=== PATIENT | male | born 1955 ===

== ENCOUNTER 2017-05-29 09:08 | Day surgery (SDC) | payer OTHER ==
[2017-05-29 09:45] VITALS: BMI 18.5
[2017-05-29] MEDS ORDERED: Lidocaine Hydrochloride 5 ML INJ ONE (12:02)
[2017-05-29] MEDS ORDERED: Propofol 10 mg/ml Inj (20 ML) ONE (12:02)
[2017-05-29 12:58] VITALS: RESP 16
[2017-05-29 13:38] VITALS: BP 135/60; PULSE 70; TEMP 99.6; O2SAT 100
== END 2017-05-29 14:05 | disposition home or self-care (01) ==
LOC: C.ENDO 09:08
PROVIDERS: ATTEND Internal Medicine Gastroenterology
DX: D12.7 Benign neoplasm of rectosigmoid junction (principal); K21.0 Gastro-esophageal reflux disease with esophagitis; K44.9 Diaphragmatic hernia without obstruction or gangrene; K64.8 Other hemorrhoids; K57.90 Diverticulosis of intestine, part unspecified, without perforation or abscess without bleeding
CPT/HCPCS: 43239; 45388; 88305; 88312; 88313; 88342; J2704

== ENCOUNTER 2018-06-01 14:01 | Emergency (ER) | payer OTHER ==
[2018-06-01 14:01] VITALS: BMI 18.5
[2018-06-01 14:17] VITALS: BP 157/82; PULSE 102; RESP 20; TEMP 98.5; O2SAT 97
[2018-06-01] MEDS ORDERED: Dexamethasone 4 mg/1 ml IM STA (15:02)
[2018-06-01] MEDS ORDERED: Dexamethasone 4 mg/1 ml ONE (15:15)
--- NOTE | 2018-06-01 15:49 | C.PDOC ---
History Of Present Illness Patient is a 63 year old female, with a PMHx diabetes, who presents to the ED c/o severe throat pain for the past week. Patient states that she went to the clinic 2 days ago and was prescribed antibiotics. She states that she still has pain. Denies drooling, chest pain, SOB. Time Seen by Provider: 06/01/18 14:20 Chief Complaint (Nursing): ENT Problem History Per: Patient History/Exam Limitations: None Onset/Duration Of Symptoms: Days (one week) Current Symptoms Are (Timing): Still Present Symptoms Have Been: Continuous Pain Scale Rating Of: 6 Past Medical History Reviewed: Historical Data, Nursing Documentation, Vital Signs Vital Signs: Last Vital Signs Temp 98.5 F 06/01/18 14:15 Pulse 102 H 06/01/18 14:15 Resp 20 06/01/18 14:15 BP 157/82 H 06/01/18 14:15 Pulse Ox 97 06/01/18 14:15 - Medical History PMH: Gastritis, HTN, Hypercholesterolemia Denies: Colonic Polyps, Fractures, Seizures, Sleep Apnea, TIA Surgical History: Endoscopy Family History: States: No Known Family Hx - Social History Hx Alcohol Use: No Hx Substance Use: No - Immunization History Hx Tetanus Toxoid Vaccination: No Hx Influenza Vaccination: Yes Hx Pneumococcal Vaccination: Yes Review Of Systems Except As Marked, All Systems Reviewed And Found Negative. ENT: Positive for: Throat Pain (severe) Physical Exam - Physical Exam Appears: Non-toxic, No Acute Distress Skin: Normal Color, Warm, Dry, No Rash Head: Atraumatic, Normacephalic Eye(s): bilateral: Normal Inspection, PERRL, EOMI Ear(s): Bilateral: Normal Oral Mucosa: Moist Tongue: Normal Appearing Throat: No Erythema, Other (mildly injected) Neck: Normal ROM, Supple Chest: Symmetrical, No Tenderness Cardiovascular: Rhythm Regular, No Friction Rub, No Murmur Respiratory: Normal Breath Sounds, No Rales, No Rhonchi, No Stridor, No Wheezing Gastrointestinal/Abdominal: Soft, No Tenderness Back: Normal Inspection, No CVA Tenderness Extremity: Normal ROM, No Swelling Neurological/Psych: Oriented x3, Normal Speech, Normal Motor Gait: Steady ED Course And Treatment O2 Sat by Pulse Oximetry: 97 (on RA) Pulse Ox Interpretation: Normal Medical Decision Making Medical Decision Making: Plan: Decadron 8mg IM Toradol 30mg IM On re-exam, the patient reports improvement of symptoms. Lungs are CTA, heart is RRR, abdomen is soft, non-tender and tolerating PO well. Airway is patent. Pt is ambulatory in the ED with steady gait. Follow up with the medical doctor within 1-2 days. Return if worsened. Disposition - Disposition Referrals: [facility] [Outside] [facility] [Outside] Disposition: HOME/ ROUTINE Disposition Time: 15:45 Condition: GOOD Additional Instructions: Follow up with the medical doctor within 1-2 days. Return if worsened. Prescriptions: Ibuprofen [Motrin] 1 tab PO TID PRN #30 tab PRN Reason: Pain Instructions: Sore Throat, Adult (DC) Forms: [employer] (Yoruba) Print Language: MONGOLIAN - Clinical Impression Clinical Impression: Pharyngitis - PA / ENVIRONMENTAL STUDIES DEPARTMENT CHAIR / Resident Statement MD/DO has examined the patient and agrees with the treatment plan. - Scribe Statement The provider has reviewed the documentation as recorded by the Steve Mcleod All medical record entries made by the Shirleneibshelby were at my direction and personally dictated by me. I have reviewed the chart and agree that the record accurately reflects my personal performance of the history, physical exam, medical decision making, and the department course for this patient. I have also personally directed, reviewed, and agree with the discharge instructions and disposition.
== END 2018-06-01 15:59 | disposition home or self-care (01) ==
LOC: C.ER 14:01
DX: J02.9 Acute pharyngitis, unspecified (principal)
CPT/HCPCS: 96372; 99284; J1100; J1885

== ENCOUNTER 2018-06-04 10:16 | Inpatient (IN) | payer OTHER ==
[2018-06-04 10:26] VITALS: BMI 18.1
[2018-06-04] MEDS ORDERED: Dextrose 5%/0.9% NS 1,000 ML IV STA (12:31)
--- NOTE | 2018-06-04 12:49 | RAD ---
HISTORY: dysphagia COMPARISON: None available. TECHNIQUE: Chest, one view. FINDINGS: LUNGS: No focal consolidation. Please note that chest x-ray has limited sensitivity for the detection of pulmonary masses. PLEURA: Mild right pleural effusion or thickening. No definite pneumothorax . CARDIOVASCULAR: Heart size appears within normal limits. Atherosclerotic calcifications present. OSSEOUS STRUCTURES: Degenerative changes. VISUALIZED UPPER ABDOMEN: Mild elevation right hemidiaphragm. OTHER FINDINGS: None. IMPRESSION: Mild right pleural effusion or thickening. Elevation of the right hemidiaphragm.
[2018-06-04] MEDS ORDERED: Dextrose 5%/0.9% NS 1,000 ML IV ONE (13:31)
[2018-06-04 14:07] LABS: BASO % 0.2 % (0.0-2.0); EOS % 0.3 % (0.0-4.0); HEMOGLOBIN 14.6 g/dL (11.0-16.0); LYMPH # 1.6 K/uL (1.0-4.3); LYMPH % 8.5 % (20.0-40.0); MEAN CELL VOLUME 83.8 fL (81.0-99.0); MEAN CORPUSCULAR HGB CONC 34.6 g/dL (33.0-37.0); MEAN PLATELET VOLUME 7.6 fL (7.2-11.7); MONO # 1.3 K/uL (0.0-0.8); MONO % 7.4 % (0.0-10.0); NEUT # 15.2 K/uL (1.8-7.0); NEUT % 83.6 % (50.0-75.0); PLATELET COUNT 457 K/uL (130-400); RBC 5.04 Mil/uL (3.80-5.20); RED CELL DISTRIBUTION WIDTH 12.7 % (11.5-14.5); WHITE BLOOD COUNT 18.2 K/uL (4.8-10.8)
[2018-06-04 14:14] LABS: SQUAMOUS EPITHIAL < 1 /hpf (0-5); URINE BILIRUBIN NEGATIVE (NEGATIVE); URINE BLOOD 1+ (NEGATIVE); URINE CLARITY Clear (Clear); URINE COLOR Yellow (YELLOW); URINE GLUCOSE (UA) NORMAL (Normal); URINE LEUKOCYTE ESTERASE NEG Leu/uL (Negative); URINE PROTEIN NEGATIVE (NEGATIVE); URINE UROBILINOGEN NORMAL mg/dL (0.2-1.0)
[2018-06-04 14:48] LABS: ALB/GLOB RATIO 1.3 (1.0-2.1); ALBUMIN 4.4 g/dL (3.5-5.0); ALT/SGPT 18 U/L (9-52); AMYLASE 63 U/L (30-110); AST/SGOT 23 U/L (14-36); BLOOD UREA NITROGEN 12 mg/dL (7-17); CALCIUM 9.1 mg/dl (8.6-10.4); GFR NON-AFRICAN AMERICAN > 60
[2018-06-04 14:52] LABS: BANDS 1 % (0-2); LYMPHOCYTE 8 % (20-40); MONOCYTE 5 % (0-10); NEUTROPHIL 86 % (50-75); PLATELET ESTIMATE SLIGHTLY INCREASED (NORMAL); TOTAL CELLS COUNTED 100
--- NOTE | 2018-06-04 15:30 | C.PDOC ---
History Of Present Illness 63 y/o female presents to the ER complaining of throat pain and difficulty swallowing which has been present for the past 8-10 days. Patient states that she feels foreign body sensation in her throat.Patient notes that she can't swal low solids. She tried to swallow water but she "choked." She notes that she was evaluated for similar complaint in [place] [facility] on 06/01/18 and she was discharged with abx. However, she states that has not taken the abx because she has difficulty swallowing.Patient is also complaining of subjective fever, generalized weakness ,and weight loss. Denies having CP,SOB,nausea, vomiting, and abdominal pain. <Nadia Maxwell - Last Filed: 06/04/18 18:45> History Per: Patient History/Exam Limitations: no limitations Onset/Duration Of Symptoms: Days Current Symptoms Are (Timing): Still Present Severity: Moderate <Nadia Maxwell - Last Filed: 06/04/18 18:45> <Kianna Chase - Last Filed: 06/04/18 20:30> Time Seen by Provider: 06/04/18 11:03 Chief Complaint (Nursing): ENT Problem Past Medical History Reviewed: Historical Data, Nursing Documentation, Vital Signs Vital Signs: Last Vital Signs Temp 98.7 F 06/04/18 10:20 Pulse 101 H 06/04/18 10:20 Resp 18 06/04/18 10:20 BP 145/77 06/04/18 10:20 Pulse Ox 98 06/04/18 10:20 - Medical History PMH: Gastritis, HTN, Hypercholesterolemia Denies: Colonic Polyps, Fractures, Seizures, Sleep Apnea, TIA Surgical History: Endoscopy Family History: States: No Known Family Hx - Social History Hx Alcohol Use: No Hx Substance Use: No - Immunization History Hx Tetanus Toxoid Vaccination: No Hx Influenza Vaccination: Yes Hx Pneumococcal Vaccination: Yes <Nadia Maxwell - Last Filed: 06/04/18 18:45> Vital Signs: Last Vital Signs Temp 98.7 F 06/04/18 10:20 Pulse 97 H 06/04/18 20:12 Resp 22 06/04/18 20:12 BP 138/69 06/04/18 20:12 Pulse Ox 96 06/04/18 20:12 <Kianna Chase - Last Filed: 06/04/18 20:30> Review Of Systems Except As Marked, All Systems Reviewed And Found Negative. Constitutional: Positive for: Fever (subjective fever), Weakness, Weight loss ENT: Positive for: Throat Pain Gastrointestinal: Negative for: Nausea, Vomiting, Abdominal Pain <Nadia Maxwell - Last Filed: 06/04/18 18:45> Physical Exam - Physical Exam Appears: Non-toxic, No Acute Distress, Chronically Ill, Other (hoarse voice) Skin: Normal Color, Warm, Dry Head: Atraumatic, Normacephalic Eye(s): bilateral: Normal Inspection Nose: Normal Oral Mucosa: Moist Tongue: Normal Appearing, No Lesions Lips: Normal Appearing, No Swelling, No Contusion Gingiva: Normal Appearing Throat: No Erythema, No Exudate, No Drooling, Other (hoarse voice) Neck: Normal ROM, Supple Chest: Symmetrical Cardiovascular: Rhythm Regular Respiratory: Normal Breath Sounds, No Rales, No Rhonchi, No Wheezing Gastrointestinal/Abdominal: Normal Exam, Soft, No Tenderness, No Guarding, No R ebound Extremity: Normal ROM, No Tenderness Neurological/Psych: Oriented x3, Normal Speech, Normal Cognition, Normal Motor, Normal Sensation <Nadia Maxwell - Last Filed: 06/04/18 18:45> ED Course And Treatment - Laboratory Results Result Diagrams: 06/04/18 14:01 06/04/18 14:01 Lab Results: Total Bilirubin 0.8 mg/dL (0.2-1.3) 06/04/18 14:01 AST 23 U/L (14-36) 06/04/18 14:01 ALT 18 U/L (9-52) 06/04/18 14:01 Alkaline Phosphatase 100 U/L (38-126) 06/04/18 14:01 Total Protein 7.7 g/dL (6.3-8.3) 06/04/18 14:01 Albumin 4.4 g/dL (3.5-5.0) 06/04/18 14:01 Globulin 3.3 gm/dL (2.2-3.9) 06/04/18 14:01 Albumin/Globulin Ratio 1.3 (1.0-2.1) 06/04/18 14:01 Amylase 63 U/L (30-110) 06/04/18 14:01 Urine Color Yellow (YELLOW) 06/04/18 14:01 Urine Clarity Clear (Clear) 06/04/18 14:01 Urine pH 7.0 (5.0-8.0) 06/04/18 14:01 Ur Specific [place] 1.011 (1.003-1.030) 06/04/18 14:01 Urine Protein Negative mg/dL (NEGATIVE) 06/04/18 14:01 Urine Glucose (UA) Normal mg/dL (Normal) 06/04/18 14:01 Urine Ketones 1+ mg/dL (NEGATIVE) H 06/04/18 14:01 Urine Blood 1+ (NEGATIVE) H 06/04/18 14:01 Urine Nitrate Negative (NEGATIVE) 06/04/18 14:01 Urine Bilirubin Negative (NEGATIVE) 06/04/18 14:01 Urine Urobilinogen Normal mg/dL (0.2-1.0) 06/04/18 14:01 Ur Leukocyte Esterase Neg Clair/uL (Negative) 06/04/18 14:01 Urine WBC (Auto) 2 /hpf (0-5) 06/04/18 14:01 Urine RBC (Auto) 8 /hpf (0-3) H 06/04/18 14:01 Ur Squamous Epith Cells < 1 /hpf (0-5) 06/04/18 14:01 ECG: Interpreted By Me, Viewed By Me ECG Rhythm: Sinus Rhythm Interpretation Of ECG: NSR with non specific ST/T wave changes Rate From EC O2 Sat by Pulse Oximetry: 98 (RA) Pulse Ox Interpretation: Normal - Other Rad CXR X-Ray: Viewed By Me, Read By Radiologist Interpretation: HISTORY: dysphagia. COMPARISON: None available. TECHNIQUE: Chest, one view. FINDINGS: LUNGS: No focal consolidation. Please note that chest x-ray has limited sensitivity for the detection of pulmonary masses. PLEURA: Mild right pleural effusion or thickening. No definite pneumothorax . CARDIOVASCULAR: Heart size appears within normal limits. Atherosclerotic calcifications present. OSSEOUS STRUCTURES: Degenerative changes. VISUALIZED UPPER ABDOMEN: Mild elevation right hemidiaphragm. OTHER FINDINGS: None. IMPRESSION: Mild right pleural effusion or thickening. Elevation of the right hemidiaphragm. - CT Scan/US CT-Head Other Rad Studies (CT/US): Read By Radiologist, Radiology Report Reviewed CT/US Interpretation: Date of service: 06/04/2018. PROCEDURE: CT HEAD WITHOUT CONTRAST. HISTORY: dysphagia. COMPARISON: None available. TECHNIQUE: Axial computed tomography images were obtained through the head/brain without intravenous contrast. Radiation dose: Total exam DLP = 855.39 mGy-cm. This CT exam was performed using one or more of the following dose reduction techniques: Automated exposure control, adjustment of the mA and/or kV according to patient size, and/or use of iterative reconstruction technique. FINDINGS: HEMORRHAGE: No intracranial hemorrhage. BRAIN: No mass effect or edema. Bilateral basal ganglia calcifications. The ernst-white matter differentiation appears intact. Please note that MRI with diffusion imaging is more sensitive in the detection of acute ischemic event. VENTRICLES: No hydrocephalus. CALVARIUM: Unremarkable. PARANASAL SINUSES: Unremarkable as visualized. No significant inflammatory changes. MASTOID AIR CELLS: Unremarkable as visualized. No inflammatory changes. OTHER FINDINGS: None. IMPRESSION: No acute intracranial pathology identified. CT chest Other Rad Studies (CT/US): Read By Radiologist, Radiology Report Reviewed CT/US Interpretation: Date of service: 06/04/2018. CT chest with IV contrast. Indication: dysphagia, weight loss. Technique: Contiguous axial images were obtained through the chest with intravenous contrast enhancement. Sagittal and coronal reconstructions were generated and reviewed. This CT exam was performed using 1 or more of the following dose reduction techniques: Automated exposure control, adjustment of the MAA and/or kV according to patient size, and/or use of iterative reconstruction technique. IV contrast: 60 mL Visipaque 320 IV. . Radiation dose (DLP): 212.53 MGy-cm. Comparison: Chest x-ray performed 06/04/18. Findings: Visualized portions of the inferior thyroid gland appear unremarkable. The mediastinal and hilar vascular structures appear within normal limits. The heart appears within normal limits of size. Gastroesophageal reflux. No focal consolidation. No pleural effusion. No pneumothorax. Mild tree-in-bud like opacities within the inferior right upper lobe and right lower lobe; infectious/inflammatory etiologies favored. Limited visualization of the included upper abdomen demonstrates nodular hypertrophy of the left adrenal gland, indeterminate. Hepatic steatosis. Scattered diverticula. 7 mm coarse calcifications within the right breast. Degenerative changes of the spine. Impression: Mild tree-in-bud like opacities within the inferior right upper lobe and right lower lobe; infectious/inflammatory etiologies favored. Limited visualization of the included upper abdomen demonstrates nodular hypertrophy of the left adrenal gland, indeterminate. Further evaluation with adrenal gland MRI suggested if indicated. Hepatic steatosis. Scattered diverticula. Gastroesophageal reflux. CT soft tissue neck Other Rad Studies (CT/US): Read By Radiologist, Radiology Report Reviewed CT/US Interpretation: Accession No. : [id number]. Patient Name / ID : BETZAIDA CUMMINGS / [id number]. Exam Date : 06/04/2018 16:44:11 ( Approved ). Study Comment : Sex / Age : F / 63Y. Creator : Bc Todd Dictator : Loco Ribeiro MD. Home School Teacher : Laundry Routeman : Loco Ribeiro MD. Approver2 : Report Date : 06/04/2018 17:05:04. My Comment : . Date of service: 06/04/2018. PROCEDURE: CT NECK WITH CONTRAST. HISTORY: dysphagia, weight loss. COMPARISON: None available. TECHNIQUE: CT of the neck with intravenous contrast. Coronal and sagittal reformats generated. Intravenous contrast dose: 37 cc Visipaque 320. Radiation dose: Total exam DLP = 320.66 mGy-cm. This CT exam was performed using one or more of the following dose reduction techniques: Automated exposure control, adjustment of the mA and/or kV according to patient size, and/or use of iterative reconstruction technique. FINDINGS: NASOPHARYNX: Unremarkable. SUPRAHYOID NECK: Unremarkable oropharynx, oral cavity, parapharyngeal space and retropharyngeal space. INFRAHYOID NECK: Unremarkable larynx, hypopharynx, and supraglottic space. Vocal cords intact. MASS: None. GLANDS: Parotid and submandibular glands unremarkable. Normal size thyroid gland, without nodule. LYMPH NODES: Normal. No lymphadenopathy. CERVICAL SPINE: No fracture or focal lesion. VASCULAR STRUCTURES: Unremarkable. OTHER FINDINGS: Dilated esophagus as visualized. A similar finding was seen on the CT of the thorax performed June 04, 2018. IMPRESSION: No significant or acute findings to account for/ related to the clinical presentation. Additional benign and/or incidental findings described above. Progress Note: Labs, UA,EKG, and CXR ordered. CT-Head, CT-Soft Neck Tissue, and CT-Chest ordered. Patient failed swallow test. Patient has potassium levels 2.3 and Sodium level 119. Patient treated with Dextrose IV and Potassium Chloride IV. liliam ryan was d/w Hospitalist news production supervisor who sts she will accept patient to her service, but she requested ICU evaluation. was contacted. He requested to repeat CMP and based on the result patient will go to ICU or telemetry floor. <Nadia Maxwell - Last Filed: 06/04/18 18:45> - Laboratory Results Result Diagrams: 06/04/18 14:01 06/04/18 19:41 Lab Results: Total Bilirubin 0.7 mg/dL (0.2-1.3) 06/04/18 19:41 AST 19 U/L (14-36) 06/04/18 19:41 ALT 15 U/L (9-52) 06/04/18 19:41 Alkaline Phosphatase 86 U/L (38-126) 06/04/18 19:41 Total Protein 6.6 g/dL (6.3-8.3) 06/04/18 19:41 Albumin 3.7 g/dL (3.5-5.0) 06/04/18 19:41 Globulin 2.8 gm/dL (2.2-3.9) 06/04/18 19:41 Albumin/Globulin Ratio 1.3 (1.0-2.1) 06/04/18 19:41 Amylase 63 U/L (30-110) 06/04/18 14:01 Urine Color Yellow (YELLOW) 06/04/18 14:01 Urine Clarity Clear (Clear) 06/04/18 14:01 Urine pH 7.0 (5.0-8.0) 06/04/18 14:01 Ur Specific [place] 1.011 (1.003-1.030) 06/04/18 14:01 Urine Protein Negative mg/dL (NEGATIVE) 06/04/18 14:01 Urine Glucose (UA) Normal mg/dL (Normal) 06/04/18 14:01 Urine Ketones 1+ mg/dL (NEGATIVE) H 06/04/18 14:01 Urine Blood 1+ (NEGATIVE) H 06/04/18 14:01 Urine Nitrate Negative (NEGATIVE) 06/04/18 14:01 Urine Bilirubin Negative (NEGATIVE) 06/04/18 14:01 Urine Urobilinogen Normal mg/dL (0.2-1.0) 06/04/18 14:01 Ur Leukocyte Esterase Neg Clair/uL (Negative) 06/04/18 14:01 Urine WBC (Auto) 2 /hpf (0-5) 06/04/18 14:01 Urine RBC (Auto) 8 /hpf (0-3) H 06/04/18 14:01 Ur Squamous Epith Cells < 1 /hpf (0-5) 06/04/18 14:01 <Kianna Chase - Last Filed: 06/04/18 20:30> Critical Care Time - Critical Care Note Total Time (in mins): 30 Documented critical care: time excludes all time spent performing seperately billable procedures. <Kianna Chase - Last Filed: 06/04/18 20:30> Disposition - Disposition Disposition Time: 18:40 <Nadia Maxwell - Last Filed: 06/04/18 18:45> Discussed With Dr.: Jacoby Pritchett MD Comment: accepted the pt on his service and took over the care at 8:30 PM Doctor Will See Patient In The: ED Counseled Patient/Family Regarding: Studies Performed, Diagnosis <Kianna Chase - Last Filed: 06/04/18 20:30> - Disposition Disposition: HOSPITALIZED Condition: SERIOUS Forms: [facility] [employer] (Tuvaluan) - Clinical Impression Clinical Impression: Dysphagia, Hyponatremia, Hypokalemia - PA / BEEF SPLITTER / Resident Statement MD/DO has reviewed & agrees with the documentation as recorded. - Scribe Statement The provider has reviewed the documentation as recorded by the [facility] Provider Attestation All medical record entries made by the Scribe were at my direction and personally dictated by me. I have reviewed the chart and agree that the record accurately reflects my personal performance of the history, physical exam, medical decision making, and the department course for this patient. I have also personally directed, reviewed, and agree with the discharge instructions and disposition. <Nadia Maxwell - Last Filed: 03/18/19 18:45> Physician Patient Turnover Patient Signed Over To: Kianna Chase Handoff Comments: Pending repeat CMP, ICU evaluation and dipo to appropriate floor <Nadia Maxwell - Last Filed: 06/04/18 18:45> Decision To Admit <Nadia Maxwell - Last Filed: 06/04/18 18:45> - Pt Status Changed To: Hospital Disposition Of: Inpatient - Admit Certification Admit to Inpatient:: After my assessment, the patient will require hospitalization for at least two midnights. This is because of the severity of symptoms shown, intensity of services needed, and/or the medical risk in this patient being treated as an outpatient. - InPatient: Physician Admission Certification: I certify that this patient requires 2 or more midnights of care for the following reason:: After my assessment, the patient will require hospitalization for at least two midnights. This is because of the severity of symptoms shown, intensity of services needed, and/or the medical risk in this patient being treated as an outpatient. - . Bed Request Type: Telemetry Admitting Physician: Jacoby Pritchett MD <Kianna Chase - Last Filed: 06/04/18 20:30> - . Patient Diagnosis: Dysphagia, Hyponatremia, Hypokalemia
[2018-06-04] MEDS ORDERED: Iodixanol 320 MG/ML 100 ML BOTTLE IV ONE (15:32)
--- NOTE | 2018-06-04 17:01 | CT ---
Date of service: 06/04/2018 PROCEDURE: CT HEAD WITHOUT CONTRAST. HISTORY: dysphagia COMPARISON: None available. TECHNIQUE: Axial computed tomography images were obtained through the head/brain without intravenous contrast. Radiation dose: Total exam DLP = 855.39 mGy-cm. This CT exam was performed using one or more of the following dose reduction techniques: Automated exposure control, adjustment of the mA and/or kV according to patient size, and/or use of iterative reconstruction technique. FINDINGS: HEMORRHAGE: No intracranial hemorrhage. BRAIN: No mass effect or edema. Bilateral basal ganglia calcifications. The ernst-white matter differentiation appears intact. Please note that MRI with diffusion imaging is more sensitive in the detection of acute ischemic event. VENTRICLES: No hydrocephalus. CALVARIUM: Unremarkable. PARANASAL SINUSES: Unremarkable as visualized. No significant inflammatory changes. MASTOID AIR CELLS: Unremarkable as visualized. No inflammatory changes. OTHER FINDINGS: None. IMPRESSION: No acute intracranial pathology identified.
--- NOTE | 2018-06-04 17:11 | CT ---
Date of service: 06/04/2018 CT chest with IV contrast Indication: dysphagia, weight loss Technique: Contiguous axial images were obtained through the chest with intravenous contrast enhancement. Sagittal and coronal reconstructions were generated and reviewed. This CT exam was performed using 1 or more of the following dose reduction techniques: Automated exposure control, adjustment of the MAA and/or kV according to patient size, and/or use of iterative reconstruction technique. IV contrast: 60 mL Visipaque 320 IV Radiation dose (DLP): 212.53 MGy-cm. Comparison: Chest x-ray performed 06/04/18 Findings: Visualized portions of the inferior thyroid gland appear unremarkable. The mediastinal and hilar vascular structures appear within normal limits. The heart appears within normal limits of size. Gastroesophageal reflux. No focal consolidation. No pleural effusion. No pneumothorax. Mild tree-in-bud like opacities within the inferior right upper lobe and right lower lobe; infectious/inflammatory etiologies favored. Limited visualization of the included upper abdomen demonstrates nodular hypertrophy of the left adrenal gland, indeterminate. Hepatic steatosis. Scattered diverticula. 7 mm coarse calcifications within the right breast. Degenerative changes of the spine. Impression: Mild tree-in-bud like opacities within the inferior right upper lobe and right lower lobe; infectious/inflammatory etiologies favored. Limited visualization of the included upper abdomen demonstrates nodular hypertrophy of the left adrenal gland, indeterminate. Further evaluation with adrenal gland MRI suggested if indicated. Hepatic steatosis. Scattered diverticula. Gastroesophageal reflux.
--- NOTE | 2018-06-04 17:44 | CT ---
Date of service: 06/04/2018 PROCEDURE: CT NECK WITH CONTRAST HISTORY: dysphagia, weight loss COMPARISON: None available. TECHNIQUE: CT of the neck with intravenous contrast. Coronal and sagittal reformats generated. Intravenous contrast dose: 37 cc Visipaque 320 Radiation dose: Total exam DLP = 320.66 mGy-cm. This CT exam was performed using one or more of the following dose reduction techniques: Automated exposure control, adjustment of the mA and/or kV according to patient size, and/or use of iterative reconstruction technique. FINDINGS: NASOPHARYNX: Unremarkable. SUPRAHYOID NECK: Unremarkable oropharynx, oral cavity, parapharyngeal space and retropharyngeal space. INFRAHYOID NECK: Unremarkable larynx, hypopharynx, and supraglottic space. Vocal cords intact. MASS: None. GLANDS: Parotid and submandibular glands unremarkable. Normal size thyroid gland, without nodule. LYMPH NODES: Normal. No lymphadenopathy. CERVICAL SPINE: No fracture or focal lesion. VASCULAR STRUCTURES: Unremarkable. OTHER FINDINGS: Dilated esophagus as visualized. A similar finding was seen on the CT of the thorax performed June 04, 2018 IMPRESSION: No significant or acute findings to account for/ related to the clinical presentation. Additional benign and/or incidental findings described above.
[2018-06-04] MEDS ORDERED: Sodium Chloride 0.9% 1,000 ML IV STA (18:41)
[2018-06-04] MEDS ORDERED: Piperacillin/Tazobact 3.375 gm 100 ML IVPB STA (19:17)
[2018-06-04] MEDS ORDERED: Sodium Chloride 0.9% 1,000 ML ONE (19:19)
[2018-06-04 20:14] LABS: ALB/GLOB RATIO 1.3 (1.0-2.1); ALBUMIN 3.7 g/dL (3.5-5.0); ALT/SGPT 15 U/L (9-52); AST/SGOT 19 U/L (14-36); BLOOD UREA NITROGEN 7 mg/dL (7-17); CALCIUM 7.8 mg/dl (8.6-10.4); GFR NON-AFRICAN AMERICAN > 60
[2018-06-04] MEDS ORDERED: Piperacillin/Tazobact 3.375 gm 100 ML IVPB ONE (20:18)
[2018-06-04] MEDS ORDERED: Potassium Chloride 10 mEq ER Tab PO STA (20:24)
[2018-06-04] MEDS ORDERED: Potassium Chloride 20 mEq ER Tab PO ONE (20:34)
[2018-06-04] MEDS ORDERED: Magnesium Sulfate 1 gm in D5W 2 GM/200 ML BAG IVPB ONE (20:35)
[2018-06-04] MEDS: Magnesium Sulfate 1 gm in D5W 1 GM/100 ML BAG IVPB SCH ×2 (21:04→21:41)
--- NOTE | 2018-06-04 21:18 | CP.PCM.HP ---
History of Present Illness - History of Present Illness History of Present Illness: H&P for tool [facility] Dr. Pritchett 63 F w/ PMhx of HTN & HLD presents to ED following a 8 day sensation of inability to eat solids food due to obstruction. Patient states 8 days prior she lost her voice and concurrently has been unable to swallow solid foods. She states she has throat pain and additionally feels she has something obstructing her throat, causing her to avoid solid foods. Patient states she is able to tolerate liquid food without issues. Patient denies any weight loss and trauma to throat prior to symptoms starting. Patient admits to clear productive cough for the last 2-3 days. Patient denies recent illness, recent travel. ROS: Denies headaches, vision changes, nausea, vomiting, fevers, chills, chest pain, SOB, abdominal pain, diarrhea, constipation, hematuria, dysuria. Patient reports dry eyes, especially left eye without any purulent discharge that began on arrival to the hospital. PMD: Clinic PMhx: HTN, HLD Meds: Cozaar 50 mg Po daily, Simvastatin 10 mg Po HS Allergies: Pollen, Nuts PShx: SHx: denies tobacco, ETOH, illicit drug use Present on Admission - Present on Admission Any Indicators Present on Admission: No History of DVT/PE: No History of Uncontrolled Diabetes: No Urinary Catheter: No Decubitus Ulcer Present: No Review of Systems - Constitutional Constitutional: absent: Chills, Fever - EENT Eyes: absent: Blurred Vision, Change in Vision Ears: absent: Decreased Hearing, Ear Discharge Nose/Mouth/Throat: Dysphagia. absent: Nasal Trauma, Nose Pain, Mouth Pain - Cardiovascular Cardiovascular: absent: Chest Pain, Chest Pain at Rest - Respiratory Respiratory: Cough. absent: Dyspnea, Dyspnea on Exertion, Wheezing Additional comments: clear sputum - Gastrointestinal Gastrointestinal: absent: Abdominal Pain, Bloating, Constipation, Diarrhea - Genitourinary Genitourinary: absent: Change in Urinary Stream, Difficulty Urinating - Musculoskeletal Musculoskeletal: absent: Arthralgias, Muscle Weakness - Neurological Neurological: absent: Dizziness, Headaches - Psychiatric Psychiatric: absent: Confusion, Depression - Endocrine Endocrine: absent: Deepening of Voice Past Patient History - Past Medical History & Family History Past Medical History?: Yes - Past Social History Smoking Status: Never Smoked - CARDIAC Hx Hypercholesterolemia: Yes Hx Hypertension: Yes - PULMONARY Hx Sleep Apnea: No - NEUROLOGICAL Hx Seizures: No Hx Transient Ischemic Attacks (TIA): No - HEMATOLOGICAL/ONCOLOGICAL Hx Blood Transfusions: No - MUSCULOSKELETAL/RHEUMATOLOGICAL Hx Fractures: No - GASTROINTESTINAL Hx Gastritis: Yes - PSYCHIATRIC Hx Substance Use: No - SURGICAL HISTORY Hx Surgeries: Yes Hx Section: Yes (X1) - ANESTHESIA Hx Anesthesia: Yes Hx Anesthesia Reactions: No Hx Malignant Hyperthermia: No Meds Allergies/Adverse Reactions: Allergies Allergy/AdvReac Type Severity Reaction Status Date / Time TREES Allergy Intermediate CONGESTION Uncoded 06/04/18 10:25 Physical Exam - Constitutional Appears: Non-toxic, No Acute Distress - Head Exam Head Exam: NORMAL INSPECTION, NORMOCEPHALIC - Eye Exam Eye Exam: EOMI, Normal appearance Pupil Exam: NORMAL ACCOMODATION - ENT Exam ENT Exam: Mucous Membranes Dry, TM's Normal Bilaterally Additional comments: no erythema in throat noted neck supple, no tenderness - Neck Exam Neck exam: Positive for: Full Rom, Normal Inspection. Negative for: Tenderness, Thyromegaly - Respiratory Exam Respiratory Exam: Rales, NORMAL BREATHING PATTERN. absent: Rhonchi, Wheezes Additional comments: R side - Cardiovascular Exam Cardiovascular Exam: +S1, +S2. absent: Systolic Murmur - GI/Abdominal Exam GI & Abdominal Exam: Normal Bowel Sounds, Soft. absent: Distended, Firm - Extremities Exam Extremities exam: Positive for: full ROM, normal inspection. Negative for: calf tenderness, pedal edema - Back Exam Back exam: absent: CVA tenderness (L), CVA tenderness (R) - Neurological Exam Neurological exam: Alert, CN II-XII Intact, Oriented x3 - Psychiatric Exam Psychiatric exam: Normal Affect, Normal Mood - Skin Skin Exam: Dry, Intact, Normal Color, Warm Results - Vital Signs Recent Vital Signs: Last Vital Signs Temp 98.7 F 06/04/18 10:20 Pulse 97 H 06/04/18 20:12 Resp 22 06/04/18 20:12 BP 138/69 06/04/18 20:12 Pulse Ox 96 06/04/18 20:12 - Labs Result Diagrams: 06/04/18 14:01 06/04/18 19:41 Labs: Laboratory Results - last 24 hr 06/04/18 06/04/18 06/04/18 10:24 14:01 14:01 WBC 18.2 H D RBC 5.04 Hgb 14.6 Hct 42.3 MCV 83.8 MCH 29.0 MCHC 34.6 RDW 12.7 Plt Count 457 H MPV 7.6 Neut % (Auto) 83.6 H Lymph % (Auto) 8.5 L [place] % (Auto) 7.4 Eos % (Auto) 0.3 Baso % (Auto) 0.2 Neut # (Auto) 15.2 H Lymph # (Auto) 1.6 [place] # (Auto) 1.3 H Eos # (Auto) 0.0 Baso # (Auto) 0.0 Neutrophils % (Manual) 86 H Band Neutrophils % 1 Lymphocytes % (Manual) 8 L Monocytes % (Manual) 5 Platelet Estimate Slightly increased H RBC Morphology Normal Sodium 119 L* Potassium 2.3 L* D Chloride 74 L D Carbon Dioxide 31 H Anion Gap 16 BUN 12 Creatinine 0.4 L Est GFR ( Amer) > 60 Est GFR (Non-Af Amer) > 60 POC Glucose (mg/dL) 138 H Random Glucose 116 H Calcium 9.1 Magnesium 2.4 H Total Bilirubin 0.8 AST 23 ALT 18 Alkaline Phosphatase 100 Total Creatine Kinase 35 Total Protein 7.7 Albumin 4.4 Globulin 3.3 Albumin/Globulin Ratio 1.3 Amylase 63 Urine Color Urine Clarity Urine pH Ur Specific [place] Urine Protein Urine Glucose (UA) Urine Ketones Urine Blood Urine Nitrate Urine Bilirubin Urine Urobilinogen Ur Leukocyte Esterase Urine WBC (Auto) Urine RBC (Auto) Ur Squamous Epith Cells 06/04/18 06/04/18 14:01 19:41 WBC RBC Hgb Hct MCV MCH MCHC RDW Plt Count MPV Neut % (Auto) Lymph % (Auto) [place] % (Auto) Eos % (Auto) Baso % (Auto) Neut # (Auto) Lymph # (Auto) [place] # (Auto) Eos # (Auto) Baso # (Auto) Neutrophils % (Manual) Band Neutrophils % Lymphocytes % (Manual) Monocytes % (Manual) Platelet Estimate RBC Morphology Sodium 122 L Potassium 2.2 L* Chloride 83 L Carbon Dioxide 30 Anion Gap 11 BUN 7 Creatinine 0.3 L Est GFR ( Amer) > 60 Est GFR (Non-Af Amer) > 60 POC Glucose (mg/dL) Random Glucose 107 H Calcium 7.8 L Magnesium Total Bilirubin 0.7 AST 19 ALT 15 Alkaline Phosphatase 86 Total Creatine Kinase Total Protein 6.6 Albumin 3.7 Globulin 2.8 Albumin/Globulin Ratio 1.3 Amylase Urine Color Yellow Urine Clarity Clear Urine pH 7.0 Ur Specific [place] 1.011 Urine Protein Negative Urine Glucose (UA) Normal Urine Ketones 1+ H Urine Blood 1+ H Urine Nitrate Negative Urine Bilirubin Negative Urine Urobilinogen Normal Ur Leukocyte Esterase Neg Urine WBC (Auto) 2 Urine RBC (Auto) 8 H Ur Squamous Epith Cells < 1 Assessment & Plan - Assessment and Plan (Free Text) Assessment: 63 F w/ PMhx of HTN, HLD presents w/ acute dysphasia for 8 days Plan: Dysphagia, Acute - Will consider Stricture vs Malignancy - Neck CT: no significant or acute findings - NPO except medications - F/u GI consult - swallow eval - barrium swallow pending swallow eval Hyponatremia - likely secondary due to poor PO intact - responsive to bolus - Na 119 - > 122 - NS w/ 40 meq KCl @ 150 cc/hr - will chest BMP @ midnight - goal of less than 10 meq correction in 24 hr - F/u urine osm, urine Na, urine Cl, TSH - Finding on CT chest: nodular hypertrophy of left adrenal gland - will consider adrenal casue pending repeat lab work Hypokalemia - likely secondary to poor PO intact - F/u BMP @ midnight - NS w/ 40 meq KCl @ 150 cc/hr Pleural effusion - Cxr: pleural effusion - CT chest: infecious etiologiy preferred - WBC 18s - will consider CAP vs aspiration pneumonia 2/2 to dysphagia - F/u procalcitotonin, blood, urine cultures, UA History of HTN - c/w home medication cozaar 50 mg PO daily History of HLD - c/w home medication simvistatin 10 mg PO HS PPx - DVT: heparin 5000 units Q8, SCDS - GI: protonix 40 mg IVP daily
[2018-06-04] MEDS ORDERED: guaiFENesin 100 mg/5 ml Syrup UD PO PRN (22:30)
[2018-06-04] MEDS: Tetrahydrozoline Opht 0.05% Sol (15 ml) OU SCH (23:15)
[2018-06-05 01:39] LABS: BLOOD UREA NITROGEN 5 mg/dL (7-17); CALCIUM 7.4 mg/dl (8.6-10.4); GFR NON-AFRICAN AMERICAN > 60
[2018-06-05 02:49] LABS: URINE BILIRUBIN NEGATIVE (NEGATIVE); URINE CLARITY Clear (Clear); URINE COLOR Straw (YELLOW); URINE GLUCOSE (UA) NORMAL (Normal); URINE LEUKOCYTE ESTERASE NEG Leu/uL (Negative); URINE PROTEIN NEGATIVE (NEGATIVE); URINE UROBILINOGEN NORMAL mg/dL (0.2-1.0)
[2018-06-05 02:51] LABS: URINE BLOOD TRACE (NEGATIVE)
[2018-06-05 03:12] LABS: OSMOLALITY,URINE 254 mosm/kg (300-1000)
[2018-06-05 07:04] LABS: BASO # 0.1 K/uL (0.0-0.2); BASO % 0.5 % (0.0-2.0); EOS # 0.1 K/uL (0.0-0.7); EOS % 0.7 % (0.0-4.0); HEMOGLOBIN 13.9 g/dL (11.0-16.0); LYMPH # 1.5 K/uL (1.0-4.3); LYMPH % 9.9 % (20.0-40.0); MEAN CELL VOLUME 84.2 fL (81.0-99.0); MEAN CORPUSCULAR HEMOGLOBIN 28.7 pg (27.0-31.0); MEAN CORPUSCULAR HGB CONC 34.1 g/dL (33.0-37.0); MEAN PLATELET VOLUME 7.4 fL (7.2-11.7); MONO # 1.3 K/uL (0.0-0.8); MONO % 8.8 % (0.0-10.0); NEUT # 11.7 K/uL (1.8-7.0); NEUT % 80.1 % (50.0-75.0); NRBC % 0.1 % (0.0-2.0); PLATELET COUNT 489 K/uL (130-400); RBC 4.85 Mil/uL (3.80-5.20); RED CELL DISTRIBUTION WIDTH 12.6 % (11.5-14.5); WHITE BLOOD COUNT 14.7 K/uL (4.8-10.8)
[2018-06-05 08:09] LABS: ALB/GLOB RATIO 1.2 (1.0-2.1); ALBUMIN 3.5 g/dL (3.5-5.0); ALT/SGPT 21 U/L (9-52); AST/SGOT 19 U/L (14-36); BLOOD UREA NITROGEN 6 mg/dL (7-17); CALCIUM 7.7 mg/dl (8.6-10.4); GFR NON-AFRICAN AMERICAN > 60
[2018-06-05] MEDS ORDERED: Azithromycin 500 MG in Sodium Chloride 0.9% 250 ML IVPB SCH (10:00)
[2018-06-05] MEDS ORDERED: Lactobacillus Acidophilus 500 MU Cap PO SCH (10:00)
[2018-06-05] MEDS ORDERED: Potassium Chl 40 mEq in D5-1/2 1,000 ML IV SCH (10:30)
[2018-06-05 10:35] LABS: EOSINOPHIL 1 % (0-4); LYMPHOCYTE 9 % (20-40); MONOCYTE 8 % (0-10); NEUTROPHIL 82 % (50-75); PLATELET ESTIMATE SLIGHTLY INCREASED (NORMAL); TOTAL CELLS COUNTED 100
[2018-06-05] MEDS: Tetrahydrozoline Opht 0.05% Sol (15 ml) OU SCH ×2 (10:46→18:00)
[2018-06-05] MEDS ORDERED: Potassium Phosphate 15 MMOLE in Sodium Chloride 0.9% 250 ML IV ONE (10:53)
[2018-06-05 10:56] LABS: FREE T4 1.67 ng/dL (0.78-2.19)
[2018-06-05] MEDS: Piperacillin/Tazobact 3.375 GM in Sodium Chloride 100 ML IVPB SCH ×3 (12:05→22:53)
--- NOTE | 2018-06-05 13:07 | CP.PCM.PN ---
<Gus Caballero - Last Filed: 06/05/18 17:23> Subjective - Date & Time of Evaluation Date of Evaluation: 06/05/18 Time of Evaluation: 13:05 - Subjective Subjective: HOSPITALIST SERVICE Pt s/e at bedside, pt reports persistent voice hoarseness, however was able to swallow her PO meds without problem, pt denies any emesis, cough, throat pain, CP SOB FC NV. Agrees to be seen for laryngoscopy today with ENT. Objective - Vital Signs/Intake and Output Vital Signs (last 24 hours): Temp Pulse Resp BP Pulse Ox 97.9 F 98 H 20 134/77 95 06/05/18 07:00 06/05/18 07:00 06/05/18 07:00 06/05/18 07:00 06/05/18 07:00 Intake and Output: 06/05/18 06/05/18 06:59 18:59 Intake Total 2100 Output Total 800 Balance 1300 - Medications Medications: Current Medications Guaifenesin (Robitussin) 100 mg PO Q4H PRN PRN Reason: Cough Potassium Phosphate 15 mmole/ (Sodium Chloride) 255 mls @ 63 mls/hr IV ONCE ONE Stop: 06/05/18 14:51 Piperacillin Sod/Tazobactam (Sod 3.375 gm/ Sodium Chloride) 100 mls @ 200 mls/hr IVPB Q6H [facility]; Protocol Last Admin: 06/05/18 12:05 Dose: 200 mls/hr Dextrose (Dextrose 5% In Water) 1,000 mls @ 500 mls/hr IV .Q2H JUILO Stop: 06/05/18 14:29 Last Admin: 06/05/18 12:59 Dose: 500 mls/hr Lactobacillus Acidophilus (Lactobacillus) 1 cap PO BID JULIO Last Admin: 06/05/18 10:47 Dose: 1 cap Losartan Potassium (Cozaar) 50 mg PO DAILY JULIO Last Admin: 06/05/18 10:46 Dose: 50 mg Pantoprazole Sodium (Protonix Inj) 40 mg IVP DAILY JULIO Last Admin: 06/05/18 10:47 Dose: 40 mg Rosuvastatin Calcium (Crestor) 2.5 mg PO HS [facility] Tetrahydrozoline HCl/Zinc Sulfate (Visine 0.05% Opht Soln) 0.05 ml OU BID JULIO Last Admin: 06/05/18 10:46 Dose: 1 applic - Labs Labs: 06/05/18 06:58 06/05/18 06:58 - Additional Findings Additional findings: - Constitutional Appears: Non-toxic, No Acute Distress - Head Exam Head Exam: NORMAL INSPECTION, NORMOCEPHALIC - Eye Exam Eye Exam: EOMI, Normal appearance Pupil Exam: NORMAL ACCOMODATION - ENT Exam ENT Exam: Mucous Membranes Dry, TM's Normal Bilaterally Additional comments: no erythema in throat noted neck supple, no tenderness voice hoarse - Neck Exam Neck exam: Positive for: Full Rom, Normal Inspection. Negative for: Tenderness, Thyromegaly - Respiratory Exam Respiratory Exam: Rales, NORMAL BREATHING PATTERN. absent: Rhonchi, Wheezes Additional comments: R side - Cardiovascular Exam Cardiovascular Exam: +S1, +S2. absent: Systolic Murmur - GI/Abdominal Exam GI & Abdominal Exam: Normal Bowel Sounds, Soft. absent: Distended, Firm - Extremities Exam Extremities exam: Positive for: full ROM, normal inspection. Negative for: calf tenderness, pedal edema - Back Exam Back exam: absent: CVA tenderness (L), CVA tenderness (R) - Neurological Exam Neurological exam: Alert, CN II-XII Intact, Oriented x3 - Psychiatric Exam Psychiatric exam: Normal Affect, Normal Mood - Skin Skin Exam: Dry, Intact, Normal Color, Warm Assessment and Plan - Assessment and Plan (Free Text) Assessment: 63 F w/ PMhx of HTN, HLD presents w/ acute dysphasia for 9 days Plan: Dysphagia, Acute - Will consider Stricture vs Malignancy - Neck CT: no significant or acute findings - NPO except medications - ENT Dr Walden consulted: bedside laryngoscope shows R voical cord hypokinesis- direct laryngoscopy with biopsy planned for monday - F/u GI consult Severo: For EGD tmrw AM NPO - swallow evalindicates aspiration precautions and barrium swallow needed Hyponatremia - likely secondary due to poor PO intact - responsive to IVF - Na 119 - > 122->129 - Nephro Dr Grace Consulted f/u recs - goal of less than 10 meq correction in 24 hr - 280 urine osm, 66 urine Na, f/u urine Cl, - TSH 0.19 - Finding on CT chest: nodular hypertrophy of left adrenal gland - will consider adrenal casue pending repeat lab work Hypokalemia - 3.5 - additional k-phos 15mmoles given IV Pleural effusion - Cxr: pleural effusion - CT chest: infecious etiologiy preferred - WBC 18s - will consider CAP vs aspiration pneumonia 2/2 to dysphagia - F/u procalcitotonin, blood, urine cultures History of HTN - Hold home medication cozaar 50 mg PO daily History of HLD - hold home medication simvistatin 10 mg PO HS PPx - DVT: holding heparin, SCDS - GI: protonix 40 mg IVP daily <Amita Painter V - Last Filed: 06/06/18 03:15> Objective - Vital Signs/Intake and Output Vital Signs (last 24 hours): Temp Pulse Resp BP Pulse Ox 98 F 90 20 134/69 96 06/05/18 23:00 06/05/18 23:30 06/05/18 23:00 06/05/18 23:00 06/05/18 23:00 Intake and Output: 06/05/18 06/06/18 18:59 06:59 Intake Total 1200 250 Output Total 0 Balance 1200 250 - Medications Medications: Current Medications Guaifenesin (Robitussin) 100 mg PO Q4H PRN PRN Reason: Cough Piperacillin Sod/Tazobactam (Sod 3.375 gm/ Sodium Chloride) 100 mls @ 200 mls/hr IVPB Q6H [facility]; Protocol Last Admin: 06/05/18 22:53 Dose: 200 mls/hr Lactobacillus Acidophilus (Lactobacillus) 1 cap PO BID [facility] Last Admin: 06/05/18 10:47 Dose: 1 cap Losartan Potassium (Cozaar) 50 mg PO DAILY [facility] Last Admin: 06/05/18 10:46 Dose: 50 mg Pantoprazole Sodium (Protonix Inj) 40 mg IVP DAILY [facility] Last Admin: 06/05/18 10:47 Dose: 40 mg Rosuvastatin Calcium (Crestor) 2.5 mg PO HS [facility] Tetrahydrozoline HCl/Zinc Sulfate (Visine 0.05% Opht Soln) 0.05 ml OU BID [facility] Last Admin: 06/05/18 18:00 Dose: 1 applic - Labs Labs: 06/05/18 06:58 06/05/18 20:03 PT 12.9 SECONDS (9.7-12.2) H 03/19/19 13:51 INR 1.2 06/05/18 13:51 APTT 34 SECONDS (21-34) 06/05/18 13:51 Attending/Attestation - Attestation I have personally seen and examined this patient.: Yes I have fully participated in the care of the patient.: Yes I have reviewed all pertinent clinical information, including history, physical exam and plan: Yes Notes (Text): This is late computer entry for 06/05/17. Patient seen, examined and case discussed with day-time resident. Patient reports she takes hydocholorhthiazide at home and reports voice has been raspy for about 4 days. GI, ENT, and nephrology on board. Swallow eval noted for aspiration suggested for ENT for hoarsenes Discussed with ENT, patient has right vocal cord paralysis and pooling secretions over the right side, will scheduled for larynoscopy, direct and possible biopsy for 06/08/18. Discussed with Dr. Elkins, recommends for patient to be NPO for Endoscopy for tomorrow, 06/06/18 Patient ordered for subsequent BMP to monitor potassium if requires further repletion. Assessment/Plan 1.Dysphagia, Acute Assessment/Plan * Ent on case help appreciated * Discussed with ENT, patient has right vocal cord paralysis and pooling secretions over the right side, will scheduled for larynoscopy, direct and possible biopsy for 06/08/18. * GI on case help appreciated * Discussed with Dr. Elkins, recommends for patient to be NPO for Endoscopy for tomorrow, 06/06/18 * Swallow eval performed, noted aspirations and recommended for ENT * patient is NPOl; held PO medications * CT Chest w IV contrast): mild tree in bud like opacities within the inferior right upper and right lower lobes. hepatic steatosis. scattered diverticula. gatroesophageal reflux * CT Neck w IV contrast: no significant or acute findings. (Dilated esophagus as visualized) * NPO * Aspiration precautions * Zosyn for empiric antibiotic coverage 2. Hyponatremia Assessment/Plan * Nephrology on case help appreciated * etiology to include hctz effect * Patient received iv fluids overnight; discontinued this morning * [id number] * patient is mentating fine 3.Hypokalemia Assessment/Plan * replete overnight * f/u bmp for this evening 4. Hoarseness, Vocal Cord Paralysis, Right Assessment/Plan * Ent on case help appreciated * Discussed with ENT, patient has right vocal cord paralysis and pooling secretions over the right side, will scheduled for larynoscopy, direct and possible biopsy for 06/08/18. * Noted hoarseness with me and discussed with speech language pathologist * Completed CT neck and chest IV * Patient is not a smoker 5. History of HTN Assessment/Plan * Hold home medication cozaar 50 mg PO daily 6. History of HLD Assessment/Plan * hold home medication simvistatin 10 mg PO HS 7. History of Gastritis Assessment/Plan * EGD 05/29/17-->reflux esophagitis, negative for h pylori 8. History of Colonic Polyp Assessment/Plan * Colonoscopy 05/2017-->tubular adenoma 9. PPx * DVT prophylaxis: hold chemical anticoagulation for EGD tomorrow, * SCDS b/l * protonix 40 mg IVP daily * Aspiration precautions * Swallow eval performed noted aspirations, recommended for ENT, and possible barium swallow Disposition: GI, ENT, and Nephrology on board. patient has noted right sided vocal cord paralysis, pooling secretions over right side when I spoke with ENT. Patient scheduled for EGD tomorrow. EKG (06/05/18): normal sinus rhythm. Patient is intermediate risk for procedure. GI, ent, and anesthesia to discuss risk and benefit of recommended procedure prior with the patient respectively.
[2018-06-05 14:17] LABS: OSMOLALITY,URINE 454 mosm/kg (300-1000)
[2018-06-05 14:17] LABS: INR 1.2; PROTHROMBIN TIME 12.9 SECONDS (9.7-12.2)
--- NOTE | 2018-06-05 15:24 | CP.PCM.CON ---
<Otto Cox - Last Filed: 06/05/18 22:34> History of Present Illness - History of Present Illness History of Present Illness: Nephrology Consultation (Dr. Grace's Service): CC: Hyponatremia/Hypokalemia HPI: Mrs. Michele Jerry is a 63 year old female with a past medical history significant for HTN, HLD and IGT who presented with dysphagia and throat pain for approximately 10 days. Nephrology was consulted for hyponatremia and hypokalemia. Patient reports that she has intermittently been unable to swallow solid foods due to a feeling of obstruction. There are times, however, that she notes she has been able to tolerate her normal diet. She was seen by her PMD approximately six days ago for a sore throat and was started on antibiotics. The sore throat did not resolve after several days and the patient was seen in the ED for sore throat/dysphagia. She was discharged home with Ibuprofen for pain control at that time. She is able to tolerate liquids and reports that she drinks approximately 2-3L of water daily during this time. Currently, she denies any complaints. Further 12 point ROS reviewed and unremarkable at this time. PMH: As stated above PSH: Family History: Non-Contributory Social History: Denies any tobacco, alcohol or illicit drug use Allergies: [Trees] Home Medications: Cozaar, Zocor and Chlorthalidone PMD: [facility] Review of Systems - Review of Systems Review of Systems: As stated in HPI, otherwise negative Past Patient History - Past Medical History & Family History Past Medical History?: Yes - Past Social History Smoking Status: Never Smoked - CARDIAC Hx Hypercholesterolemia: Yes Hx Hypertension: Yes - PULMONARY Hx Sleep Apnea: No - NEUROLOGICAL Hx Seizures: No Hx Transient Ischemic Attacks (TIA): No - HEMATOLOGICAL/ONCOLOGICAL Hx Blood Transfusions: No - MUSCULOSKELETAL/RHEUMATOLOGICAL Hx Falls: No - GASTROINTESTINAL Hx Gastritis: Yes - PSYCHIATRIC Hx Substance Use: No - SURGICAL HISTORY Hx Surgeries: Yes Hx Section: Yes (X1) - ANESTHESIA Hx Anesthesia: Yes Hx Anesthesia Reactions: No Hx Malignant Hyperthermia: No Meds Allergies/Adverse Reactions: Allergies Allergy/AdvReac Type Severity Reaction Status Date / Time TREES Allergy Intermediate CONGESTION Uncoded 06/04/18 10:25 - Medications Medications: Current Medications Guaifenesin (Robitussin) 100 mg PO Q4H PRN PRN Reason: Cough Piperacillin Sod/Tazobactam (Sod 3.375 gm/ Sodium Chloride) 100 mls @ 200 mls/hr IVPB Q6H [facility]; Protocol Last Admin: 06/05/18 12:05 Dose: 200 mls/hr Lactobacillus Acidophilus (Lactobacillus) 1 cap PO BID [facility] Last Admin: 06/05/18 10:47 Dose: 1 cap Losartan Potassium (Cozaar) 50 mg PO DAILY [facility] Last Admin: 06/05/18 10:46 Dose: 50 mg Pantoprazole Sodium (Protonix Inj) 40 mg IVP DAILY [facility] Last Admin: 06/05/18 10:47 Dose: 40 mg Rosuvastatin Calcium (Crestor) 2.5 mg PO HS [facility] Tetrahydrozoline HCl/Zinc Sulfate (Visine 0.05% Opht Soln) 0.05 ml OU BID [facility] Last Admin: 06/05/18 10:46 Dose: 1 applic Physical Exam - Constitutional Appears: Non-toxic, No Acute Distress - Head Exam Head Exam: ATRAUMATIC, NORMOCEPHALIC - Eye Exam Eye Exam: EOMI - ENT Exam ENT Exam: Mucous Membranes Moist - Neck Exam Neck exam: Positive for: Full Rom - Respiratory Exam Respiratory Exam: Clear to Auscultation Bilateral, NORMAL BREATHING PATTERN. absent: Rales, Rhonchi, Wheezes - Cardiovascular Exam Cardiovascular Exam: REGULAR RHYTHM, RRR, +S1, +S2 - GI/Abdominal Exam GI & Abdominal Exam: Normal Bowel Sounds, Soft. absent: Tenderness - Extremities Exam Extremities exam: Positive for: normal inspection - Neurological Exam Neurological exam: Alert, Oriented x3 - Psychiatric Exam Psychiatric exam: Normal Affect, Normal Mood - Skin Skin Exam: Dry, Intact, Warm Results - Vital Signs Recent Vital Signs: Last Vital Signs Temp 97.9 F 06/05/18 07:00 Pulse 108 H 06/05/18 07:12 Resp 20 06/05/18 07:00 BP 134/77 06/05/18 07:00 Pulse Ox 95 06/05/18 07:00 - Labs Result Diagrams: 06/05/18 06:58 06/05/18 20:03 Labs: Laboratory Results - last 24 hr 06/04/18 06/05/18 06/05/18 19:41 01:08 01:08 WBC RBC Hgb Hct MCV MCH MCHC RDW Plt Count MPV Neut % (Auto) Lymph % (Auto) [place] % (Auto) Eos % (Auto) Baso % (Auto) Neut # (Auto) Lymph # (Auto) [place] # (Auto) Eos # (Auto) Baso # (Auto) Neutrophils % (Manual) Lymphocytes % (Manual) Monocytes % (Manual) Eosinophils % (Manual) Platelet Estimate RBC Morphology PT INR APTT Sodium 122 L 127 L Potassium 2.2 L* 2.5 L* Chloride 83 L 90 L Carbon Dioxide 30 30 Anion Gap 11 9 L BUN 7 5 L Creatinine 0.3 L 0.3 L Est GFR ( Amer) > 60 > 60 Est GFR (Non-Af Amer) > 60 > 60 Random Glucose 107 H 111 H Serum Osmolality Calcium 7.8 L 7.4 L Phosphorus Magnesium Total Bilirubin 0.7 AST 19 ALT 15 Alkaline Phosphatase 86 Total Protein 6.6 Albumin 3.7 Globulin 2.8 Albumin/Globulin Ratio 1.3 Procalcitonin 0.11 L Free T4 TSH 3rd Generation 0.19 L Urine Color Urine Clarity Urine pH Ur Specific [place] Urine Protein Urine Glucose (UA) Urine Ketones Urine Blood Urine Nitrate Urine Bilirubin Urine Urobilinogen Ur Leukocyte Esterase Urine WBC (Auto) Urine RBC (Auto) Urine Osmolality Ur Random Sodium 06/05/18 06/05/18 06/05/18 01:08 02:25 02:25 WBC RBC Hgb Hct MCV MCH MCHC RDW Plt Count MPV Neut % (Auto) Lymph % (Auto) [place] % (Auto) Eos % (Auto) Baso % (Auto) Neut # (Auto) Lymph # (Auto) [place] # (Auto) Eos # (Auto) Baso # (Auto) Neutrophils % (Manual) Lymphocytes % (Manual) Monocytes % (Manual) Eosinophils % (Manual) Platelet Estimate RBC Morphology PT INR APTT Sodium Potassium Chloride Carbon Dioxide Anion Gap BUN Creatinine Est GFR ( Amer) Est GFR (Non-Af Amer) Random Glucose Serum Osmolality 273 Calcium Phosphorus Magnesium Total Bilirubin AST ALT Alkaline Phosphatase Total Protein Albumin Globulin Albumin/Globulin Ratio Procalcitonin Free T4 1.67 TSH 3rd Generation Urine Color Straw Urine Clarity Clear Urine pH 7.0 Ur Specific [place] 1.008 Urine Protein Negative Urine Glucose (UA) Normal Urine Ketones Negative Urine Blood Trace H Urine Nitrate Negative Urine Bilirubin Negative Urine Urobilinogen Normal Ur Leukocyte Esterase Neg Urine WBC (Auto) < 1 Urine RBC (Auto) 1 Urine Osmolality 254 L Ur Random Sodium 66 06/05/18 06/05/18 06/05/18 06:58 06:58 13:09 WBC 14.7 H RBC 4.85 Hgb 13.9 Hct 40.8 MCV 84.2 MCH 28.7 MCHC 34.1 RDW 12.6 Plt Count 489 H MPV 7.4 Neut % (Auto) 80.1 H Lymph % (Auto) 9.9 L [place] % (Auto) 8.8 Eos % (Auto) 0.7 Baso % (Auto) 0.5 Neut # (Auto) 11.7 H Lymph # (Auto) 1.5 [place] # (Auto) 1.3 H Eos # (Auto) 0.1 Baso # (Auto) 0.1 Neutrophils % (Manual) 82 H Lymphocytes % (Manual) 9 L Monocytes % (Manual) 8 Eosinophils % (Manual) 1 Platelet Estimate Slightly increased H RBC Morphology Normal PT INR APTT Sodium 129 L Potassium 3.5 L Chloride 95 L Carbon Dioxide 29 Anion Gap 10 BUN 6 L Creatinine 0.3 L Est GFR ( Amer) > 60 Est GFR (Non-Af Amer) > 60 Random Glucose 103 Serum Osmolality Calcium 7.7 L Phosphorus 1.3 L Magnesium 3.0 H Total Bilirubin 0.4 AST 19 ALT 21 Alkaline Phosphatase 82 Total Protein 6.5 Albumin 3.5 Globulin 3.0 Albumin/Globulin Ratio 1.2 Procalcitonin Free T4 TSH 3rd Generation Urine Color Urine Clarity Urine pH Ur Specific [place] Urine Protein Urine Glucose (UA) Urine Ketones Urine Blood Urine Nitrate Urine Bilirubin Urine Urobilinogen Ur Leukocyte Esterase Urine WBC (Auto) Urine RBC (Auto) Urine Osmolality 454 Ur Random Sodium 132 06/05/18 13:51 WBC RBC Hgb Hct MCV MCH MCHC RDW Plt Count MPV Neut % (Auto) Lymph % (Auto) [place] % (Auto) Eos % (Auto) Baso % (Auto) Neut # (Auto) Lymph # (Auto) [place] # (Auto) Eos # (Auto) Baso # (Auto) Neutrophils % (Manual) Lymphocytes % (Manual) Monocytes % (Manual) Eosinophils % (Manual) Platelet Estimate RBC Morphology PT 12.9 H INR 1.2 APTT 34 Sodium Potassium Chloride Carbon Dioxide Anion Gap BUN Creatinine Est GFR ( Amer) Est GFR (Non-Af Amer) Random Glucose Serum Osmolality Calcium Phosphorus Magnesium Total Bilirubin AST ALT Alkaline Phosphatase Total Protein Albumin Globulin Albumin/Globulin Ratio Procalcitonin Free T4 TSH 3rd Generation Urine Color Urine Clarity Urine pH Ur Specific [place] Urine Protein Urine Glucose (UA) Urine Ketones Urine Blood Urine Nitrate Urine Bilirubin Urine Urobilinogen Ur Leukocyte Esterase Urine WBC (Auto) Urine RBC (Auto) Urine Osmolality Ur Random Sodium Assessment & Plan - Assessment and Plan (Free Text) Assessment: 63 year old female with a past medical history significant for HTN, HLD and IGT who presented with dysphagia and throat pain for approximately 10 days. Nephrology was consulted for hyponatremia and hypokalemia. Plan: 1. Hyponatremia -Most likely etiologies based on serum/urine studies include: Thiazide use, NSAID use and/or decreased PO intake -S/P 1L D5W bolus for sodium overcorrection: Currently within acceptable range of rise -Continue to monitor with daily CMP's -Holding home Cozaar -Avoid use of NSAID's as this can potentiate effect of ADH 2. Hypokalemia -Continue replenishment as ordered to achieve manjit of >3.6 Patient seen and case discussed with attending, Dr. Grace. Otto Cox PGY2 - Date & Time Date: 06/05/18 Time: 15:24 <Osvaldo Grace - Last Filed: 06/06/18 08:47> Meds - Medications Medications: Current Medications Guaifenesin (Robitussin) 100 mg PO Q4H PRN PRN Reason: Cough Piperacillin Sod/Tazobactam (Sod 3.375 gm/ Sodium Chloride) 100 mls @ 200 mls/hr IVPB Q6H [facility]; Protocol Last Admin: 06/06/18 05:01 Dose: 200 mls/hr Lactobacillus Acidophilus (Lactobacillus) 1 cap PO BID [facility] Last Admin: 06/05/18 10:47 Dose: 1 cap Losartan Potassium (Cozaar) 50 mg PO DAILY [facility] Last Admin: 06/05/18 10:46 Dose: 50 mg Pantoprazole Sodium (Protonix Inj) 40 mg IVP DAILY [facility] Last Admin: 06/05/18 10:47 Dose: 40 mg Rosuvastatin Calcium (Crestor) 2.5 mg PO HS [facility] Tetrahydrozoline HCl/Zinc Sulfate (Visine 0.05% Opht Soln) 0.05 ml OU BID [facility] Last Admin: 06/05/18 18:00 Dose: 1 applic Results - Vital Signs Recent Vital Signs: Last Vital Signs Temp 98.3 F 06/06/18 07:00 Pulse 93 H 06/06/18 07:51 Resp 20 06/06/18 07:00 BP 120/71 06/06/18 07:00 Pulse Ox 97 06/06/18 07:00 - Labs Result Diagrams: 06/06/18 05:30 06/06/18 05:30 Labs: Laboratory Results - last 24 hr 06/05/18 06/05/18 06/05/18 01:08 01:08 06:58 WBC RBC Hgb Hct MCV MCH MCHC RDW Plt Count MPV Neut % (Auto) Lymph % (Auto) [place] % (Auto) Eos % (Auto) Baso % (Auto) Neut # (Auto) Lymph # (Auto) [place] # (Auto) Eos # (Auto) Baso # (Auto) Neutrophils % (Manual) 82 H Band Neutrophils % Lymphocytes % (Manual) 9 L Monocytes % (Manual) 8 Eosinophils % (Manual) 1 Platelet Estimate Slightly increased H RBC Morphology Normal PT INR APTT Sodium Potassium Chloride Carbon Dioxide Anion Gap BUN Creatinine Est GFR ( Amer) Est GFR (Non-Af Amer) Random Glucose Serum Osmolality 273 Calcium Phosphorus Magnesium Total Bilirubin AST ALT Alkaline Phosphatase Total Protein Albumin Globulin Albumin/Globulin Ratio Procalcitonin 0.11 L Free T4 1.67 Urine Osmolality Ur Random Sodium 06/05/18 06/05/18 06/05/18 13:09 13:51 20:03 WBC RBC Hgb Hct MCV MCH MCHC RDW Plt Count MPV Neut % (Auto) Lymph % (Auto) [place] % (Auto) Eos % (Auto) Baso % (Auto) Neut # (Auto) Lymph # (Auto) [place] # (Auto) Eos # (Auto) Baso # (Auto) Neutrophils % (Manual) Band Neutrophils % Lymphocytes % (Manual) Monocytes % (Manual) Eosinophils % (Manual) Platelet Estimate RBC Morphology PT 12.9 H INR 1.2 APTT 34 Sodium 128 L Potassium 3.1 L Chloride 92 L Carbon Dioxide 30 Anion Gap 10 BUN 5 L Creatinine 0.4 L Est GFR ( Amer) > 60 Est GFR (Non-Af Amer) > 60 Random Glucose 104 Serum Osmolality Calcium 7.7 L Phosphorus Magnesium Total Bilirubin AST ALT Alkaline Phosphatase Total Protein Albumin Globulin Albumin/Globulin Ratio Procalcitonin Free T4 Urine Osmolality 454 Ur Random Sodium 132 06/06/18 06/06/18 05:30 05:30 WBC 20.8 H RBC 4.68 Hgb 13.8 Hct 40.0 MCV 85.3 MCH 29.5 MCHC 34.5 RDW 13.1 Plt Count 512 H MPV 6.8 L Neut % (Auto) 81.4 H Lymph % (Auto) 9.6 L [place] % (Auto) 7.3 Eos % (Auto) 1.2 Baso % (Auto) 0.5 Neut # (Auto) 16.9 H Lymph # (Auto) 2.0 [place] # (Auto) 1.5 H Eos # (Auto) 0.3 Baso # (Auto) 0.1 Neutrophils % (Manual) 79 H Band Neutrophils % 3 H Lymphocytes % (Manual) 9 L Monocytes % (Manual) 8 Eosinophils % (Manual) 1 Platelet Estimate Slightly increased H RBC Morphology PT INR APTT Sodium 129 L Potassium 3.8 Chloride 99 Carbon Dioxide 25 Anion Gap 10 BUN 9 Creatinine 0.4 L Est GFR ( Amer) > 60 Est GFR (Non-Af Amer) > 60 Random Glucose 113 H Serum Osmolality Calcium 7.9 L Phosphorus 1.9 L Magnesium 2.8 H Total Bilirubin 0.5 AST 13 L D ALT 10 Alkaline Phosphatase 83 Total Protein 6.4 Albumin 3.6 Globulin 2.9 Albumin/Globulin Ratio 1.3 Procalcitonin Free T4 Urine Osmolality Ur Random Sodium Attending/Attestation - Attestation I have personally seen and examined this patient.: Yes I have fully participated in the care of the patient.: Yes I have reviewed all pertinent clinical information: Yes Notes (Text): Patient seen and examined; I agree with the resident's note as above with the following additions/edits: Patient with pmh of htn, hyperlipidemia, presented with ~10 day history of dysp hagia, admitted with profound hyponatremia for which nephrology being consulted; Patient gives conflicting history, tells us during encounter that she had been eating well, all types of food, at odds with history given on presentation; denies any vomiting/diarrhea; had been on thiazide diuretic as well as ARB; was taking NSAIDS for throat pain 3 times per day; Serum Na rapidly rising with total 2L of NS boluses; urine osm seen last night (~10 hrs after presentation) likely was in flux, no urine osm sent on presentation; likely etiologies of hyponatremia are volume depletion (in the setting of being on thiazide) v inadequate solute intake; Hypokalemia likely due to being on thiazide; -Giving 1L D5W bolus to decrease serum Na this afternoon (rate of correction should have been no more than 6-8 meq over 24 hr period); -Avoid NSAID use (can potentiate effect of ADH and worsen hyponatremia): -Replenish K prn; -BP controlled, holding ARB for now, should hold thiazide indefinitely;
--- NOTE | 2018-06-05 15:59 | CP.PCM.CON ---
History of Present Illness - History of Present Illness History of Present Illness: ASked to see pt for GI service certified residential medication aide for dysphagia. \Pt reports 10 days of throat pain and dysphagia, hoarseness. Reports EGD 9 mo ago= gastritis. Denies wt loss, melena. Able to swallow saliva. Able to swallow pills today. Seen by ENT= vocal cord HYPOKINESIS Review of Systems - Constitutional Constitutional: Fatigue, Weight Loss. absent: Fever - EENT Eyes: absent: Photophobia - Cardiovascular Cardiovascular: absent: Dyspnea, Palpitations - Respiratory Respiratory: Cough. absent: Hemoptysis, Stridor - Gastrointestinal Gastrointestinal: Dyspepsia, Dysphagia, Heartburn, Nausea, Odynophagia. absent: Abdominal Pain, Hematemesis, Hematochezia - Genitourinary Genitourinary: absent: Hematuria, Nocturia - Musculoskeletal Musculoskeletal: absent: Myalgias - Integumentary Integumentary: absent: Pruritus, Rash, Jaundice - Neurological Neurological: absent: Convulsions Past Patient History - Past Medical History & Family History Past Medical History?: Yes - Past Social History Smoking Status: Never Smoked - CARDIAC Hx Hypercholesterolemia: Yes Hx Hypertension: Yes - PULMONARY Hx Sleep Apnea: No - NEUROLOGICAL Hx Seizures: No Hx Transient Ischemic Attacks (TIA): No - HEMATOLOGICAL/ONCOLOGICAL Hx Blood Transfusions: No - MUSCULOSKELETAL/RHEUMATOLOGICAL Hx Falls: No - GASTROINTESTINAL Hx Gastritis: Yes - PSYCHIATRIC Hx Substance Use: No - SURGICAL HISTORY Hx Surgeries: Yes Hx Section: Yes (X1) - ANESTHESIA Hx Anesthesia: Yes Hx Anesthesia Reactions: No Hx Malignant Hyperthermia: No Meds Allergies/Adverse Reactions: Allergies Allergy/AdvReac Type Severity Reaction Status Date / Time TREES Allergy Intermediate CONGESTION Uncoded 06/04/18 10:25 - Medications Medications: Current Medications Guaifenesin (Robitussin) 100 mg PO Q4H PRN PRN Reason: Cough Piperacillin Sod/Tazobactam (Sod 3.375 gm/ Sodium Chloride) 100 mls @ 200 mls/hr IVPB Q6H [facility]; Protocol Last Admin: 06/05/18 12:05 Dose: 200 mls/hr Lactobacillus Acidophilus (Lactobacillus) 1 cap PO BID [facility] Last Admin: 06/05/18 10:47 Dose: 1 cap Losartan Potassium (Cozaar) 50 mg PO DAILY [facility] Last Admin: 06/05/18 10:46 Dose: 50 mg Pantoprazole Sodium (Protonix Inj) 40 mg IVP DAILY [facility] Last Admin: 06/05/18 10:47 Dose: 40 mg Rosuvastatin Calcium (Crestor) 2.5 mg PO HS [facility] Tetrahydrozoline HCl/Zinc Sulfate (Visine 0.05% Opht Soln) 0.05 ml OU BID [facility] Last Admin: 06/05/18 10:46 Dose: 1 applic Physical Exam - Constitutional Appears: Non-toxic - Respiratory Exam Respiratory Exam: Clear to Auscultation Bilateral - Cardiovascular Exam Cardiovascular Exam: RRR - GI/Abdominal Exam GI & Abdominal Exam: Normal Bowel Sounds, Soft. absent: Distended, Mass, Rebound, Tenderness - Extremities Exam Extremities exam: Negative for: pedal edema - Neurological Exam Neurological exam: Alert, Oriented x3 Results - Vital Signs Recent Vital Signs: Last Vital Signs Temp 97.9 F 06/05/18 07:00 Pulse 108 H 06/05/18 07:12 Resp 20 06/05/18 07:00 BP 134/77 06/05/18 07:00 Pulse Ox 95 06/05/18 07:00 - Labs Result Diagrams: 06/05/18 06:58 06/05/18 06:58 Labs: Laboratory Results - last 24 hr 06/04/18 06/05/18 06/05/18 19:41 01:08 01:08 WBC RBC Hgb Hct MCV MCH MCHC RDW Plt Count MPV Neut % (Auto) Lymph % (Auto) [place] % (Auto) Eos % (Auto) Baso % (Auto) Neut # (Auto) Lymph # (Auto) [place] # (Auto) Eos # (Auto) Baso # (Auto) Neutrophils % (Manual) Lymphocytes % (Manual) Monocytes % (Manual) Eosinophils % (Manual) Platelet Estimate RBC Morphology PT INR APTT Sodium 122 L 127 L Potassium 2.2 L* 2.5 L* Chloride 83 L 90 L Carbon Dioxide 30 30 Anion Gap 11 9 L BUN 7 5 L Creatinine 0.3 L 0.3 L Est GFR ( Amer) > 60 > 60 Est GFR (Non-Af Amer) > 60 > 60 Random Glucose 107 H 111 H Serum Osmolality Calcium 7.8 L 7.4 L Phosphorus Magnesium Total Bilirubin 0.7 AST 19 ALT 15 Alkaline Phosphatase 86 Total Protein 6.6 Albumin 3.7 Globulin 2.8 Albumin/Globulin Ratio 1.3 Procalcitonin 0.11 L Free T4 TSH 3rd Generation 0.19 L Urine Color Urine Clarity Urine pH Ur Specific [place] Urine Protein Urine Glucose (UA) Urine Ketones Urine Blood Urine Nitrate Urine Bilirubin Urine Urobilinogen Ur Leukocyte Esterase Urine WBC (Auto) Urine RBC (Auto) Urine Osmolality Ur Random Sodium 06/05/18 06/05/18 06/05/18 01:08 02:25 02:25 WBC RBC Hgb Hct MCV MCH MCHC RDW Plt Count MPV Neut % (Auto) Lymph % (Auto) [place] % (Auto) Eos % (Auto) Baso % (Auto) Neut # (Auto) Lymph # (Auto) [place] # (Auto) Eos # (Auto) Baso # (Auto) Neutrophils % (Manual) Lymphocytes % (Manual) Monocytes % (Manual) Eosinophils % (Manual) Platelet Estimate RBC Morphology PT INR APTT Sodium Potassium Chloride Carbon Dioxide Anion Gap BUN Creatinine Est GFR ( Amer) Est GFR (Non-Af Amer) Random Glucose Serum Osmolality 273 Calcium Phosphorus Magnesium Total Bilirubin AST ALT Alkaline Phosphatase Total Protein Albumin Globulin Albumin/Globulin Ratio Procalcitonin Free T4 1.67 TSH 3rd Generation Urine Color Straw Urine Clarity Clear Urine pH 7.0 Ur Specific [place] 1.008 Urine Protein Negative Urine Glucose (UA) Normal Urine Ketones Negative Urine Blood Trace H Urine Nitrate Negative Urine Bilirubin Negative Urine Urobilinogen Normal Ur Leukocyte Esterase Neg Urine WBC (Auto) < 1 Urine RBC (Auto) 1 Urine Osmolality 254 L Ur Random Sodium 66 06/05/18 06/05/18 06/05/18 06:58 06:58 13:09 WBC 14.7 H RBC 4.85 Hgb 13.9 Hct 40.8 MCV 84.2 MCH 28.7 MCHC 34.1 RDW 12.6 Plt Count 489 H MPV 7.4 Neut % (Auto) 80.1 H Lymph % (Auto) 9.9 L [place] % (Auto) 8.8 Eos % (Auto) 0.7 Baso % (Auto) 0.5 Neut # (Auto) 11.7 H Lymph # (Auto) 1.5 [place] # (Auto) 1.3 H Eos # (Auto) 0.1 Baso # (Auto) 0.1 Neutrophils % (Manual) 82 H Lymphocytes % (Manual) 9 L Monocytes % (Manual) 8 Eosinophils % (Manual) 1 Platelet Estimate Slightly increased H RBC Morphology Normal PT INR APTT Sodium 129 L Potassium 3.5 L Chloride 95 L Carbon Dioxide 29 Anion Gap 10 BUN 6 L Creatinine 0.3 L Est GFR ( Amer) > 60 Est GFR (Non-Af Amer) > 60 Random Glucose 103 Serum Osmolality Calcium 7.7 L Phosphorus 1.3 L Magnesium 3.0 H Total Bilirubin 0.4 AST 19 ALT 21 Alkaline Phosphatase 82 Total Protein 6.5 Albumin 3.5 Globulin 3.0 Albumin/Globulin Ratio 1.2 Procalcitonin Free T4 TSH 3rd Generation Urine Color Urine Clarity Urine pH Ur Specific [place] Urine Protein Urine Glucose (UA) Urine Ketones Urine Blood Urine Nitrate Urine Bilirubin Urine Urobilinogen Ur Leukocyte Esterase Urine WBC (Auto) Urine RBC (Auto) Urine Osmolality 454 Ur Random Sodium 132 06/05/18 13:51 WBC RBC Hgb Hct MCV MCH MCHC RDW Plt Count MPV Neut % (Auto) Lymph % (Auto) [place] % (Auto) Eos % (Auto) Baso % (Auto) Neut # (Auto) Lymph # (Auto) [place] # (Auto) Eos # (Auto) Baso # (Auto) Neutrophils % (Manual) Lymphocytes % (Manual) Monocytes % (Manual) Eosinophils % (Manual) Platelet Estimate RBC Morphology PT 12.9 H INR 1.2 APTT 34 Sodium Potassium Chloride Carbon Dioxide Anion Gap BUN Creatinine Est GFR ( Amer) Est GFR (Non-Af Amer) Random Glucose Serum Osmolality Calcium Phosphorus Magnesium Total Bilirubin AST ALT Alkaline Phosphatase Total Protein Albumin Globulin Albumin/Globulin Ratio Procalcitonin Free T4 TSH 3rd Generation Urine Color Urine Clarity Urine pH Ur Specific [place] Urine Protein Urine Glucose (UA) Urine Ketones Urine Blood Urine Nitrate Urine Bilirubin Urine Urobilinogen Ur Leukocyte Esterase Urine WBC (Auto) Urine RBC (Auto) Urine Osmolality Ur Random Sodium Assessment & Plan (1) Dysphagia Assessment and Plan: ENT vs GI. Starting to swallow better REc: ENT follow up. Endoscopy PPI Neck. Lung CT- done Status: Acute (2) Hypokalemia Assessment and Plan: replacing Status: Acute (3) Hyponatremia Assessment and Plan: improving Status: Acute (4) Pharyngitis Assessment and Plan: vocal cord hypokinesis Status: Acute
[2018-06-05 20:24] LABS: BLOOD UREA NITROGEN 5 mg/dL (7-17); CALCIUM 7.7 mg/dl (8.6-10.4); GFR NON-AFRICAN AMERICAN > 60
--- NOTE | 2018-06-05 21:05 | OP ---
PROCEDURE DATE: 06/05/2018 PREOPERATIVE DIAGNOSES: Hoarseness and dysphagia. POSTOPERATIVE DIAGNOSES: Hoarseness and dysphagia. PROCEDURE: Flexible laryngoscopy. 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 DESCRIPTION OF PROCEDURE: The patient was placed in a seated position. The flexible laryngoscope was inserted into the nasal cavity, passed through the nasopharynx, oropharynx, and hypopharynx. The pharyngeal wall, base of tongue, vallecula, epiglottis, AE folds, false cords, true cords, and arytenoids were brought into view. The right vocal cord was noted not to be moving. There was pooling of secretions noted, mostly in the right piriform sinus. At that point, the scope was removed. The patient tolerated the procedure well. 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 Since the patient has pooling of secretions, she is to have direct laryngoscopy and biopsy done. Toni Walden MD MTDD
[2018-06-05] MEDS ORDERED: Potassium Chloride 20 mEq/15 ml LIQ UD PO ONE (21:36)
[2018-06-05] MEDS ORDERED: Rosuvastatin Calcium 2.5 mg Tab PO SCH (22:00)
[2018-06-06] MEDS: Piperacillin/Tazobact 3.375 GM in Sodium Chloride 100 ML IVPB SCH ×5 (05:01→23:30)
[2018-06-06 05:34] LABS: HEMOGLOBIN 13.8 g/dL (11.0-16.0); MONO # 1.5 K/uL (0.0-0.8)
[2018-06-06 05:36] LABS: BASO # 0.1 K/uL (0.0-0.2); BASO % 0.5 % (0.0-2.0); EOS # 0.3 K/uL (0.0-0.7); EOS % 1.2 % (0.0-4.0); LYMPH % 9.6 % (20.0-40.0); MEAN CELL VOLUME 85.3 fL (81.0-99.0); MEAN CORPUSCULAR HEMOGLOBIN 29.5 pg (27.0-31.0); MEAN CORPUSCULAR HGB CONC 34.5 g/dL (33.0-37.0); MEAN PLATELET VOLUME 6.8 fL (7.2-11.7); MONO % 7.3 % (0.0-10.0); NEUT # 16.9 K/uL (1.8-7.0); NEUT % 81.4 % (50.0-75.0); PLATELET COUNT 512 K/uL (130-400); RBC 4.68 Mil/uL (3.80-5.20); RED CELL DISTRIBUTION WIDTH 13.1 % (11.5-14.5); WHITE BLOOD COUNT 20.8 K/uL (4.8-10.8)
[2018-06-06 06:18] LABS: ALB/GLOB RATIO 1.3 (1.0-2.1); ALBUMIN 3.6 g/dL (3.5-5.0); ALT/SGPT 10 U/L (9-52); AST/SGOT 13 U/L (14-36); BLOOD UREA NITROGEN 9 mg/dL (7-17); CALCIUM 7.9 mg/dl (8.6-10.4); GFR NON-AFRICAN AMERICAN > 60
[2018-06-06 06:39] LABS: BANDS 3 % (0-2); EOSINOPHIL 1 % (0-4); LYMPHOCYTE 9 % (20-40); MONOCYTE 8 % (0-10); NEUTROPHIL 79 % (50-75); PLATELET ESTIMATE SLIGHTLY INCREASED (NORMAL); TOTAL CELLS COUNTED 100
[2018-06-06] MEDS ORDERED: Propofol 10 mg/ml Inj (20 ML) ONE (09:05)
[2018-06-06] MEDS: Tetrahydrozoline Opht 0.05% Sol (15 ml) OU SCH ×2 (09:20→17:13)
--- NOTE | 2018-06-06 15:32 | CP.PCM.PN ---
<Gus Caballero - Last Filed: 06/06/18 15:35> Subjective - Date & Time of Evaluation Date of Evaluation: 06/06/18 Time of Evaluation: 15:30 - Subjective Subjective: HOSPITALIST SERVICE Pt s/e at bedside, reports persistent hoarse voice, reports no new complaints overnight, denies CP SOB FC NV or abd pain. Pt went for EGD this AM, tolerated procedure well, Pt understands she is to go for Vocal bx tmrw, agrees with plan Objective - Vital Signs/Intake and Output Vital Signs (last 24 hours): Temp Pulse Resp BP Pulse Ox 98.3 F 93 H 20 129/64 97 06/06/18 09:55 06/06/18 09:55 06/06/18 09:55 06/06/18 09:55 06/06/18 09:55 Intake and Output: 06/06/18 06/06/18 06:59 18:59 Intake Total 250 550 Balance 250 550 - Medications Medications: Current Medications Guaifenesin (Robitussin) 100 mg PO Q4H PRN PRN Reason: Cough Piperacillin Sod/Tazobactam (Sod 3.375 gm/ Sodium Chloride) 100 mls @ 200 mls/hr IVPB Q6H [facility]; Protocol Last Admin: 06/06/18 11:28 Dose: 200 mls/hr Lactated Ringer's (Lactated Ringer's 500ml) 500 mls @ 75 mls/hr IV .Q6H40M [facility] Lactobacillus Acidophilus (Lactobacillus) 1 cap PO BID [facility] Last Admin: 06/05/18 10:47 Dose: 1 cap Losartan Potassium (Cozaar) 50 mg PO DAILY [facility] Last Admin: 06/05/18 10:46 Dose: 50 mg Pantoprazole Sodium (Protonix Inj) 40 mg IVP DAILY [facility] Last Admin: 06/06/18 09:20 Dose: Not Given Rosuvastatin Calcium (Crestor) 2.5 mg PO HS [facility] Tetrahydrozoline HCl/Zinc Sulfate (Visine 0.05% Opht Soln) 0.05 ml OU BID [facility] Last Admin: 06/06/18 09:20 Dose: Not Given - Labs Labs: 06/06/18 05:30 06/06/18 05:30 PT 12.9 SECONDS (9.7-12.2) H 06/05/18 13:51 INR 1.2 06/05/18 13:51 APTT 34 SECONDS (21-34) 06/05/18 13:51 - Additional Findings Additional findings: - Constitutional Appears: Non-toxic, No Acute Distress - Head Exam Head Exam: NORMAL INSPECTION, NORMOCEPHALIC - Eye Exam Eye Exam: EOMI, Normal appearance Pupil Exam: NORMAL ACCOMODATION - ENT Exam ENT Exam: Mucous Membranes Dry, TM's Normal Bilaterally Additional comments: no erythema in throat noted neck supple, no tenderness voice hoarse - Neck Exam Neck exam: Positive for: Full Rom, Normal Inspection. Negative for: Tenderness, Thyromegaly - Respiratory Exam Respiratory Exam: Rales, NORMAL BREATHING PATTERN. absent: Rhonchi, Wheezes Additional comments: R side - Cardiovascular Exam Cardiovascular Exam: +S1, +S2. absent: Systolic Murmur - GI/Abdominal Exam GI & Abdominal Exam: Normal Bowel Sounds, Soft. absent: Distended, Firm - Extremities Exam Extremities exam: Positive for: full ROM, normal inspection. Negative for: calf tenderness, pedal edema - Back Exam Back exam: absent: CVA tenderness (L), CVA tenderness (R) - Neurological Exam Neurological exam: Alert, CN II-XII Intact, Oriented x3 - Psychiatric Exam Psychiatric exam: Normal Affect, Normal Mood - Skin Skin Exam: Dry, Intact, Normal Color, Warm Assessment and Plan - Assessment and Plan (Free Text) Assessment: 63 F w/ PMhx of HTN, HLD presents w/ acute dysphasia for 10 days Plan: Dysphagia, Acute - Will consider Stricture vs Malignancy - Neck CT: no significant or acute findings - NPO except medications - ENT Dr Walden consulted: bedside laryngoscope shows R voical cord hypokinesis- direct laryngoscopy with biopsy planned for monday - F/u GI consult Severo: EGD showed stomach lesions, pending bx result : inconclusive however to e xplain dysphagia/vocal hoarseness - swallow eval indicates aspiration precautions Hyponatremia - likely secondary due to poor PO intact - responsive to IVF - Na 119 - > 122->129 - Nephro Dr Grace Consulted - Giving 1L D5W bolus to decrease serum Na this afternoon (rate of correction should have been no more than 6-8 meq over 24 hr period); - Avoid NSAID - Replenish K prn; - holding ARB , stop takingHCTZ - goal of less than 10 meq correction in 24 hr - 280 urine osm, 66 urine Na, f/u urine Cl, - TSH 0.19 - Finding on CT chest: nodular hypertrophy of left adrenal gland - will consider adrenal casue pending repeat lab work Hypokalemia -K 3.9 -LRs @ 75 -monitor Pleural effusion - Cxr: pleural effusion - CT chest: infecious etiologiy preferred - WBC 18s - will consider CAP vs aspiration pneumonia 2/2 to dysphagia - Low procalcitotonin, Neg blood/urine cultures 24hrs History of HTN - Hold home medication cozaar 50 mg PO daily History of HLD - hold home medication simvistatin 10 mg PO HS PPx - DVT: holding heparin, SCDS -Liquid diet with aspiration precautions, NPO past midnight - GI: protonix 40 mg IVP daily <Esteban Foley - Last Filed: 06/06/18 19:22> Objective - Vital Signs/Intake and Output Vital Signs (last 24 hours): Temp Pulse Resp BP Pulse Ox 98.3 F 61 20 129/64 97 06/06/18 09:55 06/06/18 15:40 06/06/18 09:55 06/06/18 09:55 06/06/18 09:55 Intake and Output: 06/06/18 06/06/18 06:59 18:59 Intake Total 250 550 Balance 250 550 - Medications Medications: Current Medications Guaifenesin (Robitussin) 100 mg PO Q4H PRN PRN Reason: Cough Piperacillin Sod/Tazobactam (Sod 3.375 gm/ Sodium Chloride) 100 mls @ 200 mls/hr IVPB Q6H [facility]; Protocol Last Admin: 06/06/18 17:14 Dose: 200 mls/hr Lactated Ringer's (Lactated Ringer's 500ml) 500 mls @ 75 mls/hr IV .Q6H40M [facility] Lactobacillus Acidophilus (Lactobacillus) 1 cap PO BID [facility] Last Admin: 06/05/18 10:47 Dose: 1 cap Losartan Potassium (Cozaar) 50 mg PO DAILY [facility] Last Admin: 06/05/18 10:46 Dose: 50 mg Pantoprazole Sodium (Protonix Inj) 40 mg IVP DAILY [facility] Last Admin: 06/06/18 09:20 Dose: Not Given Rosuvastatin Calcium (Crestor) 2.5 mg PO HS [facility] Tetrahydrozoline HCl/Zinc Sulfate (Visine 0.05% Opht Soln) 0.05 ml OU BID [facility] Last Admin: 06/06/18 17:13 Dose: 1 applic - Labs Labs: 06/06/18 05:30 06/06/18 05:30 PT 12.9 SECONDS (9.7-12.2) H 06/05/18 13:51 INR 1.2 06/05/18 13:51 APTT 34 SECONDS (21-34) 06/05/18 13:51 Attending/Attestation - Attestation I have personally seen and examined this patient.: Yes I have fully participated in the care of the patient.: Yes I have reviewed all pertinent clinical information, including history, physical exam and plan: Yes Notes (Text): seen and examined spoke to the patient and her Aunt at bedside discussed about EGD findings Resident spoke to Dr Rocha Patient wants to try liquids. aspiration risk explained clear liquids with aspiration precaution follow Dr Wiggins for possible biopsy laryngoscope shows R voical cord hypokinesis EGd shows gastritis Keep NPO after midnight
--- NOTE | 2018-06-06 16:23 | CP.PCM.PN ---
<Otto Cox - Last Filed: 06/06/18 16:20> Subjective - Date & Time of Evaluation Date of Evaluation: 06/06/18 Time of Evaluation: 16:20 - Subjective Subjective: Nephrology Progress Note (Dr. Grace's Service): Patient seen and assessed at bedside. Patient noted to have had largely unremarkable EGD this AM. She also had a 2D echocardiogram. Patient reports that she did not have PO intake yesterday but denies any complaints. Further 12 point ROS reviewed and unremarkable at this time. Objective - Vital Signs/Intake and Output Vital Signs (last 24 hours): Temp Pulse Resp BP Pulse Ox 98.3 F 61 20 129/64 97 06/06/18 09:55 06/06/18 15:40 06/06/18 09:55 06/06/18 09:55 06/06/18 09:55 Intake and Output: 06/06/18 06/06/18 06:59 18:59 Intake Total 250 550 Balance 250 550 - Medications Medications: Current Medications Guaifenesin (Robitussin) 100 mg PO Q4H PRN PRN Reason: Cough Piperacillin Sod/Tazobactam (Sod 3.375 gm/ Sodium Chloride) 100 mls @ 200 mls/hr IVPB Q6H [facility]; Protocol Last Admin: 06/06/18 11:28 Dose: 200 mls/hr Lactated Ringer's (Lactated Ringer's 500ml) 500 mls @ 75 mls/hr IV .Q6H40M [facility] Lactobacillus Acidophilus (Lactobacillus) 1 cap PO BID [facility] Last Admin: 06/05/18 10:47 Dose: 1 cap Losartan Potassium (Cozaar) 50 mg PO DAILY [facility] Last Admin: 06/05/18 10:46 Dose: 50 mg Pantoprazole Sodium (Protonix Inj) 40 mg IVP DAILY [facility] Last Admin: 06/06/18 09:20 Dose: Not Given Rosuvastatin Calcium (Crestor) 2.5 mg PO HS [facility] Tetrahydrozoline HCl/Zinc Sulfate (Visine 0.05% Opht Soln) 0.05 ml OU BID [facility] Last Admin: 06/06/18 09:20 Dose: Not Given - Labs Labs: 06/06/18 05:30 06/06/18 05:30 PT 12.9 SECONDS (9.7-12.2) H 06/05/18 13:51 INR 1.2 06/05/18 13:51 APTT 34 SECONDS (21-34) 06/05/18 13:51 - Constitutional Appears: Non-toxic, No Acute Distress - Head Exam Head Exam: ATRAUMATIC, NORMOCEPHALIC - Eye Exam Eye Exam: EOMI, Normal appearance, PERRL - ENT Exam ENT Exam: Mucous Membranes Moist, Normal Exam - Neck Exam Neck Exam: Full ROM, Normal Inspection - Respiratory Exam Respiratory Exam: Clear to Ausculation Bilateral, NORMAL BREATHING PATTERN - Cardiovascular Exam Cardiovascular Exam: REGULAR RHYTHM, RRR, +S1, +S2 - GI/Abdominal Exam GI & Abdominal Exam: Soft, Normal Bowel Sounds. absent: Tenderness - Extremities Exam Extremities Exam: Normal Inspection. absent: Calf Tenderness, Joint Swelling, Pedal Edema, Tenderness - Neurological Exam Neurological Exam: Alert, Awake, Oriented x3 - Psychiatric Exam Psychiatric exam: Normal Affect, Normal Mood - Skin Skin Exam: Dry, Intact, Normal Color, Warm Assessment and Plan - Assessment and Plan (Free Text) Assessment: 63 year old female with a past medical history significant for HTN, HLD and IGT who presented with dysphagia and throat pain for approximately 10 days. Nephrolo gy was consulted for hyponatremia and hypokalemia. Plan: 1. Hyponatremia -Most likely etiologies based on serum/urine studies include: Volume depletion with thiazide use and/or decreased PO intake -Repeat urine osmolality pending -Continue to monitor with daily CMP's -Rate of correction should be no more than 6-8meq over 24 hour period -Holding home Cozaar -Hold home HCTZ indefinitely -Avoid use of NSAID's as this can potentiate effect of ADH 2. Hypokalemia -Continue replenishment as ordered to achieve manjit of >3.6 3. Hypertension -Currently controlled -Continue to hold BP meds as stated above Patient seen and case discussed with attending, Dr. Grace. Otto Cox PGY2 <Osvaldo Grace - Last Filed: 06/07/18 08:34> Objective - Vital Signs/Intake and Output Vital Signs (last 24 hours): Temp Pulse Resp BP Pulse Ox 98.1 F 100 H 20 120/81 99 06/07/18 07:20 06/07/18 07:20 06/07/18 07:20 06/07/18 07:20 06/07/18 07:20 Intake and Output: 06/07/18 06/07/18 06:59 18:59 Intake Total 500 Balance 500 - Medications Medications: Current Medications Guaifenesin (Robitussin) 100 mg PO Q4H PRN PRN Reason: Cough Piperacillin Sod/Tazobactam (Sod 3.375 gm/ Sodium Chloride) 100 mls @ 200 mls/hr IVPB Q6H [facility]; Protocol Last Admin: 06/07/18 05:33 Dose: 200 mls/hr Lactated Ringer's (Lactated Ringer's 500ml) 500 mls @ 75 mls/hr IV .Q6H40M [facility] Last Admin: 06/07/18 05:30 Dose: Not Given Potassium Phosphate 15 mmole/ (Dextrose) 255 mls @ 42.5 mls/hr IVPB ONCE ONE Stop: 06/07/18 14:29 Last Admin: 06/07/18 08:33 Dose: 42.5 mls/hr Lactobacillus Acidophilus (Lactobacillus) 1 cap PO BID [facility] Last Admin: 06/05/18 10:47 Dose: 1 cap Losartan Potassium (Cozaar) 50 mg PO DAILY [facility] Last Admin: 06/05/18 10:46 Dose: 50 mg Pantoprazole Sodium (Protonix Inj) 40 mg IVP DAILY [facility] Last Admin: 06/06/18 09:20 Dose: Not Given Rosuvastatin Calcium (Crestor) 2.5 mg PO HS [facility] Tetrahydrozoline HCl/Zinc Sulfate (Visine 0.05% Opht Soln) 0.05 ml OU BID [facility] Last Admin: 06/06/18 17:13 Dose: 1 applic - Labs Labs: 06/07/18 08:20 06/06/18 17:11 PT 12.9 SECONDS (9.7-12.2) H 06/05/18 13:51 INR 1.2 06/05/18 13:51 APTT 34 SECONDS (21-34) 06/05/18 13:51 Attending/Attestation - Attestation I have personally seen and examined this patient.: Yes I have fully participated in the care of the patient.: Yes I have reviewed all pertinent clinical information, including history, physical exam and plan: Yes
[2018-06-06 17:31] LABS: BLOOD UREA NITROGEN 11 mg/dL (7-17); CALCIUM 8.1 mg/dl (8.6-10.4); GFR NON-AFRICAN AMERICAN > 60
--- NOTE | 2018-06-06 18:13 | CARD ---
APPROVED REPORT Date of service: 06/06/2018 EXAM: Two-dimensional and M-mode echocardiogram with Doppler and color Doppler. Other Information Quality : GoodRhythm : INDICATION Abnormal EKG/Arrhythmia pleural effusion on chest xray RISK FACTORS Hypertension 2D DIMENSIONS IVSd0.7 (0.7-1.1cm)LVDd3.5 (3.9-5.9cm) PWd0.9 (0.7-1.1cm)LA Gfkyyw20 (18-58mL) LVDs2.2 (2.5-4.0cm)FS (%) 38.2 % LVEF (%)69.5 (>50%)LVEF (Dinh's)75.30 % IVC0.00 cm M-Mode DIMENSIONS Left Atrium (MM)2.96 (2.5-4.0cm)IVSd0.76 (0.7-1.1cm) Aortic Root2.60 (2.2-3.7cm)LVDd3.97 (4.0-5.6cm) Aortic Cusp Exc.1.71 (1.5-2.0cm)PWd0.74 (0.7-1.1cm) FS (%) 56 %LVDs1.75 (2.0-3.8cm) LVEF (%)75 (>50%) Mitral Valve MV E Xhldixmy10.1cm/sMV A Kgyycxxz56.3cm/sE/A ratio0.8 TDI Lateral E' Peak V8.87cm/sMedial E' Peak V6.35cm/sE/Lateral E'8.6 E/Medial E'12.0 Tricuspid Valve TR Peak Trzlatpj288xe/sTR Peak Gr.74ynDfPNOT20xlIi LEFT VENTRICLE The left ventricle is normal size. There is normal left ventricular wall thickness. The left ventricular function is normal. The left ventricular ejection fraction is within the normal range. 75% No regional wall motion abnormalities noted. Transmitral Doppler flow pattern is Grade I-abnormal relaxation pattern. No left ventricle thrombus noted on this study. There is no ventricular septal defect visualized. There is no left ventricular aneurysm. There is no mass noted in the left ventricle. RIGHT VENTRICLE The right ventricle is normal size. There is normal right ventricular wall thickness. The right ventricular systolic function is normal. ATRIA The left atrium size is normal. The right atrium size is normal. The interatrial septum is intact with no evidence for an atrial septal defect. AORTIC VALVE The aortic valve is normal in structure and function. No aortic regurgitation is present. There is no aortic valvular stenosis. There is no aortic valvular vegetation. MITRAL VALVE The mitral valve is normal in structure and function. There is no evidence of mitral valve prolapse. There is no mitral valve stenosis. There is trace mitral valve regurgitation noted. TRICUSPID VALVE The tricuspid valve is normal in structure and function. There is no tricuspid valve regurgitation noted. There is no tricuspid valve prolapse or vegetation. There is no tricuspid valve stenosis. PULMONIC VALVE The pulmonary valve is normal in structure and function. There is no pulmonic valvular regurgitation. There is no pulmonic valvular stenosis. GREAT VESSELS The aortic root is normal in size. The ascending aorta is normal in size. The pulmonary artery is normal. The IVC is normal in size and collapses >50% with inspiration. PERICARDIAL EFFUSION The pericardium appears normal. There is no pleural effusion. <Conclusion> The left ventricular function is normal. Transmitral Doppler flow pattern is Grade I-abnormal relaxation pattern. Normal Doppler.
[2018-06-06] MEDS: Potassium Chloride 20 mEq/15 ml LIQ UD PO SCH ×2 (18:30→21:28)
--- NOTE | 2018-06-06 18:55 | CARD ---
APPROVED REPORT Date of service: 06/05/2018 EKG Measurement Heart [id number] <Conclusion> Normal sinus rhythm Normal ECG
[2018-06-06] MEDS ORDERED: Potassium Chloride 20 mEq/15 ml LIQ UD PO SCH (21:30)
--- NOTE | 2018-06-06 22:48 | CARD ---
APPROVED REPORT Date of service: 06/04/2018 EKG Measurement Heart [id number] <Conclusion> Normal sinus rhythm Possible Left atrial enlargement Nonspecific ST abnormality Abnormal ECG
[2018-06-07] MEDS: Lactated Ringer's 500 ML IV SCH ×4 (01:12→17:49)
[2018-06-07 02:22] LABS: OSMOLALITY,URINE 762 mosm/kg (300-1000)
[2018-06-07] MEDS: Piperacillin/Tazobact 3.375 GM in Sodium Chloride 100 ML IVPB SCH ×4 (05:33→23:00)
--- NOTE | 2018-06-07 07:55 | CP.PCM.PN ---
<Gus Caballero - Last Filed: 06/07/18 16:07> Subjective - Date & Time of Evaluation Date of Evaluation: 06/07/18 Time of Evaluation: 07:54 - Subjective Subjective: HOSPITALIST SERVICE Pt s/e at bedside, reports persistent hoarse voice, tolerated her liquid diet well last night, now NPO, understands and agrees with plan for vocal cord biopsy tomorrow. Denies CP SOB FC NV. Pt getting Dobhoff tube today to resume feedings, she agrees with plan Objective - Vital Signs/Intake and Output Vital Signs (last 24 hours): Temp Pulse Resp BP Pulse Ox 98.5 F 96 H 20 123/73 94 L 06/06/18 23:30 06/07/18 03:24 06/06/18 23:30 06/06/18 23:30 06/06/18 23:30 Intake and Output: 06/07/18 06/07/18 06:59 18:59 Intake Total 500 Balance 500 - Medications Medications: Current Medications Guaifenesin (Robitussin) 100 mg PO Q4H PRN PRN Reason: Cough Piperacillin Sod/Tazobactam (Sod 3.375 gm/ Sodium Chloride) 100 mls @ 200 mls/hr IVPB Q6H [facility]; Protocol Last Admin: 06/07/18 05:33 Dose: 200 mls/hr Lactated Ringer's (Lactated Ringer's 500ml) 500 mls @ 75 mls/hr IV .Q6H40M [facility] Last Admin: 06/07/18 05:30 Dose: Not Given Potassium Phosphate 15 mmole/ (Dextrose) 255 mls @ 42.5 mls/hr IVPB ONCE ONE Stop: 06/07/18 14:29 Lactobacillus Acidophilus (Lactobacillus) 1 cap PO BID [facility] Last Admin: 06/05/18 10:47 Dose: 1 cap Losartan Potassium (Cozaar) 50 mg PO DAILY [facility] Last Admin: 06/05/18 10:46 Dose: 50 mg Pantoprazole Sodium (Protonix Inj) 40 mg IVP DAILY [facility] Last Admin: 06/06/18 09:20 Dose: Not Given Rosuvastatin Calcium (Crestor) 2.5 mg PO HS [facility] Tetrahydrozoline HCl/Zinc Sulfate (Visine 0.05% Opht Soln) 0.05 ml OU BID [facility] Last Admin: 06/06/18 17:13 Dose: 1 applic - Labs Labs: 06/06/18 05:30 06/06/18 17:11 PT 12.9 SECONDS (9.7-12.2) H 06/05/18 13:51 INR 1.2 06/05/18 13:51 APTT 34 SECONDS (21-34) 06/05/18 13:51 - Additional Findings Additional findings: - Constitutional Appears: Non-toxic, No Acute Distress - Head Exam Head Exam: NORMAL INSPECTION, NORMOCEPHALIC - Eye Exam Eye Exam: EOMI, Normal appearance Pupil Exam: NORMAL ACCOMODATION - ENT Exam ENT Exam: Mucous Membranes Dry, TM's Normal Bilaterally Additional comments: no erythema in throat noted neck supple, no tenderness voice hoarse - Neck Exam Neck exam: Positive for: Full Rom, Normal Inspection. Negative for: Tenderness, Thyromegaly - Respiratory Exam Respiratory Exam: Rales, NORMAL BREATHING PATTERN. absent: Rhonchi, Wheezes Additional comments: R side - Cardiovascular Exam Cardiovascular Exam: +S1, +S2. absent: Systolic Murmur - GI/Abdominal Exam GI & Abdominal Exam: Normal Bowel Sounds, Soft. absent: Distended, Firm - Extremities Exam Extremities exam: Positive for: full ROM, normal inspection. Negative for: calf tenderness, pedal edema - Back Exam Back exam: absent: CVA tenderness (L), CVA tenderness (R) - Neurological Exam Neurological exam: Alert, CN II-XII Intact, Oriented x3 - Psychiatric Exam Psychiatric exam: Normal Affect, Normal Mood - Skin Skin Exam: Dry, Intact, Normal Color, Warm Assessment and Plan - Assessment and Plan (Free Text) Assessment: 63 F w/ PMhx of HTN, HLD presents w/ acute dysphasia for 11 days Plan: Dysphagia, Acute - Will consider Stricture vs Malignancy - Neck CT: no significant or acute findings - NPO except medications - ENT Dr Walden consulted: bedside laryngoscope shows R voical cord hypokinesis- direct laryngoscopy with biopsy planned for monday - F/u GI consult Severo: EGD showed stomach lesions, pending bx result : inconclusive however to explain dysphagia/vocal hoarseness - swallow eval indicates aspiration precautions - Barium swallow shows severe aspiration, poor cough reflex - Dobhoff tube in place Hyponatremia- resovled - likely secondary due to poor PO intact - responsive to IVF - Na 119 - > 122->129->134 - Nephro Dr Grace Consulted - Giving 1L D5W bolus to decrease serum Na this afternoon (rate of correction should have been no more than 6-8 meq over 24 hr period); - Avoid NSAID - Replenish K prn; - holding ARB , stop takingHCTZ - goal of less than 10 meq correction in 24 hr - 280 urine osm, 66 urine Na, f/u urine Cl, - TSH 0.19 - Finding on CT chest: nodular hypertrophy of left adrenal gland - will consider adrenal casue pending repeat lab work Hypokalemia -LRs @ 75 -monitor -K Phos 15mm given Hypophosphatemia Kayla-1.6 -K Phos 15mm given -f/u am labs Pleural effusion - Cxr: pleural effusion - CT chest: infecious etiologiy preferred - WBC 18s - will consider CAP vs aspiration pneumonia 2/2 to dysphagia - Low procalcitotonin, Neg blood/urine cultures 24hrs History of HTN - Hold home medication cozaar 50 mg PO daily History of HLD - hold home medication simvistatin 10 mg PO HS PPx - DVT: holding heparin, SCDS -Liquid diet with aspiration precautions, NPO past midnight - GI: protonix 40 mg IVP daily DISPO: pending laryngeal biopsy tmrw w/ Dr Walden, possible neurologic cause will consider MRI brain <Esteban Foley - Last Filed: 06/07/18 17:03> Objective - Vital Signs/Intake and Output Vital Signs (last 24 hours): Temp Pulse Resp BP Pulse Ox 98.1 F 91 H 20 120/81 99 06/07/18 07:20 06/07/18 08:00 06/07/18 07:20 06/07/18 07:20 06/07/18 07:20 Intake and Output: 06/07/18 06/07/18 06:59 18:59 Intake Total 500 505 Balance 500 505 - Medications Medications: Current Medications Guaifenesin (Robitussin) 100 mg PO Q4H PRN PRN Reason: Cough Piperacillin Sod/Tazobactam (Sod 3.375 gm/ Sodium Chloride) 100 mls @ 200 mls/hr IVPB Q6H [facility]; Protocol Last Admin: 06/07/18 12:00 Dose: 200 mls/hr Lactated Ringer's (Lactated Ringer's 500ml) 500 mls @ 75 mls/hr IV .Q6H40M [facility] Last Admin: 06/07/18 13:26 Dose: Not Given Lactobacillus Acidophilus (Lactobacillus) 1 cap PO BID [facility] Last Admin: 06/05/18 10:47 Dose: 1 cap Losartan Potassium (Cozaar) 50 mg PO DAILY [facility] Last Admin: 06/05/18 10:46 Dose: 50 mg Pantoprazole Sodium (Protonix Inj) 40 mg IVP DAILY [facility] Last Admin: 06/07/18 10:46 Dose: 40 mg Rosuvastatin Calcium (Crestor) 2.5 mg PO HS [facility] Tetrahydrozoline HCl/Zinc Sulfate (Visine 0.05% Opht Soln) 0.05 ml OU BID [facility] Last Admin: 06/07/18 10:50 Dose: 1 applic - Labs Labs: 06/07/18 08:20 06/07/18 08:20 PT 12.9 SECONDS (9.7-12.2) H 06/05/18 13:51 INR 1.2 06/05/18 13:51 APTT 34 SECONDS (21-34) 06/05/18 13:51 Attending/Attestation - Attestation I have personally seen and examined this patient.: Yes I have fully participated in the care of the patient.: Yes I have reviewed all pertinent clinical information, including history, physical exam and plan: Yes Notes (Text): seen and examined. Patient had swallowing study shows aspiration. Keep NPO,start on NG feeding. Dobhoff NG tube placed without difficulty for feeding.X ray done,tube is in place Feed toningh,Hold feeding midnight for procedure spoke to Dr skinner
[2018-06-07 08:26] LABS: BASO # 0.1 K/uL (0.0-0.2); BASO % 0.6 % (0.0-2.0); EOS # 0.2 K/uL (0.0-0.7); EOS % 0.9 % (0.0-4.0); HEMOGLOBIN 13.3 g/dL (11.0-16.0); LYMPH # 2.7 K/uL (1.0-4.3); LYMPH % 12.6 % (20.0-40.0); MEAN CELL VOLUME 86.6 fL (81.0-99.0); MEAN CORPUSCULAR HEMOGLOBIN 29.4 pg (27.0-31.0); MEAN PLATELET VOLUME 6.9 fL (7.2-11.7); MONO # 1.2 K/uL (0.0-0.8); MONO % 5.4 % (0.0-10.0); NEUT # 17.5 K/uL (1.8-7.0); NEUT % 80.5 % (50.0-75.0); RBC 4.51 Mil/uL (3.80-5.20); RED CELL DISTRIBUTION WIDTH 13.1 % (11.5-14.5); WHITE BLOOD COUNT 21.8 K/uL (4.8-10.8)
[2018-06-07] MEDS ORDERED: Potassium Phosphate 15 MMOLE in Dextrose 5% In Water 250 ML IVPB ONE (08:30)
[2018-06-07 08:58] LABS: ALB/GLOB RATIO 1.2 (1.0-2.1); ALBUMIN 3.5 g/dL (3.5-5.0); ALT/SGPT 12 U/L (9-52); AST/SGOT 14 U/L (14-36); BLOOD UREA NITROGEN 8 mg/dL (7-17); CALCIUM 8.5 mg/dl (8.6-10.4); GFR NON-AFRICAN AMERICAN > 60
[2018-06-07] MEDS: Tetrahydrozoline Opht 0.05% Sol (15 ml) OU SCH ×2 (10:50→17:24)
[2018-06-07] MEDS ORDERED: Barium Sulfate for Susp 98% w/w 340g Bottle ONE (11:19)
--- NOTE | 2018-06-07 12:17 | CP.PCM.PN ---
Subjective - Date & Time of Evaluation Date of Evaluation: 06/07/18 Time of Evaluation: 12:16 - Subjective Subjective: Nephrology Progress Note (Dr. Grace's Service): Patient seen and assessed at bedside. No acute events noted overnight. Patient had liquid diet last night and now reporting that her voice has been more hoarse than usual. A chest x-ray was ordered for possible aspiration PNA by primary team. Further 12 point ROS reviewed and unremarkable at this time. Objective - Vital Signs/Intake and Output Vital Signs (last 24 hours): Temp Pulse Resp BP Pulse Ox 98.1 F 100 H 20 120/81 99 06/07/18 07:20 06/07/18 07:20 06/07/18 07:20 06/07/18 07:20 06/07/18 07:20 Intake and Output: 06/07/18 06/07/18 06:59 18:59 Intake Total 500 Balance 500 - Medications Medications: Current Medications Guaifenesin (Robitussin) 100 mg PO Q4H PRN PRN Reason: Cough Piperacillin Sod/Tazobactam (Sod 3.375 gm/ Sodium Chloride) 100 mls @ 200 mls/hr IVPB Q6H [facility]; Protocol Last Admin: 06/07/18 05:33 Dose: 200 mls/hr Lactated Ringer's (Lactated Ringer's 500ml) 500 mls @ 75 mls/hr IV .Q6H40M [facility] Last Admin: 06/07/18 05:30 Dose: Not Given Potassium Phosphate 15 mmole/ (Dextrose) 255 mls @ 42.5 mls/hr IVPB ONCE ONE Stop: 06/07/18 14:29 Last Admin: 06/07/18 08:33 Dose: 42.5 mls/hr Lactobacillus Acidophilus (Lactobacillus) 1 cap PO BID [facility] Last Admin: 06/05/18 10:47 Dose: 1 cap Losartan Potassium (Cozaar) 50 mg PO DAILY [facility] Last Admin: 06/05/18 10:46 Dose: 50 mg Pantoprazole Sodium (Protonix Inj) 40 mg IVP DAILY [facility] Last Admin: 06/07/18 10:46 Dose: 40 mg Rosuvastatin Calcium (Crestor) 2.5 mg PO HS [facility] Tetrahydrozoline HCl/Zinc Sulfate (Visine 0.05% Opht Soln) 0.05 ml OU BID [facility] Last Admin: 06/07/18 10:50 Dose: 1 applic - Labs Labs: 06/07/18 08:20 06/07/18 08:20 PT 12.9 SECONDS (9.7-12.2) H 06/05/18 13:51 INR 1.2 06/05/18 13:51 APTT 34 SECONDS (21-34) 06/05/18 13:51 - Additional Findings Additional findings: - Constitutional Appears: Non-toxic, No Acute Distress - Head Exam Head Exam: ATRAUMATIC, NORMOCEPHALIC - Eye Exam Eye Exam: EOMI, Normal appearance, PERRL - ENT Exam ENT Exam: Mucous Membranes Moist, Normal Exam - Neck Exam Neck Exam: Full ROM, Normal Inspection - Respiratory Exam Respiratory Exam: Clear to Ausculation Bilateral, NORMAL BREATHING PATTERN - Cardiovascular Exam Cardiovascular Exam: REGULAR RHYTHM, RRR, +S1, +S2 - GI/Abdominal Exam GI & Abdominal Exam: Soft, Normal Bowel Sounds. absent: Tenderness - Extremities Exam Extremities Exam: Normal Inspection. absent: Calf Tenderness, Joint Swelling, Pedal Edema, Tenderness - Neurological Exam Neurological Exam: Alert, Awake, Oriented x3 - Psychiatric Exam Psychiatric exam: Normal Affect, Normal Mood - Skin Skin Exam: Dry, Intact, Normal Color, Warm Assessment and Plan - Assessment and Plan (Free Text) Assessment: 63 year old female with a past medical history significant for HTN, HLD and IGT who presented with dysphagia and throat pain for approximately 10 days. N ephrology was consulted for hyponatremia and hypokalemia. Plan: 1. Hyponatremia -Resolved -Most likely etiologies based on serum/urine studies include: Volume depletion with thiazide use and/or decreased PO intake -Repeat urine osmolality improved -Continue to monitor with daily CMP's -Holding home Cozaar -Hold home HCTZ indefinitely -Avoid use of NSAID's as this can potentiate effect of ADH 2. Hypokalemia -Continue replenishment as ordered to achieve manjit of >4.0 3. Hypertension -Currently controlled -Continue to hold BP meds as stated above Patient seen and case discussed with attending, Dr. Grace. Otto Cox PGY2
[2018-06-07] MEDS ORDERED: Lidocaine 4% (Laryng-O-Jet) Kit MM ONE (13:30)
--- NOTE | 2018-06-07 13:35 | CP.PCM.CON ---
<Milvia Lomax P - Last Filed: 06/07/18 15:01> History of Present Illness - History of Present Illness History of Present Illness: Neurology consult note for Dr. Ronquillo. 63 year old female with PMHx of HTN and HLD who presented to the ED on 06/04/18 for odynophagia, voice hoarseness followed by dysphagia to solids that began 8 days prior to arrival. Patient is able to tolerate liquids. Patient has never experienced these symptoms before. She denies trauma, dizziness, slurred speech, difficulty walking, focal weakness, change in hearing, numbness and tingling. CT head on admission showed no acute abnormality. Patient underwent flexible laryngoscopy where R vocal cord paralysis and pooling of secretions were noted. EGD showed no signs of esophageal abnormality. Modified barium swallow study showed moderate-severe pharyngeal stage dysphasia with high risk of aspiration/malnutrition. Neurology was consulted to rule out neurological etiology. PMhx: HTN, HLD Meds: Cozaar 50 mg Po daily, Simvastatin 10 mg Po HS Allergies: seasonal allergies PShx: SHx: denies tobacco, ETOH, illicit drug use Review of Systems - Review of Systems All systems: reviewed and no additional remarkable complaints except (as per HP I) Past Patient History - Past Medical History & Family History Past Medical History?: Yes - Past Social History Smoking Status: Never Smoked - CARDIAC Hx Hypercholesterolemia: Yes Hx Hypertension: Yes - PULMONARY Hx Sleep Apnea: No - NEUROLOGICAL Hx Seizures: No Hx Transient Ischemic Attacks (TIA): No - HEMATOLOGICAL/ONCOLOGICAL Hx Blood Transfusions: No - MUSCULOSKELETAL/RHEUMATOLOGICAL Hx Falls: No - GASTROINTESTINAL Hx Gastritis: Yes - PSYCHIATRIC Hx Substance Use: No - SURGICAL HISTORY Hx Surgeries: Yes Hx Section: Yes (X1) - ANESTHESIA Hx Anesthesia: Yes Hx Anesthesia Reactions: No Hx Malignant Hyperthermia: No Meds Allergies/Adverse Reactions: Allergies Allergy/AdvReac Type Severity Reaction Status Date / Time TREES Allergy Intermediate CONGESTION Uncoded 06/04/18 10:25 - Medications Medications: Current Medications Guaifenesin (Robitussin) 100 mg PO Q4H PRN PRN Reason: Cough Piperacillin Sod/Tazobactam (Sod 3.375 gm/ Sodium Chloride) 100 mls @ 200 mls/hr IVPB Q6H [facility]; Protocol Last Admin: 06/07/18 05:33 Dose: 200 mls/hr Lactated Ringer's (Lactated Ringer's 500ml) 500 mls @ 75 mls/hr IV .Q6H40M [facility] Last Admin: 06/07/18 13:26 Dose: Not Given Potassium Phosphate 15 mmole/ (Dextrose) 255 mls @ 42.5 mls/hr IVPB ONCE ONE Stop: 06/07/18 14:29 Last Admin: 06/07/18 08:33 Dose: 42.5 mls/hr Lactobacillus Acidophilus (Lactobacillus) 1 cap PO BID [facility] Last Admin: 06/05/18 10:47 Dose: 1 cap Losartan Potassium (Cozaar) 50 mg PO DAILY [facility] Last Admin: 06/05/18 10:46 Dose: 50 mg Pantoprazole Sodium (Protonix Inj) 40 mg IVP DAILY [facility] Last Admin: 06/07/18 10:46 Dose: 40 mg Rosuvastatin Calcium (Crestor) 2.5 mg PO HS [facility] Tetrahydrozoline HCl/Zinc Sulfate (Visine 0.05% Opht Soln) 0.05 ml OU BID [facility] Last Admin: 06/07/18 10:50 Dose: 1 applic Physical Exam - Constitutional Appears: Non-toxic, No Acute Distress - Head Exam Head Exam: ATRAUMATIC, NORMOCEPHALIC - Eye Exam Eye Exam: EOMI, Normal appearance, PERRL Pupil Exam: NORMAL ACCOMODATION - ENT Exam Additional comments: Hoarse voice. - Neck Exam Neck exam: Positive for: Full Rom, Normal Inspection - Respiratory Exam Respiratory Exam: NORMAL BREATHING PATTERN. absent: Respiratory Distress - Extremities Exam Extremities exam: Positive for: full ROM, normal inspection. Negative for: tenderness - Neurological Exam Additional comments: Awake, alert, oriented x3. PEERLA. No facial asymmetry. CN 2-12 intact. Speech is fluent. Muscle strength 5/5 in all extremities, sensation intact. Cerebellar function normal, no ataxia, no dysmetria. Normal gait. Patellar DTR 2+ bilaterally. - Psychiatric Exam Psychiatric exam: Normal Affect, Normal Mood - Skin Skin Exam: Dry, Normal Color, Warm Results - Vital Signs Recent Vital Signs: Last Vital Signs Temp 98.1 F 06/07/18 07:20 Pulse 100 H 06/07/18 07:20 Resp 20 06/07/18 07:20 BP 120/81 06/07/18 07:20 Pulse Ox 99 06/07/18 07:20 - Labs Result Diagrams: 06/07/18 08:20 06/07/18 08:20 Labs: Laboratory Results - last 24 hr 06/06/18 06/07/18 06/07/18 17:11 01:44 08:20 WBC 21.8 H RBC 4.51 Hgb 13.3 Hct 39.1 MCV 86.6 MCH 29.4 MCHC 34.0 RDW 13.1 Plt Count 514 H MPV 6.9 L Neut % (Auto) 80.5 H Lymph % (Auto) 12.6 L Mcdowell % (Auto) 5.4 Eos % (Auto) 0.9 Baso % (Auto) 0.6 Neut # (Auto) 17.5 H Lymph # (Auto) 2.7 Mcdowell # (Auto) 1.2 H Eos # (Auto) 0.2 Baso # (Auto) 0.1 Sodium 132 Potassium 3.0 L Chloride 97 L Carbon Dioxide 28 Anion Gap 10 BUN 11 Creatinine 0.4 L Est GFR ( Amer) > 60 Est GFR (Non-Af Amer) > 60 Random Glucose 136 H D Calcium 8.1 L Phosphorus Magnesium Total Bilirubin AST ALT Alkaline Phosphatase Total Protein Albumin Globulin Albumin/Globulin Ratio Urine Osmolality 762 Ur Random Sodium 172 06/07/18 08:20 WBC RBC Hgb Hct MCV MCH MCHC RDW Plt Count MPV Neut % (Auto) Lymph % (Auto) Mcdowell % (Auto) Eos % (Auto) Baso % (Auto) Neut # (Auto) Lymph # (Auto) Mcdowell # (Auto) Eos # (Auto) Baso # (Auto) Sodium 134 Potassium 3.7 Chloride 100 Carbon Dioxide 27 Anion Gap 11 BUN 8 Creatinine 0.4 L Est GFR ( Amer) > 60 Est GFR (Non-Af Amer) > 60 Random Glucose 124 H Calcium 8.5 L Phosphorus 1.6 L Magnesium 2.3 Total Bilirubin 0.9 AST 14 ALT 12 Alkaline Phosphatase 83 Total Protein 6.4 Albumin 3.5 Globulin 2.9 Albumin/Globulin Ratio 1.2 Urine Osmolality Ur Random Sodium Assessment & Plan - Assessment and Plan (Free Text) Assessment: 63 year old female with PMHx of HTN and HLD who presented to the ED on 06/04/18 for odynophagia, voice hoarseness followed by dysphagia to solids that began 8 days prior to arrival. Plan: -CT head 06/04/18: no acute abnormality. -flexible laryngoscopy 06/05/18: R vocal cord paralysis and pooling of secretions were noted. -EGD 06/06/18: no signs of esophageal abnormality. -Modified barium swallow study showed moderate to severe pharyngeal stage dysphasia -MRI without contrast ordered Case discussed with Dr. Ronquillo. Milvia Lomax, PGY-1 <Hugo Ronquillo - Last Filed: 06/17/18 11:01> Meds - Medications Medications: Current Medications Albuterol/Ipratropium (Duoneb 3 Mg/0.5 Mg (3 Ml) Ud) 3 ml INH RQ6 [facility] Piperacillin Sod/Tazobactam (Sod 3.375 gm/ Sodium Chloride) 100 mls @ 200 mls/hr IVPB Q6H [facility]; Protocol Last Admin: 06/17/18 10:04 Dose: 200 mls/hr Acyclovir 400 mg/ Sodium (Chloride) 100 mls @ 100 mls/hr IV Q8H [facility]; Protocol Last Admin: 06/17/18 04:02 Dose: 100 mls/hr Losartan Potassium (Cozaar) 50 mg PEG DAILY [facility] Pantoprazole Sodium (Protonix Susp) 40 mg PO DAILY [facility] Last Admin: 06/17/18 10:03 Dose: 40 mg Prednisone (Prednisone Tab) 60 mg NG Q24H [facility] Last Admin: 06/16/18 17:27 Dose: 60 mg Rosuvastatin Calcium (Crestor) 2.5 mg PEG HS [facility] Last Admin: 06/16/18 22:15 Dose: 2.5 mg Sodium Chloride ([place] Baby Saline 30 Ml) 0 ml MADELINE QID PRN PRN Reason: Dry nasal passages Tetrahydrozoline HCl/Zinc Sulfate (Visine 0.05% Opht Soln) 0.05 ml OU BID [facility] Last Admin: 06/16/18 18:15 Dose: 1 drop Results - Vital Signs Recent Vital Signs: Last Vital Signs Temp 98.3 F 06/17/18 07:00 Pulse 103 H 06/17/18 07:00 Resp 20 06/17/18 07:00 BP 107/61 06/17/18 07:00 Pulse Ox 96 06/17/18 07:00 - Labs Result Diagrams: 06/17/18 07:57 06/17/18 07:57 Labs: Laboratory Results - last 24 hr 06/14/18 06/16/18 06/17/18 13:52 16:00 07:57 WBC 9.9 RBC 3.59 L Hgb 10.7 L Hct 31.6 L MCV 87.9 MCH 29.7 MCHC 33.8 RDW 13.6 Plt Count 384 MPV 7.6 Neut % (Auto) 86.4 H Lymph % (Auto) 8.6 L Mcdowell % (Auto) 4.8 Eos % (Auto) 0.0 Baso % (Auto) 0.2 Neut # (Auto) 8.5 H Lymph # (Auto) 0.8 L Mcdowell # (Auto) 0.5 Eos # (Auto) 0.0 Baso # (Auto) 0.0 Neutrophils % (Manual) 87 H Lymphocytes % (Manual) 6 L Reactive Lymphs % 1 H Monocytes % (Manual) 6 Platelet Estimate Normal Ovalocytes Slight Sodium Potassium Chloride Carbon Dioxide Anion Gap BUN Creatinine Est GFR ( Amer) Est GFR (Non-Af Amer) Random Glucose Calcium Phosphorus Magnesium Total Bilirubin AST ALT Alkaline Phosphatase Total Protein Albumin Globulin Albumin/Globulin Ratio Lipase Cryptococcus Ag Negative Infectious Mcdowell Assay TB Test (QFT) Nil 0.08 TB Test Mitogen - Nil 7.08 TB Test Antigen - Nil <0.00 TB Test TB - Nil <0.00 TB Test (QFT) Negative 06/17/18 06/17/18 07:57 07:57 WBC RBC Hgb Hct MCV MCH MCHC RDW Plt Count MPV Neut % (Auto) Lymph % (Auto) Mcdowell % (Auto) Eos % (Auto) Baso % (Auto) Neut # (Auto) Lymph # (Auto) Mcdowell # (Auto) Eos # (Auto) Baso # (Auto) Neutrophils % (Manual) Lymphocytes % (Manual) Reactive Lymphs % Monocytes % (Manual) Platelet Estimate Ovalocytes Sodium 135 Potassium 3.5 L Chloride 103 Carbon Dioxide 26 Anion Gap 10 BUN 16 Creatinine 0.4 L Est GFR ( Amer) > 60 Est GFR (Non-Af Amer) > 60 Random Glucose 195 H D Calcium 8.9 Phosphorus 3.0 Magnesium 2.4 H Total Bilirubin 0.4 AST 31 ALT 81 H Alkaline Phosphatase 87 Total Protein 5.9 L Albumin 3.4 L Globulin 2.5 Albumin/Globulin Ratio 1.3 Lipase 147 Cryptococcus Ag Infectious Mcdowell Assay Negative TB Test (QFT) Nil TB Test Mitogen - Nil TB Test Antigen - Nil TB Test TB - Nil TB Test (QFT) Assessment & Plan - Assessment and Plan (Free Text) Plan: All medical record entries made by the Resident were at my direction and personally dictated by me. I have reviewed the chart and agree that the record accurately reflects my personal performance of the history, physical exam, medical decision making, and the department course for this patient. I have also personally directed, reviewed, and agree with the discharge instructions and dis position. MIss Jerry is a woman with dysphagia who will be further evaluated with EGD and then MRI Brain Dr. ronquillo Neurology
--- NOTE | 2018-06-07 14:13 | RAD ---
Date of service: 2018-06-07 12:26:00 PROCEDURE: Modified barium swallow study. HISTORY: Dysphagia,vocal cord weakness COMPARISON: None available. TECHNIQUE: Under fluoroscopic guidance, barium meals of various consistency were administered to the patient by the speech pathologist. FINDINGS: No penetration or aspiration was observed during this study. Liquids as well as some aspiration. IMPRESSION: Moderate aspiration observed. Please refer to the detailed report and recommendations of the speech pathologist.
--- NOTE | 2018-06-07 15:06 | RAD ---
Date of service: 06/07/2018 HISTORY: Possible aspiration pna COMPARISON: Comparison chest radiograph and CT chest 06/04/2018 FINDINGS: LUNGS: There is a small approximately 6 mm elliptical shaped calcification again seen overlying right breast.. PLEURA: No significant pleural effusion identified, no pneumothorax apparent. CARDIOVASCULAR: No aortic atherosclerotic calcification present. Normal cardiac size. No pulmonary vascular congestion. OSSEOUS STRUCTURES: No significant abnormalities. VISUALIZED UPPER ABDOMEN: Normal. OTHER FINDINGS: None. IMPRESSION: No active disease. Right breast calcification.
--- NOTE | 2018-06-07 16:55 | RAD ---
Date of service: 06/07/2018 HISTORY: confirm placement of nasogastric tube COMPARISON: 06/07/2018 at 10:16 a.m. FINDINGS: The nasogastric tube terminates in the stomach. LUNGS: The lungs are well inflated and clear. PLEURA: No pleural effusions or pneumothorax. CARDIOVASCULAR: The heart is normal in size. No aortic atherosclerotic calcifications present. OSSEOUS STRUCTURES: Within normal limits for the patient's age. VISUALIZED UPPER ABDOMEN: Normal. OTHER FINDINGS: None. IMPRESSION: Nasogastric tube terminates in the stomach. No acute findings.
[2018-06-08] MEDS: Lactated Ringer's 500 ML IV SCH ×3 (01:23→15:05)
[2018-06-08] MEDS: Piperacillin/Tazobact 3.375 GM in Sodium Chloride 100 ML IVPB SCH ×4 (05:30→22:06)
[2018-06-08 07:14] LABS: BASO # 0.1 K/uL (0.0-0.2); BASO % 0.5 % (0.0-2.0); EOS # 0.4 K/uL (0.0-0.7); EOS % 2.5 % (0.0-4.0); HEMOGLOBIN 13.2 g/dL (11.0-16.0); LYMPH # 2.5 K/uL (1.0-4.3); MEAN CELL VOLUME 85.7 fL (81.0-99.0); MEAN CORPUSCULAR HEMOGLOBIN 29.5 pg (27.0-31.0); MEAN CORPUSCULAR HGB CONC 34.4 g/dL (33.0-37.0); MEAN PLATELET VOLUME 6.8 fL (7.2-11.7); MONO # 1.2 K/uL (0.0-0.8); MONO % 7.6 % (0.0-10.0); NEUT # 11.6 K/uL (1.8-7.0); NEUT % 73.4 % (50.0-75.0); RBC 4.47 Mil/uL (3.80-5.20); RED CELL DISTRIBUTION WIDTH 13.3 % (11.5-14.5); WHITE BLOOD COUNT 15.8 K/uL (4.8-10.8)
[2018-06-08 07:37] LABS: ALB/GLOB RATIO 1.1 (1.0-2.1); ALBUMIN 3.3 g/dL (3.5-5.0); ALT/SGPT 9 U/L (9-52); AST/SGOT 25 U/L (14-36); BLOOD UREA NITROGEN 7 mg/dL (7-17); CALCIUM 8.5 mg/dl (8.6-10.4); GFR NON-AFRICAN AMERICAN > 60
--- NOTE | 2018-06-08 09:09 | CP.PCM.PN ---
<Gus Caballero - Last Filed: 06/08/18 18:22> Subjective - Date & Time of Evaluation Date of Evaluation: 06/08/18 Time of Evaluation: 09:09 - Subjective Subjective: HOSPITALIST SERVICE Pt s/e at bedside, pt went for bx today with juan j, tolerated well, pt says her voice is improving, pt denies cp sob fc nv, pt understands she needs to wait until monday for a reapt swallow study to r/o aspirations and to resume normal feeds if permitting. Pt agrees to dobhoff tube feeds. Objective - Vital Signs/Intake and Output Vital Signs (last 24 hours): Temp Pulse Resp BP Pulse Ox 98.1 F 100 H 18 131/75 97 06/08/18 07:00 06/08/18 08:28 06/08/18 07:00 06/08/18 07:00 06/08/18 07:00 Intake and Output: 06/08/18 06/08/18 06:59 18:59 Intake Total 1780 Balance 1780 - Medications Medications: Current Medications Guaifenesin (Robitussin) 100 mg PO Q4H PRN PRN Reason: Cough Piperacillin Sod/Tazobactam (Sod 3.375 gm/ Sodium Chloride) 100 mls @ 200 mls/hr IVPB Q6H [facility]; Protocol Last Admin: 06/08/18 05:30 Dose: 200 mls/hr Lactated Ringer's (Lactated Ringer's 500ml) 500 mls @ 75 mls/hr IV .Q6H40M [facility] Last Admin: 06/08/18 07:39 Dose: Not Given Lactobacillus Acidophilus (Lactobacillus) 1 cap PO BID [facility] Last Admin: 06/05/18 10:47 Dose: 1 cap Losartan Potassium (Cozaar) 50 mg PO DAILY [facility] Last Admin: 06/05/18 10:46 Dose: 50 mg Pantoprazole Sodium (Protonix Inj) 40 mg IVP DAILY [facility] Last Admin: 06/07/18 10:46 Dose: 40 mg Rosuvastatin Calcium (Crestor) 2.5 mg PO HS [facility] Tetrahydrozoline HCl/Zinc Sulfate (Visine 0.05% Opht Soln) 0.05 ml OU BID [facility] Last Admin: 06/07/18 17:24 Dose: 1 applic - Labs Labs: 06/08/18 06:33 06/08/18 06:33 PT 12.9 SECONDS (9.7-12.2) H 06/05/18 13:51 INR 1.2 06/05/18 13:51 APTT 34 SECONDS (21-34) 06/05/18 13:51 - Additional Findings Additional findings: - Constitutional Appears: Non-toxic, No Acute Distress - Head Exam Head Exam: NORMAL INSPECTION, NORMOCEPHALIC - Eye Exam Eye Exam: EOMI, Normal appearance Pupil Exam: NORMAL ACCOMODATION - ENT Exam ENT Exam: Mucous Membranes Dry, TM's Normal Bilaterally Additional comments: no erythema in throat noted neck supple, no tenderness voice hoarse - Neck Exam Neck exam: Positive for: Full Rom, Normal Inspection. Negative for: Tenderness, Thyromegaly - Respiratory Exam Respiratory Exam: Rales, NORMAL BREATHING PATTERN. absent: Rhonchi, Wheezes Additional comments: R side - Cardiovascular Exam Cardiovascular Exam: +S1, +S2. absent: Systolic Murmur - GI/Abdominal Exam GI & Abdominal Exam: Normal Bowel Sounds, Soft. absent: Distended, Firm - Extremities Exam Extremities exam: Positive for: full ROM, normal inspection. Negative for: calf tenderness, pedal edema - Back Exam Back exam: absent: CVA tenderness (L), CVA tenderness (R) - Neurological Exam Neurological exam: Alert, CN II-XII Intact, Oriented x3 - Psychiatric Exam Psychiatric exam: Normal Affect, Normal Mood - Skin Skin Exam: Dry, Intact, Normal Color, Warm Assessment and Plan - Assessment and Plan (Free Text) Assessment: Assessment and Plan - Assessment and Plan (Free Text) Assessment: 63 F w/ PMhx of HTN, HLD presents w/ acute dysphasia for 11 days Plan: Dysphagia, Acute - Will consider Stricture vs Malignancy - Neck CT: no significant or acute findings - NPO except medications - ENT Dr Walden consulted: bedside laryngoscope shows R voical cord hypokinesis- biopsy done today says likely vocal cord spasm/paralysis, unlikely to have conclusive findings on bx - F/u GI consult Severo: EGD showed stomach lesions, pending bx result : inconclusive however to explain dysphagia/vocal hoarseness - swallow eval indicates aspiration precautions - Barium swallow shows severe aspiration, poor cough reflex - Dobhoff tube in place resuming feeds @ 15- Dietary consulted for optimazation Hyponatremia- resovled - likely secondary due to poor PO intact - responsive to IVF - Na 119 - > 122->129->134 - Nephro Dr Grace Consulted - Giving 1L D5W bolus to decrease serum Na this afternoon (rate of correction should have been no more than 6-8 meq over 24 hr period); - Avoid NSAID - Replenish K prn; - holding ARB , stop takingHCTZ - goal of less than 10 meq correction in 24 hr - 280 urine osm, 66 urine Na, f/u urine Cl, - TSH 0.19 - Finding on CT chest: nodular hypertrophy of left adrenal gland - will consider adrenal casue pending repeat lab work Hypokalemia -LRs @ 75 -monitor -K Phos 15mm given Hypophosphatemia resolved Pleural effusion - Cxr: pleural effusion - CT chest: infecious etiologiy preferred - WBC 18s - will consider CAP vs aspiration pneumonia 2/2 to dysphagia - Low procalcitotonin, Neg blood/urine cultures 24hrs History of HTN - Hold home medication cozaar 50 mg PO daily History of HLD - hold home medication simvistatin 10 mg PO HS PPx - DVT: holding heparin, SCDS -Liquid diet with aspiration precautions, NPO past midnight - GI: protonix 40 mg IVP daily DISPO: pending laryngeal biopsy tmrw w/ Dr Walden, possible neurologic cause will consider MRI brain <Esteban Foley - Last Filed: 06/17/18 11:18> Objective - Vital Signs/Intake and Output Vital Signs (last 24 hours): Temp Pulse Resp BP Pulse Ox 97.8 F 76 18 132/73 97 06/09/18 07:17 06/09/18 07:47 06/09/18 07:17 06/09/18 07:17 06/09/18 07:17 Intake and Output: 06/09/18 06/09/18 06:59 18:59 Intake Total 305 300 Balance 305 300 - Medications Medications: Current Medications Diphenhydramine HCl (Benadryl) 25 mg IVP HS [facility] Last Admin: 06/08/18 21:41 Dose: 25 mg Guaifenesin (Robitussin) 100 mg PO Q4H PRN PRN Reason: Cough Piperacillin Sod/Tazobactam (Sod 3.375 gm/ Sodium Chloride) 100 mls @ 200 mls/hr IVPB Q6H [facility]; Protocol Last Admin: 06/09/18 17:12 Dose: 200 mls/hr Lactobacillus Acidophilus (Lactobacillus) 1 cap PO BID [facility] Last Admin: 06/05/18 10:47 Dose: 1 cap Losartan Potassium (Cozaar) 50 mg PO DAILY [facility] Last Admin: 06/05/18 10:46 Dose: 50 mg Pantoprazole Sodium (Protonix Inj) 40 mg IVP DAILY [facility] Last Admin: 06/09/18 09:03 Dose: 40 mg Rosuvastatin Calcium (Crestor) 2.5 mg PO HS [facility] Tetrahydrozoline HCl/Zinc Sulfate (Visine 0.05% Opht Soln) 0.05 ml OU BID [facility] Last Admin: 06/09/18 17:13 Dose: 1 applic - Labs Labs: 06/09/18 07:03 06/09/18 07:03 PT 12.9 SECONDS (9.7-12.2) H 06/05/18 13:51 INR 1.2 06/05/18 13:51 APTT 34 SECONDS (21-34) 06/05/18 13:51 Attending/Attestation - Attestation I have personally seen and examined this patient.: Yes I have fully participated in the care of the patient.: Yes I have reviewed all pertinent clinical information, including history, physical exam and plan: Yes Notes (Text): seen and examined by me. Dysphagia,vocal cord weakness continue NG feeding Pharyngeal biopsy
[2018-06-08] MEDS: Tetrahydrozoline Opht 0.05% Sol (15 ml) OU SCH ×2 (09:33→17:50)
--- NOTE | 2018-06-08 10:12 | CP.PCM.PN ---
Subjective - Date & Time of Evaluation Date of Evaluation: 06/08/18 Time of Evaluation: 10:12 - Subjective Subjective: Nephrology Progress Note (Dr. Grace's Service): Patient seen and assessed at bedside. Patient noted to have had Dobhoff with TF started yesterday for severe dysphagia. The Dobhoff became dislodged overnight and was not put back in as patient has vocal cord biopsy with ENT this AM. She denies any complaints currently. Further 12 point ROS reviewed and unremarkable at this time. Objective - Vital Signs/Intake and Output Vital Signs (last 24 hours): Temp Pulse Resp BP Pulse Ox 98.1 F 100 H 18 131/75 97 06/08/18 07:00 06/08/18 08:28 06/08/18 07:00 06/08/18 07:00 06/08/18 07:00 Intake and Output: 06/08/18 06/08/18 06:59 18:59 Intake Total 1780 Balance 1780 - Medications Medications: Current Medications Guaifenesin (Robitussin) 100 mg PO Q4H PRN PRN Reason: Cough Piperacillin Sod/Tazobactam (Sod 3.375 gm/ Sodium Chloride) 100 mls @ 200 mls/hr IVPB Q6H [facility]; Protocol Last Admin: 06/08/18 10:00 Dose: Not Given Lactated Ringer's (Lactated Ringer's 500ml) 500 mls @ 75 mls/hr IV .Q6H40M [facility] Last Admin: 06/08/18 07:39 Dose: Not Given Potassium Chloride (Potassium Chloride 20 Meq/100 Ml) 20 meq in 100 mls @ 50 mls/hr IVPB ONCE ONE Stop: 06/08/18 11:50 Lactobacillus Acidophilus (Lactobacillus) 1 cap PO BID [facility] Last Admin: 06/05/18 10:47 Dose: 1 cap Losartan Potassium (Cozaar) 50 mg PO DAILY [facility] Last Admin: 06/05/18 10:46 Dose: 50 mg Pantoprazole Sodium (Protonix Inj) 40 mg IVP DAILY [facility] Last Admin: 06/08/18 09:33 Dose: 40 mg Rosuvastatin Calcium (Crestor) 2.5 mg PO HS [facility] Tetrahydrozoline HCl/Zinc Sulfate (Visine 0.05% Opht Soln) 0.05 ml OU BID [facility] Last Admin: 06/08/18 09:33 Dose: 1 applic - Labs Labs: 06/08/18 06:33 06/08/18 06:33 PT 12.9 SECONDS (9.7-12.2) H 06/05/18 13:51 INR 1.2 06/05/18 13:51 APTT 34 SECONDS (21-34) 06/05/18 13:51 - Constitutional Appears: Non-toxic, No Acute Distress - Head Exam Head Exam: ATRAUMATIC, NORMOCEPHALIC - Eye Exam Eye Exam: EOMI, Normal appearance - ENT Exam ENT Exam: Mucous Membranes Moist - Neck Exam Neck Exam: Full ROM - Respiratory Exam Respiratory Exam: Clear to Ausculation Bilateral, NORMAL BREATHING PATTERN. absent: Rales, Rhonchi, Wheezes, Respiratory Distress - Cardiovascular Exam Cardiovascular Exam: RRR, +S1, +S2 - GI/Abdominal Exam GI & Abdominal Exam: Soft, Normal Bowel Sounds. absent: Tenderness - Extremities Exam Extremities Exam: absent: Calf Tenderness, Pedal Edema - Neurological Exam Neurological Exam: Alert, Awake, Oriented x3 - Psychiatric Exam Psychiatric exam: Normal Affect, Normal Mood - Skin Skin Exam: Dry, Intact, Normal Color, Warm Assessment and Plan - Assessment and Plan (Free Text) Assessment: 63 year old female with a past medical history significant for HTN, HLD and IGT who presented with dysphagia and throat pain for approximately 10 days. Nephrology was consulted for hyponatremia and hypokalemia. Plan: 1. Hyponatremia -Resolved -Most likely etiologies based on serum/urine studies include: Volume depletion with thiazide use and/or decreased PO intake -Continue to monitor with daily CMP's -Holding home Cozaar -Hold home HCTZ indefinitely -Avoid use of NSAID's as this can potentiate effect of ADH -Further recommendations as per Dr. Grace 2. Hypokalemia -Replenished today with 20meq IVPB K-Sotero as serum potassium at 3.5 -Continue replenishment as needed to achieve manjit of >4.0 3. Hypertension -Currently controlled -Continue to hold BP meds as stated above Patient seen and case discussed with attending, Dr. Grace. Otto Cox PGY2
[2018-06-08] MEDS ORDERED: Propofol 10 mg/ml Inj (20 ML) ONE (10:26)
--- NOTE | 2018-06-08 10:29 | MRI ---
Date of service: 06/08/2018 PROCEDURE: MRI BRAIN WITHOUT CONTRAST HISTORY: dysphagia and vocal cord weakness COMPARISON: CT head without contrast from 06/04/2018 TECHNIQUE: Multiplanar, multisequence MR images of the brain were obtained without intravenous contrast enhancement. FINDINGS: HEMORRHAGE: None DWI: No evidence of an acute or early subacute infarction. BRAIN PARENCHYMA: Javier-white matter differentiation is preserved. There is no mass, mass effect or abnormal extra-axial fluid collection. There is no territorial infarction. The midline sagittal structures are normal. VENTRICLES: There is mild age-related global parenchymal volume loss and proportionate enlargement of the ventricles and cortical sulci. CRANIUM: There is normal bone marrow signal pattern. ORBITS: Grossly unremarkable. PARANASAL SINUSES/MASTOIDS: The paranasal sinuses are predominantly clear. Bilateral small mastoid effusions. VASCULAR SYSTEM: There are normal signal voids in the larger intracranial arteries. OTHER FINDINGS: None. IMPRESSION: 1. No acute intracranial abnormality. 2. Mild age-related global parenchymal volume loss. 3. Small bilateral mastoid effusions.
--- NOTE | 2018-06-08 15:22 | CP.PCM.PN ---
Subjective - Date & Time of Evaluation Date of Evaluation: 06/08/18 Time of Evaluation: 15:20 - Subjective Subjective: Neuro Follow-Up Note: Mrs. Michele Jerry was evaluated this afternoon at bedside. Family present. Pt still admits to difficulty swallowing; still NPO. She is status post larnygoscopy with biopsy today. Currently she denies h/a, dizziness, visual changes, chest pain, sob, abd pain, n/v/d, paresthesias, fever/chills. Objective - Vital Signs/Intake and Output Vital Signs (last 24 hours): Temp Pulse Resp BP Pulse Ox 97.4 F L 78 15 131/65 97 06/08/18 11:51 06/08/18 13:27 06/08/18 11:51 06/08/18 11:51 06/08/18 11:51 Intake and Output: 06/08/18 06/08/18 06:59 18:59 Intake Total 1780 1100 Balance 1780 1100 - Medications Medications: Current Medications Guaifenesin (Robitussin) 100 mg PO Q4H PRN PRN Reason: Cough Piperacillin Sod/Tazobactam (Sod 3.375 gm/ Sodium Chloride) 100 mls @ 200 mls/hr IVPB Q6H [facility]; Protocol Last Admin: 06/08/18 10:00 Dose: Not Given Lactated Ringer's (Lactated Ringer's 500ml) 500 mls @ 75 mls/hr IV .Q6H40M [facility] Last Admin: 06/08/18 15:05 Dose: Not Given Lactobacillus Acidophilus (Lactobacillus) 1 cap PO BID [facility] Last Admin: 06/05/18 10:47 Dose: 1 cap Losartan Potassium (Cozaar) 50 mg PO DAILY [facility] Last Admin: 06/05/18 10:46 Dose: 50 mg Pantoprazole Sodium (Protonix Inj) 40 mg IVP DAILY [facility] Last Admin: 06/08/18 09:33 Dose: 40 mg Rosuvastatin Calcium (Crestor) 2.5 mg PO HS [facility] Tetrahydrozoline HCl/Zinc Sulfate (Visine 0.05% Opht Soln) 0.05 ml OU BID [facility] Last Admin: 06/08/18 09:33 Dose: 1 applic - Labs Labs: 06/08/18 06:33 06/08/18 06:33 PT 12.9 SECONDS (9.7-12.2) H 06/05/18 13:51 INR 1.2 06/05/18 13:51 APTT 34 SECONDS (21-34) 06/05/18 13:51 - Constitutional Appears: Well, Non-toxic, No Acute Distress - Head Exam Head Exam: ATRAUMATIC, NORMAL INSPECTION, NORMOCEPHALIC - Eye Exam Eye Exam: EOMI, Normal appearance, PERRL Pupil Exam: NORMAL ACCOMODATION, PERRL - ENT Exam ENT Exam: Mucous Membranes Moist - Neck Exam Neck Exam: Full ROM, Normal Inspection - Respiratory Exam Respiratory Exam: NORMAL BREATHING PATTERN - Extremities Exam Extremities Exam: Full ROM. absent: Calf Tenderness, Pedal Edema - Back Exam Back Exam: Full ROM - Neurological Exam Neurological Exam: Alert, Awake, Normal Gait, Oriented x3, Reflexes Normal Neuro motor strength exam: Left Upper Extremity: 5, Right Upper Extremity: 5, Left Lower Extremity: 5, Right Lower Extremity: 5 Additional comments: No focal motor or sensory deficits Speech clear - Psychiatric Exam Psychiatric exam: Normal Affect, Normal Mood - Skin Skin Exam: Normal Color Assessment and Plan (1) Dysphagia Assessment & Plan: Imaging reviewed: -MRI Brain (06/08/18): 1. No acute intracranial abnormality. 2. Mild age- related global parenchymal volume loss. 3. Small bilateral mastoid effusions. -CT head (06/04/18): No acute intracranial pathology identified. -Pending results of biopsy done with laryngoscopy today. -No further neuro recommendations. Reconsult prn. Thank you for this consultation. Lois Morales, DNP, EARLY CHILDHOOD EDUCATOR AIDE Discussed with Dr. Houston Status: Acute
--- NOTE | 2018-06-08 15:50 | RAD ---
Date of service: 06/08/2018 HISTORY: new dobhoff NGT placed COMPARISON: 06/07/2018 FINDINGS: LUNGS: No active pulmonary disease. PLEURA: No significant pleural effusion identified, no pneumothorax apparent. CARDIOVASCULAR: There is atherosclerotic calcification of the thoracic aorta. Normal cardiac size. No congestive change. Dobbhoff feeding tube extending to the left upper quadrant of the abdomen. OSSEOUS STRUCTURES: No significant abnormalities. VISUALIZED UPPER ABDOMEN: Normal. OTHER FINDINGS: None. IMPRESSION: Dobbhoff feeding tube in left upper quadrant. No infiltrate.
[2018-06-08] MEDS: DiphenhydrAMINE 50 mg/ml Inj IVP SCH (21:41)
--- NOTE | 2018-06-08 21:50 | OP ---
PROCEDURE DATE: 06/08/2018 PREOPERATIVE DIAGNOSES: Dysphagia and right vocal cord paralysis. POSTOPERATIVE DIAGNOSES: Dysphagia and right vocal cord paralysis. SIGNIFICANT FINDINGS: No masses or lesions noted. DESCRIPTION OF PROCEDURE: The patient was brought into the room and placed in supine position. Anesthesia was initiated through an ET tube, shoulder roll was placed, neck extended. The patient was draped in the usual manner. Tooth guard was placed over the upper teeth in order to protect them and remained there for the entire case. Direct laryngoscope was inserted into the oral cavity, passed to the oropharynx and hypopharynx. The base of tongue, vallecula, epiglottis, AE folds, false cords, true cords, pharyngeal ricketts, piriform sinuses and arytenoids were brought into view. No masses or lesions were noted. Biopsy of the right vocal cord was taken and multiple biopsies of the piriform sinus were taken. Bleeding was controlled using cold water irrigation. Direct laryngoscope was removed. The patient was taken off anesthesia and taken to the recovery room in stable manner. Toni Walden MD
[2018-06-09] MEDS: Piperacillin/Tazobact 3.375 GM in Sodium Chloride 100 ML IVPB SCH ×4 (04:35→22:07)
[2018-06-09 07:14] LABS: BASO # 0.1 K/uL (0.0-0.2); BASO % 0.4 % (0.0-2.0); EOS # 0.1 K/uL (0.0-0.7); EOS % 0.6 % (0.0-4.0); HEMOGLOBIN 13.6 g/dL (11.0-16.0); LYMPH # 3.1 K/uL (1.0-4.3); LYMPH % 17.1 % (20.0-40.0); MEAN CELL VOLUME 85.7 fL (81.0-99.0); MEAN CORPUSCULAR HEMOGLOBIN 28.9 pg (27.0-31.0); MEAN CORPUSCULAR HGB CONC 33.8 g/dL (33.0-37.0); MEAN PLATELET VOLUME 6.6 fL (7.2-11.7); MONO # 1.5 K/uL (0.0-0.8); MONO % 8.2 % (0.0-10.0); NEUT # 13.2 K/uL (1.8-7.0); NEUT % 73.7 % (50.0-75.0); RBC 4.69 Mil/uL (3.80-5.20); RED CELL DISTRIBUTION WIDTH 13.2 % (11.5-14.5); WHITE BLOOD COUNT 17.9 K/uL (4.8-10.8)
--- NOTE | 2018-06-09 08:28 | CP.PCM.PN ---
<Leda Xiong - Last Filed: 06/09/18 14:33> Subjective - Date & Time of Evaluation Date of Evaluation: 06/09/18 Time of Evaluation: 08:28 - Subjective Subjective: PGY-1 Leda Xiong D.O. Medicine progress note for Dr. Foley's service: Patient was seen and examined this morning. Over night, patient's Dobhoff became clogged, and she was unable to get any feedings. Patient currently denies pain. She says that her voice is starting to sound better. She says that she is hungry. Objective - Vital Signs/Intake and Output Vital Signs (last 24 hours): Temp Pulse Resp BP Pulse Ox 97.8 F 76 18 132/73 97 06/09/18 07:17 06/09/18 07:47 06/09/18 07:17 06/09/18 07:17 06/09/18 07:17 Intake and Output: 06/09/18 06/09/18 06:59 18:59 Intake Total 305 Balance 305 - Medications Medications: Current Medications Diphenhydramine HCl (Benadryl) 25 mg IVP HS [facility] Last Admin: 06/08/18 21:41 Dose: 25 mg Guaifenesin (Robitussin) 100 mg PO Q4H PRN PRN Reason: Cough Piperacillin Sod/Tazobactam (Sod 3.375 gm/ Sodium Chloride) 100 mls @ 200 mls/hr IVPB Q6H [facility]; Protocol Last Admin: 06/09/18 04:35 Dose: 200 mls/hr Lactobacillus Acidophilus (Lactobacillus) 1 cap PO BID [facility] Last Admin: 06/05/18 10:47 Dose: 1 cap Losartan Potassium (Cozaar) 50 mg PO DAILY [facility] Last Admin: 06/05/18 10:46 Dose: 50 mg Pantoprazole Sodium (Protonix Inj) 40 mg IVP DAILY [facility] Last Admin: 06/08/18 09:33 Dose: 40 mg Rosuvastatin Calcium (Crestor) 2.5 mg PO HS [facility] Tetrahydrozoline HCl/Zinc Sulfate (Visine 0.05% Opht Soln) 0.05 ml OU BID [facility] Last Admin: 06/08/18 17:50 Dose: 1 applic - Labs Labs: 06/09/18 07:03 06/08/18 06:33 PT 12.9 SECONDS (9.7-12.2) H 06/05/18 13:51 INR 1.2 06/05/18 13:51 APTT 34 SECONDS (21-34) 06/05/18 13:51 - Constitutional Appears: No Acute Distress - Head Exam Head Exam: ATRAUMATIC, NORMAL INSPECTION - Eye Exam Eye Exam: EOMI, Normal appearance - ENT Exam ENT Exam: Mucous Membranes Dry Additional comments: hoarse voice - Respiratory Exam Respiratory Exam: Clear to Ausculation Bilateral, NORMAL BREATHING PATTERN - Cardiovascular Exam Cardiovascular Exam: RRR, +S1, +S2 - GI/Abdominal Exam GI & Abdominal Exam: Soft. absent: Tenderness - Extremities Exam Extremities Exam: Normal Inspection. absent: Pedal Edema - Neurological Exam Neurological Exam: Alert, Awake, CN II-XII Intact, Oriented x3 - Psychiatric Exam Psychiatric exam: Normal Affect, Normal Mood - Skin Skin Exam: Dry, Normal Color, Warm Assessment and Plan - Assessment and Plan (Free Text) Assessment: Patient is a 63 yo female with HTN and HLD who presented with dysphagia and hoarseness. MRI brain and CT head/neck did not reveal etiology. EGD performed- no abnormalities noted. Barium swallow showed moderate aspiration. ENT saw vocal cord hypokinesis on flex laryngoscopy. Patient had vocal cord biopsy on 06/08. She is being fed via NGT pending repeat swallow study on Monday. Plan: Dysphagia, acute - CT head, CT neck: no significant or acute findings - MRI brain: no significant or acute findings - Echo: unremarkable - EGD: stomach lesions, negative biopsies - Swallow eval: aspiration precautions - Barium swallow: severe aspiration, poor cough reflex - Flexible laryngoscopy: R vocal cord hypokinesis, pooling of secretions in piriform sinus - s/p Vocal cord biopsy 06/08 - f/u Bx results - NPO - Removed Dobhoff due to clogging and placed NGT 06/09 - Jevity 1.5 1 container bolus eith flushes QID - Repeat swallow study on Sunday 06/11 - ENT consulted (Win)- vocal cord Bx - GI consulted (Severo)- EGD - Neurology consulted (Celso)- rec MRI, signed off Hyponatremia, acute, resolved - Responsive to IVF - Na 119 on admission, 134 today - CT chest: nodular hypertrophy of left adrenal gland - Consider f/u as outpatient - serum osm 273, urine osm 254, urine Na 66 - TSH low (0.19), free T4 wnl (1.76) - Nephrology consulted (Sanjay)- 1L D5W bolus to decrease serum Na (rate of correction should have been no more than 6-8 meq over 24 hr period); Avoid NSAID; Hold ARB, Discontinue HCTZ Hypokalemia, acute, resolved - Monitor and replete PRN Hypophosphatemia, acute, resolved - Monitor and replete PRN Pleural effusion, acute, resolved - CXR on admission: mild right pleural effusion - CXR (06/07): no pleural effusion - CT chest on admission: mild tree-in-bud opacities in right upper and middle lobes - Afebrile - Leukocytosis stable - Procal low (0.11) - Blood Cx no growth >4 days - Zosyn 3.375 mg IV Q6H IV- started 06/05 Hypertension, chronic - Vitals Q6H - Hold home medication Cozaar 50 mg PO daily while NPO Hyperlipidemia, chronic - Hold home medication Simvastatin 10 mg PO QHS while NPO Ppx: VTE: SCDs GI: Protonix 40 mg IVP daily Diet: Jevity via NGT, NPO Case discussed with attending, Dr. Foley. <Esteban Foley - Last Filed: 06/09/18 15:13> Objective - Vital Signs/Intake and Output Vital Signs (last 24 hours): Temp Pulse Resp BP Pulse Ox 97.8 F 76 18 132/73 97 06/09/18 07:17 06/09/18 07:47 06/09/18 07:17 06/09/18 07:17 06/09/18 07:17 Intake and Output: 06/09/18 06/09/18 06:59 18:59 Intake Total 305 300 Balance 305 300 - Medications Medications: Current Medications Diphenhydramine HCl (Benadryl) 25 mg IVP HS [facility] Last Admin: 06/08/18 21:41 Dose: 25 mg Guaifenesin (Robitussin) 100 mg PO Q4H PRN PRN Reason: Cough Piperacillin Sod/Tazobactam (Sod 3.375 gm/ Sodium Chloride) 100 mls @ 200 mls/hr IVPB Q6H [facility]; Protocol Last Admin: 06/09/18 11:09 Dose: 200 mls/hr Lactobacillus Acidophilus (Lactobacillus) 1 cap PO BID [facility] Last Admin: 06/05/18 10:47 Dose: 1 cap Losartan Potassium (Cozaar) 50 mg PO DAILY [facility] Last Admin: 06/05/18 10:46 Dose: 50 mg Pantoprazole Sodium (Protonix Inj) 40 mg IVP DAILY [facility] Last Admin: 06/09/18 09:03 Dose: 40 mg Rosuvastatin Calcium (Crestor) 2.5 mg PO HS [facility] Tetrahydrozoline HCl/Zinc Sulfate (Visine 0.05% Opht Soln) 0.05 ml OU BID [facility] Last Admin: 06/09/18 09:03 Dose: 1 applic - Labs Labs: 06/09/18 07:03 06/09/18 07:03 PT 12.9 SECONDS (9.7-12.2) H 06/05/18 13:51 INR 1.2 06/05/18 13:51 APTT 34 SECONDS (21-34) 06/05/18 13:51 Attending/Attestation - Attestation I have personally seen and examined this patient.: Yes I have fully participated in the care of the patient.: Yes I have reviewed all pertinent clinical information, including history, physical exam and plan: Yes Notes (Text): seen and examined,lungs clear,failed swallowing study on NG feeding patient says she feels better. Her voice is more clear. May repeat swallowing study on monday if she fails need PEG S/P vocal cord biopsy,no gross lesion continue zosyn fo possible aspiration
[2018-06-09] MEDS: Tetrahydrozoline Opht 0.05% Sol (15 ml) OU SCH ×2 (09:03→17:13)
[2018-06-09 09:04] LABS: ALB/GLOB RATIO 1.2 (1.0-2.1); ALBUMIN 3.5 g/dL (3.5-5.0); ALT/SGPT 12 U/L (9-52); AST/SGOT 13 U/L (14-36); BLOOD UREA NITROGEN 17 mg/dL (7-17); CALCIUM 8.8 mg/dl (8.6-10.4); GFR NON-AFRICAN AMERICAN > 60
--- NOTE | 2018-06-09 12:33 | RAD ---
Date of service: 06/09/2018 HISTORY: NGT placement COMPARISON: 06/08/2018 TECHNIQUE: 1 view obtained. FINDINGS: LUNGS: No active pulmonary disease. PLEURA: No significant pleural effusion identified, no pneumothorax apparent. CARDIOVASCULAR: There is atherosclerotic calcification of the thoracic aorta. Normal cardiac size. No congestive change. Nasogastric tube extends to left upper quadrant of abdomen. OSSEOUS STRUCTURES: No significant abnormalities. VISUALIZED UPPER ABDOMEN: Normal. OTHER FINDINGS: None. IMPRESSION: NG tube extends to left upper quadrant of abdomen.
[2018-06-09] MEDS: DiphenhydrAMINE 50 mg/ml Inj IVP SCH (22:08)
[2018-06-10] MEDS: Piperacillin/Tazobact 3.375 GM in Sodium Chloride 100 ML IVPB SCH ×4 (04:41→22:46)
--- NOTE | 2018-06-10 07:29 | CP.PCM.PN ---
<Leda Xiong - Last Filed: 06/10/18 12:36> Subjective - Date & Time of Evaluation Date of Evaluation: 06/10/18 Time of Evaluation: 07:28 - Subjective Subjective: PGY-1 Leda Xiong D.O. Medicine progress note for Dr. Painter's service: Patient was seen and examined this morning. Patient states that she continues to feel better. Her hoarseness is noticeably improved. She has been able to receive feedings via NGT. Patient is ambulating without difficulty. She is complaining of some diarrhea. Denies pain. Denies urinary symptoms. Objective - Vital Signs/Intake and Output Vital Signs (last 24 hours): Temp Pulse Resp BP Pulse Ox 97.6 F 96 H 20 121/76 100 06/09/18 23:10 06/09/18 23:10 06/09/18 23:10 06/09/18 23:10 06/09/18 23:10 Intake and Output: 06/10/18 06/10/18 06:59 18:59 Intake Total 350 Balance 350 - Medications Medications: Current Medications Diphenhydramine HCl (Benadryl) 25 mg IVP HS [facility] Last Admin: 06/09/18 22:08 Dose: 25 mg Piperacillin Sod/Tazobactam (Sod 3.375 gm/ Sodium Chloride) 100 mls @ 200 mls/hr IVPB Q6H [facility]; Protocol Last Admin: 06/10/18 04:41 Dose: 200 mls/hr Losartan Potassium (Cozaar) 50 mg PO DAILY [facility] Last Admin: 06/05/18 10:46 Dose: 50 mg Pantoprazole Sodium (Protonix Inj) 40 mg IVP DAILY [facility] Last Admin: 06/09/18 09:03 Dose: 40 mg Rosuvastatin Calcium (Crestor) 2.5 mg PO HS [facility] Tetrahydrozoline HCl/Zinc Sulfate (Visine 0.05% Opht Soln) 0.05 ml OU BID [facility] Last Admin: 06/09/18 17:13 Dose: 1 applic - Labs Labs: 06/09/18 07:03 06/09/18 07:03 PT 12.9 SECONDS (9.7-12.2) H 06/05/18 13:51 INR 1.2 06/05/18 13:51 APTT 34 SECONDS (21-34) 06/05/18 13:51 - Additional Findings Additional findings: - Constitutional Appears: No Acute Distress - Head Exam Head Exam: ATRAUMATIC, NORMAL INSPECTION - Eye Exam Eye Exam: EOMI, Normal appearance - ENT Exam ENT Exam: Mucous Membranes Dry - Respiratory Exam Respiratory Exam: Clear to Ausculation Bilateral, NORMAL BREATHING PATTERN - Cardiovascular Exam Cardiovascular Exam: RRR, +S1, +S2 - GI/Abdominal Exam GI & Abdominal Exam: Soft. absent: Tenderness - Extremities Exam Extremities Exam: Normal Inspection. absent: Pedal Edema - Neurological Exam Neurological Exam: Alert, Awake, CN II-XII Intact, Oriented x3 - Psychiatric Exam Psychiatric exam: Normal Affect, Normal Mood - Skin Skin Exam: Dry, Normal Color, Warm Assessment and Plan - Assessment and Plan (Free Text) Assessment: Patient is a 63 yo female with HTN and HLD who presented with dysphagia and hoarseness. MRI brain and CT head/neck did not reveal etiology. EGD performed- no abnormalities noted. Barium swallow showed moderate aspiration. ENT saw vocal cord hypokinesis on flex laryngoscopy but no masses. Patient had vocal cord biopsy on 06/08. She is being fed via NGT pending repeat swallow study tomorrow Sunday 06/11. Plan: Dysphagia and Hoarseness, acute, improving - CT head, CT neck: no significant or acute findings - MRI brain: no significant or acute findings - Echo: unremarkable - EGD: stomach lesions, negative biopsies - Swallow eval: aspiration precautions - Barium swallow 06/07: severe aspiration, poor cough reflex - Repeat barium swallow pending 06/11 - Flexible laryngoscopy: R vocal cord hypokinesis, pooling of secretions in piriform sinus - s/p Vocal cord biopsy 06/08 - f/u Bx results - NPO - NGT placed 06/09- Jevity 1.5 1 container bolus with flushes QID - [place] baby saline MADELINE QID - ENT consulted ([facility])- vocal cord Bx - GI consulted ([facility])- EGD - Neurology consulted ([facility])- rec MRI, signed off Hyponatremia, acute, resolved - Responsive to IVF - Na 119 on admission, 133 today - CT chest: nodular hypertrophy of left adrenal gland - Consider f/u as outpatient - Serum osm 273, urine osm 254, urine Na 66 - TSH low (0.19), free T4 wnl (1.76) - Nephrology consulted ([facility] [place])- Avoid NSAID; Hold ARB, Discontinue HCTZ Hypokalemia, acute, resolved - Monitor and replete PRN Hypophosphatemia, acute, resolved - Monitor and replete PRN Pleural effusion, acute, resolved - CXR on admission: mild right pleural effusion - CXR (06/07): no pleural effusion - CT chest on admission: mild tree-in-bud opacities in right upper and middle lobes - Afebrile - Leukocytosis stable - Procal low (0.11) - Blood Cx no growth - Zosyn 3.375 mg IV Q6H IV- started 06/05 Hypertension, chronic, well-controlled - Vitals Q6H - Hold home medication Cozaar 50 mg PO daily while NPO Hyperlipidemia, chronic - Most recent lipid panel from 09/2017 wnl - Hold home medication Simvastatin 10 mg PO QHS while NPO Ppx: VTE: SCDs, ambulatory GI: Protonix 40 mg IVP daily Diet: Jevity via NGT, NPO Case discussed with attending, Dr. Painter. <Amita Painter V - Last Filed: 06/10/18 17:26> Objective - Vital Signs/Intake and Output Vital Signs (last 24 hours): Temp Pulse Resp BP Pulse Ox 97.8 F 102 H 20 125/70 98 06/10/18 15:05 06/10/18 15:05 06/10/18 15:05 06/10/18 15:05 06/10/18 15:05 Intake and Output: 06/10/18 06/10/18 06:59 18:59 Intake Total 350 600 Balance 350 600 - Medications Medications: Current Medications Piperacillin Sod/Tazobactam (Sod 3.375 gm/ Sodium Chloride) 100 mls @ 200 mls/hr IVPB Q6H [facility]; Protocol Last Admin: 06/10/18 10:46 Dose: 200 mls/hr Losartan Potassium (Cozaar) 50 mg PO DAILY [facility] Last Admin: 06/05/18 10:46 Dose: 50 mg Pantoprazole Sodium (Protonix Inj) 40 mg IVP DAILY [facility] Last Admin: 06/10/18 09:04 Dose: 40 mg Rosuvastatin Calcium (Crestor) 2.5 mg PO HS [facility] Sodium Chloride ([place] Baby Saline 30 Ml) 0 ml MADELINE QID [facility] Last Admin: 06/10/18 13:26 Dose: 30 ml Tetrahydrozoline HCl/Zinc Sulfate (Visine 0.05% Opht Soln) 0.05 ml OU BID [facility] Last Admin: 06/10/18 09:04 Dose: 1 applic - Labs Labs: 06/10/18 07:01 06/10/18 07:01 PT 12.9 SECONDS (9.7-12.2) H 06/05/18 13:51 INR 1.2 06/05/18 13:51 APTT 34 SECONDS (21-34) 06/05/18 13:51 Attending/Attestation - Attestation I have personally seen and examined this patient.: Yes I have fully participated in the care of the patient.: Yes I have reviewed all pertinent clinical information, including history, physical exam and plan: Yes Notes (Text): Patient seen, examined, case discussed with medical detailist. Patient is a 63 yo female with HTN and HLD who presented with dysphagia and hoarseness. MRI brain and CT head/neck did not reveal etiology. EGD performed- no abnormalities noted. Barium swallow showed moderate aspiration. ENT saw vocal cord hypokinesis on flex laryngoscopy. Patient had vocal cord biopsy on 06/08. She is being fed via NGT pending repeat swallow study on Monday. 1. Dysphagia 2. Right vocal cord paralysis 3. Hoarseness Assessment/plan * Neurology on board help appreciated * ENT on board help appreciated * GI on board help appreciated * CT head from June 04, 2018 no acute intracranial pathology identified * Neck CT with IV contrast June 04, 2018 no significant or acute findings to account or for related to the clinical presentation * CT chest from June 04, 2018 noted for mild [id number]-like opacities within the inferior right upper lobe and the right lower lobe. Limited visualization of the abdomen showed small hypertrophy of the left adrenal gland indeterminate hepatic steatosis. Scattered diverticula. Gastroesophageal reflux. * Modified barium swallow June 07, 2018: Moderate aspiration observed. Please refer to detailed report and recommendations of speech pathologist. * Brain MRI without contrast from June 08, 2018 no acute intracranial abnormality. Mild age-related global parenchymal volume loss. Small bilateral mastoid effusions. * Direct laryngoscopy from June 08, 2018 from ENT noted no masses or lesions noted. We will need to follow-up biopsy of the right vocal cord as well as the biopsy of the piriform sinus. * Flexible laryngoscopy from June 05, 2018 noted right vocal cord not movable, pulling of secretions in the piriform sinuses. * EGD from June 14, 2018 no endoscopic esophageal abnormality. Humanitarian altered LOC blood/coffee-ground material in the gastric fundus and gastric body. Biopsies performed in the lower third of the esophagus in the upper third of the esophagus. * Proximal esophagus biopsy fragments of benign esophageal squamous mucosa. Negative for changes of reflux esophagitis. Negative for fungal organisms. * Distal esophagus fragments of benign esophageal squamous mucosa. Negative for reflux esophagitis. Negative for fungal organisms. * Gastric body biopsy with mild chronic inflammation negative for H. pylori * Gastric antrum fragments of mild chronic inflammation. H. pylori negative * Patient is n.p.o. * Will reattempt modified swallow barium enema tomorrow. * Zosyn 3.375 IV piggyback every 6 active since June 05, 2018 * 4. Hyponatremia, acute, resolved Assessment/plan * Nephrology on board help appreciated * Normalized * Avoid NSAIDs which can potentiate the effect of the ED H * Most likely etiology based on serum and urine studies include volume depletion thiazide use and/or decreased oral intake 5. Hypokalemia, acute, resolved Assessment/plan * Monitor and replete PRN 6. Hypophosphatemia, acute, resolved Assessment/plan * Monitor and replete PRN 7. Pleural effusion, acute, resolved Assessment/plan * Chest x-ray from June 09, 2018 NG tube extends to the left upper quadrant of the abdomen * Chest x-ray from June 09, 2018 Dobbhoff feeding tube in the left upper quad rant. No infiltrate. * Chest x-ray from June 07, 2018. Nasogastric tube terminates in the stomach. No acute findings * Chest x-ray from June 07, 2018 no active disease. Right breast calcification. * CT chest noted from June 04, 2018 * Chest x-ray 05/07/2018 mild right pleural effusion or thickening. Elevation of the right hemidiaphragm. 8. Hypertension, chronic Assessment/plan * Monitor vital signs * Cozaar is on hold 9. Lipid disorder Assessment/plan * Patient is n.p.o. hold patient's statin at this time 10. Prophylactic measure * SCDs * Protonix 40 mg IV daily * Nasal spray * NG tube in place * Jevity 1.5 bolus about 4 times a day with water flushes 100 every 4 hours * Aspiration precautions
[2018-06-10 08:17] LABS: BASO # 0.2 K/uL (0.0-0.2); BASO % 0.9 % (0.0-2.0); EOS # 0.3 K/uL (0.0-0.7); EOS % 1.7 % (0.0-4.0); HEMOGLOBIN 13.9 g/dL (11.0-16.0); LYMPH # 2.7 K/uL (1.0-4.3); LYMPH % 15.8 % (20.0-40.0); MEAN CELL VOLUME 86.2 fL (81.0-99.0); MEAN CORPUSCULAR HEMOGLOBIN 29.4 pg (27.0-31.0); MEAN CORPUSCULAR HGB CONC 34.1 g/dL (33.0-37.0); MEAN PLATELET VOLUME 6.6 fL (7.2-11.7); MONO % 5.7 % (0.0-10.0); NEUT # 13.2 K/uL (1.8-7.0); NEUT % 75.9 % (50.0-75.0); RBC 4.74 Mil/uL (3.80-5.20); RED CELL DISTRIBUTION WIDTH 13.7 % (11.5-14.5); WHITE BLOOD COUNT 17.4 K/uL (4.8-10.8)
[2018-06-10 08:36] LABS: ALB/GLOB RATIO 1.2 (1.0-2.1); ALBUMIN 3.6 g/dL (3.5-5.0); ALT/SGPT 12 U/L (9-52); AST/SGOT 16 U/L (14-36); BLOOD UREA NITROGEN 12 mg/dL (7-17); CALCIUM 8.8 mg/dl (8.6-10.4); GFR NON-AFRICAN AMERICAN > 60
[2018-06-10] MEDS: Tetrahydrozoline Opht 0.05% Sol (15 ml) OU SCH ×2 (09:04→17:58)
[2018-06-10] MEDS: Sodium Chloride Nasal 0.65% Soln (30ml) NAS SCH ×3 (13:26→22:46)
[2018-06-10] MEDS ORDERED: DiphenhydrAMINE 50 mg/ml Inj IVP ONE (22:30)
[2018-06-11] MEDS: Piperacillin/Tazobact 3.375 GM in Sodium Chloride 100 ML IVPB SCH ×3 (04:09→17:01)
--- NOTE | 2018-06-11 07:22 | CP.PCM.PN ---
<Leda Xiong - Last Filed: 06/11/18 14:22> Subjective - Date & Time of Evaluation Date of Evaluation: 06/11/18 Time of Evaluation: 07:21 - Subjective Subjective: PGY-1 Leda Xiong D.O. Medicine progress note for Dr. Painter's service: Patient was seen and examined this morning. Over night, patient's NGT came out and was successfully replaced. This morning, patient feels about the same. She is anxious about the biopsy results. She continues to have mild diarrhea. Denies chest pain, SOB, abdominal pain. Her hoarseness is improved. She says that she is very hungry. Objective - Vital Signs/Intake and Output Vital Signs (last 24 hours): Temp Pulse Resp BP Pulse Ox 97.7 F 96 H 20 125/69 98 06/11/18 00:30 06/11/18 00:30 06/11/18 00:30 06/11/18 00:30 06/11/18 00:30 - Medications Medications: Current Medications Piperacillin Sod/Tazobactam (Sod 3.375 gm/ Sodium Chloride) 100 mls @ 200 mls/hr IVPB Q6H [facility]; Protocol Last Admin: 06/11/18 04:09 Dose: 200 mls/hr Losartan Potassium (Cozaar) 50 mg PO DAILY [facility] Last Admin: 06/05/18 10:46 Dose: 50 mg Pantoprazole Sodium (Protonix Inj) 40 mg IVP DAILY [facility] Last Admin: 06/10/18 09:04 Dose: 40 mg Rosuvastatin Calcium (Crestor) 2.5 mg PO HS [facility] Sodium Chloride ([place] Baby Saline 30 Ml) 0 ml MADELINE QID [facility] Last Admin: 06/10/18 22:46 Dose: 30 ml Tetrahydrozoline HCl/Zinc Sulfate (Visine 0.05% Opht Soln) 0.05 ml OU BID [facility] Last Admin: 06/10/18 17:58 Dose: 1 applic - Labs Labs: 06/10/18 07:01 06/10/18 07:01 PT 12.9 SECONDS (9.7-12.2) H 06/05/18 13:51 INR 1.2 06/05/18 13:51 APTT 34 SECONDS (21-34) 06/05/18 13:51 - Additional Findings Additional findings: - Constitutional Appears: No Acute Distress - Head Exam Head Exam: ATRAUMATIC, NORMAL INSPECTION - Eye Exam Eye Exam: EOMI, Normal appearance - ENT Exam ENT Exam: Mucous Membranes Moist NGT in R nare - Respiratory Exam Respiratory Exam: Clear to Auscultation Bilateral, NORMAL BREATHING PATTERN - Cardiovascular Exam Cardiovascular Exam: RRR, +S1, +S2 - GI/Abdominal Exam GI & Abdominal Exam: Soft. absent: Tenderness - Extremities Exam Extremities Exam: Normal Inspection. absent: Pedal Edema - Neurological Exam Neurological Exam: Alert, Awake, CN II-XII Intact, Oriented x3 - Psychiatric Exam Psychiatric exam: Normal Affect, Normal Mood - Skin Skin Exam: Dry, Normal Color, Warm Assessment and Plan - Assessment and Plan (Free Text) Assessment: Patient is a 63 yo female with HTN and HLD who presented with dysphagia and hoarseness. MRI brain and CT head/neck did not reveal etiology. EGD performed- no abnormalities noted. Barium swallow showed moderate aspiration. ENT saw vocal cord hypokinesis on flex laryngoscopy but no masses. Patient had vocal cord biopsy on 06/08. She is being fed via NGT. Plan: Dysphagia and Hoarseness, acute, improving - CT head, CT neck: no significant or acute findings - MRI brain: no significant or acute findings - Echo: unremarkable - EGD: minor stomach lesions, negative biopsies - Swallow eval: aspiration precautions - Failed repeat bedside swallow eval on 06/11 - Barium swallow 06/07: severe aspiration, poor cough reflex - [employer] recommends repeat in 4 weeks - Flexible laryngoscopy: R vocal cord hypokinesis, pooling of secretions in piriform sinus - s/p Vocal cord biopsy 06/08 - f/u Bx results - Acetylcholine receptor binding Ab pending - NPO - NGT placed 06/09- Jevity 1.5 1 container bolus with flushes QID - [place] baby saline MADELINE QID - ENT consulted (Win)- vocal cord Bx - GI consulted ([facility])- EGD - Neurology consulted ([facility])- rec MRI Hyponatremia, acute, resolved - Responsive to IVF - Na 119 on admission, 134 today - CT chest: nodular hypertrophy of left adrenal gland - Consider f/u as outpatient - Serum osm 273, urine osm 254, urine Na 66 - TSH low (0.19), free T4 wnl (1.76) - Nephrology consulted ([facility])- Avoid NSAID; Hold ARB, Discontinue HCTZ Hypokalemia, acute, resolved - Monitor and replete PRN Hypophosphatemia, acute, resolved - Monitor and replete PRN Pleural effusion, acute, resolved - CXR on admission: mild right pleural effusion - CXR (06/07): no pleural effusion - CT chest on admission: mild tree-in-bud opacities in right upper and middle lobes - Afebrile - Leukocytosis stable - Procal low (0.11) - Blood Cx no growth - Zosyn 3.375 mg IV Q6H IV- started 06/05 Hypertension, chronic, well-controlled - Vitals Q6H - Hold home medication Cozaar 50 mg PO daily while NPO Hyperlipidemia, chronic - Most recent lipid panel from 09/2017 wnl - Hold home medication Simvastatin 10 mg PO QHS while NPO Ppx: VTE: SCDs, ambulatory GI: Protonix 40 mg IVP daily Diet: Jevity via NGT, NPO Case discussed with attending, Dr. Painter. <Amita Painter V - Last Filed: 06/11/18 16:02> Objective - Vital Signs/Intake and Output Vital Signs (last 24 hours): Temp Pulse Resp BP Pulse Ox 97.4 F L 95 H 20 116/70 96 06/11/18 07:00 06/11/18 07:00 06/11/18 07:00 06/11/18 07:00 06/11/18 07:00 - Medications Medications: Current Medications Piperacillin Sod/Tazobactam (Sod 3.375 gm/ Sodium Chloride) 100 mls @ 200 mls/hr IVPB Q6H [facility]; Protocol Last Admin: 06/11/18 10:11 Dose: 200 mls/hr Losartan Potassium (Cozaar) 50 mg PO DAILY [facility] Last Admin: 06/05/18 10:46 Dose: 50 mg Pantoprazole Sodium (Protonix Inj) 40 mg IVP DAILY [facility] Last Admin: 06/11/18 10:12 Dose: 40 mg Rosuvastatin Calcium (Crestor) 2.5 mg PO HS [facility] Sodium Chloride ([place] Baby Saline 30 Ml) 0 ml MAD[place]INE QID [facility] Last Admin: 06/11/18 14:10 Dose: 30 ml Tetrahydrozoline HCl/Zinc Sulfate (Visine 0.05% Opht Soln) 0.05 ml OU BID [facility] Last Admin: 06/11/18 10:12 Dose: 1 applic - Labs Labs: 06/11/18 06:53 06/11/18 06:53 PT 12.9 SECONDS (9.7-12.2) H 06/05/18 13:51 INR 1.2 06/05/18 13:51 APTT 34 SECONDS (21-34) 06/05/18 13:51 Attending/Attestation - Attestation I have personally seen and examined this patient.: Yes I have fully participated in the care of the patient.: Yes I have reviewed all pertinent clinical information, including history, physical exam and plan: Yes Notes (Text): Patient seen, examined, case discussed with medical center director. Patient is a 63 yo female with HTN and HLD who presented with dysphagia and hoarseness. MRI brain and CT head/neck did not reveal etiology. EGD performed- no abnormalities noted. Barium swallow showed moderate aspiration. ENT saw vocal cord hypokinesis on flex laryngoscopy. Patient had vocal cord biopsy on 06/08; we need to follow-up the biopsy. She is being fed via NGT. Discussed with speech language pathologist, patient is continue to aspirate; speech pathology will follow along. Discussed with neurology service to see if mysathenia could also be in the differential since patient had noted eye twitching over the left eye and dysphagia. Assessment/Plan 1. Dysphagia 2. Right vocal cord paralysis 3. Hoarseness Assessment/plan * Neurology on board help appreciated * ENT on board help appreciated * GI on board help appreciated * CT head from June 04, 2018 no acute intracranial pathology identified * Neck CT with IV contrast June 04, 2018 no significant or acute findings to account or for related to the clinical presentation * CT chest from June 04, 2018 noted for mild [id number]-like opacities within the inferior right upper lobe and the right lower lobe. Limited visualization of the abdomen showed small hypertrophy of the left adrenal gland indeterminate hepatic steatosis. Scattered diverticula. Gastroesophageal reflux. * Modified barium swallow June 07, 2018: Moderate aspiration observed. Please refer to detailed report and recommendations of speech pathologist. * Brain MRI without contrast from June 08, 2018 no acute intracranial abnormality. Mild age-related global parenchymal volume loss. Small bilateral mastoid effusions. * Direct laryngoscopy from June 08, 2018 from ENT noted no masses or lesions noted. We will need to follow-up biopsy of the right vocal cord as well as the biopsy of the piriform sinus. * Flexible laryngoscopy from June 05, 2018 noted right vocal cord not movable, pulling of secretions in the piriform sinuses. * EGD from June 14, 2018 no endoscopic esophageal abnormality. Humanitarian altered LOC blood/coffee-ground material in the gastric fundus and gastric b marquise. Biopsies performed in the lower third of the esophagus in the upper third of the esophagus. * Proximal esophagus biopsy fragments of benign esophageal squamous mucosa. Negative for changes of reflux esophagitis. Negative for fungal organisms. * Distal esophagus fragments of benign esophageal squamous mucosa. Negative for reflux esophagitis. Negative for fungal organisms. * Gastric body biopsy with mild chronic inflammation negative for H. pylori * Gastric antrum fragments of mild chronic inflammation. H. pylori negative * Patient is n.p.o; requires NGT tube feedings * Zosyn 3.375 IV piggyback every 6 active since June 05, 2018 4. Hyponatremia, acute, resolved Assessment/plan * Nephrology on board help appreciated * Normalized * Avoid NSAIDs which can potentiate the effect of the ED H * Most likely etiology based on serum and urine studies include volume depletion thiazide use and/or decreased oral intake 5. Hypokalemia, acute, resolved Assessment/plan * Monitor and replete PRN 6. Hypophosphatemia, acute, resolved Assessment/plan * Monitor and replete PRN 7. Pleural effusion, acute, resolved Assessment/plan * Chest x-ray from June 09, 2018 NG tube extends to the left upper quadrant of the abdomen * Chest x-ray from June 09, 2018 Dobbhoff feeding tube in the left upper quad rant. No infiltrate. * Chest x-ray from June 07, 2018. Nasogastric tube terminates in the stomach. No acute findings * Chest x-ray from June 07, 2018 no active disease. Right breast calcification. * CT chest noted from June 04, 2018 * Chest x-ray 05/07/2018 mild right pleural effusion or thickening. Elevation of the right hemidiaphragm. 8. Hypertension, chronic Assessment/plan * Monitor vital signs * Cozaar is on hold 9. Lipid disorder Assessment/plan * Patient is n.p.o. hold patient's statin at this time 10. Prophylactic measure * SCDs * Protonix 40 mg IV daily * Nasal spray * NG tube in place * Jevity 1.5 bolus about 4 times a day with water flushes 100 every 4 hours * Aspiration precautions
[2018-06-11 07:26] LABS: ALB/GLOB RATIO 1.2 (1.0-2.1); ALBUMIN 3.7 g/dL (3.5-5.0); ALT/SGPT 13 U/L (9-52); AST/SGOT 14 U/L (14-36); BLOOD UREA NITROGEN 9 mg/dL (7-17); CALCIUM 8.7 mg/dl (8.6-10.4); GFR NON-AFRICAN AMERICAN > 60
[2018-06-11 07:32] LABS: BASO # 0.1 K/uL (0.0-0.2); BASO % 0.5 % (0.0-2.0); EOS # 0.5 K/uL (0.0-0.7); EOS % 3.8 % (0.0-4.0); HEMOGLOBIN 14.2 g/dL (11.0-16.0); LYMPH # 2.9 K/uL (1.0-4.3); LYMPH % 20.8 % (20.0-40.0); MEAN CORPUSCULAR HEMOGLOBIN 29.2 pg (27.0-31.0); MEAN CORPUSCULAR HGB CONC 33.5 g/dL (33.0-37.0); MEAN PLATELET VOLUME 6.5 fL (7.2-11.7); MONO # 0.9 K/uL (0.0-0.8); MONO % 6.8 % (0.0-10.0); NEUT # 9.4 K/uL (1.8-7.0); NEUT % 68.1 % (50.0-75.0); NRBC % 0.1 % (0.0-2.0); RBC 4.87 Mil/uL (3.80-5.20); RED CELL DISTRIBUTION WIDTH 13.7 % (11.5-14.5); WHITE BLOOD COUNT 13.8 K/uL (4.8-10.8)
--- NOTE | 2018-06-11 09:39 | RAD ---
Date of service: 06/10/2018 HISTORY: NG tube placement COMPARISON: Made with prior chest radiograph 06/09/2018. TECHNIQUE: 1 view obtained. FINDINGS: In situ NGT, tip of which lies left upper-mid quadrants of the abdomen. LUNGS: No active pulmonary disease. PLEURA: No significant pleural effusion identified, no pneumothorax apparent. CARDIOVASCULAR: No aortic atherosclerotic calcification present. Normal cardiac size. No pulmonary vascular congestion. OSSEOUS STRUCTURES: No significant abnormalities. VISUALIZED UPPER ABDOMEN: Normal. OTHER FINDINGS: None. IMPRESSION: No active disease.
[2018-06-11] MEDS: Sodium Chloride Nasal 0.65% Soln (30ml) NAS SCH ×4 (10:11→23:00)
[2018-06-11] MEDS: Tetrahydrozoline Opht 0.05% Sol (15 ml) OU SCH ×2 (10:12→17:02)
--- NOTE | 2018-06-11 15:58 | CP.PCM.CON ---
<Angelita Hein - Last Filed: 06/11/18 15:44> History of Present Illness - History of Present Illness History of Present Illness: PGY-1 Neuro Consult Note for Dr. Duke Patient was noted to have a left eye twitch today. She says that her left eyelid has always lagged behind her right. Patient reports the blinking even when she doesn't thinking about it. She is still having dysphagia and remains NPO since she failed today's swallow eval. Denies headache, dizziness, visual changes, parasthesias but does admit to easy fatigability. Review of Systems - Constitutional Constitutional: Fatigue, Weakness. absent: Headache, Lethargy - EENT Eyes: absent: Blurred Vision, Diplopia, Photophobia Nose/Mouth/Throat: Dysphagia, Hoarsness. absent: Odynophagia, Neck Mass - Neurological Neurological: absent: Confusion, Convulsions, Disequilibrium, Dizziness, Numbness, Headaches, Paresthesias, Tingling Past Patient History - Past Medical History & Family History Past Medical History?: Yes - Past Social History Smoking Status: Never Smoked - CARDIAC Hx Hypercholesterolemia: Yes Hx Hypertension: Yes - PULMONARY Hx Sleep Apnea: No - NEUROLOGICAL Hx Seizures: No Hx Transient Ischemic Attacks (TIA): No - HEMATOLOGICAL/ONCOLOGICAL Hx Blood Transfusions: No - MUSCULOSKELETAL/RHEUMATOLOGICAL Hx Falls: No - GASTROINTESTINAL Hx Gastritis: Yes - PSYCHIATRIC Hx Substance Use: No - SURGICAL HISTORY Hx Surgeries: Yes Hx Section: Yes (X1) - ANESTHESIA Hx Anesthesia: Yes Hx Anesthesia Reactions: No Hx Malignant Hyperthermia: No Meds Allergies/Adverse Reactions: Allergies Allergy/AdvReac Type Severity Reaction Status Date / Time TREES Allergy Intermediate CONGESTION Uncoded 06/04/18 10:25 - Medications Medications: Current Medications Piperacillin Sod/Tazobactam (Sod 3.375 gm/ Sodium Chloride) 100 mls @ 200 mls/hr IVPB Q6H [facility]; Protocol Last Admin: 06/11/18 10:11 Dose: 200 mls/hr Losartan Potassium (Cozaar) 50 mg PO DAILY [facility] Last Admin: 06/05/18 10:46 Dose: 50 mg Pantoprazole Sodium (Protonix Inj) 40 mg IVP DAILY [facility] Last Admin: 06/11/18 10:12 Dose: 40 mg Rosuvastatin Calcium (Crestor) 2.5 mg PO HS [facility] Sodium Chloride ([place] Baby Saline 30 Ml) 0 ml MADELINE QID [facility] Last Admin: 06/11/18 14:10 Dose: 30 ml Tetrahydrozoline HCl/Zinc Sulfate (Visine 0.05% Opht Soln) 0.05 ml OU BID [facility] Last Admin: 06/11/18 10:12 Dose: 1 applic Physical Exam - Constitutional Appears: Well, Non-toxic, No Acute Distress - Head Exam Head Exam: ATRAUMATIC, NORMAL INSPECTION, NORMOCEPHALIC - Eye Exam Eye Exam: EOMI, Normal appearance, PERRL Pupil Exam: NORMAL ACCOMODATION, PERRL Additional comments: EOMI intact after full minute of eye movement - ENT Exam Additional comments: NGT in place - Neck Exam Neck exam: Positive for: Full Rom, Normal Inspection - Respiratory Exam Respiratory Exam: NORMAL BREATHING PATTERN - Cardiovascular Exam Cardiovascular Exam: +S1, +S2 - GI/Abdominal Exam GI & Abdominal Exam: Soft. absent: Firm, Guarding - Extremities Exam Extremities exam: Positive for: full ROM. Negative for: calf tenderness, pedal edema - Neurological Exam Neurological exam: Alert, CN II-XII Intact, Normal Gait, Oriented x3, Reflexes Normal Additional comments: able to count to 14 in one breath - Expanded Neurological Exam Expanded Patient oriented to: person, place, time Speech: Fluid Speech Cranial nerves: EOM's Intact: Normal Upper motor neuron: Pronator Drift: Normal Neuro motor strength exam: Left Upper Extremity: 5, Right Upper Extremity: 4, Left Lower Extremity: 4, Right Lower Extremity: 5 Coma Scale Eye Opening: SPONTANEOUS Coma Scale Motor Response: OBEYS COMMANDS Coma Scale Verbal: Oriented Coma Scale Total: 15 - Psychiatric Exam Psychiatric exam: Normal Affect, Normal Mood - Skin Skin Exam: Normal Color Results - Vital Signs Recent Vital Signs: Last Vital Signs Temp 97.4 F L 06/11/18 07:00 Pulse 95 H 06/11/18 07:00 Resp 20 06/11/18 07:00 BP 116/70 06/11/18 07:00 Pulse Ox 96 06/11/18 07:00 - Labs Result Diagrams: 06/11/18 06:53 06/11/18 06:53 Labs: Laboratory Results - last 24 hr 06/11/18 06/11/18 06:53 06:53 WBC 13.8 H RBC 4.87 Hgb 14.2 Hct 42.4 MCV 87.0 MCH 29.2 MCHC 33.5 RDW 13.7 Plt Count 583 H MPV 6.5 L Neut % (Auto) 68.1 Lymph % (Auto) 20.8 Callahan % (Auto) 6.8 Eos % (Auto) 3.8 Baso % (Auto) 0.5 Neut # (Auto) 9.4 H Lymph # (Auto) 2.9 Callahan # (Auto) 0.9 H Eos # (Auto) 0.5 Baso # (Auto) 0.1 Sodium 134 Potassium 3.8 Chloride 100 Carbon Dioxide 27 Anion Gap 11 BUN 9 Creatinine 0.4 L Est GFR ( Amer) > 60 Est GFR (Non-Af Amer) > 60 Random Glucose 111 H Calcium 8.7 Phosphorus 2.5 Magnesium 2.4 H Total Bilirubin 0.4 AST 14 ALT 13 Alkaline Phosphatase 77 Total Protein 6.7 Albumin 3.7 Globulin 3.0 Albumin/Globulin Ratio 1.2 Assessment & Plan - Assessment and Plan (Free Text) Plan: Dysphagia L eye twitch r/o Myasthenia Gravis Patient is neurologically intact without easy fatigability of small muscles - f/u anti-AChR Ab - can do nerve conduction study as outpatient d/w Dr. Leilani Hein PGY-1 - Date & Time Date: 06/11/18 Time: 15:30 <Bo Duke - Last Filed: 06/17/18 21:23> Meds - Medications Medications: Current Medications Albuterol/Ipratropium (Duoneb 3 Mg/0.5 Mg (3 Ml) Ud) 3 ml INH RQ6 [facility] Last Admin: 06/17/18 19:35 Dose: Not Given Piperacillin Sod/Tazobactam (Sod 3.375 gm/ Sodium Chloride) 100 mls @ 200 mls/hr IVPB Q6H [facility]; Protocol Last Admin: 06/17/18 17:56 Dose: 200 mls/hr Acyclovir 400 mg/ Sodium (Chloride) 100 mls @ 100 mls/hr IV Q8H [facility]; Protocol Last Admin: 06/17/18 12:59 Dose: 100 mls/hr Pantoprazole Sodium (Protonix Susp) 40 mg PO DAILY [facility] Last Admin: 06/17/18 10:03 Dose: 40 mg Prednisone (Prednisone Tab) 60 mg NG Q24H [facility] Last Admin: 06/17/18 17:56 Dose: 60 mg Rosuvastatin Calcium (Crestor) 2.5 mg PEG HS [facility] Last Admin: 06/16/18 22:15 Dose: 2.5 mg Sodium Chloride ([place] Baby Saline 30 Ml) 0 ml MADELINE QID PRN PRN Reason: Dry nasal passages Tetrahydrozoline HCl/Zinc Sulfate (Visine 0.05% Opht Soln) 0.05 ml OU BID [facility] Last Admin: 06/17/18 12:59 Dose: Not Given Results - Vital Signs Recent Vital Signs: Last Vital Signs Temp 98.1 F 06/17/18 15:00 Pulse 89 06/17/18 15:00 Resp 20 06/17/18 15:00 BP 103/59 L 06/17/18 15:00 Pulse Ox 97 06/17/18 15:00 - Labs Result Diagrams: 06/17/18 07:57 06/17/18 07:57 Labs: Laboratory Results - last 24 hr 06/17/18 06/17/18 06/17/18 07:57 07:57 07:57 WBC 9.9 RBC 3.59 L Hgb 10.7 L Hct 31.6 L MCV 87.9 MCH 29.7 MCHC 33.8 RDW 13.6 Plt Count 384 MPV 7.6 Neut % (Auto) 86.4 H Lymph % (Auto) 8.6 L Callahan % (Auto) 4.8 Eos % (Auto) 0.0 Baso % (Auto) 0.2 Neut # (Auto) 8.5 H Lymph # (Auto) 0.8 L Callahan # (Auto) 0.5 Eos # (Auto) 0.0 Baso # (Auto) 0.0 Neutrophils % (Manual) 87 H Lymphocytes % (Manual) 6 L Reactive Lymphs % 1 H Monocytes % (Manual) 6 Platelet Estimate Normal Ovalocytes Slight Sodium 135 Potassium 3.5 L Chloride 103 Carbon Dioxide 26 Anion Gap 10 BUN 16 Creatinine 0.4 L Est GFR ( Amer) > 60 Est GFR (Non-Af Amer) > 60 Random Glucose 195 H D Calcium 8.9 Phosphorus 3.0 Magnesium 2.4 H Total Bilirubin 0.4 AST 31 ALT 81 H Alkaline Phosphatase 87 Total Protein 5.9 L Albumin 3.4 L Globulin 2.5 Albumin/Globulin Ratio 1.3 Lipase 147 Infectious Callahan Assay Negative Attending/Attestation - Attestation I have personally seen and examined this patient.: Yes I have fully participated in the care of the patient.: Yes I have reviewed all pertinent clinical information: Yes Notes (Text): I agree with the assessment and plan. 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
--- NOTE | 2018-06-11 16:33 | CP.PCM.PN ---
Subjective - Date & Time of Evaluation Date of Evaluation: 06/11/18 Time of Evaluation: 16:30 - Subjective Subjective: GI Service On NG feeds Swallow eval - high risk aspiration Hungry, wants to eat Being worked up for possible Myasthenia Gravis Objective - Vital Signs/Intake and Output Vital Signs (last 24 hours): Temp Pulse Resp BP Pulse Ox 97.4 F L 95 H 20 116/70 96 06/11/18 07:00 06/11/18 07:00 06/11/18 07:00 06/11/18 07:00 06/11/18 07:00 - Medications Medications: Current Medications Piperacillin Sod/Tazobactam (Sod 3.375 gm/ Sodium Chloride) 100 mls @ 200 mls/hr IVPB Q6H [facility]; Protocol Last Admin: 06/11/18 10:11 Dose: 200 mls/hr Losartan Potassium (Cozaar) 50 mg PO DAILY [facility] Last Admin: 06/05/18 10:46 Dose: 50 mg Pantoprazole Sodium (Protonix Inj) 40 mg IVP DAILY [facility] Last Admin: 06/11/18 10:12 Dose: 40 mg Rosuvastatin Calcium (Crestor) 2.5 mg PO HS [facility] Sodium Chloride ([place] Baby Saline 30 Ml) 0 ml MADELINE QID [facility] Last Admin: 06/11/18 14:10 Dose: 30 ml Tetrahydrozoline HCl/Zinc Sulfate (Visine 0.05% Opht Soln) 0.05 ml OU BID [facility] Last Admin: 06/11/18 10:12 Dose: 1 applic - Labs Labs: 06/11/18 06:53 06/11/18 06:53 PT 12.9 SECONDS (9.7-12.2) H 06/05/18 13:51 INR 1.2 06/05/18 13:51 APTT 34 SECONDS (21-34) 06/05/18 13:51 - Constitutional Appears: Cachectic, Chronically Ill - ENT Exam Additional comments: NG tube in nose - Cardiovascular Exam Cardiovascular Exam: REGULAR RHYTHM - GI/Abdominal Exam GI & Abdominal Exam: Soft. absent: Tenderness Assessment and Plan (1) Dysphagia Assessment & Plan: Neurology workup NG feeds Speech/swallow follow up Status: Acute
[2018-06-12] MEDS: Piperacillin/Tazobact 3.375 GM in Sodium Chloride 100 ML IVPB SCH ×5 (06:00→22:28)
--- NOTE | 2018-06-12 07:04 | CP.PCM.PN ---
<Leda Xiong - Last Filed: 06/12/18 10:40> Subjective - Date & Time of Evaluation Date of Evaluation: 06/12/18 Time of Evaluation: 07:03 - Subjective Subjective: PGY-1 Leda Xiong D.O. Medicine progress note for Dr. Painter's service: Patient was seen and examined this morning. She says that she is feeling a little bit better. She says that she has been walking around in the hallways. Her diarrhea has improved. She is still very hungry. Discussed possibility of PEG placement later this week, and patient is amenable. She is anxious about the pending biopsy results. Objective - Vital Signs/Intake and Output Vital Signs (last 24 hours): Temp Pulse Resp BP Pulse Ox 98.1 F 92 H 20 123/72 98 06/11/18 23:00 06/11/18 23:00 06/11/18 23:00 06/11/18 23:00 06/11/18 23:00 - Medications Medications: Current Medications Piperacillin Sod/Tazobactam (Sod 3.375 gm/ Sodium Chloride) 100 mls @ 200 mls/hr IVPB Q6H [facility]; Protocol Last Admin: 06/12/18 06:50 Dose: 200 mls/hr Losartan Potassium (Cozaar) 50 mg PO DAILY [facility] Last Admin: 06/05/18 10:46 Dose: 50 mg Pantoprazole Sodium (Protonix Inj) 40 mg IVP DAILY [facility] Last Admin: 06/11/18 10:12 Dose: 40 mg Rosuvastatin Calcium (Crestor) 2.5 mg PO HS [facility] Sodium Chloride ([place] Baby Saline 30 Ml) 0 ml MADELINE QID [facility] Last Admin: 06/11/18 23:00 Dose: 30 ml Tetrahydrozoline HCl/Zinc Sulfate (Visine 0.05% Opht Soln) 0.05 ml OU BID [facility] Last Admin: 06/11/18 17:02 Dose: 1 applic - Labs Labs: 06/11/18 06:53 06/11/18 06:53 PT 12.9 SECONDS (9.7-12.2) H 06/05/18 13:51 INR 1.2 06/05/18 13:51 APTT 34 SECONDS (21-34) 06/05/18 13:51 - Additional Findings Additional findings: - Constitutional Appears: No Acute Distress - Head Exam Head Exam: ATRAUMATIC, NORMAL INSPECTION - Eye Exam Eye Exam: EOMI, Normal appearance - ENT Exam ENT Exam: Mucous Membranes Moist NGT in R nare - Respiratory Exam Respiratory Exam: Clear to Auscultation Bilateral, NORMAL BREATHING PATTERN - Cardiovascular Exam Cardiovascular Exam: RRR, +S1, +S2 - GI/Abdominal Exam GI & Abdominal Exam: Soft. absent: Tenderness - Extremities Exam Extremities Exam: Normal Inspection. absent: Pedal Edema - Neurological Exam Neurological Exam: Alert, Awake, CN II-XII Intact, Oriented x3 - Psychiatric Exam Psychiatric exam: Normal Affect, Normal Mood - Skin Skin Exam: Dry, Normal Color, Warm Assessment and Plan - Assessment and Plan (Free Text) Assessment: Patient is a 63 yo female with HTN and HLD who presented with dysphagia and hoarseness. MRI brain and CT head/neck did not reveal etiology. EGD performed- no abnormalities noted. Barium swallow showed moderate aspiration. ENT saw vocal cord hypokinesis on flex laryngoscopy but no masses. Patient had vocal cord and piriformis biopsy on 06/08 showing only mild inflammation. She is being fed via NGT. HIV COUNSELOR re-evaluated, and patient failed swallow eval. GI will evaluate for PEG placement. ENT is referring patient to subspecialist. Plan: Dysphagia and Hoarseness, acute, improving - CT head, CT neck: no significant or acute findings - MRI brain: no significant or acute findings - Echo: unremarkable - EGD: minor stomach lesions, negative biopsies - Swallow eval: aspiration precautions - Failed repeat bedside swallow eval on 06/11 - Barium swallow 06/07: severe aspiration, poor cough reflex - HIV COUNSELOR recommends repeat MBS in 4 weeks - Flexible laryngoscopy: R vocal cord hypokinesis, pooling of secretions in piriform sinus - s/p Vocal cord and Piriformis sinus biopsy 06/08: mild chronic inflammation - Acetylcholine receptor binding Ab pending - NPO - NGT placed 06/09- Jevity 1.5 @ 40 mL/hr - [place] baby saline MADELINE QID - Zosyn 3.375 mg IV Q6H IV- started 06/05 for aspiration PNA coverage - Leukocytosis improving, afebrile, Platelets still elevated (reactive) - Flood Control Engineer consulted - ENT consulted ([place])- vocal cord Bx, will refer to subspecialist at [facility] - GI consulted ([place])- EGD, PEG eval - Neurology consulted ([place])- rec MRI, negative MG clinically, nerve conduction study as outpatient Hyponatremia, acute, resolved - Responsive to IVF - Na 119 on admission, 133 today - CT chest: nodular hypertrophy of left adrenal gland - Consider f/u as outpatient - Serum osm 273, urine osm 254, urine Na 66 - TSH low (0.19), free T4 wnl (1.76) - Nephrology consulted ([facility])- Avoid NSAID; Hold ARB, Discontinue HCTZ Hypokalemia, acute, resolved - Monitor and replete PRN Hypophosphatemia, acute, resolved - Monitor and replete PRN Pleural effusion, acute, resolved - CXR on admission: mild right pleural effusion - CXR (06/07): no pleural effusion - CT chest on admission: mild tree-in-bud opacities in right upper and middle lobes - Afebrile - Leukocytosis improving - Procal low (0.11) - Blood Cx no growth - Zosyn 3.375 mg IV Q6H IV- started 06/05 Hypertension, chronic, well-controlled - Vitals Q6H - Hold home medication Cozaar 50 mg PO daily while NPO Hyperlipidemia, chronic - Most recent lipid panel from 09/2017 wnl - Hold home medication Simvastatin 10 mg PO QHS while NPO Ppx: VTE: SCDs, ambulatory GI: Protonix 40 mg IVP daily Diet: Jevity via NGT, NPO Case discussed with attending, Dr. Painter. <Amita Painter V - Last Filed: 06/12/18 19:29> Objective - Vital Signs/Intake and Output Vital Signs (last 24 hours): Temp Pulse Resp BP Pulse Ox 97.8 F 109 H 20 116/71 100 06/12/18 16:00 06/12/18 16:00 06/12/18 16:00 06/12/18 16:00 06/12/18 16:00 Intake and Output: 06/12/18 06/13/18 18:59 06:59 Intake Total 430 Balance 430 - Medications Medications: Current Medications Piperacillin Sod/Tazobactam (Sod 3.375 gm/ Sodium Chloride) 100 mls @ 200 mls/hr IVPB Q6H [facility]; Protocol Last Admin: 06/12/18 17:10 Dose: 200 mls/hr Losartan Potassium (Cozaar) 50 mg PO DAILY [facility] Last Admin: 06/05/18 10:46 Dose: 50 mg Pantoprazole Sodium (Protonix Susp) 40 mg PO DAILY [facility] Prednisone (Prednisone Tab) 60 mg PO Q24H [facility] Last Admin: 06/12/18 17:16 Dose: 60 mg Rosuvastatin Calcium (Crestor) 2.5 mg PO HS [facility] Sodium Chloride ([place] Baby Saline 30 Ml) 0 ml MADELINE QID [facility] Last Admin: 06/12/18 17:48 Dose: 1 spr Tetrahydrozoline HCl/Zinc Sulfate (Visine 0.05% Opht Soln) 0.05 ml OU BID [facility] Last Admin: 06/12/18 17:49 Dose: 1 drop Valacyclovir HCl (Valtrex) 1,000 mg NG Q12 [facility]; Protocol Stop: 06/21/18 22:01 - Labs Labs: 06/12/18 07:44 06/12/18 07:44 PT 12.9 SECONDS (9.7-12.2) H 06/05/18 13:51 INR 1.2 06/05/18 13:51 APTT 34 SECONDS (21-34) 06/05/18 13:51 Attending/Attestation - Attestation I have personally seen and examined this patient.: Yes I have fully participated in the care of the patient.: Yes I have reviewed all pertinent clinical information, including history, physical exam and plan: Yes Notes (Text): Patient seen, examined, case discussed with medical certification specialist. Patient is a 63 yo female with HTN and HLD who presented with dysphagia and hoarseness. MRI brain and CT head/neck did not reveal etiology. EGD performed- no abnormalities noted. Barium swallow showed moderate aspiration. ENT saw vocal cord hypokinesis on flex laryngoscopy. Patient had vocal cord biopsy on 06/08; we need to follow-up the biopsy. She is being fed via NGT tube feedings. Discussed with speech language pathologist, patient is continue to aspirate; speech pathology will follow along. Discussed with neurology service to see if mysathenia could also be in the differential since patient had noted eye twitching over the left eye and dysphagia pending antibodies. Discussed with neurology, noted for unilateral facial paralyesis; significant for Murphy's palsy, recommend starting steroids and valtrex and repeat Brain MRI with and without contrast. Discussed with GI, for peg tube placement given patient continues to aspirate. possible tomorrow. Discussed with ENT, recommend for peg placement patient's white count improving while on Zosyn. Assessment/Plan 1. Dysphagia 2. Right vocal cord paralysis 3. Hoarseness Assessment/plan * Neurology on board help appreciated * ENT on board help appreciated * GI on board help appreciated * CT head from June 04, 2018 no acute intracranial pathology identified * Neck CT with IV contrast June 04, 2018 no significant or acute findings to account or for related to the clinical presentation * CT chest from June 04, 2018 noted for mild heyk-[id number]-like opacities within the inferior right upper lobe and the right lower lobe. Limited visualization of the abdomen showed small hypertrophy of the left adrenal gland indeterminate hepatic steatosis. Scattered diverticula. Gastroesophageal reflux. * Modified barium swallow June 07, 2018: Moderate aspiration observed. Please refer to detailed report and recommendations of speech pathologist. * Brain MRI without contrast from June 08, 2018 no acute intracranial abnormality. Mild age-related global parenchymal volume loss. Small bilateral mastoid effusions. * Direct laryngoscopy from June 08, 2018 from ENT noted no masses or lesions noted. We will need to follow-up biopsy of the right vocal cord as well as the biopsy of the piriform sinus. * Flexible laryngoscopy from June 05, 2018 noted right vocal cord not movable, pulling of secretions in the piriform sinuses. * EGD from June 14, 2018 no endoscopic esophageal abnormality. Humanitarian altered LOC blood/coffee-ground material in the gastric fundus and gastric body. Biopsies performed in the lower third of the esophagus in the upper third of the esophagus. * Proximal esophagus biopsy fragments of benign esophageal squamous mucosa. Negative for changes of reflux esophagitis. Negative for fungal organisms. * Distal esophagus fragments of benign esophageal squamous mucosa. Negative for reflux esophagitis. Negative for fungal organisms. * Gastric body biopsy with mild chronic inflammation negative for H. pylori * Gastric antrum fragments of mild chronic inflammation. H. pylori negative * Patient is n.p.o; requires NGT tube feedings * Zosyn 3.375 IV piggyback every 6 active since June 05, 2018 4. Hyponatremia, acute, resolved Assessment/plan * Nephrology on board help appreciated * Normalized * Avoid NSAIDs which can potentiate the effect of the ED H * Most likely etiology based on serum and urine studies include volume depletion thiazide use and/or decreased oral intake 5. Hypokalemia, acute, resolved Assessment/plan * Monitor and replete PRN 6. Hypophosphatemia, acute, resolved Assessment/plan * Monitor and replete PRN 7. Pleural effusion, acute, resolved Assessment/plan * Chest x-ray from June 09, 2018 NG tube extends to the left upper quadrant of the abdomen * Chest x-ray from June 09, 2018 Dobbhoff feeding tube in the left upper quadrant. No infiltrate. * Chest x-ray from June 07, 2018. Nasogastric tube terminates in the stomach. No acute findings * Chest x-ray from June 07, 2018 no active disease. Right breast calcification. * CT chest noted from June 04, 2018 * Chest x-ray 05/07/2018 mild right pleural effusion or thickening. Elevation of the right hemidiaphragm. 8. Hypertension, chronic Assessment/plan * Monitor vital signs * Cozaar is on hold 9. Lipid disorder Assessment/plan * Patient is n.p.o. 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 Prophylactic measure * SCDs * Protonix 40 mg IV daily * Nasal spray * NG tube in place * Jevity 1.5 bolus about 4 times a day with water flushes 100 every 4 hours * Aspiration precautions
[2018-06-12 07:59] LABS: BASO # 0.1 K/uL (0.0-0.2); BASO % 0.7 % (0.0-2.0); EOS # 0.4 K/uL (0.0-0.7); HEMOGLOBIN 14.4 g/dL (11.0-16.0); LYMPH # 2.2 K/uL (1.0-4.3); LYMPH % 20.2 % (20.0-40.0); MEAN CELL VOLUME 87.1 fL (81.0-99.0); MEAN CORPUSCULAR HEMOGLOBIN 30.1 pg (27.0-31.0); MEAN CORPUSCULAR HGB CONC 34.5 g/dL (33.0-37.0); MEAN PLATELET VOLUME 6.7 fL (7.2-11.7); MONO # 0.6 K/uL (0.0-0.8); MONO % 5.8 % (0.0-10.0); NEUT # 7.7 K/uL (1.8-7.0); NEUT % 69.3 % (50.0-75.0); RBC 4.79 Mil/uL (3.80-5.20); RED CELL DISTRIBUTION WIDTH 13.4 % (11.5-14.5); WHITE BLOOD COUNT 11.1 K/uL (4.8-10.8)
[2018-06-12 08:12] LABS: ALB/GLOB RATIO 1.3 (1.0-2.1); ALBUMIN 3.7 g/dL (3.5-5.0); ALT/SGPT 16 U/L (9-52); AST/SGOT 28 U/L (14-36); BLOOD UREA NITROGEN 12 mg/dL (7-17); CALCIUM 8.5 mg/dl (8.6-10.4); GFR NON-AFRICAN AMERICAN > 60
[2018-06-12] MEDS: Tetrahydrozoline Opht 0.05% Sol (15 ml) OU SCH ×2 (09:06→17:49)
[2018-06-12] MEDS: Sodium Chloride Nasal 0.65% Soln (30ml) NAS SCH ×4 (09:06→21:59)
--- NOTE | 2018-06-12 14:26 | CP.PCM.PN ---
Subjective - Date & Time of Evaluation Date of Evaluation: 06/12/18 Time of Evaluation: 14:00 - Subjective Subjective: f/u dysphagia. Dysphagia x 2 weeks. Family and Rn are present. Neuro w/u and speech eval noted Denies fever, CP, SOB, LOVE, RB, melena, hematuria, hemoptysis Objective - Vital Signs/Intake and Output Vital Signs (last 24 hours): Temp Pulse Resp BP Pulse Ox 98.0 F 98 H 20 120/73 99 06/12/18 07:20 06/12/18 07:20 06/12/18 07:20 06/12/18 07:20 06/12/18 07:20 - Medications Medications: Current Medications Piperacillin Sod/Tazobactam (Sod 3.375 gm/ Sodium Chloride) 100 mls @ 200 mls/hr IVPB Q6H [facility]; Protocol Last Admin: 06/12/18 11:48 Dose: 200 mls/hr Losartan Potassium (Cozaar) 50 mg PO DAILY [facility] Last Admin: 06/05/18 10:46 Dose: 50 mg Pantoprazole Sodium (Protonix Susp) 40 mg PO DAILY [facility] Rosuvastatin Calcium (Crestor) 2.5 mg PO HS [facility] Sodium Chloride ([place] Baby Saline 30 Ml) 0 ml MADELINE QID [facility] Last Admin: 06/12/18 13:00 Dose: 30 ml Tetrahydrozoline HCl/Zinc Sulfate (Visine 0.05% Opht Soln) 0.05 ml OU BID [facility] Last Admin: 06/12/18 09:06 Dose: 1 applic - Labs Labs: 06/12/18 07:44 06/12/18 07:44 PT 12.9 SECONDS (9.7-12.2) H 06/05/18 13:51 INR 1.2 06/05/18 13:51 APTT 34 SECONDS (21-34) 06/05/18 13:51 - Constitutional Appears: Non-toxic - Respiratory Exam Respiratory Exam: Clear to Ausculation Bilateral - Cardiovascular Exam Cardiovascular Exam: RRR - GI/Abdominal Exam GI & Abdominal Exam: Soft, Normal Bowel Sounds. absent: Tenderness - Extremities Exam Extremities Exam: absent: Calf Tenderness - Neurological Exam Neurological Exam: Alert, Oriented x3 Assessment and Plan (1) Dysphagia Assessment & Plan: COnsider neurologic. Consdider GERS, esophagitis, EMD. LOng discussion with pt , family, and RN. May not be ready for PEG. THey agree mto EGD. Discussed with Dr Painter earlier NG feedings on going p- EGD wed Status: Acute (2) Hypokalemia Status: Acute (3) Hyponatremia Status: Acute (4) Pharyngitis Status: Acute
--- NOTE | 2018-06-12 14:41 | CP.PCM.PN ---
Subjective - Date & Time of Evaluation Date of Evaluation: 06/12/18 Time of Evaluation: 14:21 - Subjective Subjective: Neuro Follow-Up: Mrs. Celeste Jerry was evaluated this afternoon. Aunt is present at bedside. Our team was reconsulted yesterday for left eye twitching. Today, there is no complaints of twitching, however, pt is unable to close her right eye. Pt's aunt states that she has been this way all day; denied an actual eye twitch but did note eyes are unequal when she blinks. Pt denies feeling any change in her eye movements or vision; she also denies feeling a difference when she blinks. Still has dysphagia; pt has NGT. Pt denies h/a, dizziness, visual changes (no diplopia or blurred vision), chest pain, palpitations, sob, cough, abd pain, n/v/d, paresthesias, fever/chills. Objective - Vital Signs/Intake and Output Vital Signs (last 24 hours): Temp Pulse Resp BP Pulse Ox 98.0 F 98 H 20 120/73 99 06/12/18 07:20 06/12/18 07:20 06/12/18 07:20 06/12/18 07:20 06/12/18 07:20 - Medications Medications: Current Medications Piperacillin Sod/Tazobactam (Sod 3.375 gm/ Sodium Chloride) 100 mls @ 200 mls/hr IVPB Q6H [facility]; Protocol Last Admin: 06/12/18 11:48 Dose: 200 mls/hr Losartan Potassium (Cozaar) 50 mg PO DAILY [facility] Last Admin: 06/05/18 10:46 Dose: 50 mg Pantoprazole Sodium (Protonix Susp) 40 mg PO DAILY [facility] Rosuvastatin Calcium (Crestor) 2.5 mg PO HS [facility] Sodium Chloride ([place] Baby Saline 30 Ml) 0 ml MADELINE QID [facility] Last Admin: 06/12/18 13:00 Dose: 30 ml Tetrahydrozoline HCl/Zinc Sulfate (Visine 0.05% Opht Soln) 0.05 ml OU BID [facility] Last Admin: 06/12/18 09:06 Dose: 1 applic - Labs Labs: 06/12/18 07:44 06/12/18 07:44 PT 12.9 SECONDS (9.7-12.2) H 06/05/18 13:51 INR 1.2 06/05/18 13:51 APTT 34 SECONDS (21-34) 06/05/18 13:51 - Constitutional Appears: Non-toxic, No Acute Distress - Head Exam Head Exam: ATRAUMATIC, NORMOCEPHALIC Additional comments: flattening of forehead noted to right side - Eye Exam Eye Exam: PERRL. absent: EOMI, Normal appearance, Nystagmus Pupil Exam: NORMAL ACCOMODATION, PERRL Additional comments: right eye lid does not close completely unable to raise eyebrow on right side + flattening of the forehead noted on right side no diplopia on exam - ENT Exam ENT Exam: Mucous Membranes Moist - Neck Exam Neck Exam: Full ROM, Normal Inspection - Respiratory Exam Respiratory Exam: NORMAL BREATHING PATTERN - GI/Abdominal Exam Additional comments: NGT in place - Extremities Exam Extremities Exam: Full ROM, Normal Inspection. absent: Calf Tenderness, Pedal Edema - Neurological Exam Neurological Exam: Alert, Awake, Oriented x3. 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 -Since symptoms started after initial Brain MRI was done last week, we will repeat it with and without contrast (ordered stat)--f/u with results. -HSV PCR ordered--f/u with results. -F/U with acetylcholine rec bind AB result--was done yesterday, is a send out--f/u with results. -Start Prednisone 60mg NG daily x5 days (start today, 06/12; last dose to be given on Monday, 06/16). -Start Valtrex 1gm NG Q12 hours x10 days (start today, 06/12; last dose to be given on , 06/21). -Keep right eye moist; artificial tears, eye patch HS. -Notify neuro of acute changes in pt's condition. Lois Morales DNP, RN URGENT CARE D/W Dr. Duke Status: Acute
[2018-06-12] MEDS ORDERED: Gadodiamide 287 MG/ML VIAL (15ML) IV ONE (16:30)
--- NOTE | 2018-06-12 17:34 | MRI ---
Date of service: 06/12/2018 PROCEDURE: MRI BRAIN WITH AND WITHOUT CONTRAST HISTORY: Acute onset facial asymmetry; dysphagia COMPARISON: Comparison made with MRI of brain 05/09/2018 TECHNIQUE: Multiplanar, multisequence MR images of the brain were obtained with and without intravenous contrast enhancement. FINDINGS: HEMORRHAGE: No acute parenchymal, subarachnoid or extra-axial hemorrhage. No evidence of hemosiderin deposition identified on gradient echo weighted sequence. DWI: No evidence of an acute or early subacute infarction seen on diffusion imaging.. BRAIN PARENCHYMA: There are no definitive focal areas of abnormal signal seen within the substance of the brain. Mild generalized volume loss. ENHANCEMENT: No enhancing parenchymal nor extra-axial masses or collections. No evidence of unusual meningeal enhancement. VENTRICLES: No obstructive hydrocephalus. Incidental note made of a cavum velum interpositum. CRANIUM: Unremarkable. ORBITS: Orbits and contents grossly unremarkable. PARANASAL SINUSES/MASTOIDS: Persistent but slightly improved bilateral mastoid effusions VASCULAR SYSTEM: Visualized major vascular flow voids at skull base patent. OTHER FINDINGS: None . IMPRESSION: No evidence of acute infarct or hemorrhage. No evidence of significant small vessel disease No enhancing parenchymal nor extra-axial masses or collections. No evidence of unusual meningeal enhancement. Persistent but slightly improved bilateral mastoid effusions
--- NOTE | 2018-06-12 23:00 | CP.PCM.PN ---
Subjective - Date & Time of Evaluation Date of Evaluation: 06/12/18 Time of Evaluation: 12:00 - Subjective Subjective: 63 yo F w/ pmh of htn, hyperlipidemia, admitted with dysphagia, nephrology following for hyponatremia; Patient to undergo another swallowing test; otherwise, main complain is being hungry; Objective - Vital Signs/Intake and Output Vital Signs (last 24 hours): Temp Pulse Resp BP Pulse Ox 97.8 F 109 H 20 116/71 100 06/12/18 16:00 06/12/18 16:00 06/12/18 16:00 06/12/18 16:00 06/12/18 16:00 Intake and Output: 06/12/18 06/13/18 18:59 06:59 Intake Total 430 Balance 430 - Medications Medications: Current Medications Piperacillin Sod/Tazobactam (Sod 3.375 gm/ Sodium Chloride) 100 mls @ 200 mls/hr IVPB Q6H [facility]; Protocol Last Admin: 06/12/18 22:28 Dose: 200 mls/hr Losartan Potassium (Cozaar) 50 mg PO DAILY [facility] Last Admin: 06/05/18 10:46 Dose: 50 mg Pantoprazole Sodium (Protonix Susp) 40 mg PO DAILY [facility] Prednisone (Prednisone Tab) 60 mg PO Q24H [facility] Last Admin: 06/12/18 17:16 Dose: 60 mg Rosuvastatin Calcium (Crestor) 2.5 mg PO HS [facility] Sodium Chloride ([place] Baby Saline 30 Ml) 0 ml MADELINE QID [facility] Last Admin: 06/12/18 21:59 Dose: 1 spr Tetrahydrozoline HCl/Zinc Sulfate (Visine 0.05% Opht Soln) 0.05 ml OU BID [facility] Last Admin: 06/12/18 17:49 Dose: 1 drop Valacyclovir HCl (Valtrex) 1,000 mg NG Q12 [facility]; Protocol Stop: 06/21/18 22:01 Last Admin: 06/12/18 21:59 Dose: 1,000 mg - Labs Labs: 06/12/18 07:44 06/12/18 07:44 PT 12.9 SECONDS (9.7-12.2) H 06/05/18 13:51 INR 1.2 06/05/18 13:51 APTT 34 SECONDS (21-34) 06/05/18 13:51 - Constitutional Appears: Non-toxic, No Acute Distress - Eye Exam Eye Exam: Normal appearance - Respiratory Exam Respiratory Exam: Clear to Ausculation Bilateral. absent: Respiratory Distress - Cardiovascular Exam Cardiovascular Exam: RRR, +S1, +S2 - GI/Abdominal Exam GI & Abdominal Exam: Distended, Soft. absent: Tenderness - Extremities Exam Additional comments: no leg edema; - Neurological Exam Neurological Exam: Alert, Awake - Psychiatric Exam Psychiatric exam: Normal Mood. absent: Agitated - Skin Skin Exam: Warm. 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
[2018-06-13] MEDS: Piperacillin/Tazobact 3.375 GM in Sodium Chloride 100 ML IVPB SCH ×4 (04:14→22:05)
[2018-06-13 07:22] LABS: BASO % 0.4 % (0.0-2.0); HEMOGLOBIN 14.6 g/dL (11.0-16.0); LYMPH # 1.5 K/uL (1.0-4.3); LYMPH % 16.5 % (20.0-40.0); MEAN CELL VOLUME 86.4 fL (81.0-99.0); MEAN CORPUSCULAR HGB CONC 34.8 g/dL (33.0-37.0); MEAN PLATELET VOLUME 6.9 fL (7.2-11.7); MONO # 0.3 K/uL (0.0-0.8); MONO % 3.7 % (0.0-10.0); NEUT # 7.3 K/uL (1.8-7.0); NEUT % 79.4 % (50.0-75.0); RBC 4.86 Mil/uL (3.80-5.20); RED CELL DISTRIBUTION WIDTH 13.6 % (11.5-14.5); WHITE BLOOD COUNT 9.2 K/uL (4.8-10.8)
[2018-06-13 07:45] LABS: ALB/GLOB RATIO 1.2 (1.0-2.1); ALBUMIN 3.9 g/dL (3.5-5.0); ALT/SGPT 70 U/L (9-52); AST/SGOT 55 U/L (14-36); BLOOD UREA NITROGEN 13 mg/dL (7-17); CALCIUM 9.2 mg/dl (8.6-10.4); GFR NON-AFRICAN AMERICAN > 60
--- NOTE | 2018-06-13 09:17 | CP.PCM.PN ---
<Leda Xiong - Last Filed: 06/13/18 12:45> Subjective - Date & Time of Evaluation Date of Evaluation: 06/13/18 Time of Evaluation: 09:16 - Subjective Subjective: PGY-1 Leda Xiong D.O. Medicine progress note for Dr. Painter's service: penciller #[id number] Patient was seen and examined this morning. Aunt is at bedside. Patient is sitting up in chair. She denies throat pain and says that she is hungry. Expl ained to patient and aunt that it is the recommendation patient have a PEG tube placed temporarily. Presently, patient is refusing. Palliative is now on board and will discuss goals of care. Objective - Vital Signs/Intake and Output Vital Signs (last 24 hours): Temp Pulse Resp BP Pulse Ox 98.1 F 118 H 20 127/68 95 06/13/18 07:00 06/13/18 07:00 06/13/18 07:00 06/13/18 07:00 06/13/18 07:00 Intake and Output: 06/13/18 06/13/18 06:59 18:59 Intake Total 470 Balance 470 - Medications Medications: Current Medications Piperacillin Sod/Tazobactam (Sod 3.375 gm/ Sodium Chloride) 100 mls @ 200 mls/hr IVPB Q6H [facility]; Protocol Last Admin: 06/13/18 04:14 Dose: 200 mls/hr Losartan Potassium (Cozaar) 50 mg PO DAILY [facility] Last Admin: 06/05/18 10:46 Dose: 50 mg Pantoprazole Sodium (Protonix Susp) 40 mg PO DAILY [facility] Prednisone (Prednisone Tab) 60 mg PO Q24H [facility] Last Admin: 06/12/18 17:16 Dose: 60 mg Rosuvastatin Calcium (Crestor) 2.5 mg PO HS [facility] Sodium Chloride ([place] Baby Saline 30 Ml) 0 ml MADELINE QID [facility] Last Admin: 06/12/18 21:59 Dose: 1 spr Tetrahydrozoline HCl/Zinc Sulfate (Visine 0.05% Opht Soln) 0.05 ml OU BID [facility] Last Admin: 06/12/18 17:49 Dose: 1 drop Valacyclovir HCl (Valtrex) 1,000 mg NG Q12 [facility]; Protocol Stop: 06/21/18 22:01 Last Admin: 06/12/18 21:59 Dose: 1,000 mg - Labs Labs: 06/13/18 07:07 06/13/18 07:07 PT 12.9 SECONDS (9.7-12.2) H 06/05/18 13:51 INR 1.2 06/05/18 13:51 APTT 34 SECONDS (21-34) 06/05/18 13:51 - Additional Findings Additional findings: - Constitutional Appears: No Acute Distress - Head Exam Head Exam: ATRAUMATIC, NORMAL INSPECTION - Eye Exam Eye Exam: EOMI, Normal appearance - ENT Exam ENT Exam: Mucous Membranes Moist NGT in R nare - Respiratory Exam Respiratory Exam: Clear to Auscultation Bilateral, NORMAL BREATHING PATTERN - Cardiovascular Exam Cardiovascular Exam: RRR, +S1, +S2 - GI/Abdominal Exam GI & Abdominal Exam: Soft. absent: Tenderness - Extremities Exam Extremities Exam: Normal Inspection. absent: Pedal Edema - Neurological Exam Neurological Exam: Alert, Awake, CN II-XII Intact, Oriented x3 - Psychiatric Exam Psychiatric exam: Normal Affect, Normal Mood - Skin Skin Exam: Dry, Normal Color, Warm Assessment and Plan - Assessment and Plan (Free Text) Assessment: Patient is a 63 yo female with HTN and HLD who presented with dysphagia and hoarseness. MRI brain and CT head/neck did not reveal etiology. EGD performed- no abnormalities noted. Barium swallow showed moderate aspiration. ENT saw vocal cord hypokinesis on flex laryngoscopy but no masses. Patient had vocal cord and piriformis biopsy on 06/08 showing only mild inflammation. She is being fed via NGT. AUTOMOTIVE DISMANTLER re-evaluated, and patient failed swallow eval. ENT is referring patient to subspecialist. Recommendation is for PEG, but patient is currently refusing. Palliative is on board for goals of care. Plan: Dysphagia and Hoarseness, acute, improving - CT head, CT neck: no significant or acute findings - MRI brain with and w/o contrast: no significant or acute findings - Echo: unremarkable - EGD: minor stomach lesions, negative biopsies - Swallow eval: aspiration precautions - Failed repeat bedside swallow eval on 06/11 - Barium swallow 06/07: severe aspiration, poor cough reflex - AUTOMOTIVE DISMANTLER recommends repeat MBS in 4 weeks - Flexible laryngoscopy: R vocal cord hypokinesis, pooling of secretions in piriform sinus - s/p Vocal cord and Piriformis sinus biopsy 06/08: mild chronic inflammation - Acetylcholine receptor binding Ab pending - HSV Ab pending - NPO - NGT placed 06/09- Jevity 1.5 @ 40 mL/hr - [place] baby saline MADELINE QID - Zosyn 3.375 mg IV Q6H IV- started 06/05 for aspiration PNA coverage - Leukocytosis resolved, afebrile, Platelets still elevated (reactive) - Valtrex 1000 mg NGT Q12H - Prednisone 60 mg NGT daily - Dental Office Coordinator consulted - ENT consulted (Win)- vocal cord Bx, will refer to subspecialist at [facility] - GI consulted (Severo)- EGD, rec PEG - Neurology consulted (Celso)- rec MRI, negative MG clinically, nerve conduction study as outpatient - Palliative consulted Transaminitis, acute, mild - AST 55, ALT 70 - Monitor Hyponatremia, acute, resolved - Responsive to IVF - Na 119 on admission, 133 today - CT chest: nodular hypertrophy of left adrenal gland - Consider f/u as outpatient - Serum osm 273, urine osm 254, urine Na 66 - TSH low (0.19), free T4 wnl (1.76) - Water flushes 50 cc Q4H - Nephrology consulted (Sanjay)- Avoid NSAID; Hold ARB, Discontinue HCTZ Hypokalemia, acute, resolved - Monitor and replete PRN Hypophosphatemia, acute, resolved - Monitor and replete PRN Pleural effusion, acute, resolved - CXR on admission: mild right pleural effusion - CXR (06/07): no pleural effusion - CT chest on admission: mild tree-in-bud opacities in right upper and middle lobes - Afebrile - Leukocytosis resolved - Procal low (0.11) - Blood Cx no growth - Zosyn 3.375 mg IV Q6H IV- started 06/05 Hypertension, chronic, well-controlled - Vitals Q6H - Hold home medication Cozaar 50 mg PO daily while NPO Hyperlipidemia, chronic - Most recent lipid panel from 09/2017 wnl - Hold home medication Simvastatin 10 mg PO QHS while NPO Ppx: VTE: SCDs, ambulatory GI: Protonix 40 mg IVP daily Diet: Jevity via NGT, NPO Case discussed with attending, Dr. Painter. <Amita Painter V - Last Filed: 06/13/18 17:41> Objective - Vital Signs/Intake and Output Vital Signs (last 24 hours): Temp Pulse Resp BP Pulse Ox 98.0 F 93 H 20 131/80 99 06/13/18 16:00 06/13/18 16:00 06/13/18 16:00 06/13/18 16:00 06/13/18 16:00 Intake and Output: 06/13/18 06/13/18 06:59 18:59 Intake Total 470 450 Balance 470 450 - Medications Medications: Current Medications Piperacillin Sod/Tazobactam (Sod 3.375 gm/ Sodium Chloride) 100 mls @ 200 mls/hr IVPB Q6H [facility]; Protocol Last Admin: 06/13/18 10:45 Dose: 200 mls/hr Losartan Potassium (Cozaar) 50 mg PO DAILY [facility] Last Admin: 06/05/18 10:46 Dose: 50 mg Pantoprazole Sodium (Protonix Susp) 40 mg PO DAILY [facility] Last Admin: 06/13/18 09:41 Dose: 40 mg Prednisone (Prednisone Tab) 60 mg NG Q24H [facility] Rosuvastatin Calcium (Crestor) 2.5 mg PO HS [facility] Sodium Chloride ([place] Baby Saline 30 Ml) 0 ml MADELINE QID [facility] Last Admin: 06/13/18 13:00 Dose: 30 ml Tetrahydrozoline HCl/Zinc Sulfate (Visine 0.05% Opht Soln) 0.05 ml OU BID [facility] Last Admin: 06/13/18 09:42 Dose: 1 drop Valacyclovir HCl (Valtrex) 1,000 mg NG Q12 [facility]; Protocol Stop: 06/21/18 22:01 Last Admin: 06/13/18 10:43 Dose: 1,000 mg - Labs Labs: 06/13/18 07:07 06/13/18 07:07 PT 12.9 SECONDS (9.7-12.2) H 06/05/18 13:51 INR 1.2 06/05/18 13:51 APTT 34 SECONDS (21-34) 06/05/18 13:51 Attending/Attestation - Attestation I have personally seen and examined this patient.: Yes I have fully participated in the care of the patient.: Yes I have reviewed all pertinent clinical information, including history, physical exam and plan: Yes Notes (Text): Patient seen, examined, case discussed with medical receptionist biller. Patient is a 63 yo female with HTN and HLD who presented with dysphagia and hoarseness. MRI brain and CT head/neck did not reveal etiology. EGD performed- no abnormalities noted. Barium swallow showed moderate aspiration. ENT saw vocal cord hypokinesis on flex laryngoscopy. Patient had vocal cord biopsy on 06/08; we need to follow-up the biopsy. She is being fed via NGT tube feedings. Discussed with speech language pathologist, patient is continue to aspirate; speech pathology will follow along. Discussed with neurology service to see if mysathenia could also be in the differential since patient had noted eye twitching over the left eye and dysphagia pending antibodies. Discussed with neurology, noted for unilateral facial paralyesis; significant for Murphy's palsy, recommend starting steroids and valtrex and repeat Brain MRI with and without contrast. Discussed with GI, for peg tube placement given patient continues to aspirate. possible tomorrow. Discussed with ENT, recommend for peg placement patient's white count improving while on Zosyn. Assessment/Plan 1. Dysphagia 2. Right vocal cord paralysis 3. Hoarseness Assessment/plan * Neurology on board help appreciated * ENT on board help appreciated * GI on board help appreciated * CT head from June 04, 2018 no acute intracranial pathology identified * Neck CT with IV contrast June 04, 2018 no significant or acute findings to account or for related to the clinical presentation * CT chest from June 04, 2018 noted for mild vcre-[id number]-like opacities within the inferior right upper lobe and the right lower lobe. Limited visualization of the abdomen showed small hypertrophy of the left adrenal gland indeterminate hepatic steatosis. Scattered diverticula. Gastroesophageal reflux. * Modified barium swallow June 07, 2018: Moderate aspiration observed. Please refer to detailed report and recommendations of speech pathologist. * Brain MRI without contrast from June 08, 2018 no acute intracranial abnormality. Mild age-related global parenchymal volume loss. Small bilateral mastoid effusions. * Direct laryngoscopy from June 08, 2018 from ENT noted no masses or lesions noted. We will need to follow-up biopsy of the right vocal cord as well as the biopsy of the piriform sinus. * Flexible laryngoscopy from June 05, 2018 noted right vocal cord not movable, pulling of secretions in the piriform sinuses. * EGD from June 14, 2018 no endoscopic esophageal abnormality. Humanitarian altered LOC blood/coffee-ground material in the gastric fundus and gastric body. Biopsies performed in the lower third of the esophagus in the upper third of the esophagus. * Proximal esophagus biopsy fragments of benign esophageal squamous mucosa. Negative for changes of reflux esophagitis. Negative for fungal organisms. * Distal esophagus fragments of benign esophageal squamous mucosa. Negative for reflux esophagitis. Negative for fungal organisms. * Gastric body biopsy with mild chronic inflammation negative for H. pylori * Gastric antrum fragments of mild chronic inflammation. H. pylori negative * Patient is n.p.o; requires NGT tube feedings * Zosyn 3.375 IV piggyback every 6 active since June 05, 2018 4. Hyponatremia, acute, resolved Assessment/plan * Nephrology on board help appreciated * Normalized * Avoid NSAIDs which can potentiate the effect of the ED H * Most likely etiology based on serum and urine studies include volume depletion thiazide use and/or decreased oral intake 5. Hypokalemia, acute, resolved Assessment/plan * Monitor and replete PRN 6. Hypophosphatemia, acute, resolved Assessment/plan * Monitor and replete PRN 7. Pleural effusion, acute, resolved Assessment/plan * Chest x-ray from June 09, 2018 NG tube extends to the left upper quadrant of the abdomen * Chest x-ray from June 09, 2018 Dobbhoff feeding tube in the left upper qu adrant. No infiltrate. * Chest x-ray from June 07, 2018. Nasogastric tube terminates in the stomach. No acute findings * Chest x-ray from June 07, 2018 no active disease. Right breast calcificatio n. * CT chest noted from June 04, 2018 * Chest x-ray 05/07/2018 mild right pleural effusion or thickening. Elevation of the right hemidiaphragm. 8. Hypertension, chronic Assessment/plan * Monitor vital signs * Cozaar is on hold 9. Lipid disorder Assessment/plan * Patient is n.p.o. hold patient's statin at this time 10. Murphy's Palsy Assessment/plan * Neurology on board * Brain MRI (06/08/18): no acute intracranial abnormality. Mild age related global parenchymal volume loss. * Brain MRI with and without contrast (06/12/18): no evidence of acute infarct or hemorrhage. No evidence of significant small vessel disease. No enhancing parenchymal nor extra-axial masses or collections. No evidence of unusual meningeal enhancement. persistent but slightly improved b/l mastoid effusions * noted neurology team has reviewed with neuroradiologist, enhancement of the christy and medulla * Discussed with neurology, patient have lumbar puncture tomorrow; consent obtained in the morning * * Valtrex 1000mg NG Q12H * Prednisone 60mg BGT daily 11. Prophylactic measure * SCDs * Protonix 40 mg IV daily * Nasal spray * NG tube in place * Jevity 1.5 bolus about 4 times a day with water flushes 100 every 4 hours * Aspiration precautions
[2018-06-13] MEDS: Pantoprazole 40 mg Susp UD PO SCH (09:41)
[2018-06-13] MEDS: Sodium Chloride Nasal 0.65% Soln (30ml) NAS SCH ×4 (09:41→21:08)
[2018-06-13] MEDS: Tetrahydrozoline Opht 0.05% Sol (15 ml) OU SCH ×2 (09:42→17:41)
--- NOTE | 2018-06-13 10:24 | CP.PCM.PN ---
Subjective - Date & Time of Evaluation Date of Evaluation: 06/13/18 Time of Evaluation: 10:21 - Subjective Subjective: GI Service EGD done last week, no need for repeat now Pt and family refusing PEG at this time. They wish further attempts at softer consistency diets Neurology workup for neuromuscular disease ongoing Objective - Vital Signs/Intake and Output Vital Signs (last 24 hours): Temp Pulse Resp BP Pulse Ox 98.1 F 118 H 20 127/68 95 06/13/18 07:00 06/13/18 07:00 06/13/18 07:00 06/13/18 07:00 06/13/18 07:00 Intake and Output: 06/13/18 06/13/18 06:59 18:59 Intake Total 470 Balance 470 - Medications Medications: Current Medications Piperacillin Sod/Tazobactam (Sod 3.375 gm/ Sodium Chloride) 100 mls @ 200 mls/hr IVPB Q6H [facility]; Protocol Last Admin: 06/13/18 04:14 Dose: 200 mls/hr Losartan Potassium (Cozaar) 50 mg PO DAILY [facility] Last Admin: 06/05/18 10:46 Dose: 50 mg Pantoprazole Sodium (Protonix Susp) 40 mg PO DAILY [facility] Last Admin: 06/13/18 09:41 Dose: 40 mg Prednisone (Prednisone Tab) 60 mg PO Q24H [facility] Last Admin: 06/12/18 17:16 Dose: 60 mg Rosuvastatin Calcium (Crestor) 2.5 mg PO HS [facility] Sodium Chloride ([place] Baby Saline 30 Ml) 0 ml MADELINE QID [facility] Last Admin: 06/13/18 09:41 Dose: 30 ml Tetrahydrozoline HCl/Zinc Sulfate (Visine 0.05% Opht Soln) 0.05 ml OU BID [facility] Last Admin: 06/13/18 09:42 Dose: 1 drop Valacyclovir HCl (Valtrex) 1,000 mg NG Q12 [facility]; Protocol Stop: 06/21/18 22:01 Last Admin: 06/12/18 21:59 Dose: 1,000 mg - Labs Labs: 06/13/18 07:07 06/13/18 07:07 PT 12.9 SECONDS (9.7-12.2) H 06/05/18 13:51 INR 1.2 06/05/18 13:51 APTT 34 SECONDS (21-34) 06/05/18 13:51 - Constitutional Appears: No Acute Distress - Head Exam Head Exam: NORMOCEPHALIC Assessment and Plan (1) Dysphagia Assessment & Plan: Possible neuromuscular disorder Refusing PEG at this time. Patient and sister wish further swallowing evaluations with various consistencoes of foods Discussed at length with them Status: Acute
--- NOTE | 2018-06-13 11:18 | CP.PCM.PN ---
<MelvinaAshleyAngelita Y - Last Filed: 06/13/18 17:32> Subjective - Date & Time of Evaluation Date of Evaluation: 06/13/18 Time of Evaluation: 10:50 - Subjective Subjective: PGY-1 Neurology Progress Note for Dr. Duke Patient was seen and examined today in no acute distress with aunt at bedside. Nurse reports no overnight events. Patient reports extreme improvement with speech and craves chicken. She states she cannot wait for the next swallow eval so she can have the NGT removed and go home. She refused PEG as she feels she is improving rapidly enough the NGT will be removed soon. The patient continues to blink her L eye, but states it's at a less rapid rate than before. Patient denies any change in her eye movements or vision whether or not she is blinking. Denies headache, dizziness, blurry vision, loss of vision or hearing, chest pain, palpitations, shortness of breath, abdominal pain, n/v, numbness, tingling. Objective - Vital Signs/Intake and Output Vital Signs (last 24 hours): Temp Pulse Resp BP Pulse Ox 98.1 F 118 H 20 127/68 95 06/13/18 07:00 06/13/18 07:00 06/13/18 07:00 06/13/18 07:00 06/13/18 07:00 Intake and Output: 06/13/18 06/13/18 06:59 18:59 Intake Total 470 Balance 470 - Medications Medications: Current Medications Piperacillin Sod/Tazobactam (Sod 3.375 gm/ Sodium Chloride) 100 mls @ 200 mls/hr IVPB Q6H [facility]; Protocol Last Admin: 06/13/18 10:45 Dose: 200 mls/hr Losartan Potassium (Cozaar) 50 mg PO DAILY [facility] Last Admin: 06/05/18 10:46 Dose: 50 mg Pantoprazole Sodium (Protonix Susp) 40 mg PO DAILY [facility] Last Admin: 06/13/18 09:41 Dose: 40 mg Prednisone (Prednisone Tab) 60 mg PO Q24H [facility] Last Admin: 06/12/18 17:16 Dose: 60 mg Rosuvastatin Calcium (Crestor) 2.5 mg PO HS [facility] Sodium Chloride ([place] Baby Saline 30 Ml) 0 ml MADELINE QID [facility] Last Admin: 06/13/18 09:41 Dose: 30 ml Tetrahydrozoline HCl/Zinc Sulfate (Visine 0.05% Opht Soln) 0.05 ml OU BID [facility] Last Admin: 06/13/18 09:42 Dose: 1 drop Valacyclovir HCl (Valtrex) 1,000 mg NG Q12 [facility]; Protocol Stop: 06/21/18 22:01 Last Admin: 06/13/18 10:43 Dose: 1,000 mg - Labs Labs: 06/13/18 07:07 06/13/18 07:07 PT 12.9 SECONDS (9.7-12.2) H 06/05/18 13:51 INR 1.2 06/05/18 13:51 APTT 34 SECONDS (21-34) 06/05/18 13:51 - Constitutional Appears: Non-toxic, No Acute Distress - Head Exam Head Exam: ATRAUMATIC, NORMOCEPHALIC Additional comments: flattening of forehead on right side - Eye Exam Eye Exam: EOMI, Normal appearance, PERRL Pupil Exam: NORMAL ACCOMODATION Additional comments: R eyelid closing completely today unable to raise eyebrow on right side flattening of the forehead on right side no diplopia on exam - ENT Exam ENT Exam: Mucous Membranes Moist - Neck Exam Neck Exam: Full ROM, Normal Inspection - Respiratory Exam Respiratory Exam: NORMAL BREATHING PATTERN - Cardiovascular Exam Cardiovascular Exam: +S1, +S2 - GI/Abdominal Exam Additional comments: NGT in place - Extremities Exam Extremities Exam: Full ROM, Normal Capillary Refill, Normal Inspection. absent: Calf Tenderness, Pedal Edema - Neurological Exam Neurological Exam: Alert, Awake, Oriented x3. absent: Motor Sensory Deficit Neuro motor strength exam: Left Upper Extremity: 5, Right Upper Extremity: 5, Left Lower Extremity: 5, Right Lower Extremity: 5 Additional comments: speech clear, fluid + facial asymmetry on right side - Psychiatric Exam Psychiatric exam: Normal Affect, Normal Mood - Skin Skin Exam: Normal Color Assessment and Plan (1) Facial asymmetry Assessment & Plan: repeat Brain MRI with and without contrast (06/12): No evidence of acute infarct or hemorrhage. No evidence of significant small vessel disease. No enhancing parenchymal nor extra-axial masses or collections. No evidence of unusual meningeal enhancement. Persistent but slightly improved bilateral mastoid effusions Per Drs. Duke and Saundra, there is enhancement in the christy, medulla, and 4th ventricle. Likely viral etiology. As such we will do a bedside LP. Consent was obtained, but unable to do procedure today. Scheduled for tomorrow 06/14. - f/u HSV PCR: drawn, pending results - f/u acetylcholine rec bind AB: drawn, send out, pending results - cont Prednisone 60mg NG daily x5 days (start yesterday, 06/12; last dose to be given on Monday, 06/16). - cont Valtrex 1gm NG Q12 hours x10 days (start yesterday, 06/12; last dose to be given on , 06/21). - Keep right eye moist; artificial tears, eye patch HS. - Notify neuro of acute changes in pt's condition. d/w Dr. Leilani Hein PGY-1 Status: Acute <Bo Duke - Last Filed: 06/15/18 16:49> Objective - Vital Signs/Intake and Output Vital Signs (last 24 hours): Temp Pulse Resp BP Pulse Ox 98 F 69 20 141/65 100 06/15/18 11:32 06/15/18 12:02 06/15/18 12:02 06/15/18 12:02 06/15/18 12:02 Intake and Output: 06/15/18 06/15/18 06:59 18:59 Intake Total 250 Balance 250 - Medications Medications: Current Medications Piperacillin Sod/Tazobactam (Sod 3.375 gm/ Sodium Chloride) 100 mls @ 200 mls/hr IVPB Q6H [facility]; Protocol Last Admin: 06/15/18 12:49 Dose: 200 mls/hr Ibuprofen (Motrin Oral Susp) 400 mg GT Q6H PRN PRN Reason: Pain, moderate (4-7) Stop: 06/16/18 12:53 Last Admin: 06/15/18 13:14 Dose: 400 mg Losartan Potassium (Cozaar) 50 mg PO DAILY [facility] Last Admin: 06/05/18 10:46 Dose: 50 mg Pantoprazole Sodium (Protonix Susp) 40 mg PO DAILY [facility] Last Admin: 06/15/18 09:13 Dose: Not Given Prednisone (Prednisone Tab) 60 mg NG Q24H [facility] Last Admin: 06/14/18 17:42 Dose: 60 mg Rosuvastatin Calcium (Crestor) 2.5 mg PO HS [facility] Sodium Chloride ([place] Baby Saline 30 Ml) 0 ml MADELINE QID [facility] Last Admin: 06/15/18 13:23 Dose: 30 ml Tetrahydrozoline HCl/Zinc Sulfate (Visine 0.05% Opht Soln) 0.05 ml OU BID [facility] Last Admin: 06/15/18 09:29 Dose: 1 drop Valacyclovir HCl (Valtrex) 1,000 mg NG Q12 [facility]; Protocol Stop: 06/21/18 22:01 Last Admin: 06/15/18 09:13 Dose: Not Given - Labs Labs: 06/15/18 07:59 06/15/18 07:59 PT 11.8 SECONDS (9.7-12.2) 06/15/18 07:59 INR 1.1 06/15/18 07:59 APTT 27 SECONDS (21-34) 06/15/18 07:59 Attending/Attestation - Attestation I have personally seen and examined this patient.: Yes I have fully participated in the care of the patient.: Yes I have reviewed all pertinent clinical information, including history, physical exam and plan: Yes Notes (Text): I agree with the assessment and plan. 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
--- NOTE | 2018-06-13 13:48 | CP.PCM.CON ---
History of Present Illness - History of Present Illness History of Present Illness: Palliative consult requested by Doctor Painter for goals of care discussion Patient is a 64 yo female admitted with complaints of soar throat and difficulties swallowing X 8-10 days. Patient feels like if something was there p reventing her from swallowing. Patient was treated her on 06/01/18 for same symptoms and discharged home with PO antibiotics. Patient as not able to take them due to difficulties swallowing. 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 In meantime, PEG is suggested as way of nutrition but patient is nervous about it. PMH: HTN, gastritis, unwanted weight loss, difficulties swallowing Soc. Hx: , lives at home, unemployed, denies ETOH, denies smoking Fam. Hx: denied Review of Systems - Constitutional Constitutional: Weight Loss - EENT Eyes: absent: As Per HPI, Blind Spots, Blurred Vision, Change in Vision, Decreased Night Vision, Diplopia, Discharge, Dry Eye, Exophthalmos, Floaters, Irritation, Itchy Eyes, Loss of Peripheral Vision, Pain, Photophobia, Requires Corrective Lenses, Sees Flashes, Spots in Vision, Tunnel Vision, Other Visual Disturbances, Loss of Vision, Other Ears: absent: As Per HPI, Decreased Hearing, Ear Discharge, Ear Pain, Tinnitus, Abnormal Hearing, Disequilibrium, Dizziness, Other Nose/Mouth/Throat: absent: As Per HPI, Epistaxis, Nasal Congestion, Nasal Discharge, Nasal Obstruction, Nasal Trauma, Nose Pain, Post Nasal Drip, Sinus Pain, Sinus Pressure, Bleeding Gums, Change in Voice, Dental Pain, Dry Mouth, Dysphagia, Halitosis, Hoarsness, Lip Swelling, Mouth Lesions, Mouth Pain, Odynophagia, Sore Throat, Throat Swelling, Tongue Swelling, Facial Pain, Neck Pain, Neck Mass, Other Additional comments: NGT - Breasts Breasts: absent: As Per HPI, Change in Shape, Mass, Pain, Nipple Discharge, Nipple Inversion, Skin Changes, Swelling, Other - Cardiovascular Cardiovascular: absent: As Per HPI, Acrocyanosis, Chest Pain, Chest Pain at Rest, Chest Pain with Activity, Claudication, Diaphoresis, Dyspnea, Dyspnea on Exertion, Edema, Irregular Heart Rhythm, Pain Radiating to Arm/Neck/Jaw, Leg Ray ma, Leg Ulcers, Lightheadedness, Orthopnea, Palpitations, Paroxysmal Nocturnal Dyspnea, Pedal Edema, Radiating Pain, Rapid Heart Rate, Slow Heart Rate, Syncope, Other - Respiratory Respiratory: absent: As Per HPI, Cough, Dyspnea, Hemoptysis, Dyspnea on Exertion , Wheezing, Snoring, Stridor, Pain on Inspiration, Chest Congestion, Excessive Mucous Production, Change in Mucous Color, Pain with Coughing, Other - Gastrointestinal Gastrointestinal: Dysphagia - Genitourinary Genitourinary: absent: As Per HPI, Change in Urinary Stream, Difficulty Urinating, Dysuria, Flank Pain, Hematuria, Pyuria, Nocturia, Urinary Incontinence, Urinary Frequency, Urinary Hesitance, Urinary Urgency, Voiding Freq/Small Amts, Freq UTI, Hx Renal/Bladder Calculi, Hx /Renal Surgery, Bladder Distension, Other - Reproductive: Female Reproductive:Female: Post Menopausal - Menstruation Menstruation: Post Menopausal - Musculoskeletal Musculoskeletal: absent: As Per HPI, Abnormal Gait, Arthralgias, Atrophy, Back Pain, Deformity, Joint Swelling, Limited Range of Motion, Loss of Height, Muscle Cramps, Muscle Weakness, Myalgias, Neck Pain, Numbness, Radiating Pain into Limb, Stiffness, Tingling, Other - Integumentary Integumentary: absent: As Per HPI, Acne, Alopecia, Bleeding Lesions, Change in Hair, Change in Nails, Change in Pigmentation, Changing Lesions, Dry Skin, Erythema, Furuncle, Hirsutism, Lesions, New Lesions, Non-Healing Lesions, P hotosensitivity, Pruritus, Rash, Skin Pain, Skin Ulcer, Sores, Striae, Swelling, Unusual Bruising, Wounds, Jaundice, Other - Neurological Neurological: absent: As Per HPI, Abnormal Gait, Abnormal Hearing, Abnormal Movements, Abnormal Speech, Behavioral Changes, Burning Sensations, Confusion, Convulsions, Disequilibrium, Dizziness, Numbness, Focal Weakness, Frequent Falls, Headaches, Lack of Coordination, Loss of Vision, Memory Loss, Paresthesias, Radicular Pain, Restless Legs, Sensory Deficit, Syncope, Tingling, Tremor, Vertigo, Weakness, Other Visual Disturbances, Other - Psychiatric Psychiatric: Anxiety - Endocrine Endocrine: absent: As Per HPI, Change in Body Appearance, Change in Libido, Cold Intolorance, Deepening of Voice, Excessive Sweating, Fatigue, Flushing, Heat Intolorance, Increase in Ring/Shoe/Hat Size, Palpitations, Polydipsia, Polyphagia, Polyuria, Other - Hematologic/Lymphatic Hematologic: absent: As Per HPI, Easy Bleeding, Easy Bruising, Lymphadenopathy, Other Past Patient History - Past Medical History & Family History Past Medical History?: Yes - Past Social History Smoking Status: Never Smoked - CARDIAC Hx Hypercholesterolemia: Yes Hx Hypertension: Yes - PULMONARY Hx Sleep Apnea: No - NEUROLOGICAL Hx Seizures: No Hx Transient Ischemic Attacks (TIA): No - HEMATOLOGICAL/ONCOLOGICAL Hx Blood Transfusions: No - MUSCULOSKELETAL/RHEUMATOLOGICAL Hx Falls: No - GASTROINTESTINAL Hx Gastritis: Yes - PSYCHIATRIC Hx Substance Use: No - SURGICAL HISTORY Hx Surgeries: Yes Hx Section: Yes (X1) - ANESTHESIA Hx Anesthesia: Yes Hx Anesthesia Reactions: No Hx Malignant Hyperthermia: No Meds Allergies/Adverse Reactions: Allergies Allergy/AdvReac Type Severity Reaction Status Date / Time TREES Allergy Intermediate CONGESTION Uncoded 06/04/18 10:25 - Medications Medications: Current Medications Piperacillin Sod/Tazobactam (Sod 3.375 gm/ Sodium Chloride) 100 mls @ 200 mls/hr IVPB Q6H [facility]; Protocol Last Admin: 06/13/18 10:45 Dose: 200 mls/hr Losartan Potassium (Cozaar) 50 mg PO DAILY [facility] Last Admin: 06/05/18 10:46 Dose: 50 mg Pantoprazole Sodium (Protonix Susp) 40 mg PO DAILY [facility] Last Admin: 06/13/18 09:41 Dose: 40 mg Prednisone (Prednisone Tab) 60 mg PO Q24H [facility] Last Admin: 06/12/18 17:16 Dose: 60 mg Rosuvastatin Calcium (Crestor) 2.5 mg PO HS [facility] Sodium Chloride ([place] Baby Saline 30 Ml) 0 ml MADELINE QID [facility] Last Admin: 06/13/18 13:00 Dose: 30 ml Tetrahydrozoline HCl/Zinc Sulfate (Visine 0.05% Opht Soln) 0.05 ml OU BID [facility] Last Admin: 06/13/18 09:42 Dose: 1 drop Valacyclovir HCl (Valtrex) 1,000 mg NG Q12 [facility]; Protocol Stop: 06/21/18 22:01 Last Admin: 06/13/18 10:43 Dose: 1,000 mg Physical Exam - Constitutional Appears: In Acute Distress - Head Exam Head Exam: ATRAUMATIC, NORMAL INSPECTION, NORMOCEPHALIC - Eye Exam Eye Exam: EOMI, Normal appearance, PERRL Pupil Exam: NORMAL ACCOMODATION, PERRL Additional comments: left face weakness since last night, able to close both eyes - ENT Exam Additional comments: NGT for feeding - Neck Exam Neck exam: Positive for: Normal Inspection - Respiratory Exam Respiratory Exam: Clear to Auscultation Bilateral, NORMAL BREATHING PATTERN - Cardiovascular Exam Cardiovascular Exam: Tachycardia, REGULAR RHYTHM - GI/Abdominal Exam GI & Abdominal Exam: Normal Bowel Sounds, Soft - Rectal Exam Rectal Exam: Deferred - Extremities Exam Extremities exam: Positive for: normal inspection - Back Exam Back exam: NORMAL INSPECTION - Neurological Exam Neurological exam: Alert, Oriented x3 - Psychiatric Exam Psychiatric exam: Anxious, Normal Affect, Normal Mood - Skin Skin Exam: Intact, Normal Color, Warm Results - Vital Signs Recent Vital Signs: Last Vital Signs Temp 98.1 F 06/13/18 07:00 Pulse 118 H 06/13/18 07:00 Resp 20 06/13/18 07:00 BP 127/68 06/13/18 07:00 Pulse Ox 95 06/13/18 07:00 - Labs Result Diagrams: 06/13/18 07:07 06/13/18 07:07 Labs: Laboratory Results - last 24 hr 06/13/18 06/13/18 07:07 07:07 WBC 9.2 RBC 4.86 Hgb 14.6 Hct 42.0 MCV 86.4 MCH 30.0 MCHC 34.8 RDW 13.6 Plt Count 573 H MPV 6.9 L Neut % (Auto) 79.4 H Lymph % (Auto) 16.5 L Sebastian % (Auto) 3.7 Eos % (Auto) 0.0 Baso % (Auto) 0.4 Neut # (Auto) 7.3 H Lymph # (Auto) 1.5 Sebastian # (Auto) 0.3 Eos # (Auto) 0.0 Baso # (Auto) 0.0 Sodium 133 Potassium 4.1 Chloride 99 Carbon Dioxide 29 Anion Gap 10 BUN 13 Creatinine 0.4 L Est GFR ( Amer) > 60 Est GFR (Non-Af Amer) > 60 Random Glucose 119 H Calcium 9.2 Phosphorus 3.7 Magnesium 2.6 H Total Bilirubin 0.7 AST 55 H D ALT 70 H D Alkaline Phosphatase 88 Total Protein 7.1 Albumin 3.9 Globulin 3.1 Albumin/Globulin Ratio 1.2 Assessment & Plan - Assessment and Plan (Free Text) Assessment: Palliative consult Full Code, there is no Advance directive on chart, PPS 80% I reviewed medical rcords and diagnostic studies, examined and interviewed patient in the chair. Patient is alert, oriented X 3 , Turkmen speaking. Translation used. Left face minimal droop, since last night as per patient. Smile unequal, able to close both eyes, left eyelid lose. Patient denies feeling of paresis, twitching or pain to left face. Skin intact, dry, no wounds. Breathing normal, O2Sat 95% RA, denies SOB. Tachycardia, HR 118, denies chest pain. Abdomen flat, soft, active bowel sounds. NGT for feeding. NPO due to Dyspahagia. PEG recommended, patient uncertain about it. Reports unwanted weight loss due to difficulties swallowing. Ambulatory, steady agit, no pedal edema, peal pulses present. Goals of care discussed with patient. her aunt at bed side. Doctor Inocencio reviewed with patient her clinical status and need for PEG. I took over discussion and elicited patient's understanding about her condition. Patient expressed lack of understanding and unrealistic expectations. I reinforced the teaching about the PEG in relation to her vocal cord issue. Her aunt at bed side is reinforcing conservative treatment which is not appropriate for current health issues. Patient reported not wanting " tube in my stomach". I supported her feelings but stressed out the importance of nutrition. Patient feels she will get better and asked for this discussion to be continued tomorrow. Impression * Vocal cord paralyses * Dysphagia due to above * Unwanted weight loss 2nd to difficulties swallowing * Left face paralyses * Anxiety related to proposed PEG insertion * At risk for malnutrition * Further studies are needed to deliver final diagnosis * Patient's aunt is talking patient against recommended interventions, PEG * Patient is unrealistic with her expectations. She wants to recover but without adequate Surgical interventions Suggestion * Continue NGT feedings * Would refer to Neurologist * Reassure patient of care provided and discuss plans of care on daily basis to assist patient with managing her anxiety I will return to patient and reinforce teaching about PEG. Advance care discussion 46 min.
[2018-06-13] MEDS ORDERED: Lidocaine 1% (10 ml) Inj INFIL ONE (15:53)
[2018-06-14 00:57] LABS: ACETYLCHOLINE REC BIND AB <0.30 nmol/L
[2018-06-14] MEDS: Piperacillin/Tazobact 3.375 GM in Sodium Chloride 100 ML IVPB SCH ×4 (05:01→22:57)
[2018-06-14] MEDS ORDERED: Acetaminophen 650mg/20.3ml solution UD PO PRN (05:38)
--- NOTE | 2018-06-14 06:52 | CP.PCM.PN ---
Subjective - Date & Time of Evaluation Date of Evaluation: 06/14/18 Time of Evaluation: 06:52 - Subjective Subjective: PGY-1 Leda Xiong D.O. Medicine progress note for Dr. Painter's service: Patient was seen and examined this morning. She is complaining of throat pain. Her voice is now also more hoarse. She is aware of the plan for LP later today. She said she is now agreeing to PEG placement and the NGT is becoming uncomfortable. Objective - Vital Signs/Intake and Output Vital Signs (last 24 hours): Temp Pulse Resp BP Pulse Ox 98 F 98 H 20 121/74 97 06/13/18 23:00 06/13/18 23:00 06/13/18 23:00 06/13/18 23:00 06/13/18 23:00 Intake and Output: 06/13/18 06/14/18 18:59 06:59 Intake Total 450 630 Output Total 200 Balance 450 430 - Medications Medications: Current Medications Acetaminophen (Tylenol 650mg/20.3ml Solution Ud) 650 mg PO Q6 PRN PRN Reason: Pain, moderate (4-7) Last Admin: 06/14/18 06:25 Dose: 650 mg Piperacillin Sod/Tazobactam (Sod 3.375 gm/ Sodium Chloride) 100 mls @ 200 mls/hr IVPB Q6H [facility]; Protocol Last Admin: 06/14/18 05:01 Dose: 200 mls/hr Losartan Potassium (Cozaar) 50 mg PO DAILY [facility] Last Admin: 06/05/18 10:46 Dose: 50 mg Pantoprazole Sodium (Protonix Susp) 40 mg PO DAILY [facility] Last Admin: 06/13/18 09:41 Dose: 40 mg Prednisone (Prednisone Tab) 60 mg NG Q24H [facility] Last Admin: 06/13/18 17:40 Dose: 60 mg Rosuvastatin Calcium (Crestor) 2.5 mg PO HS [facility] Sodium Chloride ([place] Baby Saline 30 Ml) 0 ml MADELINE QID [facility] Last Admin: 06/13/18 21:08 Dose: 1 ml Tetrahydrozoline HCl/Zinc Sulfate (Visine 0.05% Opht Soln) 0.05 ml OU BID [facility] Last Admin: 06/13/18 17:41 Dose: 1 drop Valacyclovir HCl (Valtrex) 1,000 mg NG Q12 [facility]; Protocol Stop: 06/21/18 22:01 Last Admin: 06/13/18 21:08 Dose: 1,000 mg - Labs Labs: 06/13/18 07:07 06/13/18 07:07 PT 12.9 SECONDS (9.7-12.2) H 06/05/18 13:51 INR 1.2 06/05/18 13:51 APTT 34 SECONDS (21-34) 06/05/18 13:51 - Constitutional Appears: Non-toxic, No Acute Distress - Head Exam Head Exam: ATRAUMATIC, NORMAL INSPECTION - Eye Exam Eye Exam: EOMI, Normal appearance - ENT Exam ENT Exam: Mucous Membranes Moist Additional comments: NGT in R nare - Neck Exam Neck Exam: Normal Inspection. absent: Lymphadenopathy, Tenderness, Thyromegaly - Respiratory Exam Respiratory Exam: Clear to Ausculation Bilateral, NORMAL BREATHING PATTERN - Cardiovascular Exam Cardiovascular Exam: RRR, +S1 - GI/Abdominal Exam GI & Abdominal Exam: Soft. absent: Distended, Tenderness - Extremities Exam Extremities Exam: Normal Inspection. absent: Pedal Edema - Neurological Exam Neurological Exam: Alert, Awake, CN II-XII Intact, Normal Gait, Oriented x3 - Psychiatric Exam Psychiatric exam: Flat Affect, Normal Mood - Skin Skin Exam: Dry, Normal Color, Warm Assessment and Plan - Assessment and Plan (Free Text) Assessment: Patient is a 63 yo female with HTN and HLD who presented with dysphagia and ho arseness. Initial MRI brain and CT head/neck did not reveal etiology. EGD performed- no abnormalities noted. Barium swallow showed moderate aspiration. ENT saw vocal cord hypokinesis on flex laryngoscopy but no masses. Patient had vocal cord and piriformis biopsy on 06/08 showing only mild inflammation. She is being fed via NGT. FIRE OFFICER re-evaluated, and patient failed swallow eval. ENT is referring patient to subspecialist. Recommendation is for PEG. Palliative is on board for goals of care. MRI brain done with contrast shows some abnormalities consistent with viral etiology. Neurology plans on doing LP later today 06/14. Plan for PEG tomorrow 06/15. Plan: Dysphagia and Hoarseness, acute, improving - CT head, CT neck: no significant or acute findings - MRI brain with and w/o contrast: enhancement in the christy, medulla, and 4th ventricle- likely viral etiology - Echo: unremarkable - EGD: minor stomach lesions, negative biopsies - Swallow eval: aspiration precautions - Failed repeat bedside swallow eval on 06/11 - Barium swallow 06/07: severe aspiration, poor cough reflex - FIRE OFFICER recommends repeat MBS in 4 weeks - Flexible laryngoscopy: R vocal cord hypokinesis, pooling of secretions in piriform sinus - s/p Vocal cord and Piriformis sinus biopsy 06/08: mild chronic inflammation - Acetylcholine receptor binding Ab negative - HSV Ab pending - Quantiferon gold pending - NPO - NGT placed 06/09- Jevity 1.5 @ 40 mL/hr - LP pending for today 06/14- f/u CSF studies - PEG placement scheduled for tomorrow 06/15 - [place] baby saline MADELINE QID - Zosyn 3.375 mg IV Q6H IV- started 06/05 for aspiration PNA coverage - Leukocytosis resolved, afebrile, Platelets still elevated (reactive) - Valtrex 1000 mg NGT Q12H - Prednisone 60 mg NGT daily - Toy Mechanic consulted - ENT consulted (Win)- vocal cord Bx, will refer to subspecialist at [facility] - GI consulted (Severo)- EGD, PEG planned for 06/15 - Neurology consulted (Celso)- LP today 06/14 - Palliative consulted Transaminitis, acute, mild- suspect side effect of Valtrex - AST 55-->50, ALT 70-->87 - Avoid Tylenol - Monitor Hyponatremia, acute, resolved - Responsive to IVF - Na 119 on admission, 133 today - CT chest: nodular hypertrophy of left adrenal gland - Consider f/u as outpatient - Serum osm 273, urine osm 254, urine Na 66 - TSH low (0.19), free T4 wnl (1.76) - Water flushes 50 cc Q4H - Nephrology consulted (Sanjay)- Avoid NSAID; Hold ARB, Discontinue HCTZ Hypokalemia, acute, mild - Monitor and replete PRN Hypophosphatemia, acute, resolved - Monitor and replete PRN Pleural effusion, acute, resolved - CXR on admission: mild right pleural effusion - CXR (06/07): no pleural effusion - CT chest on admission: mild tree-in-bud opacities in right upper and middle lobes - Afebrile - Leukocytosis resolved - Procal low (0.11) - Blood Cx no growth - Zosyn 3.375 mg IV Q6H IV- started 06/05 Hypertension, chronic, well-controlled - Vitals Q6H - Hold home medication Cozaar 50 mg PO daily while NPO Hyperlipidemia, chronic - Most recent lipid panel from 09/2017 wnl - Hold home medication Simvastatin 10 mg PO QHS while NPO Ppx: VTE: SCDs, ambulatory GI: Protonix 40 mg IVP daily Diet: Jevity via NGT, NPO Case discussed with attending, Dr. Painter.
[2018-06-14 08:09] LABS: BASO % 0.3 % (0.0-2.0); HEMOGLOBIN 13.2 g/dL (11.0-16.0); LYMPH # 1.7 K/uL (1.0-4.3); MEAN CELL VOLUME 86.6 fL (81.0-99.0); MEAN CORPUSCULAR HEMOGLOBIN 29.9 pg (27.0-31.0); MEAN CORPUSCULAR HGB CONC 34.5 g/dL (33.0-37.0); MEAN PLATELET VOLUME 6.8 fL (7.2-11.7); MONO # 0.9 K/uL (0.0-0.8); MONO % 8.6 % (0.0-10.0); NEUT # 7.5 K/uL (1.8-7.0); NEUT % 74.1 % (50.0-75.0); RBC 4.42 Mil/uL (3.80-5.20); RED CELL DISTRIBUTION WIDTH 13.6 % (11.5-14.5); WHITE BLOOD COUNT 10.2 K/uL (4.8-10.8)
[2018-06-14 08:46] LABS: ALB/GLOB RATIO 1.3 (1.0-2.1); ALBUMIN 3.5 g/dL (3.5-5.0); ALT/SGPT 87 U/L (9-52); AST/SGOT 50 U/L (14-36); BLOOD UREA NITROGEN 16 mg/dL (7-17); CALCIUM 8.6 mg/dl (8.6-10.4); GFR NON-AFRICAN AMERICAN > 60
--- NOTE | 2018-06-14 08:53 | CP.PCM.PCO ---
Physician Communication Note - Physician Communication Note Physician Communication Note: fluid studies ordered for anticipated lumbar punctune
[2018-06-14] MEDS ORDERED: Potassium Chloride 20 mEq/15 ml LIQ UD PO ONE ×2 (09:00→11:45)
[2018-06-14] MEDS: Tetrahydrozoline Opht 0.05% Sol (15 ml) OU SCH ×2 (09:46→17:42)
[2018-06-14] MEDS: Sodium Chloride Nasal 0.65% Soln (30ml) NAS SCH ×4 (09:46→21:14)
[2018-06-14] MEDS: Pantoprazole 40 mg Susp UD PO SCH (09:47)
--- NOTE | 2018-06-14 11:10 | CP.PCM.PN ---
Subjective - Date & Time of Evaluation Date of Evaluation: 06/14/18 Time of Evaluation: 11:08 - Subjective Subjective: Patient is alert, in acute distress, complains of throat discomfort caused by NGT. Patient is for bed side Lumbar Puncture today. Patient seen by Doctor Leilani. Its presumed that neuroligical changes could be result of viral infection. I discussed the decision on PEG. Objective - Vital Signs/Intake and Output Vital Signs (last 24 hours): Temp Pulse Resp BP Pulse Ox 98.2 F 102 H 20 105/66 100 06/14/18 07:20 06/14/18 07:20 06/14/18 07:20 06/14/18 07:20 06/14/18 07:20 Intake and Output: 06/14/18 06/14/18 06:59 18:59 Intake Total 630 Output Total 200 Balance 430 - Medications Medications: Current Medications Piperacillin Sod/Tazobactam (Sod 3.375 gm/ Sodium Chloride) 100 mls @ 200 mls/hr IVPB Q6H [facility]; Protocol Last Admin: 06/14/18 10:12 Dose: 200 mls/hr Losartan Potassium (Cozaar) 50 mg PO DAILY [facility] Last Admin: 06/05/18 10:46 Dose: 50 mg Pantoprazole Sodium (Protonix Susp) 40 mg PO DAILY [facility] Last Admin: 06/14/18 09:47 Dose: 40 mg Prednisone (Prednisone Tab) 60 mg NG Q24H [facility] Last Admin: 06/13/18 17:40 Dose: 60 mg Rosuvastatin Calcium (Crestor) 2.5 mg PO HS [facility] Sodium Chloride ([place] Baby Saline 30 Ml) 0 ml MADELINE QID [facility] Last Admin: 06/14/18 09:46 Dose: 30 ml Tetrahydrozoline HCl/Zinc Sulfate (Visine 0.05% Opht Soln) 0.05 ml OU BID [facility] Last Admin: 06/14/18 09:46 Dose: 1 drop Valacyclovir HCl (Valtrex) 1,000 mg NG Q12 [facility]; Protocol Stop: 06/21/18 22:01 Last Admin: 06/14/18 09:46 Dose: 1,000 mg - Labs Labs: 06/14/18 07:55 06/14/18 07:55 PT 12.9 SECONDS (9.7-12.2) H 06/05/18 13:51 INR 1.2 06/05/18 13:51 APTT 34 SECONDS (21-34) 06/05/18 13:51 - Constitutional Appears: No Acute Distress, Chronically Ill - Head Exam Head Exam: ATRAUMATIC, NORMAL INSPECTION, NORMOCEPHALIC - Eye Exam Eye Exam: EOMI, Normal appearance, PERRL Pupil Exam: NORMAL ACCOMODATION, PERRL - ENT Exam Additional comments: NGT - Neck Exam Neck Exam: Normal Inspection - Respiratory Exam Respiratory Exam: Clear to Ausculation Bilateral, NORMAL BREATHING PATTERN - Cardiovascular Exam Cardiovascular Exam: Tachycardia, REGULAR RHYTHM - GI/Abdominal Exam GI & Abdominal Exam: Soft, Normal Bowel Sounds - Rectal Exam Rectal Exam: Deferred - Extremities Exam Extremities Exam: Normal Inspection - Back Exam Back Exam: NORMAL INSPECTION - Neurological Exam Neurological Exam: Alert, Normal Gait, Oriented x3 Neuro motor strength exam: Left Upper Extremity: 3, Right Upper Extremity: 3, Left Lower Extremity: 3, Right Lower Extremity: 3 - Psychiatric Exam Psychiatric exam: Normal Affect, Normal Mood - Skin Skin Exam: Dry, Intact, Normal Color, Warm Assessment and Plan - Assessment and Plan (Free Text) Assessment: Patient examined in bed, in no acute distress. NGT in situ for feedings. Patient complains of discomfort caused in y the NGT. Upon y arrival to room, patient right away said in Albanian, she made decision about PEG and will go for it. Patient understands it is better for her. Patient seemed very content with her decision. I supported her. Patient aware of pending Lumbar Puncture and is agreeable with it. Impression * Dysphagia * NGT for feedings * Discomfort 2nd to NGT * Patient wishes to feel better and return to her normal life * Patient agreed with PEG Suggestion * Keep NPO * Remove NGT as soon as possible for increased comfort * Reassure and support patient * Schedule PEG procedure Palliative care will remain on board and offer support as needed. Advance care planing 30 min
--- NOTE | 2018-06-14 13:21 | PCM.PROC ---
Procedures Attestation:: I certify that I have explained the specified Operation(s) or Procedure(s), risks, benefits and reasonable alternatives to the Patient and/or other person responsible. The opportunity was given to ask questions and all questions answered - Lumbar Puncture Consent Obtained: Written Consent Time Out Performed: Yes Patient Position: Upright Skin Prep: Povidone-Iodine 1% Local Anesthetic Used: Lidocaine 1% Spinal Needle Gauge: 22G Interspace Used: L4-L5 Fluid Initially Obtained: Clear Complications: None
[2018-06-14 13:47] LABS: FLUID TYPE SPINAL FLUID
[2018-06-14 14:50] LABS: N MENINGITIS ACY/W135 NEGATIVE (NEGATIVE); N MENINGITIS B/ECOLI K1 NEGATIVE (NEGATIVE); STREP PNEUMONIAE NEGATIVE (NEGATIVE); STREPTOCOCCUS B NEGATIVE (NEGATIVE)
[2018-06-14 15:06] LABS: CSF VOLUME 2 mL (0-1)
[2018-06-14 15:07] LABS: CSF APPEARANCE CLEAR/COLORLESS (CLEAR)
[2018-06-14 15:09] LABS: CSF MONO/MACROPHAGE 2 % (0-0)
--- NOTE | 2018-06-14 17:02 | CP.PCM.PN ---
Subjective - Date & Time of Evaluation Date of Evaluation: 06/14/18 Time of Evaluation: 13:00 - Subjective Subjective: 63 yo F w/ htn, hyperlipidemia, admitted with dysphagia, nephrology following for electrolyte imbalances; Patient with NGT; undergoing neurologic workup for cause of dysphagia, s/p LP; Objective - Vital Signs/Intake and Output Vital Signs (last 24 hours): Temp Pulse Resp BP Pulse Ox 98.0 F 89 20 115/69 98 06/14/18 15:00 06/14/18 15:00 06/14/18 15:00 06/14/18 15:00 06/14/18 15:00 Intake and Output: 06/14/18 06/14/18 06:59 18:59 Intake Total 630 420 Output Total 200 Balance 430 420 - Medications Medications: Current Medications Piperacillin Sod/Tazobactam (Sod 3.375 gm/ Sodium Chloride) 100 mls @ 200 mls/hr IVPB Q6H [facility]; Protocol Last Admin: 06/14/18 10:12 Dose: 200 mls/hr Losartan Potassium (Cozaar) 50 mg PO DAILY [facility] Last Admin: 06/05/18 10:46 Dose: 50 mg Pantoprazole Sodium (Protonix Susp) 40 mg PO DAILY [facility] Last Admin: 06/14/18 09:47 Dose: 40 mg Prednisone (Prednisone Tab) 60 mg NG Q24H [facility] Last Admin: 06/13/18 17:40 Dose: 60 mg Rosuvastatin Calcium (Crestor) 2.5 mg PO HS [facility] Sodium Chloride ([place] Baby Saline 30 Ml) 0 ml MADELINE QID [facility] Last Admin: 06/14/18 13:49 Dose: 30 ml Tetrahydrozoline HCl/Zinc Sulfate (Visine 0.05% Opht Soln) 0.05 ml OU BID [facility] Last Admin: 06/14/18 09:46 Dose: 1 drop Valacyclovir HCl (Valtrex) 1,000 mg NG Q12 [facility]; Protocol Stop: 06/21/18 22:01 Last Admin: 06/14/18 09:46 Dose: 1,000 mg - Labs Labs: 06/14/18 07:55 06/14/18 07:55 PT 12.9 SECONDS (9.7-12.2) H 06/05/18 13:51 INR 1.2 06/05/18 13:51 APTT 34 SECONDS (21-34) 06/05/18 13:51 - Constitutional Appears: Non-toxic, No Acute Distress - Eye Exam Eye Exam: Normal appearance - Respiratory Exam Respiratory Exam: Decreased Breath Sounds, Clear to Ausculation Bilateral. absent: Respiratory Distress - Cardiovascular Exam Cardiovascular Exam: RRR, +S1, +S2 - Extremities Exam Additional comments: no leg edema - Neurological Exam Neurological Exam: Alert, Awake - Psychiatric Exam Psychiatric exam: Normal Mood. 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
[2018-06-14 20:21] LABS: BLOOD UREA NITROGEN 14 mg/dL (7-17); CALCIUM 8.8 mg/dl (8.6-10.4); GFR NON-AFRICAN AMERICAN > 60
[2018-06-15] MEDS: Piperacillin/Tazobact 3.375 GM in Sodium Chloride 100 ML IVPB SCH ×4 (05:34→22:00)
--- NOTE | 2018-06-15 07:25 | CP.PCM.PN ---
Subjective - Date & Time of Evaluation Date of Evaluation: 06/15/18 Time of Evaluation: 07:24 - Subjective Subjective: PGY-1 Leda Xiong D.O. Medicine progress note for Dr. Painter's service: Patient was seen and examined this morning. Patient is pending PEG this morning. She continues to have through pain and hoarse voice. Her right-sided facial palsy is evident. Patient was re-evaluated in the afternoon. She has mild pain around the PEG site . This is relieved by ibuprofen. Objective - Vital Signs/Intake and Output Vital Signs (last 24 hours): Temp Pulse Resp BP Pulse Ox 98.3 F 101 H 20 123/74 97 06/14/18 23:25 06/14/18 23:25 06/14/18 23:25 06/14/18 23:25 06/14/18 23:25 - Medications Medications: Current Medications Piperacillin Sod/Tazobactam (Sod 3.375 gm/ Sodium Chloride) 100 mls @ 200 mls/hr IVPB Q6H [facility]; Protocol Last Admin: 06/15/18 05:34 Dose: 200 mls/hr Losartan Potassium (Cozaar) 50 mg PO DAILY [facility] Last Admin: 06/05/18 10:46 Dose: 50 mg Pantoprazole Sodium (Protonix Susp) 40 mg PO DAILY [facility] Last Admin: 06/14/18 09:47 Dose: 40 mg Prednisone (Prednisone Tab) 60 mg NG Q24H [facility] Last Admin: 06/14/18 17:42 Dose: 60 mg Rosuvastatin Calcium (Crestor) 2.5 mg PO HS [facility] Sodium Chloride ([place] Baby Saline 30 Ml) 0 ml MADELINE QID [facility] Last Admin: 06/14/18 21:14 Dose: 1 ml Tetrahydrozoline HCl/Zinc Sulfate (Visine 0.05% Opht Soln) 0.05 ml OU BID [facility] Last Admin: 06/14/18 17:42 Dose: 1 drop Valacyclovir HCl (Valtrex) 1,000 mg NG Q12 [facility]; Protocol Stop: 06/21/18 22:01 Last Admin: 06/14/18 21:14 Dose: 1,000 mg - Labs Labs: 06/14/18 07:55 06/14/18 19:56 PT 12.9 SECONDS (9.7-12.2) H 03/19/19 13:51 INR 1.2 06/05/18 13:51 APTT 34 SECONDS (21-34) 06/05/18 13:51 - Additional Findings Additional findings: - Constitutional Appears: Non-toxic, No Acute Distress - Head Exam Head Exam: ATRAUMATIC, NORMAL INSPECTION - Eye Exam Eye Exam: EOMI, Normal appearance - ENT Exam ENT Exam: Mucous Membranes Moist Additional comments: NGT in R nare in AM, removed post-PEG - Neck Exam Neck Exam: Normal Inspection. absent: Lymphadenopathy, Tenderness, Thyromegaly - Respiratory Exam Respiratory Exam: Clear to Auscultation Bilateral, NORMAL BREATHING PATTERN - Cardiovascular Exam Cardiovascular Exam: RRR, +S1 - GI/Abdominal Exam GI & Abdominal Exam: Soft. absent: Distended, Tenderness PEG tube in abdomen- clean, dry dressing - Extremities Exam Extremities Exam: Normal Inspection. absent: Pedal Edema - Neurological Exam Neurological Exam: Alert, Awake, CN II-XII Intact, Normal Gait, Oriented x3 - Psychiatric Exam Psychiatric exam: Flat Affect, Normal Mood - Skin Skin Exam: Dry, Normal Color, Warm Assessment and Plan - Assessment and Plan (Free Text) Assessment: Patient is a 63 yo female with HTN and HLD who presented with dysphagia and hoarseness. Initial MRI brain and CT head/neck did not reveal etiology. EGD performed- no abnormalities noted. Barium swallow showed moderate aspiration. ENT saw vocal cord hypokinesis on flex laryngoscopy but no masses. Patient had vocal cord and piriformis biopsy on 06/08 showing only mild inflammation. She is being fed via NGT. [employer] re-evaluated, and patient failed swallow eval. ENT is referring patient to subspecialist. Recommendation is for PEG. Palliative is on board for goals of care. MRI brain done with contrast shows some abnormalities consistent with viral etiology. Neurology did LP 06/14. GI inserted PEG 06/15. Plan: Dysphagia, Hoarseness, Facial palsy, acute, stable - CT head, CT neck: no significant or acute findings - MRI brain with and w/o contrast: enhancement in the christy, medulla, and 4th ventricle- likely viral etiology - Echo: unremarkable - EGD: minor stomach lesions, negative biopsies - Swallow eval: aspiration precautions - Failed repeat bedside swallow eval on 06/11 - Barium swallow 06/07: severe aspiration, poor cough reflex - [employer] recommends repeat MBS in 4 weeks - Flexible laryngoscopy: R vocal cord hypokinesis, pooling of secretions in piriform sinus - s/p Vocal cord and Piriformis sinus biopsy 06/08: mild chronic inflammation - Acetylcholine receptor binding Ab negative - 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), HSV-2 IgG negative - HSV-1 IgM pending - Quantiferon gold pending - NPO - NGT placed 06/09, removed 06/15 - LP on 06/14 RBC 1 WBC 34 Lymphocytes elev (98) Monocytes elev (2) Neutrophils wnl (0) Glucose wnl (75) Protein wnl (64) Cryptococcus negative - PEG placement on 06/15 - f/u CT - [place] baby saline MADELINE QID - Zosyn 3.375 mg IV Q6H IV- started 06/05 for aspiration PNA coverage - Leukocytosis resolved, afebrile, Platelets still elevated but decreasing (reactive) - Valtrex 1000 mg PEG Q12H - Prednisone 60 mg PEG daily - Ibuprofen 400 mg PEG Q6H PRN - Animal Care Giver consulted - ENT consulted (Win)- vocal cord Bx, refer to Dr. Pang who is a swallowing specialist ([phone]) - GI consulted (Severo)- EGD, PEG on 06/15 - Neurology consulted (Celso)- LP on 06/14 - Palliative consulted Transaminitis, acute, mild- suspect side effect of Valtrex - AST 55-->39, ALT 70-->95 - Avoid Tylenol - Monitor Hyponatremia, acute, resolved - Responsive to IVF - Na 119 on admission, 135 today - CT chest: nodular hypertrophy of left adrenal gland - Consider f/u as outpatient - Serum osm 273, urine osm 254, urine Na 66 - TSH low (0.19), free T4 wnl (1.76) - Water flushes 50 cc Q4H - Nephrology consulted (Sanjay)- Avoid NSAID; Hold ARB, Discontinue HCTZ Hypokalemia, acute, mild - Monitor and replete PRN Hypophosphatemia, acute, resolved - Monitor and replete PRN Pleural effusion, acute, resolved - CXR on admission: mild right pleural effusion - CXR (06/07): no pleural effusion - CT chest on admission: mild tree-in-bud opacities in right upper and middle lobes - Afebrile - Leukocytosis resolved - Procal low (0.11) - Blood Cx no growth - Zosyn 3.375 mg IV Q6H IV- started 06/05 Hypertension, chronic, well-controlled - Vitals Q6H - Hold home medication Cozaar 50 mg PO daily while NPO Hyperlipidemia, chronic - Most recent lipid panel from 09/2017 wnl - Hold home medication Simvastatin 10 mg PO QHS while NPO Ppx: VTE: SCDs, ambulatory GI: Protonix 40 mg IVP daily Diet: NPO, start PEG feedings tomorrow 06/16 Case discussed with attending, Dr. Painter.
[2018-06-15 08:09] LABS: BASO # 0.1 K/uL (0.0-0.2); BASO % 0.6 % (0.0-2.0); EOS % 0.2 % (0.0-4.0); HEMOGLOBIN 13.2 g/dL (11.0-16.0); LYMPH # 2.3 K/uL (1.0-4.3); LYMPH % 22.1 % (20.0-40.0); MEAN CORPUSCULAR HEMOGLOBIN 29.7 pg (27.0-31.0); MEAN CORPUSCULAR HGB CONC 34.2 g/dL (33.0-37.0); MONO # 0.9 K/uL (0.0-0.8); MONO % 8.2 % (0.0-10.0); NEUT # 7.1 K/uL (1.8-7.0); NEUT % 68.9 % (50.0-75.0); NRBC % 0.1 % (0.0-2.0); RBC 4.45 Mil/uL (3.80-5.20); RED CELL DISTRIBUTION WIDTH 13.5 % (11.5-14.5); WHITE BLOOD COUNT 10.3 K/uL (4.8-10.8)
[2018-06-15 08:13] LABS: INR 1.1; PROTHROMBIN TIME 11.8 SECONDS (9.7-12.2)
[2018-06-15 08:28] LABS: ALB/GLOB RATIO 1.4 (1.0-2.1); ALBUMIN 3.7 g/dL (3.5-5.0); ALT/SGPT 95 U/L (9-52); AST/SGOT 39 U/L (14-36); BLOOD UREA NITROGEN 13 mg/dL (7-17); CALCIUM 8.8 mg/dl (8.6-10.4); GFR NON-AFRICAN AMERICAN > 60
--- NOTE | 2018-06-15 08:46 | CP.PCM.PN ---
Subjective - Date & Time of Evaluation Date of Evaluation: 06/15/18 Time of Evaluation: 08:45 - Subjective Subjective: Patient should follow up as an outpatient with Dr. Pang who is a swallowing specialist. [phone] Objective - Vital Signs/Intake and Output Vital Signs (last 24 hours): Temp Pulse Resp BP Pulse Ox 98.6 F 94 H 20 124/73 98 06/15/18 07:00 06/15/18 07:00 06/15/18 07:00 06/15/18 07:00 06/15/18 07:00 - Medications Medications: Current Medications Piperacillin Sod/Tazobactam (Sod 3.375 gm/ Sodium Chloride) 100 mls @ 200 mls/hr IVPB Q6H [facility]; Protocol Last Admin: 06/15/18 05:34 Dose: 200 mls/hr Losartan Potassium (Cozaar) 50 mg PO DAILY [facility] Last Admin: 06/05/18 10:46 Dose: 50 mg Pantoprazole Sodium (Protonix Susp) 40 mg PO DAILY [facility] Last Admin: 06/14/18 09:47 Dose: 40 mg Prednisone (Prednisone Tab) 60 mg NG Q24H [facility] Last Admin: 06/14/18 17:42 Dose: 60 mg Rosuvastatin Calcium (Crestor) 2.5 mg PO HS [facility] Sodium Chloride ([place] Baby Saline 30 Ml) 0 ml MADELINE QID [facility] Last Admin: 06/14/18 21:14 Dose: 1 ml Tetrahydrozoline HCl/Zinc Sulfate (Visine 0.05% Opht Soln) 0.05 ml OU BID [facility] Last Admin: 06/14/18 17:42 Dose: 1 drop Valacyclovir HCl (Valtrex) 1,000 mg NG Q12 [facility]; Protocol Stop: 06/21/18 22:01 Last Admin: 06/14/18 21:14 Dose: 1,000 mg - Labs Labs: 06/15/18 07:59 06/15/18 07:59 PT 11.8 SECONDS (9.7-12.2) 06/15/18 07:59 INR 1.1 06/15/18 07:59 APTT 27 SECONDS (21-34) 06/15/18 07:59
[2018-06-15] MEDS: Pantoprazole 40 mg Susp UD PO SCH (09:13)
[2018-06-15] MEDS ORDERED: Potassium Chloride 20 mEq/15 ml LIQ UD PO ONE (09:15)
[2018-06-15] MEDS: Sodium Chloride Nasal 0.65% Soln (30ml) NAS SCH ×4 (09:29→21:56)
[2018-06-15] MEDS: Tetrahydrozoline Opht 0.05% Sol (15 ml) OU SCH ×2 (09:29→17:37)
[2018-06-15] MEDS ORDERED: Propofol 10 mg/ml Inj (20 ML) ONE (11:09)
--- NOTE | 2018-06-15 13:31 | CP.PCM.PN ---
Subjective - Date & Time of Evaluation Date of Evaluation: 06/15/18 Time of Evaluation: 13:30 - Subjective Subjective: PEG done in AM C/O abdominal pain and hiccups. Hemodynamically stable. Will evaluate for PTX, diaphragmatic collection/hematoma via CT scan STAT. Discussed with RN. Objective - Vital Signs/Intake and Output Vital Signs (last 24 hours): Temp Pulse Resp BP Pulse Ox 98 F 69 20 141/65 100 06/15/18 11:32 06/15/18 12:02 06/15/18 12:02 06/15/18 12:02 06/15/18 12:02 Intake and Output: 06/15/18 06/15/18 06:59 18:59 Intake Total 150 Balance 150 - Medications Medications: Current Medications Piperacillin Sod/Tazobactam (Sod 3.375 gm/ Sodium Chloride) 100 mls @ 200 mls/hr IVPB Q6H [facility]; Protocol Last Admin: 06/15/18 12:49 Dose: 200 mls/hr Ibuprofen (Motrin Oral Susp) 400 mg GT Q6H PRN PRN Reason: Pain, moderate (4-7) Stop: 06/16/18 12:53 Last Admin: 06/15/18 13:14 Dose: 400 mg Losartan Potassium (Cozaar) 50 mg PO DAILY [facility] Last Admin: 06/05/18 10:46 Dose: 50 mg Pantoprazole Sodium (Protonix Susp) 40 mg PO DAILY [facility] Last Admin: 06/15/18 09:13 Dose: Not Given Prednisone (Prednisone Tab) 60 mg NG Q24H [facility] Last Admin: 06/14/18 17:42 Dose: 60 mg Rosuvastatin Calcium (Crestor) 2.5 mg PO HS [facility] Sodium Chloride ([place] Baby Saline 30 Ml) 0 ml MADELINE QID [facility] Last Admin: 06/15/18 13:23 Dose: 30 ml Tetrahydrozoline HCl/Zinc Sulfate (Visine 0.05% Opht Soln) 0.05 ml OU BID [facility] Last Admin: 06/15/18 09:29 Dose: 1 drop Valacyclovir HCl (Valtrex) 1,000 mg NG Q12 [facility]; Protocol Stop: 06/21/18 22:01 Last Admin: 06/15/18 09:13 Dose: Not Given - Labs Labs: 06/15/18 07:59 06/15/18 07:59 PT 11.8 SECONDS (9.7-12.2) 06/15/18 07:59 INR 1.1 06/15/18 07:59 APTT 27 SECONDS (21-34) 06/15/18 07:59 Assessment and Plan (1) Dysphagia Status: Acute
--- NOTE | 2018-06-15 15:03 | CP.PCM.PN ---
<MelvinaAshleyAngelita Abe - Last Filed: 06/15/18 16:24> Subjective - Date & Time of Evaluation Date of Evaluation: 06/15/18 Time of Evaluation: 10:00 - Subjective Subjective: PGY-1 Neurology Progress Note for Dr. Duke Patient was seen and examined today at bedside in no acute distress. Nurse reports no overnight events. Patient stayed supine for the hour after the LP yesterday. Due to low fluid collection, we were only able to run a limited battery of tests. Patient has no new complaints and is eager to find out the results. Denies chest pain, shortness of breath, back pain, pain to LP site, fever, chills, weakness, twitch. She's going for PEG later today. Objective - Vital Signs/Intake and Output Vital Signs (last 24 hours): Temp Pulse Resp BP Pulse Ox 98 F 69 20 141/65 100 06/15/18 11:32 06/15/18 12:02 06/15/18 12:02 06/15/18 12:02 06/15/18 12:02 Intake and Output: 06/15/18 06/15/18 06:59 18:59 Intake Total 250 Balance 250 - Medications Medications: Current Medications Piperacillin Sod/Tazobactam (Sod 3.375 gm/ Sodium Chloride) 100 mls @ 200 mls/hr IVPB Q6H [facility]; Protocol Last Admin: 06/15/18 12:49 Dose: 200 mls/hr Ibuprofen (Motrin Oral Susp) 400 mg GT Q6H PRN PRN Reason: Pain, moderate (4-7) Stop: 06/16/18 12:53 Last Admin: 06/15/18 13:14 Dose: 400 mg Losartan Potassium (Cozaar) 50 mg PO DAILY [facility] Last Admin: 06/05/18 10:46 Dose: 50 mg Pantoprazole Sodium (Protonix Susp) 40 mg PO DAILY [facility] Last Admin: 06/15/18 09:13 Dose: Not Given Prednisone (Prednisone Tab) 60 mg NG Q24H [facility] Last Admin: 06/14/18 17:42 Dose: 60 mg Rosuvastatin Calcium (Crestor) 2.5 mg PO HS [facility] Sodium Chloride ([place] Baby Saline 30 Ml) 0 ml MADELINE QID [facility] Last Admin: 06/15/18 13:23 Dose: 30 ml Tetrahydrozoline HCl/Zinc Sulfate (Visine 0.05% Opht Soln) 0.05 ml OU BID [facility] Last Admin: 06/15/18 09:29 Dose: 1 drop Valacyclovir HCl (Valtrex) 1,000 mg NG Q12 [facility]; Protocol Stop: 06/21/18 22:01 Last Admin: 06/15/18 09:13 Dose: Not Given - Labs Labs: 06/15/18 07:59 06/15/18 07:59 PT 11.8 SECONDS (9.7-12.2) 06/15/18 07:59 INR 1.1 06/15/18 07:59 APTT 27 SECONDS (21-34) 06/15/18 07:59 - Constitutional Appears: Non-toxic, No Acute Distress - Head Exam Head Exam: ATRAUMATIC, NORMOCEPHALIC Additional comments: flattening of forehead on right side - Eye Exam Eye Exam: EOMI, Normal appearance, PERRL Pupil Exam: NORMAL ACCOMODATION Additional comments: unable to raise eyebrow on R side flattening of facial features, including forehead, on R side rapid L eye blinking persists - ENT Exam ENT Exam: Mucous Membranes Moist - Neck Exam Neck Exam: Full ROM, Normal Inspection - Respiratory Exam Respiratory Exam: NORMAL BREATHING PATTERN - Cardiovascular Exam Cardiovascular Exam: +S1, +S2 - GI/Abdominal Exam Additional comments: NGT in place - Extremities Exam Extremities Exam: Full ROM, Normal Capillary Refill, Normal Inspection. absent: Calf Tenderness, Tenderness - Back Exam Back Exam: NORMAL INSPECTION Additional comments: LP site nontender, nonerythematous, non edematous - Neurological Exam Neurological Exam: Alert, Awake, Oriented x3. absent: Motor Sensory Deficit Neuro motor strength exam: Left Upper Extremity: 5, Right Upper Extremity: 5, Left Lower Extremity: 5, Right Lower Extremity: 5 Additional comments: speech clear, fluid + facial asymmetry on R side - Psychiatric Exam Psychiatric exam: Normal Affect, Normal Mood - Skin Skin Exam: Normal Color Assessment and Plan (1) Facial asymmetry Assessment & Plan: repeat Brain MRI with and without contrast (06/12): No evidence of acute infarct or hemorrhage. No evidence of significant small vessel disease. No enhancing parenchymal nor extra-axial masses or collections. No evidence of unusual meningeal enhancement. Persistent but slightly improved bilateral mastoid effusions Per Drs. Duke and Arguello, there is enhancement in the christy, medulla, and 4th ventricle. Likely viral etiology. LP done 06/14: CSF vials sent for labs testing - elevated WBC, total cell, lymphocytes, glucose - negative for crypto, H flu, N meningitis, E coli, GBS, S pneumo - HSV 1 IgG 53.80, HSV 2 IgG <0.90, HSV IgM pending, HHV6 IgM pending - f/u lactic acid, Lyme, NMDA, Quantiferon, VDRL, West Nile - acetylcholine rec bind AB: negative (r/o Myasthenia Gravis) - cont Prednisone 60mg NG daily x5 days (start yesterday, 06/12; last dose to be given on Monday, 06/16). - cont Valtrex 1gm NG Q12 hours x10 days (start yesterday, 06/12; last dose to be given on , 06/21). - switch to PEG delivery once cleared for usage and NGT pulled - given likely viral meningitis etiology, recommend ID consult - recommend IV acyclovir/valcyclovir and IV high dose steroid x10 days - defer to ID - Keep right eye moist; artificial tears, eye patch HS. - Notify neuro of acute changes in pt's condition. d/w Dr. Leilani Hein PGY-1 Status: Acute <Bo Duke - Last Filed: 06/17/18 21:04> Objective - Vital Signs/Intake and Output Vital Signs (last 24 hours): Temp Pulse Resp BP Pulse Ox 98.1 F 89 20 103/59 L 97 06/17/18 15:00 06/17/18 15:00 06/17/18 15:00 06/17/18 15:00 06/17/18 15:00 - Medications Medications: Current Medications Albuterol/Ipratropium (Duoneb 3 Mg/0.5 Mg (3 Ml) Ud) 3 ml INH RQ6 [facility] Last Admin: 06/17/18 19:35 Dose: Not Given Piperacillin Sod/Tazobactam (Sod 3.375 gm/ Sodium Chloride) 100 mls @ 200 mls/hr IVPB Q6H [facility]; Protocol Last Admin: 06/17/18 17:56 Dose: 200 mls/hr Acyclovir 400 mg/ Sodium (Chloride) 100 mls @ 100 mls/hr IV Q8H [facility]; Protocol Last Admin: 06/17/18 12:59 Dose: 100 mls/hr Pantoprazole Sodium (Protonix Susp) 40 mg PO DAILY [facility] Last Admin: 06/17/18 10:03 Dose: 40 mg Prednisone (Prednisone Tab) 60 mg NG Q24H [facility] Last Admin: 06/17/18 17:56 Dose: 60 mg Rosuvastatin Calcium (Crestor) 2.5 mg PEG HS [facility] Last Admin: 06/16/18 22:15 Dose: 2.5 mg Sodium Chloride ([place] Baby Saline 30 Ml) 0 ml MADELINE QID PRN PRN Reason: Dry nasal passages Tetrahydrozoline HCl/Zinc Sulfate (Visine 0.05% Opht Soln) 0.05 ml OU BID [facility] Last Admin: 06/17/18 12:59 Dose: Not Given - Labs Labs: 06/17/18 07:57 06/17/18 07:57 PT 11.8 SECONDS (9.7-12.2) 06/15/18 07:59 INR 1.1 06/15/18 07:59 APTT 27 SECONDS (21-34) 06/15/18 07:59 Attending/Attestation - Attestation I have personally seen and examined this patient.: Yes I have fully participated in the care of the patient.: Yes I have reviewed all pertinent clinical information, including history, physical exam and plan: Yes Notes (Text): I agree with the assessment and plan. Continue current management as outlined above.
[2018-06-15] MEDS ORDERED: Iohexol 240 (50 ml) PO ONE (16:00)
--- NOTE | 2018-06-15 19:31 | CP.PCM.CON ---
History of Present Illness - History of Present Illness History of Present Illness: 63 yo female with HTN and HLD who presented with dysphagia and hoarseness. Treated fo pneumonia with IV antibiotics Initial MRI brain and CT head/neck did not reveal etiology. EGD performed- no abnormalities noted. Barium swallow s howed moderate aspiration. ENT saw vocal cord hypokinesis on flex laryngoscopy but no masses. Patient had vocal cord and piriformis biopsy on 06/08 showing only mild inflammation. She is being fed via NGT. TELECOM SPECIALIST re-evaluated, and patient failed swallow eval. ID consulted for abnormal CSF Review of Systems - Review of Systems All systems: reviewed and no additional remarkable complaints except - Constitutional Constitutional: As Per HPI - EENT Eyes: absent: As Per HPI, Blind Spots, Blurred Vision, Change in Vision, Decreased Night Vision, Diplopia, Discharge, Dry Eye, Exophthalmos, Floaters, Irritation, Itchy Eyes, Loss of Peripheral Vision, Pain, Photophobia, Requires Corrective Lenses, Sees Flashes, Spots in Vision, Tunnel Vision, Other Visual Disturbances, Loss of Vision, Other Ears: absent: As Per HPI, Decreased Hearing, Ear Discharge, Ear Pain, Tinnitus, Abnormal Hearing, Disequilibrium, Dizziness, Other Nose/Mouth/Throat: As Per HPI - Breasts Breasts: absent: As Per HPI, Change in Shape, Mass, Pain, Nipple Discharge, Nipple Inversion, Skin Changes, Swelling, Other - Cardiovascular Cardiovascular: As Per HPI - Respiratory Respiratory: As Per HPI - Gastrointestinal Gastrointestinal: As Per HPI - Genitourinary Genitourinary: absent: As Per HPI, Change in Urinary Stream, Difficulty Urinating, Dysuria, Flank Pain, Hematuria, Pyuria, Nocturia, Urinary Incontinence, Urinary Frequency, Urinary Hesitance, Urinary Urgency, Voiding Freq/Small Amts, Freq UTI, Hx Renal/Bladder Calculi, Hx /Renal Surgery, Bladder Distension, Other - Reproductive: Female Reproductive:Female: absent: As Per HPI, Amenorrhea, Amenorrhea/ Control, Currently Menstual, Cycle <21 Days, Cycle >35 Days, Cycle Variable, Menses 1-7 Days, Menses >/= 8 Days, Menses Variable, Cycle > 4 Weeks Between, No Menses for 6 Months, Heavy Menses, Light Menses, Normal Menses, Spotting Between Cycles, S/P Hysterectomy, Menopausal, Post Menopausal, Premenarche, Abnormal Vaginal Bleeding, Dysmenorrhea, Dyspareunia, Genital Lesions, Genital Pruritis, Pelvic Pain, Prolapse Symptoms, Sexual Dysfunction, Vaginal Discharge, Vaginal Dryness, Vaginal Odor, Vaginal Pruritis, Other - Menstruation Menstruation: absent: As Per HPI, Amenorrhea, Amenorrhea/ Control, Currently Menstual, Cycle <21 Days, Cycle >35 Days, Cycle Variable, Menses 1-7 Days, Menses >/= 8 Days, Menses Variable, Cycle > 4 Weeks Between, No Menses for 6 Months, Heavy Menses, Light Menses, Normal Menses, Spotting Between Cycles, S/P Hysterectomy, Menopausal, Post Menopausal, Premenarche, Abnormal Vaginal Bleeding, Dysmenorrhea, Other - Musculoskeletal Musculoskeletal: absent: As Per HPI, Abnormal Gait, Arthralgias, Atrophy, Back Pain, Deformity, Joint Swelling, Limited Range of Motion, Loss of Height, Muscle Cramps, Muscle Weakness, Myalgias, Neck Pain, Numbness, Radiating Pain into Limb, Stiffness, Tingling, Other - Integumentary Integumentary: absent: As Per HPI, Acne, Alopecia, Bleeding Lesions, Change in Hair, Change in Nails, Change in Pigmentation, Changing Lesions, Dry Skin, Erythema, Furuncle, Hirsutism, Lesions, New Lesions, Non-Healing Lesions, Photosensitivity, Pruritus, Rash, Skin Pain, Skin Ulcer, Sores, Striae, Swelling, Unusual Bruising, Wounds, Jaundice, Other - Neurological Neurological: As Per HPI - Psychiatric Psychiatric: absent: As Per HPI, Abnormal Sleep Pattern, Anhedonia, Anxiety, Auditory Hallucinations, Behavioral Changes, Change in Appetite, Change in Libido, Confusion, Depression, Difficulty Concentrating, Hallucinations, Homicidal Ideation, Hopelessness, Irritability, Memory Loss, Mood Swings, Panic Attacks, Paranoia, Suicidal Ideation, Visual Hallucinations, Tactile Hallucinations, Other - Endocrine Endocrine: absent: As Per HPI, Change in Body Appearance, Change in Libido, Cold Intolorance, Deepening of Voice, Excessive Sweating, Fatigue, Flushing, Heat Intolorance, Increase in Ring/Shoe/Hat Size, Palpitations, Polydipsia, Polyphagia, Polyuria, Other - Hematologic/Lymphatic Hematologic: absent: As Per HPI, Easy Bleeding, Easy Bruising, Lymphadenopathy, Other Past Patient History - Past Medical History & Family History Past Medical History?: Yes - Past Social History Smoking Status: Never Smoked - CARDIAC Hx Hypercholesterolemia: Yes Hx Hypertension: Yes - PULMONARY Hx Sleep Apnea: No - NEUROLOGICAL Hx Seizures: No Hx Transient Ischemic Attacks (TIA): No - HEMATOLOGICAL/ONCOLOGICAL Hx Blood Transfusions: No - MUSCULOSKELETAL/RHEUMATOLOGICAL Hx Falls: No - GASTROINTESTINAL Hx Gastritis: Yes - PSYCHIATRIC Hx Substance Use: No - SURGICAL HISTORY Hx Surgeries: Yes Hx Section: Yes (X1) - ANESTHESIA Hx Anesthesia: Yes Hx Anesthesia Reactions: No Hx Malignant Hyperthermia: No Meds Allergies/Adverse Reactions: Allergies Allergy/AdvReac Type Severity Reaction Status Date / Time TREES Allergy Intermediate CONGESTION Uncoded 06/04/18 10:25 - Medications Medications: Current Medications Piperacillin Sod/Tazobactam (Sod 3.375 gm/ Sodium Chloride) 100 mls @ 200 mls/hr IVPB Q6H [facility]; Protocol Last Admin: 06/15/18 17:37 Dose: 200 mls/hr Ibuprofen (Motrin Oral Susp) 400 mg GT Q6H PRN PRN Reason: Pain, moderate (4-7) Stop: 06/16/18 12:53 Last Admin: 06/15/18 13:14 Dose: 400 mg Losartan Potassium (Cozaar) 50 mg PO DAILY [facility] Last Admin: 06/05/18 10:46 Dose: 50 mg Pantoprazole Sodium (Protonix Susp) 40 mg PO DAILY [facility] Last Admin: 06/15/18 09:13 Dose: Not Given Prednisone (Prednisone Tab) 60 mg NG Q24H [facility] Last Admin: 06/15/18 17:37 Dose: 60 mg Rosuvastatin Calcium (Crestor) 2.5 mg PO HS [facility] Sodium Chloride ([place] Baby Saline 30 Ml) 0 ml MADELINE QID [facility] Last Admin: 06/15/18 17:37 Dose: 1 ml Tetrahydrozoline HCl/Zinc Sulfate (Visine 0.05% Opht Soln) 0.05 ml OU BID [facility] Last Admin: 06/15/18 17:37 Dose: 1 drop Valacyclovir HCl (Valtrex) 1,000 mg NG Q12 [facility]; Protocol Stop: 06/21/18 22:01 Last Admin: 06/15/18 09:13 Dose: Not Given Physical Exam - Constitutional Appears: Non-toxic, Cachectic, Chronically Ill - Head Exam Head Exam: NORMOCEPHALIC - Eye Exam Eye Exam: absent: Scleral icterus Pupil Exam: NORMAL ACCOMODATION - ENT Exam ENT Exam: Mucous Membranes Dry - Neck Exam Neck exam: Negative for: Lymphadenopathy - Respiratory Exam Respiratory Exam: Decreased Breath Sounds, Clear to Auscultation Bilateral - Cardiovascular Exam Cardiovascular Exam: REGULAR RHYTHM, +S1, +S2 - GI/Abdominal Exam GI & Abdominal Exam: Diminished Bowel Sounds, Soft Additional comments: GT in place - Rectal Exam Rectal Exam: Deferred - Exam Exam: NORMAL INSPECTION - Extremities Exam Extremities exam: Positive for: full ROM - Back Exam Back exam: absent: paraspinal tenderness - Neurological Exam Neurological exam: Alert, CN II-XII Intact, Oriented x3, Reflexes Normal - Psychiatric Exam Psychiatric exam: Depressed - Skin Skin Exam: Dry Results - Vital Signs Recent Vital Signs: Last Vital Signs Temp 98 F 06/15/18 15:20 Pulse 99 H 06/15/18 15:20 Resp 20 06/15/18 15:20 BP 127/71 06/15/18 15:20 Pulse Ox 99 06/15/18 15:20 - Labs Result Diagrams: 06/16/18 08:30 06/16/18 08:30 Labs: Laboratory Results - last 24 hr 06/14/18 06/15/18 06/15/18 19:56 07:59 07:59 WBC 10.3 RBC 4.45 Hgb 13.2 Hct 38.7 MCV 87.0 MCH 29.7 MCHC 34.2 RDW 13.5 Plt Count 481 H MPV 7.0 L Neut % (Auto) 68.9 Lymph % (Auto) 22.1 Hayes % (Auto) 8.2 Eos % (Auto) 0.2 Baso % (Auto) 0.6 Neut # (Auto) 7.1 H Lymph # (Auto) 2.3 Hayes # (Auto) 0.9 H Eos # (Auto) 0.0 Baso # (Auto) 0.1 PT INR APTT Sodium 135 135 Potassium 4.0 3.5 L Chloride 103 100 Carbon Dioxide 26 28 Anion Gap 10 10 BUN 14 13 Creatinine 0.4 L 0.4 L Est GFR ( Amer) > 60 > 60 Est GFR (Non-Af Amer) > 60 > 60 Random Glucose 137 H 93 D Calcium 8.8 8.8 Phosphorus 3.2 Magnesium 2.4 H Total Bilirubin 0.6 AST 39 H D ALT 95 H Alkaline Phosphatase 83 Total Protein 6.2 L Albumin 3.7 Globulin 2.6 Albumin/Globulin Ratio 1.4 06/15/18 07:59 WBC RBC Hgb Hct MCV MCH MCHC RDW Plt Count MPV Neut % (Auto) Lymph % (Auto) Hayes % (Auto) Eos % (Auto) Baso % (Auto) Neut # (Auto) Lymph # (Auto) Hayes # (Auto) Eos # (Auto) Baso # (Auto) PT 11.8 INR 1.1 APTT 27 Sodium Potassium Chloride Carbon Dioxide Anion Gap BUN Creatinine Est GFR ( Amer) Est GFR (Non-Af Amer) Random Glucose Calcium Phosphorus Magnesium Total Bilirubin AST ALT Alkaline Phosphatase Total Protein Albumin Globulin Albumin/Globulin Ratio Assessment & Plan - Assessment and Plan (Free Text) Assessment: 63 yo female with HTN and HLD who presented with dysphagia and hoarseness. Treated fo pneumonia with IV antibiotics Initial MRI brain and CT head/neck did not reveal etiology. EGD performed- no abnormalities noted. Barium swallow showed moderate aspiration. ENT saw vocal cord hypokinesis on flex laryngoscopy but no masses. Patient had vocal cord and piriformis biopsy on 06/08 showing only mild inflammation. She is being fed via NGT. TELECOM SPECIALIST re-evaluated, and patient failed swallow eval. ID consulted for abnormal CSF Plan: - MRI brain with and w/o contrast: enhancement in the christy, medulla, and 4th ventricle- likely viral etiology await HSV PCR from CSF as well as West Nile serology and syphilis serology TB meningitis less likely but should be kept in differential despite negative Quantiferon level consider repeat LP if AFB not sent sent URVASHI and VY levels- ? BUSINESS APPLICATIONS ANALYST Sarcoid IV acyclovir added
[2018-06-15] MEDS: Acyclovir 400 MG in Sodium Chloride 0.9% 100 ML IV SCH (21:56)
[2018-06-16] MEDS: Acyclovir 400 MG in Sodium Chloride 0.9% 100 ML IV SCH ×3 (04:30→20:45)
[2018-06-16] MEDS: Piperacillin/Tazobact 3.375 GM in Sodium Chloride 100 ML IVPB SCH ×4 (06:00→22:42)
--- NOTE | 2018-06-16 08:05 | CP.PCM.PN ---
Subjective - Date & Time of Evaluation Date of Evaluation: 06/16/18 Time of Evaluation: 09:00 - Subjective Subjective: Medicine progress note for Dr. Painter Pt seen and examined at bedside. Pt is resting comfortably, denies any new complaints. Endorses hunger, as she has not had PEG tube feeds started yet. Denies fever, chills, dizziness, headache, blurry vision, eye twitching, loss of consciousness, seizure-like activity, weakness, chest pain, sob, abdominal pain, n/v/d. Pt reports no difficulty ambulating this morning. Objective - Vital Signs/Intake and Output Vital Signs (last 24 hours): Temp Pulse Resp BP Pulse Ox 97.9 F 100 H 20 103/61 95 06/15/18 23:00 06/15/18 23:00 06/15/18 23:00 06/15/18 23:00 06/15/18 23:00 - Medications Medications: Current Medications Piperacillin Sod/Tazobactam (Sod 3.375 gm/ Sodium Chloride) 100 mls @ 200 mls/hr IVPB Q6H [facility]; Protocol Last Admin: 06/16/18 06:00 Dose: 200 mls/hr Acyclovir 400 mg/ Sodium (Chloride) 100 mls @ 100 mls/hr IV Q8H [facility]; Protocol Last Admin: 06/16/18 04:30 Dose: 100 mls/hr Ibuprofen (Motrin Oral Susp) 400 mg GT Q6H PRN PRN Reason: Pain, moderate (4-7) Stop: 06/16/18 12:53 Last Admin: 06/15/18 13:14 Dose: 400 mg Losartan Potassium (Cozaar) 50 mg PO DAILY [facility] Last Admin: 06/05/18 10:46 Dose: 50 mg Pantoprazole Sodium (Protonix Susp) 40 mg PO DAILY [facility] Last Admin: 06/15/18 09:13 Dose: Not Given Prednisone (Prednisone Tab) 60 mg NG Q24H [facility] Last Admin: 06/15/18 17:37 Dose: 60 mg Rosuvastatin Calcium (Crestor) 2.5 mg PO HS [facility] Sodium Chloride ([place] Baby Saline 30 Ml) 0 ml MADELINE QID [facility] Last Admin: 06/15/18 21:56 Dose: 1 ml Tetrahydrozoline HCl/Zinc Sulfate (Visine 0.05% Opht Soln) 0.05 ml OU BID [facility] Last Admin: 06/15/18 17:37 Dose: 1 drop - Labs Labs: 06/15/18 07:59 06/15/18 07:59 PT 11.8 SECONDS (9.7-12.2) 06/15/18 07:59 INR 1.1 06/15/18 07:59 APTT 27 SECONDS (21-34) 06/15/18 07:59 - Additional Findings Additional findings: - Constitutional Appears: Non-toxic, No Acute Distress - Head Exam Head Exam: ATRAUMATIC, NORMAL INSPECTION - Eye Exam Eye Exam: EOMI, Normal appearance - ENT Exam ENT Exam: Mucous Membranes Moist - Neck Exam Neck Exam: Normal Inspection. absent: Lymphadenopathy, Tenderness, Thyromegaly - Respiratory Exam Respiratory Exam: Clear to Auscultation Bilateral, NORMAL BREATHING PATTERN - Cardiovascular Exam Cardiovascular Exam: RRR, +S1, +S2 - GI/Abdominal Exam GI & Abdominal Exam: Soft. absent: Distended, Tenderness PEG tube in abdomen- clean, dry dressing. No signs of inection. Nontender - Extremities Exam Extremities Exam: Normal Inspection. absent: Pedal Edema - Neurological Exam Neurological Exam: Alert, Awake, CN II-XII Intact, Normal Gait, Oriented x3. 5/5 strength in upper and lower extremities bilaterally. (+) right sided facial asymmetry. No uvula deviation, equal strength in soft palate raising, PERRL bilaterally. - Psychiatric Exam Psychiatric exam: Normal Affect, Normal Mood - Skin Skin Exam: Dry, Normal Color, Warm Assessment and Plan - Assessment and Plan (Free Text) Assessment: Patient is a 63 yo female with HTN and HLD who presented with dysphagia and hoarseness. Initial MRI brain and CT head/neck did not reveal etiology. EGD performed- no abnormalities noted. Barium swallow showed moderate aspiration. ENT saw vocal cord hypokinesis on flex laryngoscopy but no masses. Patient had vocal cord and piriformis biopsy on 06/08 showing only mild inflammation. She is being fed via NGT. ANIMAL ANATOMIST re-evaluated, and patient failed swallow eval. ENT is referring patient to subspecialist. Recommendation is for PEG. Palliative is on board for goals of care. MRI brain done with contrast shows some abnormalities consistent with viral etiology. Neurology did LP 06/14. GI inserted PEG 06/15. Started on Acyclovir 06/15. Plan: Dysphagia, Hoarseness, Facial palsy, acute, stable - CT head, CT neck: no significant or acute findings - MRI brain with and w/o contrast: enhancement in the christy, medulla, and 4th ventricle- likely viral etiology - Echo: unremarkable - EGD: minor stomach lesions, negative biopsies - Swallow eval: aspiration precautions - Failed repeat bedside swallow eval on 06/11 - Barium swallow 06/07: severe aspiration, poor cough reflex - ANIMAL ANATOMIST recommends repeat MBS in 4 weeks - Flexible laryngoscopy: R vocal cord hypokinesis, pooling of secretions in piriform sinus - s/p Vocal cord and Piriformis sinus biopsy 06/08: mild chronic inflammation - Acetylcholine receptor binding Ab negative - 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 Pt afebrile. - Dr. nichols, Infectious disease. consulted. - Valtrex 1000 mg PEG Q12H discontinue Acyclovir 400 mg IVPB q8h (06/15) started as per ID - ENT consulted ([facility])- vocal cord Bx, refer to Dr. Pang who is a swallowing specialist ([phone]) - GI consulted ([facility])- EGD, PEG on 06/15 * 06/15: Pt with hiccups s/p PEG tube placement. Chest/Abd/Pelv CT w/o contrast ordered stat to r/o pathology from PEG tube insertion. * Ct showed No evidence of acute pathology in the chest. Free air in upper abdomen likely due to PEG insertion. Inflammatory changes and fat stranding surround the pancreatic head and the duodenum. Trace free fluid in the right mid and upper abdomen. * Lipase ordered and came back normal at 137 * 06/16: Can use PEG tube. - Neurology consulted ([facility])- LP on 06/14 RBC 1 WBC 34 Lymphocytes elev (98) Monocytes elev (2) Neutrophils wnl (0) Glucose wnl (75) Protein wnl (64) Cryptococcus negative No growth to date - Prednisone 60 mg PEG daily - Ibuprofen 400 mg PEG Q6H PRN - Lymphedema Therapist consulted - Palliative consulted Transaminitis, acute, mild- suspect side effect of Valtrex - AST 55-->39-->38, ALT 70-->95-->93 - Avoid Hepatotoxic medications where possible - Monitor Hyponatremia, acute, resolved - Responsive to IVF - Na 119 on admission, 135 today - CT chest: nodular hypertrophy of left adrenal gland - Consider f/u as outpatient - Serum osm 273, urine osm 254, urine Na 66 - TSH low (0.19), free T4 wnl (1.76) - Water flushes 50 cc Q4H - Nephrology consulted ([facility] [place])- Avoid NSAID; Hold ARB, Discontinue HCTZ Hypokalemia, acute, resolved - Monitor and replete PRN Hypophosphatemia, acute, resolved - Monitor and replete PRN Pleural effusion, acute, resolved - CXR on admission: mild right pleural effusion - CXR (06/07): no pleural effusion - CT chest on admission: mild tree-in-bud opacities in right upper and middle lobes - Afebrile - Leukocytosis resolved - Procal low (0.11) - Blood Cx no growth - Zosyn 3.375 mg IV Q6H IV- started 06/05 Hypertension, chronic, well-controlled - Vitals Q6H - Cozaar 50 mg once daily via PEG Hyperlipidemia, chronic - Most recent lipid panel from 09/2017 wnl - Crstory 2.5 mg once daily via PEG Ppx: VTE: SCDs, ambulatory GI: Protonix 40 mg IVP daily NPO, feeds and meds through PEG
[2018-06-16 08:50] LABS: BASO % 0.3 % (0.0-2.0); EOS % 0.2 % (0.0-4.0); HEMOGLOBIN 11.8 g/dL (11.0-16.0); LYMPH # 2.2 K/uL (1.0-4.3); LYMPH % 18.8 % (20.0-40.0); MEAN CELL VOLUME 86.1 fL (81.0-99.0); MEAN CORPUSCULAR HEMOGLOBIN 28.7 pg (27.0-31.0); MEAN CORPUSCULAR HGB CONC 33.3 g/dL (33.0-37.0); MEAN PLATELET VOLUME 7.2 fL (7.2-11.7); MONO # 0.8 K/uL (0.0-0.8); MONO % 7.3 % (0.0-10.0); NEUT # 8.4 K/uL (1.8-7.0); NEUT % 73.4 % (50.0-75.0); RBC 4.12 Mil/uL (3.80-5.20); RED CELL DISTRIBUTION WIDTH 13.7 % (11.5-14.5); WHITE BLOOD COUNT 11.5 K/uL (4.8-10.8)
--- NOTE | 2018-06-16 09:01 | CP.PCM.PN ---
Subjective - Date & Time of Evaluation Date of Evaluation: 06/16/18 Time of Evaluation: 07:30 - Subjective Subjective: f/u abdom pain, dysphagia. s/p PEg yest. Developed abd pain and hiccups after PEG. CT abd ordered stat, but repport is not in computer. I called Radiology now- transferred 2 times. Today- feels better. Less epig pain today. No hiccup. No N/V, fever, chills, CP, SOB, LOVE, cough, hematuria, hemoptysis Objective - Vital Signs/Intake and Output Vital Signs (last 24 hours): Temp Pulse Resp BP Pulse Ox 98.1 F 98 H 18 111/65 97 06/16/18 07:00 06/16/18 07:00 06/16/18 07:00 06/16/18 07:00 06/16/18 07:00 - Medications Medications: Current Medications Piperacillin Sod/Tazobactam (Sod 3.375 gm/ Sodium Chloride) 100 mls @ 200 mls/hr IVPB Q6H [facility]; Protocol Last Admin: 06/16/18 06:00 Dose: 200 mls/hr Acyclovir 400 mg/ Sodium (Chloride) 100 mls @ 100 mls/hr IV Q8H [facility]; Protocol Last Admin: 06/16/18 04:30 Dose: 100 mls/hr Ibuprofen (Motrin Oral Susp) 400 mg GT Q6H PRN PRN Reason: Pain, moderate (4-7) Stop: 06/16/18 12:53 Last Admin: 06/15/18 13:14 Dose: 400 mg Losartan Potassium (Cozaar) 50 mg PO DAILY [facility] Last Admin: 06/05/18 10:46 Dose: 50 mg Pantoprazole Sodium (Protonix Susp) 40 mg PO DAILY [facility] Last Admin: 06/15/18 09:13 Dose: Not Given Prednisone (Prednisone Tab) 60 mg NG Q24H [facility] Last Admin: 06/15/18 17:37 Dose: 60 mg Rosuvastatin Calcium (Crestor) 2.5 mg PO HS [facility] Sodium Chloride ([place] Baby Saline 30 Ml) 0 ml MADELINE QID [facility] Last Admin: 06/15/18 21:56 Dose: 1 ml Tetrahydrozoline HCl/Zinc Sulfate (Visine 0.05% Opht Soln) 0.05 ml OU BID [facility] Last Admin: 06/15/18 17:37 Dose: 1 drop - Labs Labs: 06/16/18 08:30 06/15/18 07:59 PT 11.8 SECONDS (9.7-12.2) 06/15/18 07:59 INR 1.1 06/15/18 07:59 APTT 27 SECONDS (21-34) 06/15/18 07:59 - Respiratory Exam Respiratory Exam: Clear to Ausculation Bilateral - Cardiovascular Exam Cardiovascular Exam: RRR - GI/Abdominal Exam GI & Abdominal Exam: Soft, Normal Bowel Sounds. absent: Guarding, Tenderness, Mass, Rebound Additional comments: PEG in place. - Extremities Exam Extremities Exam: absent: Calf Tenderness - Neurological Exam Neurological Exam: Alert, Awake, Oriented x3 Assessment and Plan (1) Dysphagia Assessment & Plan: r/o neurologic cause. s/p pEG. s/p LP. Status: Acute (2) Hypokalemia Assessment & Plan: check labs Status: Acute (3) Hyponatremia Status: Acute (4) Pharyngitis Status: Acute (5) Abdominal pain Assessment & Plan: Pain started after PEG. PEg placement can cause pain. Radiologist just called now- CT: typical air under diaphragm after PEG, duod and pancreas inflamm.. I doubt clinical pancratitis. Epig pain is less today. REC: Keep NPO< check lipase Status: Acute
--- NOTE | 2018-06-16 09:09 | CT ---
Date of service: 06/15/2018 PROCEDURE: CT Chest, Abdomen and Pelvis without intravenous contrast HISTORY: pain and hiccups after PEG placement COMPARISON: Comparison is made to the previous CT of the chest with contrast dated 06/04/2018. TECHNIQUE: Radiation dose: Total exam DLP = 390.87 mGy-cm. This CT exam was performed using one or more of the following dose reduction techniques: Automated exposure control, adjustment of the mA and/or kV according to patient size, and/or use of iterative reconstruction technique. FINDINGS: CT CHEST WITHOUT CONTRAST: LUNGS: No evidence of pneumonia or mass lesion in the lungs. Small reticular opacities at the posterior aspect of the lower lobes likely scar tissue or atelectasis MEDIASTINUM: Unremarkable. Normal caliber aorta and pulmonary arterial trunk. Normal size heart. LYMPH NODES: Unremarkable. PLEURA: Small foci of pleural thickening noted at the lung bases. No evidence of significant pleural effusion or pneumothorax. BONES: Unremarkable. OTHER FINDINGS: None. CT ABDOMEN AND PELVIS: LIVER: Mild cardiomegaly is noted. No evidence of intrahepatic biliary ductal dilatation. GALLBLADDER AND BILE DUCTS: No evidence of acute cholecystitis or biliary obstruction. PANCREAS: There are inflammatory changes at fat stranding surrounding the pancreatic head and proximal pancreatic body. The pancreatic head is [id number] enlarged. The main pancreatic duct is not dilated. SPLEEN: Unremarkable. ADRENALS: Nodular mild enlargement of the left adrenal gland is noted. The right adrenal glands grossly unremarkable. KIDNEYS AND URETERS: Unremarkable. No hydronephrosis. No solid mass. VASCULATURE: There are foci of atherosclerotic calcification noted in the abdominal aorta and iliac arteries. Unremarkable. No aortic aneurysm. BOWEL: There is a PIG tube seen in place. No evidence of oral contrast extravasation. No evidence of high-grade bowel obstruction. The oral contrast reached the large bowel. APPENDIX: Normal appendix. PERITONEUM: There is a free air seen in the upper abdomen likely secondary to recent insertion of the gastrostomy tube. There are inflammatory changes and fat stranding in the mid and upper abdomen adjacent to the pancreatic head and the duodenum of uncertain etiology. Correlate clinically for pancreatitis. Trace amount of free fluid seen in the right mid and upper abdomen. LYMPH NODES: Unremarkable. No enlarged lymph nodes. BLADDER: Unremarkable. REPRODUCTIVE: Unremarkable. BONES: No acute fracture. OTHER FINDINGS: None. IMPRESSION: No evidence of acute pathology in the chest. Free air in the upper abdomen likely due to recent insertion of the gastrostomy tube. Inflammatory changes and fat stranding surrounding the pancreatic head and the duodenum noted. Correlate clinically for pancreatitis. No evidence of oral contrast extravasation. Trace amount of free fluid in the right mid and upper abdomen.
[2018-06-16 09:10] LABS: ALB/GLOB RATIO 1.3 (1.0-2.1); ALBUMIN 3.4 g/dL (3.5-5.0); ALT/SGPT 93 U/L (9-52); AST/SGOT 38 U/L (14-36); BLOOD UREA NITROGEN 13 mg/dL (7-17); CALCIUM 8.8 mg/dl (8.6-10.4); GFR NON-AFRICAN AMERICAN > 60
[2018-06-16 09:17] LABS: LIPASE 137 U/L (23-300)
[2018-06-16] MEDS: Sodium Chloride Nasal 0.65% Soln (30ml) NAS SCH ×4 (10:06→22:00)
[2018-06-16] MEDS: Pantoprazole 40 mg Susp UD PO SCH (10:07)
[2018-06-16] MEDS: Tetrahydrozoline Opht 0.05% Sol (15 ml) OU SCH ×2 (10:07→18:15)
[2018-06-16] MEDS: Rosuvastatin Calcium 2.5 mg Tab PEG SCH (22:15)
[2018-06-17 01:23] VITALS: RESP 20
[2018-06-17] MEDS: Acyclovir 400 MG in Sodium Chloride 0.9% 100 ML IV SCH ×3 (04:02→22:26)
[2018-06-17] MEDS: Piperacillin/Tazobact 3.375 GM in Sodium Chloride 100 ML IVPB SCH ×4 (04:02→22:25)
--- NOTE | 2018-06-17 07:34 | CP.PCM.PN ---
Subjective - Date & Time of Evaluation Date of Evaluation: 06/17/18 Time of Evaluation: 07:34 - Subjective Subjective: PGY-1 Leda Xiong D.O. Medicine progress note for Dr. Painter's service: Patient was seen and examined this morning. She says she is feeling better. She denies abdominal pain, including around the PEG site. She has been ambulating well in the hallways. She still endorses some throat pain. She also has a mild cough. She says she is moving her bladder and bowels without difficulty. Objective - Vital Signs/Intake and Output Vital Signs (last 24 hours): Temp Pulse Resp BP Pulse Ox 98.3 F 101 H 20 113/68 95 06/16/18 23:00 06/16/18 23:00 06/16/18 23:00 06/16/18 23:00 06/16/18 23:00 Intake and Output: 06/17/18 06/17/18 06:59 18:59 Intake Total 670 Output Total 450 Balance 220 - Medications Medications: Current Medications Piperacillin Sod/Tazobactam (Sod 3.375 gm/ Sodium Chloride) 100 mls @ 200 mls/hr IVPB Q6H [facility]; Protocol Last Admin: 06/17/18 04:02 Dose: 200 mls/hr Acyclovir 400 mg/ Sodium (Chloride) 100 mls @ 100 mls/hr IV Q8H [facility]; Protocol Last Admin: 06/17/18 04:02 Dose: 100 mls/hr Losartan Potassium (Cozaar) 50 mg PEG DAILY [facility] Pantoprazole Sodium (Protonix Susp) 40 mg PO DAILY [facility] Last Admin: 06/16/18 10:07 Dose: 40 mg Prednisone (Prednisone Tab) 60 mg NG Q24H [facility] Last Admin: 06/16/18 17:27 Dose: 60 mg Rosuvastatin Calcium (Crestor) 2.5 mg PEG HS [facility] Last Admin: 06/16/18 22:15 Dose: 2.5 mg Sodium Chloride ([place] Baby Saline 30 Ml) 0 ml MADELINE QID J[facility] Last Admin: 06/16/18 22:00 Dose: Not Given Tetrahydrozoline HCl/Zinc Sulfate (Visine 0.05% Opht Soln) 0.05 ml OU BID [facility] Last Admin: 06/16/18 18:15 Dose: 1 drop - Labs Labs: 06/16/18 08:30 06/16/18 08:30 PT 11.8 SECONDS (9.7-12.2) 06/15/18 07:59 INR 1.1 06/15/18 07:59 APTT 27 SECONDS (21-34) 06/15/18 07:59 - Additional Findings Additional findings: - Constitutional Appears: Non-toxic, No Acute Distress - Head Exam Head Exam: ATRAUMATIC, NORMAL INSPECTION - Eye Exam Eye Exam: EOMI, Normal appearance - ENT Exam ENT Exam: Mucous Membranes Moist - Neck Exam Neck Exam: Normal Inspection. absent: Lymphadenopathy, Tenderness, Thyromegaly - Respiratory Exam Respiratory Exam: Clear to Auscultation Bilateral, NORMAL BREATHING PATTERN - Cardiovascular Exam Cardiovascular Exam: RRR, +S1 - GI/Abdominal Exam GI & Abdominal Exam: Soft. absent: Distended, Tenderness PEG tube in abdomen- clean, dry dressing, nontender - Extremities Exam Extremities Exam: Normal Inspection. absent: Pedal Edema - Neurological Exam Neurological Exam: Alert, Awake, CN II-XII Intact, Normal Gait, Oriented x3 - Psychiatric Exam Psychiatric exam: Normal Affect, Normal Mood - Skin Skin Exam: Dry, Normal Color, Warm Assessment and Plan - Assessment and Plan (Free Text) Assessment: Patient is a 63 yo female with HTN and HLD who presented with dysphagia and hoarseness. Initial MRI brain and CT head/neck did not reveal etiology. EGD performed- no abnormalities noted. Barium swallow showed moderate aspiration. ENT saw vocal cord hypokinesis on flex laryngoscopy but no masses. Patient had vocal cord and piriformis biopsy on 06/08 showing only mild inflammation. She is being fed via NGT. ASSISTANT PROFESSOR OF PHYSICS re-evaluated, and patient failed swallow eval. ENT is referring patient to subspecialist. Recommendation is for PEG. Palliative is on board for goals of care. MRI brain done with contrast shows some abnormalities consistent with viral etiology. Neurology did LP 06/14. GI inserted PEG 06/15. Feedings started 06/16. Plan: Dysphagia, Hoarseness, Facial palsy, acute, stable - CT head, CT neck: no significant or acute findings - MRI brain with and w/o contrast: enhancement in the christy, medulla, and 4th ventricle- likely viral etiology - Echo: unremarkable - EGD: minor stomach lesions, negative biopsies - Swallow eval: aspiration precautions - Failed repeat bedside swallow eval on 06/11 - Barium swallow 3/21: severe aspiration, poor cough reflex - ASSISTANT PROFESSOR OF PHYSICS recommends repeat MBS in 4 weeks - Flexible laryngoscopy: R vocal cord hypokinesis, pooling of secretions in piriform sinus - s/p Vocal cord and Piriformis sinus biopsy 06/08: mild chronic inflammation - Acetylcholine receptor binding Ab negative - 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 influ, N. mening, S. pneum negative - NPO - NGT placed 06/09, removed 06/15 - LP on 06/14 RBC 1 WBC 34 Lymphocytes elev (98) Monocytes elev (2) Neutrophils wnl (0) Glucose wnl (75) Protein wnl (64) Cryptococcus negative Fungal Cx no growth Bacterial Cx no growth >2 days - PEG placement on 06/15- feedings started 06/16 (Jevity 1.5 @ 40 cc/hr) - CT A/P: no acute pathology in chest, free air in upper abdomen due to recent insertion of gastrostomy tube, inflammatory changes and fat stranding around pancreas head and duodenum, trace amount of free fluid in R mid and up per abdomen - Lipase wnl (137) - [place] baby saline MADELINE QID - Zosyn 3.375 mg IV Q6H IV- started 06/05 for aspiration PNA coverage - Leukocytosis resolved, afebrile, Platelets still elevated but decreasing (reactive) - Acyclovir 400 mg IV Q8H- started 06/15 - Prednisone 60 mg PEG daily - Start Duoneb Q6H - Boil Off Machine Operator Cloth consulted - ENT consulted (Win)- vocal cord Bx, refer to Dr. Pang who is a swallowing specialist ([phone]) - GI consulted (Severo)- EGD, PEG on 06/15 - Neurology consulted (Celso)- LP on 06/14 - ID consulted (Micaela)- f/u labs pending - Palliative consulted Transaminitis, acute, mild, improving- suspect side effect of Valtrex (discontinued) - AST 55-->31, ALT 70-->81 - HIV negative - Avoid hepatotoxic agents when possible - Monitor Hyponatremia, acute, resolved - Responsive to IVF - Na 119 on admission, 135 today - CT chest: nodular hypertrophy of left adrenal gland - Consider f/u as outpatient - Serum osm 273, urine osm 254, urine Na 66 - TSH low (0.19), free T4 wnl (1.76) - Water flushes 50 cc Q4H - Nephrology consulted ([facility] [place])- Avoid NSAID; Hold ARB, Discontinue HCTZ Hypokalemia, acute, mild - Monitor and replete PRN Hypophosphatemia, acute, resolved - Monitor and replete PRN Pleural effusion, acute, resolved - CXR on admission: mild right pleural effusion - CXR (06/07): no pleural effusion - CT chest on admission: mild tree-in-bud opacities in right upper and middle lobes - Afebrile - Leukocytosis resolved - Procal low (0.11) - Blood Cx no growth - Zosyn 3.375 mg IV Q6H IV- started 06/05 Hypertension, chronic, well-controlled off medications - Vitals Q6H - Discontinue home medication Cozaar 50 mg PO daily Hyperlipidemia, chronic - Most recent lipid panel from 09/2017 wnl - Simvastatin 10 mg PEG QHS Ppx: VTE: SCDs, ambulatory GI: Protonix 40 mg IVP daily Diet: NPO, Jevity 1.5 @ 40 cc/hr via PEG Case discussed with attending, Dr. Painter.
[2018-06-17] MEDS ORDERED: Sodium Chloride Nasal 0.65% Soln (30ml) NAS PRN (08:15)
[2018-06-17 08:18] LABS: BASO % 0.2 % (0.0-2.0); HEMOGLOBIN 10.7 g/dL (11.0-16.0); LYMPH # 0.8 K/uL (1.0-4.3); LYMPH % 8.6 % (20.0-40.0); MEAN CELL VOLUME 87.9 fL (81.0-99.0); MEAN CORPUSCULAR HEMOGLOBIN 29.7 pg (27.0-31.0); MEAN CORPUSCULAR HGB CONC 33.8 g/dL (33.0-37.0); MEAN PLATELET VOLUME 7.6 fL (7.2-11.7); MONO # 0.5 K/uL (0.0-0.8); MONO % 4.8 % (0.0-10.0); NEUT # 8.5 K/uL (1.8-7.0); NEUT % 86.4 % (50.0-75.0); PLATELET COUNT 384 K/uL (130-400); RBC 3.59 Mil/uL (3.80-5.20); RED CELL DISTRIBUTION WIDTH 13.6 % (11.5-14.5); WHITE BLOOD COUNT 9.9 K/uL (4.8-10.8)
[2018-06-17 08:34] LABS: ALB/GLOB RATIO 1.3 (1.0-2.1); ALBUMIN 3.4 g/dL (3.5-5.0); ALT/SGPT 81 U/L (9-52); AST/SGOT 31 U/L (14-36); BLOOD UREA NITROGEN 16 mg/dL (7-17); CALCIUM 8.9 mg/dl (8.6-10.4); GFR NON-AFRICAN AMERICAN > 60; LIPASE 147 U/L (23-300)
[2018-06-17] MEDS ORDERED: Potassium Chloride 20 mEq/15 ml LIQ UD PO ONE (09:28)
--- NOTE | 2018-06-17 09:33 | CP.PCM.PN ---
Subjective - Date & Time of Evaluation Date of Evaluation: 06/17/18 Time of Evaluation: 09:00 - Subjective Subjective: f/u abdom pain, hiccups No further hiccups. No abdom pain. Feels well. Smiling. Denies fever, chills, SZ, LOC, LOVE, cough, hematuria, dysuria, hemoptysis Objective - Vital Signs/Intake and Output Vital Signs (last 24 hours): Temp Pulse Resp BP Pulse Ox 98.3 F 103 H 20 107/61 96 06/17/18 07:00 06/17/18 07:00 06/17/18 07:00 06/17/18 07:00 06/17/18 07:00 Intake and Output: 06/17/18 06/17/18 06:59 18:59 Intake Total 670 Output Total 450 Balance 220 - Medications Medications: Current Medications Albuterol/Ipratropium (Duoneb 3 Mg/0.5 Mg (3 Ml) Ud) 3 ml INH RQ6 JULIO Piperacillin Sod/Tazobactam (Sod 3.375 gm/ Sodium Chloride) 100 mls @ 200 mls/hr IVPB Q6H [facility]; Protocol Last Admin: 06/17/18 04:02 Dose: 200 mls/hr Acyclovir 400 mg/ Sodium (Chloride) 100 mls @ 100 mls/hr IV Q8H [facility]; Protocol Last Admin: 06/17/18 04:02 Dose: 100 mls/hr Losartan Potassium (Cozaar) 50 mg PEG DAILY [facility] Pantoprazole Sodium (Protonix Susp) 40 mg PO DAILY [facility]IO Last Admin: 06/16/18 10:07 Dose: 40 mg Potassium Chloride (Potassium Chloride Oral Soln) 40 meq PO ONCE ONE Stop: 06/17/18 09:29 Prednisone (Prednisone Tab) 60 mg NG Q24H [facility] Last Admin: 06/16/18 17:27 Dose: 60 mg Rosuvastatin Calcium (Crestor) 2.5 mg PEG HS JULIO Last Admin: 06/16/18 22:15 Dose: 2.5 mg Sodium Chloride ([place] Baby Saline 30 Ml) 0 ml MADELINE QID PRN PRN Reason: Dry nasal passages Tetrahydrozoline HCl/Zinc Sulfate (Visine 0.05% Opht Soln) 0.05 ml OU BID JULIO Last Admin: 06/16/18 18:15 Dose: 1 drop - Labs Labs: 06/17/18 07:57 06/17/18 07:57 PT 11.8 SECONDS (9.7-12.2) 06/15/18 07:59 INR 1.1 06/15/18 07:59 APTT 27 SECONDS (21-34) 06/15/18 07:59 - Constitutional Appears: Well - Neck Exam Neck Exam: absent: Tenderness - Respiratory Exam Respiratory Exam: Clear to Ausculation Bilateral - Cardiovascular Exam Cardiovascular Exam: RRR - GI/Abdominal Exam GI & Abdominal Exam: Soft, Normal Bowel Sounds. absent: Guarding, Tenderness, Mass, Rebound (PEG- looks good) Additional comments: PEG- looks good - Extremities Exam Extremities Exam: absent: Pedal Edema - Neurological Exam Neurological Exam: Alert, Oriented x3 Assessment and Plan (1) Dysphagia Assessment & Plan: EGD- esoph ok. Neuro work up ongoing Status: Acute (2) Hypokalemia Status: Acute (3) Hyponatremia Status: Acute (4) Pharyngitis Status: Acute (5) Abdominal pain Assessment & Plan: better CT_ inflam aroung duod/panc: no clinical pancreatitis. Feeding going well. Lipase=nl. REC: Cont feeding GT. Neuro w/u Discussed with family on phone with patient s cell phone at bedside Status: Acute
[2018-06-17] MEDS: Pantoprazole 40 mg Susp UD PO SCH (10:03)
[2018-06-17 10:25] LABS: LYMPHOCYTE 6 % (20-40); MONOCYTE 6 % (0-10); NEUTROPHIL 87 % (50-75); OVALOCYTES SLIGHT; PLATELET ESTIMATE NORMAL (NORMAL); REACTIVE LYMPHOCYTES 1 % (0-0); TOTAL CELLS COUNTED 100
[2018-06-17] MEDS: Tetrahydrozoline Opht 0.05% Sol (15 ml) OU SCH ×2 (12:59→21:30)
--- NOTE | 2018-06-17 16:04 | CP.PCM.PN ---
Subjective - Date & Time of Evaluation Date of Evaluation: 06/17/18 Time of Evaluation: 09:00 - Subjective Subjective: chart reviewed patient examined no new complaints orders signed Objective - Vital Signs/Intake and Output Vital Signs (last 24 hours): Temp Pulse Resp BP Pulse Ox 98.1 F 89 20 103/59 L 97 06/17/18 15:00 06/17/18 15:00 06/17/18 15:00 06/17/18 15:00 06/17/18 15:00 Intake and Output: 06/17/18 06/17/18 06:59 18:59 Intake Total 670 Output Total 450 Balance 220 - Medications Medications: Current Medications Albuterol/Ipratropium (Duoneb 3 Mg/0.5 Mg (3 Ml) Ud) 3 ml INH RQ6 JULIO Piperacillin Sod/Tazobactam (Sod 3.375 gm/ Sodium Chloride) 100 mls @ 200 mls/ hr IVPB Q6H JUL[facility]; Protocol Last Admin: 06/17/18 10:04 Dose: 200 mls/hr Acyclovir 400 mg/ Sodium (Chloride) 100 mls @ 100 mls/hr IV Q8H J[facility]; Protocol Last Admin: 06/17/18 12:59 Dose: 100 mls/hr Pantoprazole Sodium (Protonix Susp) 40 mg PO DAILY JULIO Last Admin: 06/17/18 10:03 Dose: 40 mg Prednisone (Prednisone Tab) 60 mg NG Q24H J[facility]IO Last Admin: 06/16/18 17:27 Dose: 60 mg Rosuvastatin Calcium (Crestor) 2.5 mg PEG HS JULIO Last Admin: 06/16/18 22:15 Dose: 2.5 mg Sodium Chloride ([place] Baby Saline 30 Ml) 0 ml MADELINE QID PRN PRN Reason: Dry nasal passages Tetrahydrozoline HCl/Zinc Sulfate (Visine 0.05% Opht Soln) 0.05 ml OU BID JULIO Last Admin: 06/17/18 12:59 Dose: Not Given - Labs Labs: 06/17/18 07:57 06/17/18 07:57 PT 11.8 SECONDS (9.7-12.2) 06/15/18 07:59 INR 1.1 06/15/18 07:59 APTT 27 SECONDS (21-34) 06/15/18 07:59 - Constitutional Appears: Non-toxic - Head Exam Head Exam: NORMOCEPHALIC (x) - Eye Exam Eye Exam: absent: Scleral icterus - ENT Exam ENT Exam: Mucous Membranes Dry - Neck Exam Neck Exam: absent: Lymphadenopathy - Respiratory Exam Respiratory Exam: Decreased Breath Sounds - Cardiovascular Exam Cardiovascular Exam: REGULAR RHYTHM - GI/Abdominal Exam GI & Abdominal Exam: Distended, Soft Additional comments: GT in place - Extremities Exam Extremities Exam: absent: Pedal Edema - Back Exam Back Exam: absent: CVA tenderness (L), CVA tenderness (R) - Neurological Exam Neurological Exam: Alert, Awake, Motor Sensory Deficit, Oriented x3. absent: CN II-XII Intact Assessment and Plan - Assessment and Plan (Free Text) Plan: 63 yo female with HTN and HLD who presented with dysphagia and hoarseness. Treated fo pneumonia with IV antibiotics Initial MRI brain and CT head/neck did not reveal etiology. EGD performed- no abnormalities noted. Barium swallow showed moderate aspiration. ENT saw vocal cord hypokinesis on flex laryngoscopy but no masses. Patient had vocal cord and piriformis biopsy on 06/08 showing only mild inflammation. She is being fed via NGT. AUCTION CLERK re-evaluated, and patient faile d swallow eval. ID consulted for abnormal CSF Plan: - MRI brain with and w/o contrast: enhancement in the christy, medulla, and 4th ventricle- likely viral etiology await HSV PCR from CSF as well as West Nile serology and syphilis serology TB meningitis less likely but should be kept in differential despite negative Quantiferon level consider repeat LP if AFB not sent sent URVASHI and VY levels- ? PUG MACHINE OPERATOR Sarcoid cont IV acyclovir
[2018-06-17] MEDS: Albuterol-Ipratrop 3 mg / 0.5 (3 ml) UD INH SCH ×2 (19:00→19:35)
[2018-06-17] MEDS: Rosuvastatin Calcium 2.5 mg Tab PEG SCH (22:24)
[2018-06-18] MEDS: Albuterol-Ipratrop 3 mg / 0.5 (3 ml) UD INH SCH ×4 (03:04→19:38)
[2018-06-18] MEDS: Acyclovir 400 MG in Sodium Chloride 0.9% 100 ML IV SCH ×3 (03:40→21:04)
[2018-06-18] MEDS: Piperacillin/Tazobact 3.375 GM in Sodium Chloride 100 ML IVPB SCH ×3 (04:30→22:24)
[2018-06-18 06:53] LABS: BASO % 0.2 % (0.0-2.0); EOS % 0.1 % (0.0-4.0); HEMOGLOBIN 11.1 g/dL (11.0-16.0); MEAN CORPUSCULAR HEMOGLOBIN 29.9 pg (27.0-31.0); MEAN CORPUSCULAR HGB CONC 34.4 g/dL (33.0-37.0); MEAN PLATELET VOLUME 7.2 fL (7.2-11.7); MONO # 0.4 K/uL (0.0-0.8); MONO % 4.4 % (0.0-10.0); NEUT # 8.7 K/uL (1.8-7.0); NEUT % 85.3 % (50.0-75.0); RBC 3.72 Mil/uL (3.80-5.20); RED CELL DISTRIBUTION WIDTH 13.5 % (11.5-14.5); WHITE BLOOD COUNT 10.2 K/uL (4.8-10.8)
--- NOTE | 2018-06-18 06:58 | CP.PCM.PN ---
<Leda Xiong - Last Filed: 06/18/18 14:28> Subjective - Date & Time of Evaluation Date of Evaluation: 06/18/18 Time of Evaluation: 06:57 - Subjective Subjective: PGY-1 Leda Xiong D.O. Medicine progress note for Dr. Fran Medel's service: Patient was seen and examined this morning. She says she is feeling better. Her only complaint is that she has a hard time sleeping in the hospital. She denies throat pain. Denies abdominal pain. She is moving her bladder and bowels. Her hoarseness is still present. Patient's aunt is on the phone, and she was updated with the patient's condition. Objective - Vital Signs/Intake and Output Vital Signs (last 24 hours): Temp Pulse Resp BP Pulse Ox 98.2 F 94 H 20 100/61 95 06/18/18 00:00 06/18/18 00:00 06/18/18 00:00 06/18/18 00:00 06/18/18 00:00 Intake and Output: 06/17/18 06/18/18 18:59 06:59 Intake Total 620 Output Total 500 Balance 120 - Medications Medications: Current Medications Albuterol/Ipratropium (Duoneb 3 Mg/0.5 Mg (3 Ml) Ud) 3 ml INH RQ6 JULIO Last Admin: 06/18/18 03:04 Dose: Not Given Piperacillin Sod/Tazobactam (Sod 3.375 gm/ Sodium Chloride) 100 mls @ 200 mls/hr IVPB Q6H [facility]UL[facility]; Protocol Last Admin: 06/18/18 04:30 Dose: 200 mls/hr Acyclovir 400 mg/ Sodium (Chloride) 100 mls @ 100 mls/hr IV Q8H JULIO; Protocol Last Admin: 06/18/18 03:40 Dose: 100 mls/hr Pantoprazole Sodium (Protonix Susp) 40 mg PO DAILY JULIO Last Admin: 06/17/18 10:03 Dose: 40 mg Prednisone (Prednisone Tab) 60 mg NG Q24H JULIO Last Admin: 06/17/18 17:56 Dose: 60 mg Rosuvastatin Calcium (Crestor) 2.5 mg PEG HS JULIO Last Admin: 06/17/18 22:24 Dose: 2.5 mg Sodium Chloride ([place] Baby Saline 30 Ml) 0 ml MADELINE QID PRN PRN Reason: Dry nasal passages Tetrahydrozoline HCl/Zinc Sulfate (Visine 0.05% Opht Soln) 0.05 ml OU BID JULIO Last Admin: 06/17/18 21:30 Dose: Not Given - Labs Labs: 06/18/18 06:43 06/17/18 07:57 PT 11.8 SECONDS (9.7-12.2) 06/15/18 07:59 INR 1.1 06/15/18 07:59 APTT 27 SECONDS (21-34) 06/15/18 07:59 - Additional Findings Additional findings: - Constitutional Appears: Non-toxic, No Acute Distress - Head Exam Head Exam: ATRAUMATIC, NORMAL INSPECTION R-sided facial droop/asymmetry - Eye Exam Eye Exam: EOMI, Normal appearance - ENT Exam ENT Exam: Mucous Membranes Moist - Neck Exam Neck Exam: Normal Inspection. absent: Lymphadenopathy, Tenderness, Thyromegaly - Respiratory Exam Respiratory Exam: Clear to Auscultation Bilateral, NORMAL BREATHING PATTERN - Cardiovascular Exam Cardiovascular Exam: RRR, +S1, +S2 - GI/Abdominal Exam GI & Abdominal Exam: Soft. absent: Distended, Tenderness PEG tube in abdomen- clean, dry dressing, nontender - Extremities Exam Extremities Exam: Normal Inspection. absent: Pedal Edema - Neurological Exam Neurological Exam: Alert, Awake, CN II-XII Intact, Normal Gait, Oriented x3 Hoarse voice improving - Psychiatric Exam Psychiatric exam: Normal Affect, Normal Mood - Skin Skin Exam: Dry, Normal Color, Warm Assessment and Plan - Assessment and Plan (Free Text) Assessment: Patient is a 63 yo female with HTN and HLD who presented with dysphagia and hoarseness. Initial MRI brain and CT head/neck did not reveal etiology. EGD performed- no abnormalities noted and biopsies negative. Barium swallow showed moderate aspiration. ENT saw vocal cord hypokinesis on flex laryngoscopy but no masses. Patient had vocal cord and piriformis biopsy on 06/08 showing only mild inflammation. CERTIFIED MEDICINE AIDE re-evaluated, and patient failed swallow eval. ENT is referring patient to subspecialist for swallowing. MRI brain done with contrast shows some abnormalities consistent with viral etiology. Neurology did LP 06/14- pending studies. Patient was started on Acyclovir to cover for HSV as IgG was positive. GI inserted PEG 06/15. Feedings started 06/16. Case management is working on assistance for home feedings. Palliative is on board for goals of care. MBS repeat tomorrow 06/19. Plan: Dysphagia, Hoarseness, Facial palsy, acute, stable - CT head, CT neck: no significant or acute findings - MRI brain with and w/o contrast: enhancement in the christy, medulla, and 4th ventricle- likely viral etiology - Echo: unremarkable - EGD: minor stomach lesions, negative biopsies - Swallow eval: aspiration precautions - Failed repeat bedside swallow eval on 06/11 - Barium swallow 06/07: severe aspiration, poor cough reflex - Repeat MBS pending for 06/19 - Flexible laryngoscopy: R vocal cord hypokinesis, pooling of secretions in piriform sinus - s/p Vocal cord and Piriformis sinus biopsy 06/08: mild chronic inflammation - Blood Cx no growth - Urine Cx no growth - Fungal Cx no growth - Stool O&P negative - Acetylcholine receptor binding Ab negative - 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 influ, N. mening, S. pneum negative - NPO - NGT placed 06/09, removed 06/15 - LP on 06/14- consistent with viral etiology RBC 1 WBC 34 Lymphocytes elev (98) Monocytes elev (2) Neutrophils wnl (0) Glucose slight elev (75) Protein slight elev (64) Cryptococcus negative Fungal Cx no growth Bacterial Cx no growth >4 days - PEG placement on 06/15- feedings started 06/16 (Jevity 1.5 @ 40 cc/hr) - CT A/P: no acute pathology in chest, free air in upper abdomen due to recent insertion of gastrostomy tube, inflammatory changes and fat stranding around pancreas head and duodenum, trace amount of free fluid in R mid and upper abdomen - Lipase wnl (137) - [place] baby saline MADELINE QID PRN - Tetrahydrozoline OU BID - Zosyn 3.375 mg IV Q6H IV- started 06/05 - Leukocytosis resolved, afebrile, Platelets still elevated but decreasing (reactive) - Acyclovir 400 mg IV Q8H- started 06/15 - Prednisone taper- to be completed 06/23 - School Operations Manager consulted - ENT consulted (Win)- vocal cord Bx, refer to Dr. Ruthie Pang who is a swallowing specialist ([phone]) - GI consulted (Severo)- EGD, PEG on 06/15 - Neurology consulted (Celso/Leilani)- LP on 06/14 - ID consulted (Micaela)- f/u labs, continue Zosyn and Acyclovir - Palliative consulted - PT/OT- patient ambulating independently, rec home Transaminitis, acute, mild, improving- suspect side effect of Valtrex (discontinued) - AST 55-->31, ALT 70-->81 - HIV negative - Hepatitis panel negative - Avoid hepatotoxic agents when possible - Monitor Hypokalemia, acute, mild, improving - Monitor and replete PRN Hypertension, chronic, well-controlled off medications - Vitals Q6H Hyperlipidemia, chronic - Most recent lipid panel from 09/2017 wnl - Crestor 2.5 mg PEG QHS Hyponatremia, acute, resolved - Responsive to IVF - Na 119 on admission, 135 today - CT chest: nodular hypertrophy of left adrenal gland - Consider f/u as outpatient - Serum osm 273, urine osm 254, urine Na 66 - TSH low (0.19), free T4 wnl (1.76) - Water flushes 50 cc Q4H - Nephrology consulted (Sanjay)- Avoid NSAID; Hold ARB, Discontinue HCTZ Hypophosphatemia, acute, resolved - Monitor and replete PRN Pleural effusion, acute, resolved - CXR on admission: mild right pleural effusion - CXR (06/07): no pleural effusion - CT chest on admission: mild tree-in-bud opacities in right upper and middle lobes - Afebrile - Leukocytosis resolved - Procal low (0.11) - Blood Cx no growth - Zosyn 3.375 mg IV Q6H IV- started 06/05 Ppx: VTE: SCDs, ambulatory GI: Protonix 40 mg IVP daily Diet: NPO, Jevity 1.5 @ 40 cc/hr via PEG Case discussed with attending, Dr. Fran Medel. <Fran Medel - Last Filed: 06/18/18 15:39> Objective - Vital Signs/Intake and Output Vital Signs (last 24 hours): Temp Pulse Resp BP Pulse Ox 98.2 F 103 H 20 116/66 97 06/18/18 07:12 06/18/18 07:12 06/18/18 07:12 06/18/18 07:12 06/18/18 07:12 Intake and Output: 06/18/18 06/18/18 06:59 18:59 Intake Total 620 620 Output Total 500 Balance 120 620 - Medications Medications: Current Medications Albuterol/Ipratropium (Duoneb 3 Mg/0.5 Mg (3 Ml) Ud) 3 ml INH RQ6 JULIO Last Admin: 06/18/18 13:22 Dose: Not Given Piperacillin Sod/Tazobactam (Sod 3.375 gm/ Sodium Chloride) 100 mls @ 200 mls/hr IVPB Q6H [facility]; Protocol Last Admin: 06/18/18 04:30 Dose: 200 mls/hr Acyclovir 400 mg/ Sodium (Chloride) 100 mls @ 100 mls/hr IV Q8H [facility]; Protocol Last Admin: 06/18/18 12:37 Dose: 100 mls/hr Pantoprazole Sodium (Protonix Susp) 40 mg PO DAILY [facility] Last Admin: 06/18/18 09:38 Dose: 40 mg Prednisone (Prednisone Tab) 40 mg PO DAILY [facility] Stop: 06/20/18 10:01 Prednisone (Prednisone Tab) 30 mg PO DAILY [facility] Stop: 06/21/18 10:01 Prednisone (Prednisone Tab) 20 mg PO DAILY [facility] Stop: 06/22/18 10:01 Prednisone (Prednisone Tab) 50 mg NG DAILY [facility] Stop: 06/19/18 10:01 Prednisone (Prednisone Tab) 10 mg PO DAILY [facility] Stop: 06/23/18 10:01 Rosuvastatin Calcium (Crestor) 2.5 mg PEG HS [facility] Last Admin: 06/17/18 22:24 Dose: 2.5 mg Sodium Chloride ([place] Baby Saline 30 Ml) 0 ml MADELINE QID PRN PRN Reason: Dry nasal passages Tetrahydrozoline HCl/Zinc Sulfate (Visine 0.05% Opht Soln) 0.05 ml OU BID [facility] Last Admin: 06/18/18 09:39 Dose: Not Given - Labs Labs: 06/18/18 06:43 06/18/18 06:43 PT 11.8 SECONDS (9.7-12.2) 03/29/19 07:59 INR 1.1 06/15/18 07:59 APTT 27 SECONDS (21-34) 06/15/18 07:59 Attending/Attestation - Attestation I have personally seen and examined this patient.: Yes I have fully participated in the care of the patient.: Yes I have reviewed all pertinent clinical information, including history, physical exam and plan: Yes Notes (Text): 06/18/18 15:38 Patient was seen and examined at 10:40 AM Care of this patient was gone over with resident Dr. Xiong. F/U Barium Video swallow F/U with ID Dr. Hinojosa for length of Acyclovir treatment Fran Medel D.O.
[2018-06-18] MEDS ORDERED: Potassium Chloride 20 mEq/15 ml LIQ UD PO ONE ×2 (07:00→08:15)
[2018-06-18 07:41] LABS: ALB/GLOB RATIO 1.5 (1.0-2.1); ALBUMIN 3.5 g/dL (3.5-5.0); ALT/SGPT 54 U/L (9-52); AST/SGOT 18 U/L (14-36); BLOOD UREA NITROGEN 13 mg/dL (7-17); CALCIUM 8.4 mg/dl (8.6-10.4); GFR NON-AFRICAN AMERICAN > 60
[2018-06-18 07:58] LABS: HEPATITIS B SURFACE AG Negative (NEGATIVE)
[2018-06-18 08:03] LABS: HEPATITIS A IGM NEGATIVE (NEGATIVE); HEPATITIS B CORE AB NEGATIVE (NEGATIVE)
[2018-06-18 08:14] LABS: HEPATITIS C ANTIBODY NEGATIVE (NEGATIVE)
[2018-06-18] MEDS: Pantoprazole 40 mg Susp UD PO SCH (09:38)
[2018-06-18] MEDS: Tetrahydrozoline Opht 0.05% Sol (15 ml) OU SCH ×2 (09:39→17:08)
--- NOTE | 2018-06-18 13:25 | CP.PCM.PN ---
Subjective - Date & Time of Evaluation Date of Evaluation: 06/18/18 Time of Evaluation: 13:25 - Subjective Subjective: Neuro Follow-Up Note: Mrs. Celeste Jerry was evaluated this afternoon at bedside. Aunt present at bedside. Pt states that she feels well today. She is now able to close her right eye. Pt admits being re-evaluated by speech therapy today for swallowing and is happy that she is able to swallow without any difficulties. She is re questing for the PEG to be removed if she can tolerate PO 2/2 financial concerns. Otherwise, pt denies h/a, dizziness, visual changes, chest pain, sob, abd pain, n/v/d, fever/chills. Objective - Vital Signs/Intake and Output Vital Signs (last 24 hours): Temp Pulse Resp BP Pulse Ox 98.2 F 103 H 20 116/66 97 06/18/18 07:12 06/18/18 07:12 06/18/18 07:12 06/18/18 07:12 06/18/18 07:12 Intake and Output: 06/18/18 06/18/18 06:59 18:59 Intake Total 620 Output Total 500 Balance 120 - Medications Medications: Current Medications Albuterol/Ipratropium (Duoneb 3 Mg/0.5 Mg (3 Ml) Ud) 3 ml INH RQ6 JULIO Last Admin: 06/18/18 13:22 Dose: Not Given Piperacillin Sod/Tazobactam (Sod 3.375 gm/ Sodium Chloride) 100 mls @ 200 mls /hr IVPB Q6H JULIO; Protocol Last Admin: 06/18/18 04:30 Dose: 200 mls/hr Acyclovir 400 mg/ Sodium (Chloride) 100 mls @ 100 mls/hr IV Q8H JULIO; Protocol Last Admin: 06/18/18 12:37 Dose: 100 mls/hr Pantoprazole Sodium (Protonix Susp) 40 mg PO DAILY [facility] Last Admin: 06/18/18 09:38 Dose: 40 mg Prednisone (Prednisone Tab) 60 mg NG Q24H JULIO Last Admin: 06/17/18 17:56 Dose: 60 mg Rosuvastatin Calcium (Crestor) 2.5 mg PEG HS JULIO Last Admin: 06/17/18 22:24 Dose: 2.5 mg Sodium Chloride ([place] Baby Saline 30 Ml) 0 ml MADELINE QID PRN PRN Reason: Dry nasal passages Tetrahydrozoline HCl/Zinc Sulfate (Visine 0.05% Opht Soln) 0.05 ml OU BID JULIO Last Admin: 06/18/18 09:39 Dose: Not Given - Labs Labs: 06/18/18 06:43 06/18/18 06:43 PT 11.8 SECONDS (9.7-12.2) 06/15/18 07:59 INR 1.1 06/15/18 07:59 APTT 27 SECONDS (21-34) 06/15/18 07:59 - Constitutional Appears: Well, Non-toxic, No Acute Distress - Head Exam Head Exam: ATRAUMATIC, NORMOCEPHALIC Additional comments: Slight flattening of the forehead on the right side, improving. - Eye Exam Eye Exam: EOMI, PERRL Pupil Exam: NORMAL ACCOMODATION, PERRL Additional comments: No diplopia on exam. Slight flattening of the forehead on the right side, though improving. Now able to close right eye, though still does not close symmetrically with the left. - ENT Exam ENT Exam: Mucous Membranes Moist - Neck Exam Neck Exam: Full ROM, Normal Inspection - Respiratory Exam Respiratory Exam: NORMAL BREATHING PATTERN - GI/Abdominal Exam Additional comments: peg in place - Extremities Exam Extremities Exam: Full ROM. absent: Calf Tenderness, Pedal Edema - Back Exam Back Exam: Full ROM - Neurological Exam Neurological Exam: Alert, Awake, Oriented x3. absent: CN II-XII Intact, Reflexes Normal Neuro motor strength exam: Left Upper Extremity: 5, Right Upper Extremity: 5, Left Lower Extremity: 5, Right Lower Extremity: 5 Additional comments: Speech clear, fluid + facial asymmetry and slight flattening of the forehead noted to right side, though improving No diplopia on exam. Now able to close right eye, though still does not close symmetrically with the left. No other motor deficits. No sensory deficits. - Psychiatric Exam Psychiatric exam: Normal Affect, Normal Mood - Skin Skin Exam: Normal Color Assessment and Plan (1) Facial asymmetry Assessment & Plan: Imaging reviewed: -Brain MRI with and without contrast (06/12/18): No evidence of acute infarct or hemorrhage. No evidence of significant small vessel disease. No enhancing parenchymal nor extra-axial masses or collections. No evidence of unusual meningeal enhancement. Persistent but slightly improved bilateral mastoid effusions. - LP done 06/14: CSF shows: elevated WBC, total cell, lymphocytes, glucose negative for crypto, H flu, N meningitis, E coli, GBS, S pneumo HSV 1 IgG 53.80, HSV 2 IgG <0.90, HSV IgM pending, HHV6 IgM negative f/u lactic acid, Lyme, NMDA, Quantiferon, VDRL, West Nile - Acetylcholine rec bind AB: negative (r/o Myasthenia Gravis) - Continue Prednisone 60mg NG daily x5 days (start yesterday, 06/12; last dose to be given on Monday, 06/16). May switch to PEG administration once cleared by GI for usage. - ID on the case; has pt on Acyclovir IV. Left message for Dr Hinojosa regarding the need to isolate the pt while we continue to r/o specific infectious cause. Also discussed this with CM. - Keep right eye moist; artificial tears, eye patch HS. - Notify neuro of acute changes in pt's condition. Lois Morales, DB, HEALTH IT SPECIALIST D/W Dr. Duke Status: Acute
[2018-06-18] MEDS: Rosuvastatin Calcium 2.5 mg Tab PEG SCH (22:24)
[2018-06-19] MEDS: Albuterol-Ipratrop 3 mg / 0.5 (3 ml) UD INH SCH ×4 (01:08→19:45)
[2018-06-19] MEDS: Acyclovir 400 MG in Sodium Chloride 0.9% 100 ML IV SCH ×3 (03:39→19:37)
[2018-06-19] MEDS: Piperacillin/Tazobact 3.375 GM in Sodium Chloride 100 ML IVPB SCH ×4 (04:00→22:28)
[2018-06-19 06:53] LABS: BASO # 0.1 K/uL (0.0-0.2); BASO % 0.8 % (0.0-2.0); EOS # 0.5 K/uL (0.0-0.7); EOS % 5.4 % (0.0-4.0); HEMOGLOBIN 10.5 g/dL (11.0-16.0); LYMPH % 23.6 % (20.0-40.0); MEAN CELL VOLUME 88.4 fL (81.0-99.0); MEAN CORPUSCULAR HGB CONC 33.9 g/dL (33.0-37.0); MEAN PLATELET VOLUME 7.2 fL (7.2-11.7); MONO # 0.6 K/uL (0.0-0.8); MONO % 7.7 % (0.0-10.0); NEUT # 5.3 K/uL (1.8-7.0); NEUT % 62.5 % (50.0-75.0); NRBC % 0.1 % (0.0-2.0); RBC 3.49 Mil/uL (3.80-5.20); RED CELL DISTRIBUTION WIDTH 13.7 % (11.5-14.5); WHITE BLOOD COUNT 8.4 K/uL (4.8-10.8)
--- NOTE | 2018-06-19 07:31 | CP.PCM.PN ---
Subjective - Date & Time of Evaluation Date of Evaluation: 06/19/18 Time of Evaluation: 07:30 - Subjective Subjective: PGY-1 eLda Xiong D.O. Medicine progress note for Dr. Fran Medel's service: Patient was seen and examined this morning. She is up walking around in the hallway with PT. Her only complaint is throat pain. She denies abdominal pain. Yesterday afternoon, patient and aunt were concerned about payment for and care of PEG if patient discharged home. Cannot make determination on need for continued PEG use at this time. She is pending repeat MBS today. This was explained to patient who acknowledged understanding. Re-evaluated patient after MBS. She is able to eat mechanically altered food, alternating solid and liquids. Patient is tolerating well. Objective - Vital Signs/Intake and Output Vital Signs (last 24 hours): Temp Pulse Resp BP Pulse Ox 98 F 98 H 20 108/64 99 06/18/18 23:15 06/18/18 23:15 06/18/18 23:15 06/18/18 23:15 06/18/18 23:15 - Medications Medications: Current Medications Albuterol/Ipratropium (Duoneb 3 Mg/0.5 Mg (3 Ml) Ud) 3 ml INH RQ6 JULIO Last Admin: 06/19/18 01:08 Dose: Not Given Piperacillin Sod/Tazobactam (Sod 3.375 gm/ Sodium Chloride) 100 mls @ 200 mls/h r IVPB Q6H JULIO; Protocol Last Admin: 06/19/18 04:00 Dose: 200 mls/hr Acyclovir 400 mg/ Sodium (Chloride) 100 mls @ 100 mls/hr IV Q8H JULIO; Protocol Last Admin: 06/19/18 03:39 Dose: 100 mls/hr Pantoprazole Sodium (Protonix Susp) 40 mg PO DAILY [facility] Last Admin: 06/18/18 09:38 Dose: 40 mg Prednisone (Prednisone Tab) 40 mg PO DAILY [facility] Stop: 06/20/18 10:01 Prednisone (Prednisone Tab) 30 mg PO DAILY [facility] Stop: 06/21/18 10:01 Prednisone (Prednisone Tab) 20 mg PO DAILY [facility] Stop: 06/22/18 10:01 Prednisone (Prednisone Tab) 50 mg NG DAILY [facility] Stop: 06/19/18 10:01 Prednisone (Prednisone Tab) 10 mg PO DAILY [facility] Stop: 06/23/18 10:01 Rosuvastatin Calcium (Crestor) 2.5 mg PEG HS [facility] Last Admin: 06/18/18 22:24 Dose: 2.5 mg Sodium Chloride ([place] Baby Saline 30 Ml) 0 ml MADELINE QID PRN PRN Reason: Dry nasal passages Tetrahydrozoline HCl/Zinc Sulfate (Visine 0.05% Opht Soln) 0.05 ml OU BID [facility] Last Admin: 06/18/18 17:08 Dose: Not Given - Labs Labs: 06/19/18 06:41 06/18/18 06:43 PT 11.8 SECONDS (9.7-12.2) 06/15/18 07:59 INR 1.1 06/15/18 07:59 APTT 27 SECONDS (21-34) 06/15/18 07:59 - Additional Findings Additional findings: - Constitutional Appears: Non-toxic, No Acute Distress - Head Exam Head Exam: ATRAUMATIC, NORMAL INSPECTION R-sided facial droop/asymmetry - Eye Exam Eye Exam: EOMI, Normal appearance - ENT Exam ENT Exam: Mucous Membranes Moist - Neck Exam Neck Exam: Normal Inspection. absent: Lymphadenopathy, Tenderness, Thyromegaly - Respiratory Exam Respiratory Exam: Clear to Auscultation Bilateral, NORMAL BREATHING PATTERN - Cardiovascular Exam Cardiovascular Exam: RRR, +S1, +S2 - GI/Abdominal Exam GI & Abdominal Exam: Soft. absent: Distended, Tenderness PEG tube in abdomen- clean, dry dressing, nontender - Extremities Exam Extremities Exam: Normal Inspection. absent: Pedal Edema - Neurological Exam Neurological Exam: Alert, Awake, CN II-XII Intact, Normal Gait, Oriented x3 Hoarse voice improving - Psychiatric Exam Psychiatric exam: Normal Affect, Normal Mood - Skin Skin Exam: Dry, Normal Color, Warm Assessment and Plan - Assessment and Plan (Free Text) Assessment: Patient is a 63 yo female with HTN and HLD who presented with dysphagia and hoarseness. Initial MRI brain and CT head/neck did not reveal etiology. EGD performed- no abnormalities noted and biopsies negative. Barium swallow showed moderate aspiration. ENT saw vocal cord hypokinesis on flex laryngoscopy but no masses. Patient had vocal cord and piriformis biopsy on 06/08 showing only mild inflammation. SPLICER APPRENTICE re-evaluated, and patient failed swallow eval. ENT is referr ing patient to subspecialist for swallowing. MRI brain done with contrast shows some abnormalities consistent with viral etiology. Neurology did LP 06/14- pending studies. Patient was started on Acyclovir to cover for HSV as IgG was positive. GI inserted PEG 06/15. Feedings started 06/16. Case management is working on assistance for home feedings. Palliative is on board for goals of care. MBS repeat today 06/19. Plan: Dysphagia, Hoarseness, Facial palsy, acute, stable - CT head, CT neck: no significant or acute findings - MRI brain with and w/o contrast: enhancement in the christy, medulla, and 4th ventricle- likely viral etiology - Echo: unremarkable - EGD: minor stomach lesions, negative biopsies - Swallow eval: aspiration precautions - Failed repeat bedside swallow eval on 06/11 - Barium swallow 06/07: severe aspiration, poor cough reflex - Repeat MBS 06/19- no aspiration, pooling of secretions - Flexible laryngoscopy: R vocal cord hypokinesis, pooling of secretions in piriform sinus - s/p Vocal cord and Piriformis sinus biopsy 06/08: mild chronic inflammation - Blood Cx no growth - Urine Cx no growth - Fungal Cx no growth - Stool O&P negative - Acetylcholine receptor binding Ab negative - 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), IgM negative - HSV-2 IgG negative - EBV IgG positive (692), IgM negative - Lyme screen negative - Cryptococcus negative - Hepatitis panel negative - HIV negative - Quantiferon gold negative - [place], GBS, H. influ, N. mening, S. pneum negative - mechanically altered diet/thin liquids started 06/19 - NGT placed 06/09, removed 06/15 - LP on 06/14- consistent with viral etiology RBC 1 WBC 34 Lymphocytes elev (98) Monocytes elev (2) Neutrophils wnl (0) Glucose slight elev (75) Protein slight elev (64) Cryptococcus negative Fungal Cx no growth Bacterial Cx no growth >4 days - PEG placement on 06/15- feedings started 06/16 (Jevity 1.5 @ 40 cc/hr), held on 06/19 when PO diet started - CT A/P: no acute pathology in chest, free air in upper abdomen due to recent insertion of gastrostomy tube, inflammatory changes and fat stranding around pancreas head and duodenum, trace amount of free fluid in R mid and upper abdomen - Lipase wnl (137) - Patient will go home with PEG for approx 30 days to ensure adequate PO nutrition - [place] baby saline MADELINE QID PRN - Tetrahydrozoline OU BID - Ibuprofen 400 mg PEG Q8H PRN - Zosyn 3.375 mg IV Q6H IV- started 06/05 - Leukocytosis resolved, afebrile, Platelets still elevated but decreasing (reactive) - Acyclovir 400 mg IV Q8H- started 06/15 - Prednisone taper- to be completed 06/23 - Metal Alloy Scientist consulted - ENT consulted (Win)- vocal cord Bx, refer to Dr. Ruthie Pang who is a swallowing specialist ([phone]) - GI consulted (Severo)- EGD, PEG on 06/15 - Neurology consulted (Celso/Leilani)- LP on 06/14 - ID consulted (Micaela)- f/u labs, continue Zosyn and Acyclovir - Palliative consulted - PT/OT- patient ambulating independently, rec home - SPLICER APPRENTICE- rec bite-sized solids alternating with thin liquids and multiple swallows per bite Transaminitis, acute, mild, resolved- suspect side effect of Valtrex (discontinued) - HIV negative - Hepatitis panel negative - Avoid hepatotoxic agents when possible - Monitor Hypokalemia, acute, mild, resolved - Monitor and replete PRN Hypertension, chronic, well-controlled off medications - Vitals Q6H Hyperlipidemia, chronic - Most recent lipid panel from 09/2017 wnl - Crestor 2.5 mg PEG QHS Hyponatremia, acute, resolved - Responsive to IVF - Na 119 on admission - CT chest: nodular hypertrophy of left adrenal gland - Consider f/u as outpatient - Serum osm 273, urine osm 254, urine Na 66 - TSH low (0.19), free T4 wnl (1.76) - Water flushes 50 cc Q4H - Nephrology consulted (Sanjay)- Avoid NSAID; Hold ARB, Discontinue HCTZ Hypophosphatemia, acute, resolved - Monitor and replete PRN Pleural effusion, acute, resolved - CXR on admission: mild right pleural effusion - CXR (06/07): no pleural effusion - CT chest on admission: mild tree-in-bud opacities in right upper and middle lobes - Afebrile - Leukocytosis resolved - Procal low (0.11) - Blood Cx no growth - Zosyn 3.375 mg IV Q6H IV- started 06/05 Ppx: VTE: SCDs, ambulatory GI: Protonix 40 mg IVP daily Diet: Mechanically altered bite-sized/thin liquids Dispo: If patient tolerates PO intake, will consider discharge tomorrow 06/20. Patient will continue prednisone taper as per neurology and Acyclovir as per ID. She will go home with PEG and get removed after 30 days of adequate PO nutrit ion. She will follow-up in the [facility] and with swallowing specialist ENT at [facility]. Case discussed with attending, Dr. Fran Medel.
[2018-06-19 07:51] LABS: ALB/GLOB RATIO 1.3 (1.0-2.1); ALBUMIN 3.1 g/dL (3.5-5.0); ALT/SGPT 38 U/L (9-52); AST/SGOT 21 U/L (14-36); BLOOD UREA NITROGEN 13 mg/dL (7-17); CALCIUM 8.3 mg/dl (8.6-10.4); GFR NON-AFRICAN AMERICAN > 60
[2018-06-19] MEDS: Pantoprazole 40 mg Susp UD PO SCH (10:05)
[2018-06-19] MEDS: Tetrahydrozoline Opht 0.05% Sol (15 ml) OU SCH ×3 (10:09→17:41)
[2018-06-19] MEDS ORDERED: Barium Sulfate for Susp 96% w/w 176g Bottle PR ONE (10:58)
[2018-06-19] MEDS ORDERED: Barium Sulfate for Susp 98% w/w 340g Bottle ONE (11:01)
--- NOTE | 2018-06-19 12:28 | RAD ---
Date of service: 06/19/2018 PROCEDURE: Modified barium swallow study. HISTORY: Aspiration. COMPARISON: None available. TECHNIQUE: Under fluoroscopic guidance, barium meals of various consistency were administered to the patient by the speech pathologist. FINDINGS: No gross aspiration was observed during this study. Trace penetration was noted. Pooling of residue within the valleculae and piriform sinuses noted. IMPRESSION: No gross aspiration was observed during this study. Trace penetration was noted. Pooling of residue within the valleculae and piriform sinuses noted. Please refer to the detailed report and recommendations of the speech pathologist.
--- NOTE | 2018-06-19 13:55 | CP.PCM.PN ---
Subjective - Date & Time of Evaluation Date of Evaluation: 06/19/18 Time of Evaluation: 13:52 - Subjective Subjective: Neuro Follow-Up: Mrs. Francisco Jerry was evaluated this afternoon. She was eating lunch and tolerating well. Today the pt states that she feels great and is very happy that she is able to eat today. Discussed with primary team pt's dispo; she is a possible d/c home tomorrow. Pt denies new complaints. Pt denies h/a, dizziness, visual changes, chest pain, sob, cough, abd pain, n/v/d, fever/chills, paresthe Objective - Vital Signs/Intake and Output Vital Signs (last 24 hours): Temp Pulse Resp BP Pulse Ox 98.1 F 100 H 20 113/70 95 06/19/18 07:00 06/19/18 07:00 06/19/18 07:00 06/19/18 07:00 06/19/18 07:00 - Medications Medications: Current Medications Albuterol/Ipratropium (Duoneb 3 Mg/0.5 Mg (3 Ml) Ud) 3 ml INH RQ6 JULIO Last Admin: 06/19/18 01:08 Dose: Not Given Piperacillin Sod/Tazobactam (Sod 3.375 gm/ Sodium Chloride) 100 mls @ 200 mls/hr IVPB Q6H JULIO; Protocol Last Admin: 06/19/18 10:06 Dose: 200 mls/hr Acyclovir 400 mg/ Sodium (Chloride) 100 mls @ 100 mls/hr IV Q8H JULIO; Protocol Last Admin: 06/19/18 12:04 Dose: 100 mls/hr Ibuprofen (Motrin Oral Susp) 400 mg PO Q8H PRN PRN Reason: Pain, moderate (4-7) Last Admin: 06/19/18 10:45 Dose: 400 mg Pantoprazole Sodium (Protonix Inj) 40 mg IVP DAILY [facility] Prednisone (Prednisone Tab) 40 mg PO DAILY [facility] Stop: 06/20/18 10:01 Prednisone (Prednisone Tab) 30 mg PO DAILY [facility] Stop: 06/21/18 10:01 Prednisone (Prednisone Tab) 20 mg PO DAILY [facility] Stop: 06/22/18 10:01 Prednisone (Prednisone Tab) 10 mg PO DAILY [facility] Stop: 06/23/18 10:01 Rosuvastatin Calcium (Crestor) 2.5 mg PEG HS [facility] Last Admin: 06/18/18 22:24 Dose: 2.5 mg Sodium Chloride ([place] Baby Saline 30 Ml) 0 ml MADELINE QID PRN PRN Reason: Dry nasal passages Tetrahydrozoline HCl/Zinc Sulfate (Visine 0.05% Opht Soln) 0.05 ml OU BID [facility] Last Admin: 06/19/18 12:04 Dose: 2 drop - Labs Labs: 06/19/18 06:41 06/19/18 06:41 PT 11.8 SECONDS (9.7-12.2) 06/15/18 07:59 INR 1.1 06/15/18 07:59 APTT 27 SECONDS (21-34) 06/15/18 07:59 - Constitutional Appears: Well, Non-toxic, No Acute Distress - Head Exam Additional comments: Still has some flattening of the forehead on the right side, though improving. - Eye Exam Eye Exam: PERRL Pupil Exam: NORMAL ACCOMODATION, PERRL Additional comments: No diplopia Slight flattening of the forehead on the right side still present, though improving. Still able to close right eye upon command, though still does not close symmetrically with the left. - ENT Exam ENT Exam: Mucous Membranes Moist - Neck Exam Neck Exam: Full ROM, Normal Inspection - Respiratory Exam Respiratory Exam: NORMAL BREATHING PATTERN - GI/Abdominal Exam Additional comments: peg - Extremities Exam Extremities Exam: Full ROM. absent: Calf Tenderness, Pedal Edema - Back Exam Back Exam: Full ROM - Neurological Exam Neurological Exam: Alert, Awake, Oriented x3, Reflexes Normal. absent: CN II- XII Intact Neuro motor strength exam: Left Upper Extremity: 5, Right Upper Extremity: 5, Left Lower Extremity: 5, Right Lower Extremity: 5 Additional comments: Speech clear, fluid + facial asymmetry and slight flattening of the forehead noted to right side still present, though improving No diplopia on exam. Still able to close right eye on command, though still does not close symmetrically with the left. No other motor deficits. No sensory deficits. - Psychiatric Exam Psychiatric exam: Normal Affect, Normal Mood - Skin Skin Exam: Normal Color Assessment and Plan (1) Facial asymmetry Assessment & Plan: Imaging reviewed: -Brain MRI with and without contrast (06/12/18): No evidence of acute infarct or hemorrhage. No evidence of significant small vessel disease. No enhancing parenchymal nor extra-axial masses or collections. No evidence of unusual meningeal enhancement. Persistent but slightly improved bilateral mastoid effusions. - LP done 06/14; some CSF tests still pending--f/u NMDA (was cancelled 04/21 not enough specimen per primary team), West Nile, Lyme - Acetylcholine rec bind AB: negative (r/o Myasthenia Gravis) - Continue Prednisone---has been changed to a taper by primary team--continue upon d/c. - ID on the case; has pt on Acyclovir IV. Primary team is awaiting antiviral duration from ID. - Keep right eye moist; artificial tears, eye patch HS--continue upon d/c. -Pt may f/u with neuro as outpatient in the office within 1 month if she is d/c'd tomorrow. - Notify neuro of acute changes in pt's condition. Lois Morales, DNP, CHANNEL MAN D/W Dr. Duke Status: Acute
[2018-06-19] MEDS: Rosuvastatin Calcium 2.5 mg Tab PEG SCH (21:53)
[2018-06-20] MEDS: Albuterol-Ipratrop 3 mg / 0.5 (3 ml) UD INH SCH ×3 (01:14→13:01)
[2018-06-20] MEDS: Piperacillin/Tazobact 3.375 GM in Sodium Chloride 100 ML IVPB SCH ×3 (04:06→11:00)
[2018-06-20] MEDS: Acyclovir 400 MG in Sodium Chloride 0.9% 100 ML IV SCH ×2 (04:07→11:43)
[2018-06-20 07:35] VITALS: BP 118/74; PULSE 97; TEMP 98.1; O2SAT 98
[2018-06-20 08:19] LABS: BASO % 0.3 % (0.0-2.0); EOS # 0.3 K/uL (0.0-0.7); EOS % 3.1 % (0.0-4.0); HEMOGLOBIN 10.5 g/dL (11.0-16.0); LYMPH # 1.8 K/uL (1.0-4.3); LYMPH % 19.1 % (20.0-40.0); MEAN CELL VOLUME 87.7 fL (81.0-99.0); MEAN CORPUSCULAR HEMOGLOBIN 29.7 pg (27.0-31.0); MEAN CORPUSCULAR HGB CONC 33.9 g/dL (33.0-37.0); MEAN PLATELET VOLUME 7.4 fL (7.2-11.7); MONO # 0.7 K/uL (0.0-0.8); MONO % 7.9 % (0.0-10.0); NEUT # 6.4 K/uL (1.8-7.0); NEUT % 69.6 % (50.0-75.0); RBC 3.52 Mil/uL (3.80-5.20); RED CELL DISTRIBUTION WIDTH 13.5 % (11.5-14.5); WHITE BLOOD COUNT 9.2 K/uL (4.8-10.8)
[2018-06-20 08:41] LABS: ALB/GLOB RATIO 1.5 (1.0-2.1); ALBUMIN 3.2 g/dL (3.5-5.0); ALT/SGPT 33 U/L (9-52); AST/SGOT 23 U/L (14-36); BLOOD UREA NITROGEN 11 mg/dL (7-17); CALCIUM 8.5 mg/dl (8.6-10.4); GFR NON-AFRICAN AMERICAN > 60
--- NOTE | 2018-06-20 09:13 | CP.PCM.DIS ---
Provider - Provider Date of Admission: 06/04/18 20:27 Attending physician: Fran Medel MD Primary care physician: Dr. Lee (clinic) Consults: 06/04/18 22:20 Gastroenterology Consult Routine Comment: Consulting Provider: Quinn Armstrong Consulting Physician: Quinn Armstrong Reason for Consult: dysphagia 06/05/18 07:11 Nephrology Consult Routine Comment: Consulting Provider: Osvaldo Grace Consulting Physician: Osvaldo Grace Reason for Consult: hypnatremia, hypokalemia, cannot swallow 06/05/18 10:56 ENT [Otolaryngology Consult] Routine Consulting Provider: Toni Walden Consulting Physician: Toni Walden Reason for Consult: hoarseness, dysphagia 06/07/18 12:42 Physician Consult Routine Comment: Consulting Provider: Hugo Houston Consulting Physician: Hugo Houston Reason for Consult: vocal cord weakness and dysphagia,r/o Neurological dis 06/13/18 10:47 Palliative Care Consult Routine Comment: Consulting Provider: Stacy Reyes Physician Instructions: Reason For Exam: weight loss, inabilty to swallow, PEG recommended 06/15/18 15:43 Infectious Disease Consult Routine Comment: Consulting Provider: Edward Hinojosa Consulting Physician: Edward Hinojosa Reason for Consult: intrathecal infection, CSF WBC abnormalities Time Spent in preparation of Discharge (in minutes): 45 Diagnosis - Discharge Diagnosis (1) Dysphagia Status: Resolved Priority: High (2) Murphy's palsy Status: Acute Priority: High (3) Hyponatremia Status: Resolved Priority: High (4) Transaminitis Status: Resolved Priority: Medium (5) Hypokalemia Status: Acute Priority: Medium (6) HLD (hyperlipidemia) Status: Chronic Priority: Low Hospital Course - Lab Results Lab Results: Micro Results 06/14/18 15:19 Cerebral Spinal Fluid Gram Stain - Final 06/14/18 15:19 Cerebral Spinal Fluid CSF Culture - Final No growth. 06/17/18 14:34 Stool Ova and Parasite Concentrate Exam - Final 06/14/18 13:46 Other: Please Indicate Fungal Culture - Preliminary 06/14/18 13:46 Cerebral Spinal Fluid Fungal Smear - Final 06/04/18 19:30 Blood Blood Culture - Final NO GROWTH AFTER 5 DAYS 06/04/18 19:30 Blood Gram Stain - Final TEST NOT PERFORMED 06/04/18 20:00 Blood Blood Culture - Final NO GROWTH AFTER 5 DAYS 06/04/18 20:00 Blood Gram Stain - Final TEST NOT PERFORMED 06/05/18 02:25 Urine,Clean Catch Urine Culture - Final No Growth (<1,000 CFU/ML) Most Recent Lab Values WBC 9.2 K/uL (4.8-10.8) 06/20/18 07:50 RBC 3.52 Mil/uL (3.80-5.20) L 06/20/18 07:50 Hgb 10.5 g/dL (11.0-16.0) L 06/20/18 07:50 Hct 30.9 % (34.0-47.0) L 06/20/18 07:50 MCV 87.7 fL (81.0-99.0) 06/20/18 07:50 MCH 29.7 pg (27.0-31.0) 06/20/18 07:50 MCHC 33.9 g/dL (33.0-37.0) 06/20/18 07:50 RDW 13.5 % (11.5-14.5) 06/20/18 07:50 Plt Count 376 K/uL (130-400) 06/20/18 07:50 MPV 7.4 fL (7.2-11.7) 06/20/18 07:50 Neut % (Auto) 69.6 % (50.0-75.0) 06/20/18 07:50 Lymph % (Auto) 19.1 % (20.0-40.0) L 06/20/18 07:50 [place] % (Auto) 7.9 % (0.0-10.0) 06/20/18 07:50 Eos % (Auto) 3.1 % (0.0-4.0) 06/20/18 07:50 Baso % (Auto) 0.3 % (0.0-2.0) 06/20/18 07:50 Neut # (Auto) 6.4 K/uL (1.8-7.0) 06/20/18 07:50 Lymph # (Auto) 1.8 K/uL (1.0-4.3) 06/20/18 07:50 [place] # (Auto) 0.7 K/uL (0.0-0.8) 06/20/18 07:50 Eos # (Auto) 0.3 K/uL (0.0-0.7) 06/20/18 07:50 Baso # (Auto) 0.0 K/uL (0.0-0.2) 06/20/18 07:50 Neutrophils % (Manual) 87 % (50-75) H 06/17/18 07:57 Band Neutrophils % 3 % (0-2) H 06/06/18 05:30 Lymphocytes % (Manual) 6 % (20-40) L 06/17/18 07:57 Reactive Lymphs % 1 % (0-0) H 06/17/18 07:57 Monocytes % (Manual) 6 % (0-10) 06/17/18 07:57 Eosinophils % (Manual) 1 % (0-4) 06/06/18 05:30 Platelet Estimate Normal (NORMAL) 06/17/18 07:57 RBC Morphology Normal 06/05/18 06:58 Ovalocytes Slight 06/17/18 07:57 PT 11.8 SECONDS (9.7-12.2) 06/15/18 07:59 INR 1.1 06/15/18 07:59 APTT 27 SECONDS (21-34) 06/15/18 07:59 Sodium 136 mmol/L (132-148) 06/20/18 07:50 Potassium 3.2 mmol/L (3.6-5.2) L 06/20/18 07:50 Chloride 102 mmol/L (98-107) 06/20/18 07:50 Carbon Dioxide 29 mmol/L (22-30) 06/20/18 07:50 Anion Gap 8 (10-20) L 06/20/18 07:50 BUN 11 mg/dL (7-17) 06/20/18 07:50 Creatinine 0.5 mg/dL (0.7-1.2) L 06/20/18 07:50 Est GFR ( Amer) > 60 06/20/18 07:50 Est GFR (Non-Af Amer) > 60 06/20/18 07:50 POC Glucose (mg/dL) 162 mg/dL (65-110) H 06/18/18 06:19 Random Glucose 90 mg/dL (65-105) D 06/20/18 07:50 Serum Osmolality 273 mosm/kg (272-300) 06/05/18 01:08 Calcium 8.5 mg/dl (8.6-10.4) L 06/20/18 07:50 Phosphorus 3.2 mg/dL (2.5-4.5) 06/20/18 07:50 Magnesium 2.2 mg/dL (1.6-2.3) 06/20/18 07:50 Total Bilirubin 0.8 mg/dL (0.2-1.3) 06/20/18 07:50 AST 23 U/L (14-36) 06/20/18 07:50 ALT 33 U/L (9-52) 06/20/18 07:50 Alkaline Phosphatase 68 U/L (38-126) 06/20/18 07:50 Total Creatine Kinase 35 U/L (30-135) 06/04/18 14:01 Total Protein 5.5 g/dL (6.3-8.3) L 06/20/18 07:50 Albumin 3.2 g/dL (3.5-5.0) L 06/20/18 07:50 Globulin 2.2 gm/dL (2.2-3.9) 06/20/18 07:50 Albumin/Globulin Ratio 1.5 (1.0-2.1) 06/20/18 07:50 Amylase 63 U/L (30-110) 06/04/18 14:01 Lipase 147 U/L (23-300) 06/17/18 07:57 Procalcitonin 0.11 NG/ML (0.19-0.49) L 06/05/18 01:08 Free T4 1.67 ng/dL (0.78-2.19) 06/05/18 01:08 TSH 3rd Generation 0.19 mIU/L (0.46-4.68) L 06/05/18 01:08 Urine Color Straw (YELLOW) 06/05/18 02:25 Urine Clarity Clear (Clear) 06/05/18 02:25 Urine pH 7.0 (5.0-8.0) 06/05/18 02:25 Ur Specific [place] 1.008 (1.003-1.030) 06/05/18 02:25 Urine Protein Negative mg/dL (NEGATIVE) 06/05/18 02:25 Urine Glucose (UA) Normal mg/dL (Normal) 06/05/18 02:25 Urine Ketones Negative mg/dL (NEGATIVE) 06/05/18 02:25 Urine Blood Trace (NEGATIVE) H 06/05/18 02:25 Urine Nitrate Negative (NEGATIVE) 06/05/18 02:25 Urine Bilirubin Negative (NEGATIVE) 06/05/18 02:25 Urine Urobilinogen Normal mg/dL (0.2-1.0) 06/05/18 02:25 Ur Leukocyte Esterase Neg Clair/uL (Negative) 06/05/18 02:25 Urine WBC (Auto) < 1 /hpf (0-5) 06/05/18 02:25 Urine RBC (Auto) 1 /hpf (0-3) 06/05/18 02:25 Ur Squamous Epith Cells < 1 /hpf (0-5) 06/04/18 14:01 Urine Osmolality 762 mosm/kg (300-1000) 06/07/18 01:44 Ur Random Sodium 172 mmol/L 06/07/18 01:44 Fluid Type Spinal fluid 06/14/18 13:46 CSF Volume 2 mL (0-1) H 06/14/18 13:46 CSF Appearance Clear/colorless (CLEAR) 06/14/18 13:46 CSF WBC 34.0 /mm3 (0.0-5.0) H 06/14/18 13:46 CSF RBC 1.0 /mm3 (0.0-0.0) H 06/14/18 13:46 CSF Total Cell Counted 100 (0-0) H 06/14/18 13:46 CSF Neutrophils 0 % (0-0) 06/14/18 13:46 CSF Lymphocytes 98.0 % (0-0) H 06/14/18 13:46 CSF Monos/Macrophages 2 % (0-0) H 06/14/18 13:46 CSF Comment TEST NOT PERFORMED 06/14/18 13:46 CSF Glucose 75 mg/dL (40-70) H 06/14/18 13:46 CSF Lactic Acid 21 mg/dL (10-22) 06/14/18 13:00 CSF Total Protein 64.0 mg/dL (12-60) H 06/14/18 13:46 CSF VDRL Nonreactive (Nonreactive) 06/14/18 13:00 CSF Lyme IgG Antibody No bands detected 06/14/18 15:11 CSF Cryptococcus Ag Negative (NEGATIVE) 06/14/18 13:46 CSF Herpes I IgG Index 0.82 06/14/18 15:11 CSF Herpes I IgM Ab Negative 06/14/18 15:11 CSF Herpes II IgG Index <0.01 06/14/18 15:11 CSF Herpes II IgM Ab Negative 06/14/18 15:11 Acetylchol Rcpt Bind Ab <0.30 nmol/L 06/11/18 14:04 Lyme Disease Screen <0.90 index 06/17/18 07:57 Lyme Bands Present TEST NOT PERFORMED 06/14/18 15:11 Lyme IgM Ab (IFA) No bands detected 06/14/18 15:11 Cryptococcus Ag Negative (NEGATIVE) 06/16/18 16:00 CMV IgG Ab 2.80 U/mL H 06/17/18 07:57 CMV IgM Ab <30.00 AU/mL 06/17/18 07:57 EBV Capsid Ag IgG Ab 692.00 U/mL H 06/17/18 07:57 EBV Capsid Ag IgM Ab <36.00 U/mL 06/17/18 07:57 EBV Nuclear Antigen Ab <18.00 U/mL 06/17/18 07:57 EBV Interpretation See note 06/17/18 07:57 Hepatitis A IgM Ab Negative (NEGATIVE) 06/17/18 07:57 Hep Bs Antigen Negative (NEGATIVE) 06/17/18 07:57 Hep B Core IgM Ab Negative (NEGATIVE) 06/17/18 07:57 Hepatitis C Antibody Negative (NEGATIVE) 06/17/18 07:57 HSV IgM Ab Screen Negative (Negative) 06/13/18 10:15 HSV I IgG Ab 53.80 index H 06/13/18 10:15 HSV I IgM Titer 06/13/18 10:15 HSV II IgG <0.90 index 06/13/18 10:15 HSV II IgM Titer 06/13/18 10:15 HHV-6 IgM Ab Scrn Negative (Negative) 06/13/18 10:15 HIV 1&2 Antibody Screen Negative (NEGATIVE) 06/16/18 08:30 Infectious [place] Assay Negative (NEGATIVE) 06/17/18 07:57 H.influenzae Type B Ag Negative (NEGATIVE) 06/14/18 13:46 N.meningitidis ACY/W135 Negative (NEGATIVE) 06/14/18 13:46 N.meningi B/E.coli K1 Ag Negative (NEGATIVE) 06/14/18 13:46 Group B Strep Antigen Negative (NEGATIVE) 06/14/18 13:46 S. pneumoniae Antigen Negative (NEGATIVE) 06/14/18 13:46 TB Test (QFT) Nil 0.08 IU/mL 06/14/18 13:52 TB Test Mitogen - Nil 7.08 IU/mL 06/14/18 13:52 TB Test Antigen - Nil <0.00 IU/mL 06/14/18 13:52 TB Test TB - Nil <0.00 IU/mL 06/14/18 13:52 TB Test (QFT) Negative (Negative) 06/14/18 13:52 - Hospital Course Hospital Course: Patient is a 63 female with PMH of HTN and HLD who presented to ED following a 8 day sensation of inability to eat solids food due to feeling of obstruction. Patient states 8 days prior, she "lost her voice" and concurrently has been unable to swallow solid foods. She states she has throat pain and additionally feels she has something obstructing her throat, causing her to avoid solid foods. Patient states she is able to tolerate liquid food without issues. Patient denies any weight loss and trauma to throat prior to symptoms starting. Patient admits to clear productive cough for the last 2-3 days. Patient denies recent illness, recent travel. Patient was admitted for dysphagia. GI, ENT, neurology, and TOE SEWER were consulted. Initial MRI brain and CT head/neck did not reveal etiology. Modified barium swallow on 06/07 showed severe aspiration, poor cough reflex. Patient was placed on Zosyn to cover for aspiration PNA. GI performed EGD- no abnormalities noted and biopsies negative. ENT performed flex laryngoscopy revealing vocal cord hypokinesis but no masses. Patient had vocal cord and piriformis biopsy on 06/08 by ENT showing only mild chronic inflammation. TOE SEWER re-evaluated, and patient failed bedside swallow eval. Patient was feed via NGT from 06/09-06/15. GI inserted PEG 06/15. MRI brain done with contrast showed abnormalities consistent with viral, TB, or sarcoid in the region of christy, medulla, and 4th ventricle. ID was consulted. Patient was started on Valtrex. AST/ALT became mildly elevated. Valtrex was discontinued, and Acyclovir was started. Transaminitis resolved. Patient also started on steroid taper. Neurology did LP on 06/14- CSF studies consistent with virus. Serology showed positive EBV, CMV, and HSV-1 IgG. IgMs negative. Lyme, HIV, TB, hepatitis, Lyme, Cryptococcus, mono, GBS, H. influ, N. mening, S. pneum negative. Acetylcholine receptor binding Ab negative. VY negative. Blood, CSF, Fungal, urine cultures no growth. Repeat MBS on 06/19 showed no aspiration but still pooling of secretions. TOE SEWER recommended mechanically altered diet of bite-sized solids alternating with thin liquids and multiple swallows per bite. Patient was able to tolerate this prior to discharge. She was found to be hyponatremic (119) on admission. Nephrology was consulted. Hyponatremia was responsive to IVF and corrected within a few days. Patient was mildly hypokalemic throughout hospitalization. This was repleted. Patient's BP was monitored throughout hospitalization, and it was well controlled off medication. Patient continued on statin for hyperlipidemia. Upon discharge, patient was tolerating PO diet. She had mild R-sided throat pain. Her hoarseness had improved. Her Murphy's palsy was noticeable but improved. She will continue 10-day course of Acyclovir and prednisone taper. She will go home with PEG in place. She will follow-up at the [facility] for primary care who will evaluate if she is ready for PEG removal. She will also follow-up with neurology and ENT swallowing specialist. Discharge Exam - Head Exam Head Exam: ATRAUMATIC, NORMOCEPHALIC - Eye Exam Eye Exam: EOMI, Normal appearance, PERRL - ENT Exam ENT Exam: Mucous Membranes Moist - Neck Exam Neck exam: Full Rom, Normal Inspection - Respiratory Exam Respiratory Exam: Clear to PA & Lateral, NORMAL BREATHING PATTERN, UNREMARKABLE - Cardiovascular Exam Cardiovascular Exam: RRR, +S1, +S2 - GI/Abdominal Exam GI & Abdominal Exam: Normal Bowel Sounds, Soft, Unremarkable. absent: Tenderness Additional comments: PEG in place, no surrounding erythema, bleeding, or drainage - Extremities Exam Extremities exam: full ROM, normal inspection, pedal pulses present - Neurological Exam Neurological exam: Alert, Normal Gait, Oriented x3 Additional comments: R-sided Murphy's palsy evident but improved - Psychiatric Exam Psychiatric exam: Normal Affect, Normal Mood - Skin Skin Exam: Dry, Normal Color, Warm Discharge Plan - Discharge Medications Prescriptions: Acyclovir 400 mg PO TID #18 tablet Potassium Chloride [K-Dur 20] 10 meq PO DAILY #30 tab Simvastatin 10 mg PO HS #30 tablet - Follow Up Plan Condition: IMPROVED Disposition: HOME/ ROUTINE Patient education suggested?: Yes Instructions: Acyclovir (Systemic), Hypokalemia (DC), Hyponatremia (DC), Dysphagia (DC), Upper GI Endoscopy (DC), Simvastatin, Laryngoscopy (DC), Percutaneous Endoscopic Gastrostomy (DC) Additional Instructions: Follow-up at the [facility] in 2 weeks. Call [phone] to schedule an appointment. They will continue to serve as your primary care provider. They will also evaluate you for PEG tube removal once you are receiving adequate nutrition by mouth. Follow-up with swallowing specialist Dr. Ruthie Pang at [facility]. Call [phone] to schedule an appointment within 1 week of discharge. Follow-up with neurology (Dr. Duke) in 1 month. Call [phone] to schedule an appointment. You will be given the following prescriptions: Prednisone- take 3 tabs (30 mg) tomorrow 06/21 at 8 AM, take 2 tabs (20 mg) on 06/22 at 8 AM, take 1 tab (10 mg) on 06/23 at 8AM, then stop Acyclovir- take 400 mg three times daily for a total of 6 days (8 AM, 2 PM, 8 PM) Potassium Chloride (K-Dur)- take 10 mEq daily at 8 AM Simvastatin- take 10 mg nightly at 8 PM Take only the medications above. Please ensure that you are following instructions provided by the speech therapist for how to eat (small bites of solid food alternating with small sips of liquids). When swallowing solids, please make sure to chew your food thoroughly and use 2-3 swallows to get down each bite. Eat slowly. If symptoms worsen or recur, return to the nearest emergency room. Seguimiento en el [facility] en el [facility] en 2 semanas. Llame al [phone] para programar linh winsome. Continuarn sirviendo pancho schmitz proveedor de atencin primaria. Tambin lo evaluarn para la extraccin del tubo de PEG linh vez que est recibiendo linh nutricin adecuada por va oral. Seguimiento con la especialista en tragar, Dra. Ruthie Pang, en el [facility]. Llame al [phone] para programar linh winsome dentro de la primera semana del felecia. Seguimiento con neurologa (Dr. Duke) en 1 mes. Llame al [phone] para programar linh winsome. Se le darn las siguientes prescripciones: Prednisona: tome 3 tabletas (30 mg) maana 4/4 a las 8 AM, tome 2 tabletas (20 mg) el 4/5 a las 8 AM, tome 1 tableta (10 mg) el 4/6 a las 8 AM, luego deje de williams Aciclovir: tome 400 mg masoud veces al da hazel un total de 6 leon (8 AM, 2 PM, 8 PM) Cloruro de potasio (K-Dur): tome 10 mEq diariamente a las 8 AM Simvastatina: williams 10 mg por la noche a las 8 p. M. Jenn solo los medicamentos de arriba. Asegrese de seguir las instrucciones proporcionadas por el [place]ape[place] del habla para saber product evangelist comer (pequeos bocados de alimentos slidos alternados con pequeos sorbos de lquidos). Al tragar slidos, asegrese de masticar otto la comida y de usar 2-3 tragos para bajar cada bocado. Lazbuddie despacio. Si los sntomas empeoran o reaparecen, regrese a la adelita de emergencias ms cercana. Referrals: [facility] at [facility] [Outside] Bo Duke MD [Staff Provider] -
[2018-06-20] MEDS: Potassium Chloride 20 mEq/15 ml LIQ UD PO SCH ×2 (09:52→11:50)
[2018-06-20] MEDS: Tetrahydrozoline Opht 0.05% Sol (15 ml) OU SCH (09:52)
[2018-06-20] MEDS ORDERED: Rosuvastatin Calcium 2.5 mg Tab PEG SCH (22:00)
== END 2018-06-20 14:45 | disposition home or self-care (01) | DRG 222 ==
LOC: C.ER 10:16 → C.9E 20:27 → C.6T 21:14
PROVIDERS: ADMIT Family Medicine; ATTEND Family Medicine
PROC: 0CJS8ZZ Inspection of Larynx, Via Natural or Artificial Opening Endoscopic (ICD-10-PCS; 2018-06-05)
PROC: 0DB18ZX Excision of Upper Esophagus, Via Natural or Artificial Opening Endoscopic, Diagnostic (ICD-10-PCS; 2018-06-06)
PROC: 0CBT8ZX Excision of Right Vocal Cord, Via Natural or Artificial Opening Endoscopic, Diagnostic (ICD-10-PCS; principal; 2018-06-08 09:45)
PROC: 3E0G76Z Introduction of Nutritional Substance into Upper GI, Via Natural or Artificial Opening (ICD-10-PCS; 2018-06-14)
PROC: 009U3ZX Drainage of Spinal Canal, Percutaneous Approach, Diagnostic (ICD-10-PCS; 2018-06-14)
PROC: 0DH68UZ Insertion of Feeding Device into Stomach, Via Natural or Artificial Opening Endoscopic (ICD-10-PCS; 2018-06-15)
DX: R13.13 Dysphagia, pharyngeal phase (principal); J38.01 Paralysis of vocal cords and larynx, unilateral; J69.0 Pneumonitis due to inhalation of food and vomit; A87.9 Viral meningitis, unspecified; E22.2 Syndrome of inappropriate secretion of antidiuretic hormone; J90 Pleural effusion, not elsewhere classified; J02.9 Acute pharyngitis, unspecified; E83.39 Other disorders of phosphorus metabolism; E86.9 Volume depletion, unspecified; F41.9 Anxiety disorder, unspecified; G51.0 Bell's palsy; E87.6 Hypokalemia; I10 Essential (primary) hypertension; D86.9 Sarcoidosis, unspecified; K21.0 Gastro-esophageal reflux disease with esophagitis; K29.70 Gastritis, unspecified, without bleeding; K76.0 Fatty (change of) liver, not elsewhere classified; E78.5 Hyperlipidemia, unspecified; E78.00 Pure hypercholesterolemia, unspecified; Z86.010 Personal history of colon polyps; Z79.899 Other long term (current) drug therapy